=== PATIENT | male | born 1940 | race Caucasian/White ===

== ENCOUNTER 2016-09-17 22:00 | Inpatient (IN) | payer MEDICARE, MEDICAID ==
[2016-09-18 00:02] VITALS: BP 140/82
--- NOTE | 2016-09-18 02:47 | Progress Notes ---
Case was discussed with staff of the patient, reviewed records. Covering for Dr. Lanza who saw him yesterday. The patient has been psychotic and agitated. He has been confused, continues to be unable to participate and make safe plan for self-care. He is compliant with the medication with no side effects and the patient is recommended to transfer to [facility] when medically cleared. Thank you very much for allowing me to participate in the care of this most interesting gentleman. JOB# [id number]
[2016-09-18 10:36] LABS: % BASOPHILS 0.9 % (0.0-2.0); % LYMPHOCYTES 16.6 % (20.0-50.0); % MONOCYTES 4.4 % (2.0-10.0); % NEUTROPHILS 77.1 % (40.0-80.0); HEMATOCRIT 41.5 % (39.0-49.0); HEMOGLOBIN 13.9 gm/dL (12.6-17.4); MEAN CELL VOLUME 86.4 fl (80-99); MEAN CORPUSCULAR HGB CONC 33.6 pg (28.0-36.0); MEAN PLATELET VOLUME 8.3 fl; NEUTROPHILE ABSOLUTE 11.3 Th/cmm (1.8-8.0); PLATELET COUNT 172 Th/cmm (150-400); RED CELL DISTRIBUTION WIDTH 12.3 % (11.5-20.0)
[2016-09-18 10:40] LABS: WHITE BLOOD COUNT 14.5 Th/cmm (4.8-10.8)
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
[2016-09-18] MEDS: INSULIN ASPART SLIDING SCALE 100 UNITS/ML UNIT SUBQ SCH ×3 (13:40→22:59)
[2016-09-18] MEDS ORDERED: VTE Chemical Prophylaxis Screen/Admission MC PRN (15:35)
--- NOTE | 2016-09-19 01:19 | Psychosocial Evaluation ---
INITIAL EVALUATION AND MENTAL STATUS EXAMINATION CHIEF COMPLAINT: "Get out of here." HISTORY OF PRESENT ILLNESS: The patient is a 75-year-old male who was transferred from med-surg unit to the geropsychiatry unit because of aggressive behavior and irritability and agitation. The patient while in med-surg unit kept yelling and screaming and combative with staff and confused. The patient also was not able to follow any of the directions, also was restless and he was irritable and in angry mood and hitting the staff. Also kept trying to get out of the bed. The patient is still doing the same behavior and is still combative and tries to hit staff. Also is still trying to get out of the bed and he is high fall risk and the patient was placed on 1:1 observation because of high fall risk. The patient also is agitated and was not able to answer any of my questions because of his anger and irritability and agitation. He also has been combative and tries to hit staff and peers and he was threatening me when I was trying to talk to him. PAST PSYCHIATRIC HISTORY: The patient has history what seems to be schizoaffective disorder bipolar type. The patient is taking Depakote and Zoloft. PAST MEDICAL HISTORY: The patient has insulin-dependent diabetes mellitus. CHEMICAL-DEPENDENCY HISTORY: The patient denies any item. FAMILY PSYCHIATRIC HISTORY: Not known. SOCIAL HISTORY: The patient is having an address in [place] and it seemed that he is living with his family. No known alcohol or street drug use. No known legal issues or any history of abuse. ALLERGIES: No known allergies. MENTAL STATUS EXAMINATION: The patient appears his stated age, disheveled, irritable mood and angry. Thought processes are with poverty of speech and disorganized and with threatening tone of voice. The patient denies any auditory or visual hallucinations, but actively responding to stimuli. The patient did not answer questions regarding suicide or homicide. The patient is alert, but unable to assess his orientation or memory at this time because of his confusion and agitation. Poor insight and he is angry and does not answer any of the questions. Poor judgment and he is aggressive and combative with the staff when they are trying to help him with his ADLs. Unable to assess intelligence at this time because of his agitation. ASSESSMENT: PRIMARY DIAGNOSES: Schizoaffective disorder, bipolar type with psychotic features. SECONDARY DIAGNOSIS: Dementia, moderate with psychotic feature. TREATMENT PLAN: We will monitor the patient's behavior and condition closely. We will start individual as well milieu psychotherapy. We will start Seroquel in a dose of 25 mg twice a day and 50 mg at bedtime. Also we will start Depakote in a dose of 250 mg twice a day and we will continue to follow up. Also we will work on placement issue. ESTIMATED LENGTH OF STAY: A 5-7 days. THE PATIENT'S STRENGTHS AND WEAKNESSES: The patient seems to be in relatively fair health. Weaknesses is his poor impulse control and his agitation. AFTER DISCHARGE PLAN: The patient will discharge from the hospital and will need placement and outpatient treatment and followup will continue as an outpatient. CRITERIA FOR DISCHARGE: The patient will not be psychotic and will stabilize psychotropic medications and will establish outpatient treatment plans. JOB# [id number]
[2016-09-19] MEDS: INSULIN ASPART SLIDING SCALE 100 UNITS/ML UNIT SUBQ SCH ×4 (06:40→21:50)
[2016-09-19 07:37] LABS: ANION GAP 10.4 (7.0-16.0); BUN - UREA NITROGEN 16 mg/dL (7-25); BUN/CREATININE RATIO 17.8; CALCIUM SERUM 8.9 mg/dL (8.6-10.3); CARBON DIOXIDE 27.5 mEq/L (21.0-31.0); CHLORIDE 103 mEq/L (98-107); CREATININE - SERUM 0.9 mg/dL (0.7-1.3); GLUCOSE 121 mg/dL (70-105); SODIUM SERUM 138 mEq/L (136-145)
[2016-09-19 07:47] LABS: POTASSIUM SERUM 2.9 mEq/L (3.5-5.1)
[2016-09-19] MEDS ORDERED: Potassium Chloride 20 mEq ER Tab PO ONE (07:50)
[2016-09-19] MEDS ORDERED: Potassium Chloride Elixir 20 mEq /15 mL UDC PO ONE (08:45)
[2016-09-19] MEDS: Potassium Chloride Elixir 20 mEq /15 mL UDC PO SCH (08:55)
[2016-09-19] MEDS: Atorvastatin Calcium 10 MG TAB PO SCH (08:59)
[2016-09-19] MEDS ORDERED: Potassium Chloride 20 mEq ER Tab PO SCH (09:00)
--- NOTE | 2016-09-20 01:53 | Progress Notes ---
SUBJECTIVE: Chart was reviewed and the patient interviewed. Also, discussed the patient's condition with the staff and reviewed records and labs. The patient is still agitated and is still confused. The patient also is still trying to hit staff and he is still monitored closely, and he is still trying to get off bed and chair. Also, he is still severely combative with other patients and is still monitored on 1:1 observation. During interview, the patient has disorganized thoughts and he is unable to carry on coherent conversation. ASSESSMENT: The patient is still psychotic and can be dangerous to others. TREATMENT PLAN: We will continue monitoring his behavior and his condition closely. Also, the patient is started on Seroquel in a dose of 25 mg twice a day and 50 mg at bedtime with no side effects. We will continue same dose and continue to adjust the dose and monitoring behavior and work on behavioral modification. JOB# [id number]
[2016-09-20] MEDS: INSULIN ASPART SLIDING SCALE 100 UNITS/ML UNIT SUBQ SCH ×4 (07:07→22:13)
[2016-09-20 07:40] LABS: % BASOPHILS 0.6 % (0.0-2.0); % EOSINOPHILS 1.1 % (0.0-5.0); % LYMPHOCYTES 19.3 % (20.0-50.0); % MONOCYTES 4.7 % (2.0-10.0); % NEUTROPHILS 74.3 % (40.0-80.0); HEMOGLOBIN 13.5 gm/dL (12.6-17.4); MEAN CELL VOLUME 87.6 fl (80-99); MEAN CORPUSCULAR HEMOGLOBIN 29.6 pg (27.0-31.0); MEAN CORPUSCULAR HGB CONC 33.8 pg (28.0-36.0); MEAN PLATELET VOLUME 7.9 fl; NEUTROPHILE ABSOLUTE 7.3 Th/cmm (1.8-8.0); PLATELET COUNT 181 Th/cmm (150-400); RED BLOOD COUNT 4.57 Mil/cmm (3.80-5.80); RED CELL DISTRIBUTION WIDTH 12.1 % (11.5-20.0)
[2016-09-20 07:48] LABS: WHITE BLOOD COUNT 9.9 Th/cmm (4.8-10.8)
[2016-09-20 07:52] LABS: ANION GAP 10.7 (7.0-16.0); BUN - UREA NITROGEN 13 mg/dL (7-25); BUN/CREATININE RATIO 14.4; CARBON DIOXIDE 28.5 mEq/L (21.0-31.0); CHLORIDE 102 mEq/L (98-107); CREATININE - SERUM 0.9 mg/dL (0.7-1.3); GLUCOSE 111 mg/dL (70-105); POTASSIUM SERUM 3.2 mEq/L (3.5-5.1); SODIUM SERUM 138 mEq/L (136-145)
--- NOTE | 2016-09-20 09:39 | Diagnostic Imaging Report ---
CHEST X-RAY: AP view INDICATION: Leukocytosis COMPARISON: Chest x-ray 09/16/2016 FINDINGS: Chronic changes are seen with no focal consolidation or pleural effusions. There is evidence of prior median sternotomy. Mild cardiomegaly is noted. Degenerative changes of the spine are noted. IMPRESSION: Chronic lung changes with no focal consolidation identified. Evidence of prior median sternotomy. Mild cardiomegaly.
[2016-09-20] MEDS: Potassium Chloride Elixir 20 mEq /15 mL UDC PO SCH (09:40)
[2016-09-20] MEDS: Atorvastatin Calcium 10 MG TAB PO SCH (09:40)
--- NOTE | 2016-09-21 00:07 | Progress Notes ---
SUBJECTIVE: Chart was reviewed and the patient interviewed. Also, discussed the patient's condition with the staff and reviewed records and labs. The patient is still confused and he is still easily agitated and irritable. The patient also is still angry and is still aggressive and gets violent easily. The patient also is showing minimum interaction with others and he wants to be left alone. He also is still having severe mood swings and severe anxiety. Also, still yelling and screaming and unable to carry on coherent conversation. During interview, the patient is disheveled and he is in angry and in irritable mood and has disorganized thoughts. ASSESSMENT: The patient is still agitated and psychotic. TREATMENT PLAN: We will increase Seroquel to 37.5 mg twice a day and 50 mg at bedtime. Also, we will continue working on behavioral modifications and his irritability. Also, we will discuss with case work aide discharge plans and placement issue. Depakote blood level was ordered and results are pending. JOB# [id number]
[2016-09-21 07:00] LABS: % BASOPHILS 0.4 % (0.0-2.0); % EOSINOPHILS 1.8 % (0.0-5.0); % LYMPHOCYTES 20.9 % (20.0-50.0); % MONOCYTES 6.7 % (2.0-10.0); % NEUTROPHILS 70.2 % (40.0-80.0); HEMATOCRIT 35.9 % (39.0-49.0); HEMOGLOBIN 12.4 gm/dL (12.6-17.4); MEAN CELL VOLUME 87.2 fl (80-99); MEAN CORPUSCULAR HGB CONC 34.4 pg (28.0-36.0); MEAN PLATELET VOLUME 8.1 fl; NEUTROPHILE ABSOLUTE 7.2 Th/cmm (1.8-8.0); PLATELET COUNT 148 Th/cmm (150-400); RED BLOOD COUNT 4.12 Mil/cmm (3.80-5.80); WHITE BLOOD COUNT 10.2 Th/cmm (4.8-10.8)
[2016-09-21] MEDS: INSULIN ASPART SLIDING SCALE 100 UNITS/ML UNIT SUBQ SCH ×4 (07:19→20:36)
[2016-09-21 07:29] LABS: ANION GAP 8.3 (7.0-16.0); BUN - UREA NITROGEN 12 mg/dL (7-25); CALCIUM SERUM 8.4 mg/dL (8.6-10.3); CARBON DIOXIDE 27.9 mEq/L (21.0-31.0); CHLORIDE 105 mEq/L (98-107); CREATININE - SERUM 0.8 mg/dL (0.7-1.3); GLUCOSE 91 mg/dL (70-105); POTASSIUM SERUM 3.2 mEq/L (3.5-5.1); SODIUM SERUM 138 mEq/L (136-145)
[2016-09-21] MEDS: Atorvastatin Calcium 10 MG TAB PO SCH (10:07)
[2016-09-21] MEDS: Potassium Chloride Elixir 20 mEq /15 mL UDC PO SCH (10:20)
--- NOTE | 2016-09-22 02:55 | Progress Notes ---
Covering for Dr. Lanza. Case was discussed with staff of the patient. Reviewed records. This is a 75-year-old male who was admitted on 09/17/2016, transferred from the medical floor. He is well known to me as I have seen him covering for Dr. Lanza and now on the medical floor. The patient was aggressive, irritable, agitated and unable to follow directions. He was combative, trying to hit staff. ____ I tried to talk to him today, he kept calling me and he became very loud. He is unpredictable, impulsive, needing redirection and confused. He is on Depakote 250 mg twice a day and Seroquel 50 mg daily and 37 mg twice a day with no side effects, no sedation, no nausea and we will continue to work the patient in group therapy, milieu therapy, adjust the medication as needed. JOB# [id number]
[2016-09-22] MEDS: INSULIN ASPART SLIDING SCALE 100 UNITS/ML UNIT SUBQ SCH ×4 (06:37→21:00)
[2016-09-22 07:17] LABS: HEMOGLOBIN 13.3 gm/dL (12.6-17.4); MEAN PLATELET VOLUME 8.4 fl
[2016-09-22 07:19] LABS: ANION GAP 8.6 (7.0-16.0); BUN - UREA NITROGEN 12 mg/dL (7-25); BUN/CREATININE RATIO 13.3; CALCIUM SERUM 8.9 mg/dL (8.6-10.3); CARBON DIOXIDE 30.7 mEq/L (21.0-31.0); CHLORIDE 102 mEq/L (98-107); CREATININE - SERUM 0.9 mg/dL (0.7-1.3); GLUCOSE 177 mg/dL (70-105); POTASSIUM SERUM 3.3 mEq/L (3.5-5.1); SODIUM SERUM 138 mEq/L (136-145)
[2016-09-22 07:26] LABS: % BASOPHILS 0.5 % (0.0-2.0); % EOSINOPHILS 2.4 % (0.0-5.0); % LYMPHOCYTES 13.6 % (20.0-50.0); % MONOCYTES 6.6 % (2.0-10.0); % NEUTROPHILS 76.9 % (40.0-80.0); MEAN CELL VOLUME 86.5 fl (80-99); MEAN CORPUSCULAR HEMOGLOBIN 29.5 pg (27.0-31.0); MEAN CORPUSCULAR HGB CONC 34.1 pg (28.0-36.0); NEUTROPHILE ABSOLUTE 7.3 Th/cmm (1.8-8.0); PLATELET COUNT 174 Th/cmm (150-400); RED BLOOD COUNT 4.51 Mil/cmm (3.80-5.80); RED CELL DISTRIBUTION WIDTH 11.8 % (11.5-20.0); WHITE BLOOD COUNT 9.4 Th/cmm (4.8-10.8)
[2016-09-22] MEDS: Atorvastatin Calcium 10 MG TAB PO SCH (09:28)
[2016-09-22] MEDS: Potassium Chloride Elixir 20 mEq /15 mL UDC PO SCH ×2 (09:28→10:17)
--- NOTE | 2016-09-22 20:01 | Progress Notes ---
Case was discussed with staff of the patient, reviewed records. The patient continues to be easily irritable, agitated, yelling at staff, demanding, continues to be demented, confused, unable to make safe plan for self-care. He is compliant with the medication with no side effects, no sedation, no nausea, and he isolates himself, minimal interaction. Continues to have mood swings, tolerates increase in Seroquel with no side effects, no sedation, and no extrapyramidal symptoms. We will continue to work with the patient in group therapy, milieu therapy, and adjust the medication as needed. JOB# [id number]
[2016-09-23] MEDS: INSULIN ASPART SLIDING SCALE 100 UNITS/ML UNIT SUBQ SCH ×4 (06:30→20:43)
[2016-09-23 08:04] LABS: % BASOPHILS 0.1 % (0.0-2.0); % EOSINOPHILS 3.3 % (0.0-5.0); % LYMPHOCYTES 17.7 % (20.0-50.0); % MONOCYTES 8.1 % (2.0-10.0); % NEUTROPHILS 70.8 % (40.0-80.0); HEMATOCRIT 38.7 % (39.0-49.0); HEMOGLOBIN 13.2 gm/dL (12.6-17.4); MEAN CELL VOLUME 88.6 fl (80-99); MEAN CORPUSCULAR HEMOGLOBIN 30.3 pg (27.0-31.0); MEAN CORPUSCULAR HGB CONC 34.2 pg (28.0-36.0); MEAN PLATELET VOLUME 8.3 fl; NEUTROPHILE ABSOLUTE 6.6 Th/cmm (1.8-8.0); PLATELET COUNT 159 Th/cmm (150-400); RED BLOOD COUNT 4.37 Mil/cmm (3.80-5.80); RED CELL DISTRIBUTION WIDTH 12.2 % (11.5-20.0); WHITE BLOOD COUNT 9.4 Th/cmm (4.8-10.8)
[2016-09-23 08:19] LABS: ANION GAP 7.6 (7.0-16.0); BUN - UREA NITROGEN 9 mg/dL (7-25); CALCIUM SERUM 8.8 mg/dL (8.6-10.3); CARBON DIOXIDE 33.4 mEq/L (21.0-31.0); CHLORIDE 106 mEq/L (98-107); CREATININE - SERUM 0.9 mg/dL (0.7-1.3); GLUCOSE 127 mg/dL (70-105); SODIUM SERUM 143 mEq/L (136-145)
[2016-09-23] MEDS: Atorvastatin Calcium 10 MG TAB PO SCH (10:36)
[2016-09-23] MEDS: Potassium Chloride Elixir 20 mEq /15 mL UDC PO SCH (10:37)
--- NOTE | 2016-09-24 01:34 | Progress Notes ---
Case discussed with staff of the patient, reviewed records. The patient continues to be easily agitated, continues to be easily irritable, confused, continues to be unable to make safe plan for his self-care. He is sleeping well, eating well. He is compliant with the medication with no side effects, no sedation, no nausea, no extrapyramidal symptoms. He tolerated the increase in Zyprexa with no side effects, no sedation, no nausea, no extrapyramidal symptoms and we will continue to work with the patient in group therapy, milieu therapy, adjust the medication as needed. JOB# [id number]
[2016-09-24] MEDS: INSULIN ASPART SLIDING SCALE 100 UNITS/ML UNIT SUBQ SCH ×4 (06:29→20:51)
[2016-09-24 08:07] LABS: % BASOPHILS 0.6 % (0.0-2.0); % EOSINOPHILS 2.7 % (0.0-5.0); % LYMPHOCYTES 17.4 % (20.0-50.0); % MONOCYTES 8.2 % (2.0-10.0); % NEUTROPHILS 71.1 % (40.0-80.0); HEMATOCRIT 37.6 % (39.0-49.0); HEMOGLOBIN 12.8 gm/dL (12.6-17.4); MEAN CELL VOLUME 86.6 fl (80-99); MEAN CORPUSCULAR HEMOGLOBIN 29.5 pg (27.0-31.0); MEAN PLATELET VOLUME 8.4 fl; NEUTROPHILE ABSOLUTE 6.5 Th/cmm (1.8-8.0); PLATELET COUNT 182 Th/cmm (150-400); RED BLOOD COUNT 4.34 Mil/cmm (3.80-5.80); RED CELL DISTRIBUTION WIDTH 12.2 % (11.5-20.0); WHITE BLOOD COUNT 9.2 Th/cmm (4.8-10.8)
[2016-09-24] MEDS: Atorvastatin Calcium 10 MG TAB PO SCH (11:24)
[2016-09-24] MEDS: Potassium Chloride Elixir 20 mEq /15 mL UDC PO SCH (11:26)
[2016-09-25] MEDS: INSULIN ASPART SLIDING SCALE 100 UNITS/ML UNIT SUBQ SCH ×4 (07:25→20:53)
[2016-09-25] MEDS: Atorvastatin Calcium 10 MG TAB PO SCH (10:52)
[2016-09-25] MEDS: Potassium Chloride Elixir 20 mEq /15 mL UDC PO SCH (10:53)
--- NOTE | 2016-09-25 22:03 | Progress Notes ---
SUBJECTIVE: Chart was reviewed and the patient interviewed. Also discussed the patient's condition with the staff and reviewed records and labs. The patient is still angry and is still in irritable mood. The patient also is still having episodes of yelling and screaming, although it seems to be slightly less than before. He is still confused and still needs lots of redirections. Otherwise, the patient has been compliant with taking his medications with no side effects of medications. ASSESSMENT: The patient is still psychotic and aggressive. TREATMENT PLAN: We will continue monitoring his behavior and his condition closely. Also, we will increase Seroquel to 50 mg twice a day and 50 mg at bedtime and we will continue to follow up closely and working on discharge plans and placement issue. Discussed with child support case officer possible placement of the patient in [facility] and will follow up with that. JOB# [id number]
--- NOTE | 2016-09-26 02:29 | Progress Notes ---
SUBJECTIVE: Chart reviewed and the patient interviewed. Also discussed the patient's condition with the staff and reviewed records and labs. The patient continues to be paranoid and confused. The patient also still has episodes of yelling and screaming and he has been having difficulty following any of staff directions. He also is still restless and he gets agitated when staff tries to redirect him or when they start to help him with his ADLs. Otherwise, the patient is compliant with taking his medications with no side effects of medications. ASSESSMENT: The patient is still psychotic and agitated. TREATMENT PLAN: We will continue monitoring Seroquel dose and we will continue to monitor his behavior closely. Also, continue to work on behavioral modification and confusion. Also, transplant case manager will continue to work on adjusting of psychotropic medications. JOB# [id number]
[2016-09-26] MEDS: INSULIN ASPART SLIDING SCALE 100 UNITS/ML UNIT SUBQ SCH ×4 (06:45→21:19)
[2016-09-26] MEDS: Atorvastatin Calcium 10 MG TAB PO SCH (10:11)
[2016-09-26] MEDS: Potassium Chloride Elixir 20 mEq /15 mL UDC PO SCH (10:12)
--- NOTE | 2016-09-27 02:11 | Progress Notes ---
SUBJECTIVE: Chart reviewed and the patient interviewed. Also discussed the patient's condition with the staff and reviewed records and labs. The patient is still irritable and has still periods of agitation and anger. The patient also is still withdrawn and he still does not want to be bothered. Also, is still irritable and gets agitated easily. Otherwise, the patient continued to comply with taking his medications with no side effects of medications. ASSESSMENT: The patient is still psychotic and aggressive. TREATMENT PLAN: We will continue monitoring his behavior closely. Also, Seroquel was increased to 50 mg twice a day and 50 mg at bedtime. Also, cyanide case hardener is still working on placement issue and discharge plans. JOB# [id number]
[2016-09-27] MEDS: INSULIN ASPART SLIDING SCALE 100 UNITS/ML UNIT SUBQ SCH ×4 (06:54→21:48)
[2016-09-27] MEDS: Potassium Chloride Elixir 20 mEq /15 mL UDC PO SCH (09:03)
[2016-09-27] MEDS: Atorvastatin Calcium 10 MG TAB PO SCH (09:04)
--- NOTE | 2016-09-28 04:12 | Progress Notes ---
SUBJECTIVE: Chart reviewed and the patient interviewed. Also discussed the patient's condition with the staff and reviewed records and labs. The patient is still confused and is still in angry and in irritable mood. The patient also is still easily agitated. Also has periods of yelling and screaming. The patient also is showing lack of motivations and lack of interest. Otherwise, the patient is compliant with taking his medications with no side effects of medications. ASSESSMENT: The patient is still psychotic and can be dangerous to others and aggressive. TREATMENT PLAN: We will continue monitoring his behavior and his condition closely. Also, continue adjusting psychotropic medications and monitor Seroquel dose. Also discussed with pillowcase folder discharge plans and placement issue and still waiting and still working on his placement. JOB# [id number]
[2016-09-28] MEDS: INSULIN ASPART SLIDING SCALE 100 UNITS/ML UNIT SUBQ SCH ×4 (07:10→21:32)
[2016-09-28] MEDS: Atorvastatin Calcium 10 MG TAB PO SCH (09:19)
[2016-09-28] MEDS: Potassium Chloride Elixir 20 mEq /15 mL UDC PO SCH (09:20)
--- NOTE | 2016-09-29 06:23 | Progress Notes ---
The patient was seen and evaluated. The patient's chart was reviewed. Dr. Patiño covering for Dr. Lanza. SUBJECTIVE: Overnight staff members reported that the has been a little bit less irritable and less redirection, little bit more redirectable, less banging at his head. Today on [id number] evaluation, the patient easily awakened. He reports he has been feeling slightly better. Denies any banging his head at the wall. MENTAL STATUS EXAMINATION: Still is slightly irritable, agitated, denies any side effects to the medications. Current medications the patient is taking is atorvastatin, clopidogrel, Depakote 250 mg twice a day, Ativan as needed, Namenda 10 mg twice a day with Seroquel 150 mg a day. ASSESSMENT AND PLAN: The patient is a 75-year-old male with a history of aggressive behavior, banging himself at the head, stabilizing with the current medication regimen. We will continue monitoring as the patient still needs slightly some redirection and being very aggressive. Therefore, we will continue with the current medication to target the patient's aggressive behavior. JOB# [id number] MTDAndrew
[2016-09-29] MEDS: INSULIN ASPART SLIDING SCALE 100 UNITS/ML UNIT SUBQ SCH ×4 (07:02→21:00)
[2016-09-29] MEDS: Potassium Chloride Elixir 20 mEq /15 mL UDC PO SCH (10:37)
[2016-09-29] MEDS: Atorvastatin Calcium 10 MG TAB PO SCH (10:38)
--- NOTE | 2016-09-30 02:07 | Progress Notes ---
This is Dr. Patiño covering for Dr. Lanza. The patient was seen and evaluated. The patient's chart is reviewed. Overnight, staff member reported the patient has been slightly irritable, using his room, isolated. On [id number]-kk-[id number] evaluation, the patient is in room, isolated, withdrawn. When attempted to have a conversation, the patient misses the conversation, needed some redirection to have a conversation. Still endorsing suicidal ideation, helplessness. MENTAL STATUS EXAMINATION: He is still irritable, agitated, helplessness, endorsing hopelessness, poor insight, poor judgment and poor impulse control. ASSESSMENT AND PLAN: A 75-year-old male with a history of concussive behavior who had been banging himself on the head, stabilizing with the current medication regimen. We will continue the current medication regimen to continue targeting the patient's psychotic behavior. JOB# [id number] MTDD
[2016-09-30] MEDS: INSULIN ASPART SLIDING SCALE 100 UNITS/ML UNIT SUBQ SCH ×3 (06:44→20:44)
[2016-09-30] MEDS: Atorvastatin Calcium 10 MG TAB PO SCH (09:08)
[2016-09-30] MEDS: Potassium Chloride Elixir 20 mEq /15 mL UDC PO SCH (09:08)
--- NOTE | 2016-09-30 19:23 | Progress Notes ---
SUBJECTIVE: The patient was seen, chart reviewed, and discussed with staff. The patient is currently in the hospital under the care of Dr. Lanza, aggressive, irritable, agitated, not following direction, restless, and confused. The patient is in a Maryjane chair, combative, yelling at me. He has history of schizoaffective disorder, early dementia. The patient is isolative, confused, "I'm here because I'm here. AO to name only. He is medication compliant. He is eating with prompting and needing a lot of redirection. ASSESSMENT: The patient remains symptomatic, aggressive, irritable, confused, and disoriented, not safe for a lower level of care due to the persistence of his symptoms. PLAN: Continue to monitor and titrate medications as tolerated. Due to the persistence of the patient's symptoms, he is requiring continued inpatient hospitalization. [facility]# [id number]
[2016-10-01] MEDS: INSULIN ASPART SLIDING SCALE 100 UNITS/ML UNIT SUBQ SCH ×4 (06:39→21:00)
[2016-10-01] MEDS: Atorvastatin Calcium 10 MG TAB PO SCH (09:22)
[2016-10-01] MEDS: Potassium Chloride Elixir 20 mEq /15 mL UDC PO SCH (09:23)
[2016-10-01] MEDS: QUEtiapine Fumarate 50 MG, QUEtiapine Fumarate 12.5 MG PO SCH (21:30)
--- NOTE | 2016-10-01 21:36 | Progress Notes ---
Covering for Dr. Lanza. Case was discussed with staff of the patient, reviewed records. This is a well known case to me. I have seen him many times covering for Dr. Lanza. The patient continues to be agitated, irritable, aggressive, and hard to follow direction. He is on a Maryjane chair, tends to become , yelling, continues to be symptomatic, aggressive, irritable, not ready to be discharged, disoriented, and seemed not safe for lower level of care. I will be increasing his Seroquel dose to 62.5 mg at bedtime and so far no sedation, no nausea, and no extrapyramidal symptoms, and we will continue to work with the patient in group therapy, milieu therapy, and adjust medication as needed. JOB# [id number]
[2016-10-02] MEDS: INSULIN ASPART SLIDING SCALE 100 UNITS/ML UNIT SUBQ SCH ×4 (06:34→20:31)
[2016-10-02] MEDS: Potassium Chloride Elixir 20 mEq /15 mL UDC PO SCH (08:27)
[2016-10-02] MEDS: Atorvastatin Calcium 10 MG TAB PO SCH (08:28)
--- NOTE | 2016-10-02 19:38 | Progress Notes ---
Case discussed with staff of patient, reviewed records. The patient continues to be agitated, confused, continues to have poor insight. Continues to be unable to make safe plan for self-care and easily agitated, demanding, at times loud. He is compliant with the medication with no side effects, no sedation, no nausea, no extrapyramidal symptoms. I did increase his Seroquel yesterday to ____ mg. It is too early to make further adjustments. No side effects with the medication, no sedation, no nausea, no extrapyramidal symptoms. We will continue to work with the patient in group therapy, milieu therapy, adjust medication as needed. JOB# [id number]
[2016-10-02] MEDS: QUEtiapine Fumarate 50 MG, QUEtiapine Fumarate 12.5 MG PO SCH (20:33)
[2016-10-03] MEDS: INSULIN ASPART SLIDING SCALE 100 UNITS/ML UNIT SUBQ SCH ×4 (06:38→22:06)
[2016-10-03] MEDS: Potassium Chloride Elixir 20 mEq /15 mL UDC PO SCH (09:00)
[2016-10-03] MEDS: Atorvastatin Calcium 10 MG TAB PO SCH (09:01)
--- NOTE | 2016-10-03 19:44 | Discharge Summary ---
IDENTIFYING INFORMATION: The patient is a 75-year-old male. HISTORY OF PRESENT ILLNESS: The patient was transferred from the medical floor. He was admitted because of agitation, irritability. The patient himself was not a very good historian. COURSE IN THE HOSPITAL: The patient was continued with Depakote 250 mg twice a day. The patient also was given Ativan every 4 hours as needed and Namenda was continued 10 mg twice a day and Seroquel was initiated by Dr. Lanza, increased to 50 mg twice a day and later I increased the dose at bedtime to 62.5 mg at bedtime. He was continued with metformin, Glucophage. The patient also was on insulin, Plavix and atorvastatin. The patient progressively got better. He was no longer agitated or demanding or acting in any way aggressive. So as he improved, we felt he could be discharged to a lesser level of care. FINAL DIAGNOSIS: AXIS I: Dementia with behavioral disturbances. MEDICAL DIAGNOSES: Deferred to the medical doctor. DISPOSITION: [facility]. The patient will follow up with the psychiatrist, primary care physician and therapist there. EXPECTED OUTCOME: Stable if the patient complies with the above. JOB# [id number]
[2016-10-03] MEDS: QUEtiapine Fumarate 50 MG, QUEtiapine Fumarate 12.5 MG PO SCH (20:22)
[2016-10-04] MEDS: INSULIN ASPART SLIDING SCALE 100 UNITS/ML UNIT SUBQ SCH ×2 (06:43→13:30)
[2016-10-04] MEDS: Potassium Chloride Elixir 20 mEq /15 mL UDC PO SCH (09:17)
[2016-10-04] MEDS: Atorvastatin Calcium 10 MG TAB PO SCH (09:19)
--- NOTE | 2016-10-04 20:42 | Discharge Summary ---
DISCHARGE ADDENDUM Case was discussed with staff of the patient, reviewed records. The patient was supposed to have been discharged yesterday; however, he did not go because his pulse was high, so it has to be postponed. According to the charge nurse, Ms. , she said that the medical doctor has already given okay for the patient to go home that he is medically cleared and doing well and as per Dr. Gomes, he is sleeping well and eating well. No acting out behavior. So, the patient will be discharged back to the group home and will follow up with the psychiatrist, primary care physician, and therapist. Discharge summary has already been done. JOB# [id number]
== END 2016-10-04 14:00 | DRG 56 ==
LOC: GERO 22:00
PROVIDERS: ADMIT Psychiatry & Neurology Psychiatry; ATTEND Psychiatry & Neurology Psychiatry
DX: G30.9 Alzheimer's disease, unspecified (principal); G93.41 Metabolic encephalopathy; E44.0 Moderate protein-calorie malnutrition; E11.65 Type 2 diabetes mellitus with hyperglycemia; N39.0 Urinary tract infection, site not specified; F25.0 Schizoaffective disorder, bipolar type; F02.80 Dementia in other diseases classified elsewhere, unspecified severity, without behavioral disturbance, psychotic disturbance, mood disturbance, and anxiety; E87.6 Hypokalemia; F29 Unspecified psychosis not due to a substance or known physiological condition; R26.9 Unspecified abnormalities of gait and mobility; Z68.30 Body mass index [BMI] 30.0-30.9, adult
CPT/HCPCS: 36415-UA; 71010-TC; 80048-TC; 80164-TC; 82948-90; 83735-TC; 84550-TC; 85025-TC; 90899; G0410; J1815; Z7610

== ENCOUNTER 2016-10-23 21:28 | Inpatient (IN) | payer MEDICARE, MEDICAID ==
--- NOTE | 2016-10-23 21:36 | ED Physician Chart ---
Chief Complaint/HPI - Patient Information Date Seen:: 10/23/16 Time Seen:: 21:30 Chief Complaint:: weakness History of Present Illness:: 75-year-old male history of dementia, brought in by ambulance with apparent acute, worsening, moderate to severe, generalized weakness with associated decreased ability to ambulate and use the restroom on his own. This been happening for the past 2 days. He also has some associated intermittent hypoglycemic episodes. History limited as patient has underlying dementia History provided by EMS and EMS run sheet Allergies:: Allergies Allergy/AdvReac Type Severity Reaction Status Date / Time No Known Allergies Allergy Verified 09/15/16 13:37 Historian:: EMS Review:: Nurse's Note Reviewed, EMS run form Reviewed Review of Systems - Review of Systems Other: Complete system review otherwise unremarkable except as noted in HPI. Past Medical History - Past Medical History Past Medical History: DM, Dementia Family History: None Social History: Non Smoker, No Alcohol, No Drug Use, Care Facility Surgical History: None Psychiatricy History: Dementia Medication: Reviewed Family Medical History - Family Member Mother History Unknown: Yes Ethnicity: Unknown Living Status: Unknown Hx Family Cancer: (unknown) Hx Family Coronary Artery Disease: (unknown) Hx Family Congestive Heart Failure: (unknown) Hx Family Hypertension: (unknown) Hx Family Stroke: (unknown) Hx Family Diabetes: (unknown) Hx Family Seizures: (unknown) Hx Family Dementia: (unknown) Hx Family AIDS: (unknown) Hx Family COPD: (unknown) Hx Family Hepatitis: (unknown) Hx Family Psychiatric Problems: (unknown) Hx Family Tuberculosis: (unknown) Physical Exam - Physical Examination Other:: INITIAL VITAL SIGNS: Reviewed by me GENERAL: Alert and interactive but severely demented and uncooperative. No acute distress HEAD: Head is normocephalic and atraumatic EYES: EOMI. . No scleral icterus. No conjunctival injection ENT: Moist mucous membranes. NECK: Supple. No masses. Full range of motion RESPIRATORY: No tachypnea. Clear breath sounds bilaterally. No wheezing, rales, or rhonchi CV: Regular rate and rhythm. No murmurs, rubs, or gallops ABDOMEN: Soft, non-distended, non-tender. No guarding. No rebound. No masses. EXTREMITIES: No deformity. No cyanosis. No edema. SKIN: Warm and dry. No obvious rashes. NEUROLOGIC: Alert and oriented. Face is symmetric. Speech is normal. Moves all extremities equally. Motor and sensory distally intact. Labs/Radiology/EKG Results - Lab Results Results: Lab Results 10/23/16 10/23/16 10/23/16 Range/Units 21:51 21:51 21:51 WBC 9.7 (4.8-10.8) Th/cmm RBC 4.36 (3.80-5.80) Mil/cmm Hgb 12.8 (12.6-17.4) gm/dL Hct 38.4 L (39.0-49.0) % MCV 88.1 (80-99) fl MCH 29.4 (27.0-31.0) pg MCHC Differential 33.4 (28.0-36.0) pg RDW 13.5 (11.5-20.0) % Plt Count 198 (150-400) Th/cmm MPV 8.6 fl Neutrophils % 71.1 (40.0-80.0) % Lymphocytes % 21.0 (20.0-50.0) % Monocytes % 6.4 (2.0-10.0) % Eosinophils % 0.9 (0.0-5.0) % Basophils % 0.6 (0.0-2.0) % PT 10.4 (9.5-11.5) SECONDS INR 1.05 (0.5-1.4) PTT (Actin FS) 25.3 L (26.0-38.0) SECONDS Sodium 137 (136-145) mEq/L Potassium 3.7 (3.5-5.1) mEq/L Chloride 103 (98-107) mEq/L Carbon Dioxide 26.7 (21.0-31.0) mEq/L Anion Gap 11.0 (7.0-16.0) BUN 11 (7-25) mg/dL Creatinine 0.9 (0.7-1.3) mg/dL Est GFR ( Amer) TNP Est GFR (Non-Af Amer) TNP BUN/Creatinine Ratio 12.2 Glucose 150 H (70-105) mg/dL Whole Bld Lactic Acid (0.60-2.00) mmol/L Calcium 9.5 (8.6-10.3) mg/dL Total Bilirubin 0.5 (0.3-1.0) mg/dL AST 16 (13-39) U/L ALT 9 (7-52) U/L Alkaline Phosphatase 69 (34-104) U/L Total Protein 7.0 (6.0-8.3) gm/dL Albumin 3.7 L (4.2-5.5) gm/dL Globulin 3.3 gm/dL Albumin/Globulin Ratio 1.1 (1.0-1.8) 10/23/16 Range/Units 21:51 WBC (4.8-10.8) Th/cmm RBC (3.80-5.80) Mil/cmm Hgb (12.6-17.4) gm/dL Hct (39.0-49.0) % MCV (80-99) fl MCH (27.0-31.0) pg MCHC Differential (28.0-36.0) pg RDW (11.5-20.0) % Plt Count (150-400) Th/cmm MPV fl Neutrophils % (40.0-80.0) % Lymphocytes % (20.0-50.0) % Monocytes % (2.0-10.0) % Eosinophils % (0.0-5.0) % Basophils % (0.0-2.0) % PT (9.5-11.5) SECONDS INR (0.5-1.4) PTT (Actin FS) (26.0-38.0) SECONDS Sodium (136-145) mEq/L Potassium (3.5-5.1) mEq/L Chloride (98-107) mEq/L Carbon Dioxide (21.0-31.0) mEq/L Anion Gap (7.0-16.0) BUN (7-25) mg/dL Creatinine (0.7-1.3) mg/dL Est GFR ( Amer) Est GFR (Non-Af Amer) BUN/Creatinine Ratio Glucose (70-105) mg/dL Whole Bld Lactic Acid 1.65 (0.60-2.00) mmol/L Calcium (8.6-10.3) mg/dL Total Bilirubin (0.3-1.0) mg/dL AST (13-39) U/L ALT (7-52) U/L Alkaline Phosphatase (34-104) U/L Total Protein (6.0-8.3) gm/dL Albumin (4.2-5.5) gm/dL Globulin gm/dL Albumin/Globulin Ratio (1.0-1.8) ED Septic Shock - . Is Septic Shock (SBP<90, OR Lactate>4 mmol\L) present?: No Reassessment (Disposition) - Reassessment Reassessment:: This patient is severely demented. The history is very limited and difficult to obtain given his dementia. He has apparently a worsening weakness with decreasing activities daily living which include decreasing ability to ambulate and use the restroom on his own. This is apparently been happening for the past couple of days. Is also some possibly related to hypoglycemic episodes. Blood sugar here is 150. I discussed the case in detail with Dr. Chen who expressed good understanding of the case. He will admit the patient for further workup and treatment. Reassessment Condition:: Unchanged - Diagnosis Diagnosis:: Failure to thrive with decreasing activities of daily living Generalized weakness Diabetes mellitus type 2 Dementia History of intermittent hypoglycemia - Patient Disposition Discharge/Transfer:: Acute Care w/in this hosp Admitting Medical Physician:: Pj Chen Time:: 23:00 Condition at Disposition:: Stable ED Discharge Plan - Patient Disposition Admit/Discharge/Transfer: Acute Care w/in this hosp
[2016-10-23] MEDS ORDERED: Sodium Chloride 0.9% 1,000 ML IV ONE (21:37)
[2016-10-23 22:13] LABS: % BASOPHILS 0.6 % (0.0-2.0); % EOSINOPHILS 0.9 % (0.0-5.0); % MONOCYTES 6.4 % (2.0-10.0); % NEUTROPHILS 71.1 % (40.0-80.0); HEMATOCRIT 38.4 % (39.0-49.0); HEMOGLOBIN 12.8 gm/dL (12.6-17.4); MEAN CELL VOLUME 88.1 fl (80-99); MEAN CORPUSCULAR HEMOGLOBIN 29.4 pg (27.0-31.0); MEAN CORPUSCULAR HGB CONC 33.4 pg (28.0-36.0); MEAN PLATELET VOLUME 8.6 fl; NEUTROPHILE ABSOLUTE 6.9 Th/cmm (1.8-8.0); PLATELET COUNT 198 Th/cmm (150-400); RED BLOOD COUNT 4.36 Mil/cmm (3.80-5.80); RED CELL DISTRIBUTION WIDTH 13.5 % (11.5-20.0); WHITE BLOOD COUNT 9.7 Th/cmm (4.8-10.8)
[2016-10-23] MEDS ORDERED: Haloperidol Lactate 5 mg/mL 1mL Vial ONE (22:17)
[2016-10-23] MEDS ORDERED: Haloperidol Lactate 5 mg/mL 1mL Vial IM STA (22:17)
[2016-10-23 22:21] LABS: INR 1.05 (0.5-1.4); PROTHROMBIN TIME (TEST) 10.4 SECONDS (9.5-11.5)
[2016-10-23 22:22] LABS: ALB/GLOB RATIO 1.1 (1.0-1.8); ALKALINE PHOSPHATASE 69 U/L (34-104); BILIRUBIN,TOTAL 0.5 mg/dL (0.3-1.0); BUN - UREA NITROGEN 11 mg/dL (7-25); BUN/CREATININE RATIO 12.2; CALCIUM SERUM 9.5 mg/dL (8.6-10.3); CARBON DIOXIDE 26.7 mEq/L (21.0-31.0); CHLORIDE 103 mEq/L (98-107); CREATININE - SERUM 0.9 mg/dL (0.7-1.3); GLUCOSE 150 mg/dL (70-105); POTASSIUM SERUM 3.7 mEq/L (3.5-5.1); SGOT 16 U/L (13-39); SGPT/ALT 9 U/L (7-52); SODIUM SERUM 137 mEq/L (136-145)
[2016-10-24 01:42] LABS: URINE BILIRUBIN SMALL (NEGATIVE); URINE BLOOD NEGATIVE (NEGATIVE); URINE COLOR YELLOW; URINE GLUCOSE (UA) NEGATIVE (NEGATIVE); URINE KETONE 15 mg/dL (NEGATIVE); URINE PH 5.5; URINE PROTEIN TRACE mg/dL (NEGATIVE); URINE UROBILINOGEN 0.2 E.U./dL (0.2 - 1.0)
[2016-10-24 01:43] LABS: URINE BACTERIA FEW /hpf (NONE SEEN); URINE EPITHELIAL CELLS FEW /lpf (FEW); URINE RBC 0-2 /hpf (0-5); URINE WBC 0-2 /hpf (0-5)
[2016-10-24] MEDS: D5-0.45NS 1,000 ML IV SCH ×2 (02:00→21:51)
[2016-10-24] MEDS ORDERED: Pneumococcal Vaccine 0.5 mL Vial IM ONE (03:20)
[2016-10-24] MEDS: INSULIN ASPART SLIDING SCALE 100 UNITS/ML UNIT SUBQ SCH ×4 (06:39→20:41)
[2016-10-24] MEDS: Potassium Chloride Elixir 20 mEq /15 mL UDC PO SCH (09:26)
--- NOTE | 2016-10-24 10:28 | Consultation ---
HISTORY OF PRESENT ILLNESS: A 75-year-old male. The patient brought in as the patient responding less. They noticed that the patient has weakness though he is moving his arms and legs here. The patient has decreased ambulation. The patient ____ and somewhat weaker now. The patient had episodes of hypoglycemia also. PAST MEDICAL HISTORY: The patient has underlying history of dementia, diabetes. No definite seizures noted. REVIEW OF SYSTEMS: Twelve point negative except for above. MEDICATIONS: As per reconciliation. PHYSICAL EXAMINATION: VITAL SIGNS: Temperature 98.2, blood pressure 130/70, pulse is 74. NECK: Supple. No bruits. HEART: Sounds S1, S2. LUNGS: Clear. ABDOMEN: Soft. NEUROLOGIC: The patient's eyes closed. He will open them up. He will respond to his name, but just mumbles. Sometimes says his name and then does not interact much. The patient will withdraw upper and lower extremities to stimulus. Pupils react to light. Corneal reflex present. INVESTIGATIONS: I did not see any CAT scan at the moment. We will order that. LABORATORY DATA: WBC 9.7, hemoglobin 12.8, glucose 150. UA, wbc 0-2. IMPRESSION: 1. Encephalopathy. 2. Dementia. 3. Some parkinsonian features with rigidity, bradykinesia, slowness. 4. History of diabetes. 5. History of schizophrenia. Medications____ noted. I do not know whether he has been on any neuroleptics in the long term. He had been on Haldol, which could be ____ for some other parkinsonian features. High dose of Seroquel. 6. Muscles weakness. 7. Hyperlipidemia. MANAGEMENT: CT scan head and labs. Medication adjustment. Recommend Psychiatry input. JOB# [id number]
--- NOTE | 2016-10-24 13:48 | History & Physical ---
AGE: 75. SEX: Male. PHYSICIAN: Dr. Chen. FIRE APPARATUS ENGINEER: Dr. Lanza. REASON FOR THE CONSULT: Agitation. HISTORY OF PRESENT ILLNESS: The patient is a 75-year-old male who lives currently in [facility]. The patient has been agitated and has been aggressive. The patient also has been angry and in irritable mood and has been hitting and striking out staff and others in the skilled nursing. Also, has not been able to follow any of staff directions. The patient also is restless and in irritable mood. The patient has been taking Seroquel 75 mg twice a day and 100 mg at bedtime, but he is still aggressive and restless. PAST PSYCHIATRIC HISTORY: The patient has history of dementia. PAST MEDICAL HISTORY: As per Dr. Chen. SOCIAL HISTORY: The patient lives in [facility]. No known alcohol or street drug use. MENTAL STATUS EXAM: The patient appears his stated age. Anxious. Restless. Currently, seems to be sedated since he did take an injection. He was sedated while in the Emergency Room because of agitation and ____. The patient did not answer questions regarding hallucinations or delusions, but he seems to be actively responding. The patient is alert, but seems to be disoriented to time, place, person and situation. Impaired immediate, recent and remote memories and he was not able even to tell me his date. Poor insight. Poor judgment. ASSESSMENT: PRIMARY DIAGNOSIS: Unspecified psychosis. SECONDARY DIAGNOSIS: Dementia, moderate to severe, with psychotic features. TREATMENT PLAN: We will continue monitoring his behavior and his condition closely. Continue to work on his poor impulse control. Also, we will increase Seroquel to 75 mg twice a day and 125 mg at bedtime and we will continue to follow up. Thanks to Dr. Chen and will follow up with you. JOB# [id number]
--- NOTE | 2016-10-24 15:00 | Diagnostic Imaging Report ---
Head CT without intravenous contrast Indication: CVA Comparison: None Technique: Axial images were obtained from the vertex to the skull base without IV contrast. Coronal reconstructions were made. Total DLP: 655, CTDI34.4 FINDINGS: Exam is limited as patient was uncooperative including limited evaluation of the vertex. Otherwise no gross hemorrhage is identified. Atrophy is noted. The chau-white matter differentiation is preserved. The ventricles and basal cisterns are patent. Atherosclerotic vascular disease is noted. No mass effect or midline shift. Evaluation for skull fracture is limited on this exam. There is partial opacification of right sphenoid sinus. Additional mucosal thickening of the paranasal sinuses noted. Postsurgical changes of the right globe are noted. IMPRESSION: Limited exam as patient was uncooperative. There is suboptimal evaluation of the vertex. Otherwise no gross hemorrhage is identified. Repeat exam is recommended, when clinically feasible Atrophy. Atherosclerotic vascular disease. Right sphenoid sinus inflammatory disease with areas of bony remodeling likely suggestive of chronic sinusitis in this region.
[2016-10-24] MEDS ORDERED: Atorvastatin Calcium 10 MG TAB PO SCH (21:00)
[2016-10-25] MEDS: INSULIN ASPART SLIDING SCALE 100 UNITS/ML UNIT SUBQ SCH ×2 (06:33→12:14)
[2016-10-25] MEDS: Potassium Chloride Elixir 20 mEq /15 mL UDC PO SCH (08:33)
--- NOTE | 2016-10-25 08:34 | General Progress Note ---
Objective - Results Result Diagrams: 10/23/16 21:51 10/23/16 21:51 Recent Labs: Laboratory Last Values WBC 9.7 Th/cmm (4.8-10.8) 10/23/16 21:51 RBC 4.36 Mil/cmm (3.80-5.80) 10/23/16 21:51 Hgb 12.8 gm/dL (12.6-17.4) 10/23/16 21:51 Hct 38.4 % (39.0-49.0) L 10/23/16 21:51 MCV 88.1 fl (80-99) 10/23/16 21:51 MCH 29.4 pg (27.0-31.0) 10/23/16 21:51 MCHC Differential 33.4 pg (28.0-36.0) 10/23/16 21:51 RDW 13.5 % (11.5-20.0) 10/23/16 21:51 Plt Count 198 Th/cmm (150-400) 10/23/16 21:51 MPV 8.6 fl 10/23/16 21:51 Neutrophils % 71.1 % (40.0-80.0) 10/23/16 21:51 Lymphocytes % 21.0 % (20.0-50.0) 10/23/16 21:51 Monocytes % 6.4 % (2.0-10.0) 10/23/16 21:51 Eosinophils % 0.9 % (0.0-5.0) 10/23/16 21: Basophils % 0.6 % (0.0-2.0) 10/23/16 21:51 PT 10.4 SECONDS (9.5-11.5) 10/23/16 21:51 INR 1.05 (0.5-1.4) 10/23/16 21:51 PTT (Actin FS) 25.3 SECONDS (26.0-38.0) L 10/23/16 21:51 Sodium 137 mEq/L (136-145) 10/23/16 21:51 Potassium 3.7 mEq/L (3.5-5.1) 10/23/16 21:51 Chloride 103 mEq/L (98-107) 10/23/16 21:51 Carbon Dioxide 26.7 mEq/L (21.0-31.0) 10/23/16 21:51 Anion Gap 11.0 (7.0-16.0) 10/23/16 21:51 BUN 11 mg/dL (7-25) 10/23/16 21:51 Creatinine 0.9 mg/dL (0.7-1.3) 10/23/16 21:51 Est GFR ( Amer) TNP 10/23/16 21:51 Est GFR (Non-Af Amer) TNP 10/23/16 21:51 BUN/Creatinine Ratio 12.2 10/23/16 21:51 Glucose 150 mg/dL (70-105) H 10/23/16 21:51 POC Glucose 121 MG/DL (70 - 105) H 10/25/16 06:04 Whole Bld Lactic Acid 1.65 mmol/L (0.60-2.00) 10/23/16 21:51 Calcium 9.5 mg/dL (8.6-10.3) 10/23/16 21:51 Total Bilirubin 0.5 mg/dL (0.3-1.0) 10/23/16 21:51 AST 16 U/L (13-39) 10/23/16 21:51 ALT 9 U/L (7-52) 10/23/16 21:51 Alkaline Phosphatase 69 U/L (34-104) 10/23/16 21:51 Ammonia 29 umol/L (16-53) 10/24/16 09:34 Total Protein 7.0 gm/dL (6.0-8.3) 10/23/16 21:51 Albumin 3.7 gm/dL (4.2-5.5) L 10/23/16 21:51 Globulin 3.3 gm/dL 10/23/16 21:51 Albumin/Globulin Ratio 1.1 (1.0-1.8) 10/23/16 21:51 Urine Source CATH 10/24/16 01:00 Urine Color YELLOW 10/24/16 01:00 Urine Clarity HAZY (CLEAR) 10/24/16 01:00 Urine pH 5.5 10/24/16 01:00 Ur Specific Falcon 1.025 (1.005-1.030) 10/24/16 01:00 Urine Protein TRACE mg/dL (NEGATIVE) 10/24/16 01:00 Urine Glucose (UA) NEGATIVE mg/dL (NEGATIVE) 10/24/16 01:00 Urine Ketones 15 mg/dL (NEGATIVE) H 10/24/16 01:00 Urine Blood NEGATIVE (NEGATIVE) 10/24/16 01:00 Urine Nitrate NEGATIVE (NEGATIVE) 10/24/16 01:00 Urine Bilirubin SMALL (NEGATIVE) H 10/24/16 01:00 Urine Ictotest NEGATIVE (NEGATIVE) 10/24/16 01:00 Urine Urobilinogen 0.2 E.U./dL (0.2 - 1.0) 10/24/16 01:00 Ur Leukocyte Esterase NEGATIVE (NEGATIVE) 10/24/16 01:00 Urine RBC 0-2 /hpf (0-5) H 10/24/16 01:00 Urine WBC 0-2 /hpf (0-5) 10/24/16 01:00 Ur Epithelial Cells FEW /lpf (FEW) 10/24/16 01:00 Urine Bacteria FEW /hpf (NONE SEEN) 10/24/16 01:00 Urine Mucus FEW /lpf (FEW) 10/24/16 01:00 - Physical Exam Vitals and I&O: Vital Signs Temp 98.2 F 10/25/16 04:00 Pulse 72 10/25/16 04:00 Resp 17 10/25/16 04:00 BP 117/62 10/25/16 04:00 Pulse Ox 97 10/25/16 04:00 Intake & Output 10/24/16 10/25/16 10/25/16 18:59 06:59 18:59 Intake Total 200 1192.5 Balance 200 1192.5 Intake: Intake, IV Amount 992.5 D5-0.45NS 1,000 ml @ 50 992.5 mls/hr IV .Q20H [facility] Rx#: [id number] Oral 200 200 Other: # Voids 3 2 Active Medications: Current Medications Atorvastatin Calcium (Lipitor) 10 mg PO HS [facility] PRN Reason: Protocol Stop: 12/23/16 20:59 Last Admin: 10/24/16 20:42 Dose: 10 mg Clopidogrel Bisulfate (Plavix) 75 mg PO DAILY [facility] Stop: 12/23/16 08:59 Last Admin: 10/24/16 09:25 Dose: 75 mg Divalproex Sodium (Depakote Dr) 250 mg PO BID [facility] PRN Reason: Protocol Stop: 12/23/16 08:59 Last Admin: 10/24/16 16:23 Dose: 250 mg Docusate Sodium (Colace) 100 mg PO BID PRN PRN Reason: Constipation Stop: 12/22/16 23:33 Dextrose/Sodium Chloride (D5-0.45ns) 1,000 mls @ 50 mls/hr IV .Q20H [facility] Stop: 12/22/16 23:32 Last Admin: 10/24/16 21:51 Dose: 50 mls/hr Insulin Aspart (Novolog Insulin Sliding Scale) 0 units SUBQ ACHS [facility] PRN Reason: Protocol Stop: 12/23/16 07:29 Last Admin: 10/25/16 06:33 Dose: Not Given Lorazepam (Ativan) 1 mg IVP Q6HR PRN; Protocol PRN Reason: Agitation Stop: 12/22/16 23:31 Last Admin: 10/24/16 21:54 Dose: 1 mg Memantine (Namenda) 10 mg PO BID [facility] Stop: 12/23/16 08:59 Last Admin: 10/24/16 16:30 Dose: 10 mg Metoprolol Succinate (Toprol Xl) 25 mg PO BID [facility] Stop: 12/23/16 08:59 Last Admin: 10/24/16 16:23 Dose: Not Given Potassium Chloride (Potassium Chloride Elixir) 20 meq PO DAILY [facility] Stop: 12/23/16 08:59 Last Admin: 10/24/16 09:26 Dose: 20 meq Quetiapine Fumarate (Seroquel) 75 mg PO BID [facility] PRN Reason: Protocol Stop: 12/23/16 08:59 Last Admin: 10/24/16 16:23 Dose: 75 mg Quetiapine Fumarate (Seroquel) 125 mg PO HS [facility] PRN Reason: Protocol Stop: 12/23/16 20:59 Last Admin: 10/24/16 20:42 Dose: 125 mg Assessment/Plan - Problem List Patient Problems: All Active Problems POOR ORAL INTAKE WITH AGITATION (Acute)
--- NOTE | 2016-10-25 23:34 | History & Physical ---
HISTORY OF PRESENT ILLNESS: The patient was admitted on 10/23/2016. This 75-year-old male patient was brought to the hospital because he was very agitated, was very weak and also had a low blood sugar and had episodes of dizziness and syncope. The patient has underlying history of dementia, diabetes and patient's 12-point examination negative except as noted above. MEDICATIONS: See the reconciliation sheet. PHYSICAL EXAMINATION: VITAL SIGNS: Temperature 98.2, blood pressure 130/70, pulse 74. HEAD: Normal. ENT: Normal. NECK: Supple. LUNGS: Clear. CARDIOVASCULAR SYSTEM: S1, S2 heard. ABDOMEN: Soft. Bowel sounds are heard. CENTRAL NERVOUS SYSTEM: Grossly normal. LABORATORY DATA: The patient had a CAT scan was negative. Hemoglobin was 12.8. DIAGNOSES: Altered level of consciousness, encephalopathy, dementia, Parkinsons ____, history of diabetes, history of hyperglycemia and history of muscle weakness, history of hyperlipidemia and history of major depression disorder, history of Alzheimer disease and history of acute psychosis. PLAN: The patient is being admitted and I will go ahead and call neurologist and also I will call psychiatrist, Dr. Doty and then I will follow the patient. JOB# [id number]
--- NOTE | 2016-10-26 00:28 | History & Physical ---
HISTORY OF PRESENT ILLNESS: Essentially, this is a 75-year-old male patient. He was admitted through the Emergency Room for increasing confusion, episodes of with a diagnosis of encephalopathy, history of dementia, history of Parkinson disease, history of hypertension, history of schizophrenia, history of diabetes, osteoarthritis, and the patient was treated in the medical floor, and today, the patient was transferred to [facility] because of his aggressive behavior and Dr. Soren Lanza was called in and he is going to be following the patient. PHYSICAL EXAMINATION: GENERAL: The patient is alert, oriented, and confused. VITAL SIGNS: Noted in chart. HEAD: Normal. ENT: Normal. NECK: Supple, nontender. LUNGS: Clear. CARDIOVASCULAR SYSTEM: S1, S2 heard. ABDOMEN: Soft. Bowel sounds are heard. CENTRAL NERVOUS SYSTEM: Grossly normal. DIAGNOSES: Acute psychosis, history of some major depression, history of schizophrenia, history of diabetes, history of hyperlipidemia, history of hypertension, history of metabolic encephalopathy, history of dementia, and Alzheimer disease, and I will follow the medical portion and I will have Dr. Lanza see the patient. JOB# [id number]
[2016-10-26 13:13] LABS: FOLIC ACID 9.3 ng/mL (>3.0)
[2016-10-28 11:12] LABS: ALDOLASE 3.9 U/L (3.3-10.3); T4 FREE 1.14 ng/dL (0.82-1.77)
--- NOTE | 2016-10-29 10:57 | History & Physical ---
The patient admitted through the Emergency Room. CHIEF COMPLAINT: The patient brought in from a fpc with chief complaint of agitation, dementia, poor appetite and decreased ability to ambulate. The patient is a poor historian. REVIEW OF SYSTEMS: GENERAL: Not in distress. HEAD: Denies any headache. EYES: No blurring of vision. ENT: No nasal discharge. No facial tenderness. NECK: Denies any neck pain. CARDIOVASCULAR: No chest pain. PULMONARY: No shortness of breath. GASTROINTESTINAL: Denies any nausea, vomiting or abdominal pain. GENITOURINARY: No dysuria. MUSCULOSKELETAL: Denies any pain or weakness. ENDOCRINOLOGY: Denies any polydipsia or polyuria. PAST MEDICAL HISTORY: The patient has significant history for diabetes and dementia. FAMILY HISTORY: Unremarkable. SOCIAL HISTORY: Unremarkable. PAST SURGICAL HISTORY: Unremarkable. PSYCHIATRIC HISTORY: The patient has history of dementia. PHYSICAL EXAMINATION: GENERAL: The patient is awake and alert with episodes of confusion. HEAD: Atraumatic, normocephalic. EYES: Bilateral PERRLA. Normal conjunctivae. ENT: Bilateral mucous membranes are moist. NECK: Supple. No masses noted. Negative for JVD. LUNGS: Clear to auscultation. No wheezing or rhonchi. CARDIOVASCULAR: Regular rate and rhythm. No murmurs. CHEST: Positive S1 and S2. ABDOMEN: Soft, nontender, positive bowel sounds. EXTREMITIES: No deformity, no edema, no clubbing. NEUROLOGIC: Alert and oriented. Facial symmetry. Normal speech. Able to move all extremities. DIAGNOSIS: The patient is diagnosed with agitation, failure to thrive. The patient will be admitted to medical floor for continuity of care for IV fluids and observation for agitation. [facility]# [id number]
--- NOTE | 2016-11-12 09:36 | Discharge Summary ---
HOSPITAL COURSE: The patient was admitted from her care home to the Emergency Room with chief complaint of poor oral intake and agitation. The patient was admitted to Med/Surg floor. Psych consultation was done, was obtained for psychiatric behavior of the patient. CT scan of the head was done and it came out negative. The patient was discharged to Geriatric Psych Unit for management of psychiatric behavior. DISCHARGE DIAGNOSES: 1. Failure to thrive. 2. Psychotic behavior. [facility]# [id number]
== END 2016-10-25 16:21 | DRG 637 ==
LOC: ER 21:28 → MSI 23:00
PROVIDERS: ADMIT Internal Medicine; ATTEND Internal Medicine
DX: E11.649 Type 2 diabetes mellitus with hypoglycemia without coma (principal); G93.40 Encephalopathy, unspecified; G20 Parkinson's disease; F02.81 Dementia in other diseases classified elsewhere, unspecified severity, with behavioral disturbance; G30.9 Alzheimer's disease, unspecified; F32.9 Major depressive disorder, single episode, unspecified; R62.7 Adult failure to thrive; F20.9 Schizophrenia, unspecified; E78.5 Hyperlipidemia, unspecified; F29 Unspecified psychosis not due to a substance or known physiological condition; M62.81 Muscle weakness (generalized); M19.90 Unspecified osteoarthritis, unspecified site; I10 Essential (primary) hypertension
CPT/HCPCS: 36415-UA; 70450-TC; 80053-TC; 81001-TC; 82085-90; 82140-TC; 82607-90; 82746-90; 82948-90; 83605; 84439-90; 84443-TC; 85025-TC; 85610-TC; 85652-TC; 85730-TC; 86141-TC; 93005; J1200; J1630; J1815; J2060; J7030; Z7610

== ENCOUNTER 2016-10-25 16:22 | Inpatient (IN) | payer MEDICARE, MEDICAID ==
[2016-10-25] MEDS ORDERED: Haloperidol Lactate 5 mg/mL 1mL Vial IM STA (17:18)
[2016-10-25] MEDS ORDERED: Haloperidol Lactate 5 mg/mL 1mL Vial ONE (17:19)
[2016-10-25 17:36] VITALS: BP 160/86
[2016-10-25] MEDS ORDERED: Magnesium Hydroxide (MOM) 30 mL UDC PO PRN (17:36)
[2016-10-25] MEDS ORDERED: Maalox 30 mL Cup PO PRN (17:36)
[2016-10-25] MEDS: Atorvastatin Calcium 10 MG TAB PO SCH (21:51)
[2016-10-25] MEDS: INSULIN ASPART SLIDING SCALE 100 UNITS/ML UNIT SUBQ SCH (21:56)
[2016-10-26] MEDS: INSULIN ASPART SLIDING SCALE 100 UNITS/ML UNIT SUBQ SCH ×4 (06:30→21:02)
--- NOTE | 2016-10-26 07:02 | General Progress Note ---
Objective - Results Recent Labs: Laboratory Last Values POC Glucose 140 MG/DL (70 - 105) H 10/26/16 06:09 - Physical Exam Vitals and I&O: Vital Signs Temp 98 F 10/25/16 19:50 Pulse 98 10/25/16 19:50 Resp 20 10/25/16 23:00 BP 103/61 10/25/16 19:50 Pulse Ox 97 10/25/16 19:50 Intake & Output 10/25/16 10/26/16 10/26/16 18:59 06:59 18:59 Intake Total 740 Balance 740 Intake: Oral 740 Other: # Voids 1 # Bowel Movements 0 Active Medications: Current Medications Acetaminophen (Tylenol) 650 mg PO Q4HR PRN PRN Reason: Pain or Fever >101 Stop: 12/24/16 17:35 Al Hydrox/Mg Hydrox/Simethicone (Maalox) 30 ml PO Q4HR PRN PRN Reason: GI DISTRESS Stop: 12/24/16 17:35 Atorvastatin Calcium (Lipitor) 10 mg PO HS [facility] PRN Reason: Protocol Stop: 12/24/16 20:59 Last Admin: 10/25/16 21:51 Dose: 10 mg Clopidogrel Bisulfate (Plavix) 75 mg PO DAILY [facility] Stop: 12/25/16 08:59 Divalproex Sodium (Depakote Dr) 250 mg PO BID [facility] PRN Reason: Protocol Stop: 12/25/16 08:59 Docusate Sodium (Colace) 100 mg PO BID PRN PRN Reason: Constipation Stop: 12/24/16 20:39 Insulin Aspart (Novolog Insulin Sliding Scale) 0 units SUBQ ACHS [facility] PRN Reason: Protocol Stop: 12/24/16 20:59 Last Admin: 10/26/16 06:30 Dose: Not Given Lorazepam (Ativan) 0.5 mg PO Q4HR PRN; Protocol PRN Reason: Anxiety Stop: 11/24/16 17:35 Lorazepam (Ativan) 1 mg PO Q4HR PRN; Protocol PRN Reason: Anxiety Stop: 12/24/16 20:39 Memantine (Namenda) 10 mg PO BID [facility] Stop: 12/25/16 08:59 Metformin HCl (Glucophage) 500 mg PO BID [facility] Stop: 12/25/16 08:59 Metoprolol Succinate (Toprol Xl) 25 mg PO BID [facility] Stop: 12/25/16 08:59 Multivitamins/Vitamin C (Theragran) 1 tab PO DAILY [facility] Stop: 12/25/16 08:59 Potassium Chloride (Potassium Chloride Elixir) 20 meq PO DAILY [facility] Stop: 12/25/16 08:59 Quetiapine Fumarate (Seroquel) 75 mg PO BID [facility] PRN Reason: Protocol Stop: 12/25/16 08:59 Quetiapine Fumarate (Seroquel) 125 mg PO HS [facility] PRN Reason: Protocol Stop: 12/24/16 20:59 Zolpidem Tartrate (Ambien) 5 mg PO HS PRN PRN Reason: Insomnia Stop: 12/24/16 17:35 Assessment/Plan - Problem List Patient Problems: All Active Problems POOR ORAL INTAKE WITH AGITATION (Acute)
[2016-10-26] MEDS: Potassium Chloride Elixir 20 mEq /15 mL UDC PO SCH (08:35)
[2016-10-26] MEDS: Multivitamin Tab PO SCH (08:35)
[2016-10-26] MEDS: Atorvastatin Calcium 10 MG TAB PO SCH (20:20)
--- NOTE | 2016-10-26 23:24 | Psychosocial Evaluation ---
JUSTIFICATION FOR HOSPITALIZATION: The patient with advanced dementia, worsening ability to care for himself, highly confused, history of schizophrenia. CHIEF COMPLAINT: Worsening mental status, confusion. HISTORY OF PRESENT ILLNESS: A 75-year-old male with history of confusion and weakness. The patient with history aggressive behaviors, irritability and agitation, had been here just last month in August, documented history of schizoaffective disorder and dementia. The patient is not participating in the interview whatsoever. Staff noting he remains impulsive, unpredictable, in Maryjane chair, trying to get up, requiring a lot of redirection. PAST PSYCHIATRIC HISTORY: Psychosis and dementia. PAST MEDICAL HISTORY: Please see full H and P. SOCIAL HISTORY: The patient requiring higher level of care. Beyond this, I am not really quite sure. He is not able to participate in interview. MENTAL STATUS EXAMINATION: Appearance, stated age, little eye contact, psychomotorically accelerated. Mood, not answering. Affect flat. Thought processes were confused. Thought content, difficult to assess fully. No suicidal gestures. He does appear to be responding to internal stimuli. Insight poor. Judgment impaired. Concentration poor. PROVISIONAL DIAGNOSES: Schizoaffective disorder, bipolar type per history; advanced dementia. MEDICAL: Please see full History and Physical. ESTIMATED LENGTH OF STAY: 7-10 days. ASSESSMENT: Currently in the hospital, history of combative behaviors, worsening confusional status, unable to be cared for at a lower level of care, restless, staff cannot care for him without the Geropsych and structured setting. PLAN: We will continue to monitor. Treatment plan includes group as well as milieu therapy. We will adjust medications as tolerated. CONDITIONS FOR DISCHARGE: Improved mood, improved affect, cessation of any SI or HI, safe discharge planning, good psychiatric followup, better control of his mood symptoms and his restless symptoms and his anxiety symptoms. JOB# [id number]
[2016-10-27] MEDS: INSULIN ASPART SLIDING SCALE 100 UNITS/ML UNIT SUBQ SCH ×4 (06:34→20:56)
[2016-10-27] MEDS: Multivitamin Tab PO SCH (08:56)
[2016-10-27] MEDS: Potassium Chloride Elixir 20 mEq /15 mL UDC PO SCH (08:57)
--- NOTE | 2016-10-27 09:05 | General Progress Note ---
Subjective - Review of Systems Service Date: 10/27/16 Objective - Results Recent Labs: Laboratory Last Values POC Glucose 152 MG/DL (70 - 105) H 10/27/16 06:22 - Physical Exam Vitals and I&O: Vital Signs Temp 97.2 F 10/27/16 06:42 Pulse 84 10/27/16 06:42 Resp 20 10/27/16 06:42 BP 130/68 10/27/16 06:42 Pulse Ox 97 10/27/16 06:42 Intake & Output 10/26/16 10/27/16 10/27/16 18:59 06:59 18:59 Intake Total 1800 120 Balance 1800 120 Intake: Oral 1800 120 Other: # Voids 4 3 # Bowel Movements 0 Active Medications: Current Medications Acetaminophen (Tylenol) 650 mg PO Q4HR PRN PRN Reason: Pain or Fever >101 Stop: 12/24/16 17:35 Al Hydrox/Mg Hydrox/Simethicone (Maalox) 30 ml PO Q4HR PRN PRN Reason: GI DISTRESS Stop: 12/24/16 17:35 Atorvastatin Calcium (Lipitor) 10 mg PO HS [facility] PRN Reason: Protocol Stop: 12/24/16 20:59 Last Admin: 10/26/16 20:20 Dose: 10 mg Clopidogrel Bisulfate (Plavix) 75 mg PO DAILY [facility] Stop: 12/25/16 08:59 Last Admin: 10/26/16 08:36 Dose: 75 mg Divalproex Sodium (Depakote Dr) 250 mg PO BID [facility] PRN Reason: Protocol Stop: 12/25/16 08:59 Last Admin: 10/26/16 17:26 Dose: 250 mg Docusate Sodium (Colace) 100 mg PO BID PRN PRN Reason: Constipation Stop: 12/24/16 20:39 Insulin Aspart (Novolog Insulin Sliding Scale) 0 units SUBQ ACHS [facility] PRN Reason: Protocol Stop: 12/24/16 20:59 Last Admin: 10/27/16 06:34 Dose: 2 units Lorazepam (Ativan) 1 mg PO Q4H PRN; Protocol PRN Reason: Anxiety Stop: 12/24/16 20:39 Last Admin: 10/26/16 12:19 Dose: 1 mg Memantine (Namenda) 10 mg PO BID [facility] Stop: 12/25/16 08:59 Last Admin: 10/26/16 17:14 Dose: 10 mg Metformin HCl (Glucophage) 500 mg PO BID [facility] Stop: 12/25/16 08:59 Last Admin: 10/26/16 17:15 Dose: 500 mg Metoprolol Succinate (Toprol Xl) 25 mg PO BID [facility] Stop: 12/25/16 08:59 Last Admin: 10/26/16 17:27 Dose: 25 mg Multivitamins/Vitamin C (Theragran) 1 tab PO DAILY [facility] Stop: 12/25/16 08:59 Last Admin: 10/26/16 08:35 Dose: 1 tab Mupirocin (Bactroban Oint) 1 appl NS BID [facility] Stop: 10/31/16 09:01 Last Admin: 10/26/16 17:09 Dose: 1 appl Potassium Chloride (Potassium Chloride Elixir) 20 meq PO DAILY [facility] Stop: 12/25/16 08:59 Last Admin: 10/26/16 08:35 Dose: 20 meq Quetiapine Fumarate (Seroquel) 75 mg PO BID [facility] PRN Reason: Protocol Stop: 12/25/16 08:59 Last Admin: 10/26/16 17:14 Dose: 75 mg Quetiapine Fumarate 100 mg/ (Quetiapine Fumarate 25 mg) 125 mg PO HS [facility] Stop: 12/25/16 20:59 Last Admin: 10/26/16 20:20 Dose: 125 mg Zolpidem Tartrate (Ambien) 5 mg PO HS PRN PRN Reason: Insomnia Stop: 12/24/16 17:35 General: Alert, Other (confused) HEENT: Atraumatic Neck: Supple Cardiovascular: Regular rate, Normal S1, Normal S2 Lungs: Clear to auscultation, Normal air movement Abdomen: Bowel sounds Neurological: Normal gait Assessment/Plan - Problem List Patient Problems: All Active Problems encephalopathy (Acute) psychosis (Acute) POOR ORAL INTAKE WITH AGITATION (Acute)
[2016-10-27] MEDS: Atorvastatin Calcium 10 MG TAB PO SCH (21:32)
--- NOTE | 2016-10-28 03:53 | Progress Notes ---
SUBJECTIVE: The patient seen, chart reviewed and discussed with staff. The patient remains aggressive, still irritable, labile, highly confused, needing a lot of prompting, needing a lot of redirection, not safe for a lower level of care at this time. Still in Maryjane chair, trying to get up. The patient needs prompting for ADLs, prompting for eating and highly disoriented. ASSESSMENT: The patient remains confused, disoriented, very confused at this time, not able to participate in self-care planning discussions due to the need for high level supervision. He is not safe for a lower level of care at this time. We will continue to monitor. The patient to follow up with Dr. Lanza in the morning. JOB# [id number]
[2016-10-28] MEDS: INSULIN ASPART SLIDING SCALE 100 UNITS/ML UNIT SUBQ SCH ×4 (06:49→20:44)
--- NOTE | 2016-10-28 08:37 | General Progress Note ---
Objective - Results Recent Labs: Laboratory Last Values POC Glucose 72 MG/DL (70 - 105) 10/28/16 06:38 - Physical Exam Vitals and I&O: Vital Signs Temp 97.6 F 10/28/16 06:36 Pulse 68 10/28/16 06:36 Resp 19 10/28/16 06:36 BP 123/58 10/28/16 06:36 Pulse Ox 98 10/28/16 06:36 Intake & Output 10/27/16 10/28/16 10/28/16 18:59 06:59 18:59 Intake Total 1200 120 Balance 1200 120 Intake: Oral 1200 120 Other: # Voids 4 3 # Bowel Movements 1 Active Medications: Current Medications Acetaminophen (Tylenol) 650 mg PO Q4HR PRN PRN Reason: Pain or Fever >101 Stop: 12/24/16 17:35 Al Hydrox/Mg Hydrox/Simethicone (Maalox) 30 ml PO Q4HR PRN PRN Reason: GI DISTRESS Stop: 12/24/16 17:35 Atorvastatin Calcium (Lipitor) 10 mg PO HS [facility] PRN Reason: Protocol Stop: 12/24/16 20:59 Last Admin: 10/27/16 21:32 Dose: Not Given Clopidogrel Bisulfate (Plavix) 75 mg PO DAILY [facility] Stop: 12/25/16 08:59 Last Admin: 10/27/16 08:54 Dose: 75 mg Divalproex Sodium (Depakote Dr) 250 mg PO BID [facility] PRN Reason: Protocol Stop: 12/25/16 08:59 Last Admin: 10/27/16 17:21 Dose: 250 mg Docusate Sodium (Colace) 100 mg PO BID PRN PRN Reason: Constipation Stop: 12/24/16 20:39 Insulin Aspart (Novolog Insulin Sliding Scale) 0 units SUBQ ACHS [facility] PRN Reason: Protocol Stop: 12/24/16 20:59 Last Admin: 10/28/16 06:49 Dose: Not Given Lorazepam (Ativan) 1 mg PO Q4H PRN; Protocol PRN Reason: Anxiety Stop: 12/24/16 20:39 Last Admin: 10/26/16 12:19 Dose: 1 mg Memantine (Namenda) 10 mg PO BID [facility] Stop: 12/25/16 08:59 Last Admin: 10/27/16 17:21 Dose: 10 mg Metformin HCl (Glucophage) 500 mg PO BID [facility] Stop: 12/25/16 08:59 Last Admin: 10/27/16 17:18 Dose: 500 mg Metoprolol Succinate (Toprol Xl) 25 mg PO BID [facility] Stop: 12/25/16 08:59 Last Admin: 10/27/16 17:19 Dose: 25 mg Multivitamins/Vitamin C (Theragran) 1 tab PO DAILY [facility] Stop: 12/25/16 08:59 Last Admin: 10/27/16 08:56 Dose: 1 tab Mupirocin (Bactroban Oint) 1 appl NS BID [facility] Stop: 10/31/16 09:01 Last Admin: 10/27/16 17:18 Dose: 1 appl Potassium Chloride (Potassium Chloride Elixir) 20 meq PO DAILY [facility] Stop: 12/25/16 08:59 Last Admin: 10/27/16 08:57 Dose: 20 meq Quetiapine Fumarate (Seroquel) 75 mg PO BID [facility] PRN Reason: Protocol Stop: 12/25/16 08:59 Last Admin: 10/27/16 17:21 Dose: 75 mg Quetiapine Fumarate 100 mg/ (Quetiapine Fumarate 25 mg) 125 mg PO HS [facility] Stop: 12/25/16 20:59 Last Admin: 10/27/16 21:32 Dose: Not Given Zolpidem Tartrate (Ambien) 5 mg PO HS PRN PRN Reason: Insomnia Stop: 12/24/16 17:35 Assessment/Plan - Problem List Patient Problems: All Active Problems encephalopathy (Acute) psychosis (Acute) POOR ORAL INTAKE WITH AGITATION (Acute)
[2016-10-28] MEDS: Multivitamin Tab PO SCH (09:41)
[2016-10-28] MEDS: Potassium Chloride Elixir 20 mEq /15 mL UDC PO SCH (09:41)
[2016-10-28] MEDS: Atorvastatin Calcium 10 MG TAB PO SCH (20:45)
--- NOTE | 2016-10-29 00:11 | Progress Notes ---
Covering for Dr. Lanza and case was discussed with staff of the patient, reviewed records. This is a well known case to me, I have seen him before covering for Dr. Lanza. He was transferred from the medical floor on the October 25. He has been confused, unable to care for himself, has been aggressive, irritable, agitated. He was admitted here last month with a history of schizoaffective disorder, unable to participate in meaningful conversation or make safe plan for his self-care. He is on Depakote 250 mg twice a day, Namenda 10 mg twice a day and Seroquel 75 mg twice a day and 25 mg at bedtime. No sedation, no nausea, no extrapyramidal symptoms, unable to formulate a safe plan for self-care and we will continue to work with the patient in group therapy, milieu therapy, adjust the medication as needed. JOB# [id number]
[2016-10-29] MEDS: INSULIN ASPART SLIDING SCALE 100 UNITS/ML UNIT SUBQ SCH ×4 (07:03→20:45)
--- NOTE | 2016-10-29 09:51 | General Progress Note ---
Objective - Results Recent Labs: Laboratory Last Values POC Glucose 120 MG/DL (70 - 105) H 10/29/16 06:43 - Physical Exam Vitals and I&O: Vital Signs Temp 98.1 F 10/29/16 06:16 Pulse 76 10/29/16 06:16 Resp 18 10/29/16 06:16 BP 97/63 10/29/16 06:16 Pulse Ox 97 10/29/16 06:16 Intake & Output 10/28/16 10/29/16 10/29/16 18:59 06:59 18:59 Intake Total 600 120 Output Total 1 Balance 599 120 Intake: Oral 600 120 Output: Stool 1 Other: # Voids 2 2 # Bowel Movements 0 Active Medications: Current Medications Acetaminophen (Tylenol) 650 mg PO Q4HR PRN PRN Reason: Pain or Fever >101 Stop: 12/24/16 17:35 Al Hydrox/Mg Hydrox/Simethicone (Maalox) 30 ml PO Q4HR PRN PRN Reason: GI DISTRESS Stop: 12/24/16 17:35 Atorvastatin Calcium (Lipitor) 10 mg PO HS [facility] PRN Reason: Protocol Stop: 12/24/16 20:59 Last Admin: 10/28/16 20:45 Dose: 10 mg Clopidogrel Bisulfate (Plavix) 75 mg PO DAILY [facility] Stop: 12/25/16 08:59 Last Admin: 10/28/16 09:41 Dose: 75 mg Divalproex Sodium (Depakote Dr) 250 mg PO BID [facility] PRN Reason: Protocol Stop: 12/25/16 08:59 Last Admin: 10/28/16 17:45 Dose: 250 mg Docusate Sodium (Colace) 100 mg PO BID PRN PRN Reason: Constipation Stop: 12/24/16 20:39 Insulin Aspart (Novolog Insulin Sliding Scale) 0 units SUBQ ACHS [facility] PRN Reason: Protocol Stop: 12/24/16 20:59 Last Admin: 10/29/16 07:03 Dose: Not Given Lorazepam (Ativan) 1 mg PO Q4H PRN; Protocol PRN Reason: Anxiety Stop: 12/24/16 20:39 Last Admin: 10/28/16 14:48 Dose: 1 mg Memantine (Namenda) 10 mg PO BID [facility] Stop: 12/25/16 08:59 Last Admin: 10/28/16 17:45 Dose: 10 mg Metformin HCl (Glucophage) 500 mg PO BID [facility] Stop: 12/25/16 08:59 Last Admin: 10/28/16 17:45 Dose: 500 mg Metoprolol Succinate (Toprol Xl) 25 mg PO BID [facility] Stop: 12/25/16 08:59 Last Admin: 10/28/16 17:45 Dose: 25 mg Multivitamins/Vitamin C (Theragran) 1 tab PO DAILY [facility] Stop: 12/25/16 08:59 Last Admin: 10/28/16 09:41 Dose: 1 tab Mupirocin (Bactroban Oint) 1 appl NS BID [facility] Stop: 10/31/16 09:01 Last Admin: 10/28/16 17:45 Dose: 1 appl Potassium Chloride (Potassium Chloride Elixir) 20 meq PO DAILY [facility] Stop: 12/25/16 08:59 Last Admin: 10/28/16 09:41 Dose: 20 meq Quetiapine Fumarate (Seroquel) 75 mg PO BID [facility] PRN Reason: Protocol Stop: 12/25/16 08:59 Last Admin: 10/28/16 17:45 Dose: 75 mg Quetiapine Fumarate 100 mg/ (Quetiapine Fumarate 25 mg) 125 mg PO HS [facility] Stop: 12/25/16 20:59 Last Admin: 10/28/16 20:45 Dose: 125 mg Zolpidem Tartrate (Ambien) 5 mg PO HS PRN PRN Reason: Insomnia Stop: 12/24/16 17:35 Assessment/Plan - Problem List Patient Problems: All Active Problems encephalopathy (Acute) psychosis (Acute) POOR ORAL INTAKE WITH AGITATION (Acute)
[2016-10-29] MEDS: Multivitamin Tab PO SCH (10:14)
[2016-10-29] MEDS: Potassium Chloride Elixir 20 mEq /15 mL UDC PO SCH (10:15)
[2016-10-29] MEDS: Atorvastatin Calcium 10 MG TAB PO SCH (20:32)
--- NOTE | 2016-10-30 01:35 | Progress Notes ---
Case was discussed with staff of the patient, reviewed records. Covering for Dr. Lanza. The patient continues to be confused, continues to need redirection, continues to be irritable and aggressive, continues to have poor insight, continues to need help with the staff with his ADLs. He has been compliant with the medication with no side effects, no sedation, no nausea, no extrapyramidal symptoms and we will continue to work with the patient in group therapy, milieu therapy, adjust the medication as needed. JOB# [id number]
[2016-10-30] MEDS: INSULIN ASPART SLIDING SCALE 100 UNITS/ML UNIT SUBQ SCH ×2 (06:51→12:00)
[2016-10-30] MEDS: Potassium Chloride Elixir 20 mEq /15 mL UDC PO SCH (09:17)
[2016-10-30] MEDS: Multivitamin Tab PO SCH (09:19)
--- NOTE | 2016-10-30 18:33 | Discharge Summary ---
FINAL DIAGNOSIS: Unspecified psychosis. PRIMARY DIAGNOSIS: Unspecified psychosis. REASON FOR HOSPITALIZATION: The patient was admitted to the hospital because of increased agitation and irritability and aggressive behavior. HOSPITAL COURSE: The patient was extremely irritable and agitated. The patient also was in angry and in irritable mood. The patient also was suspicious and paranoid. Gradually, the patient's affect was brighter. The patient was compliant with taking his medications and the patient was placed on Depakote as well as Namenda. 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 LABORATORY DATA: Blood sugar on 10/29/2016 was 120. AFTER DISCHARGE PLANS: The patient will be discharged from the hospital with plans to continue his treatment as an outpatient in the senior care. EXPECTED OUTCOME AFTER DISCHARGE: Fair, if the patient continues to take his psychotropic medications and follow up with discharge plans. [facility]# [id number]
== END 2016-10-30 12:30 | DRG 885 ==
LOC: GERO 16:22
PROVIDERS: ADMIT Psychiatry & Neurology Psychiatry; ATTEND Psychiatry & Neurology Psychiatry
DX: F29 Unspecified psychosis not due to a substance or known physiological condition (principal); G93.40 Encephalopathy, unspecified; F03.90 Unspecified dementia, unspecified severity, without behavioral disturbance, psychotic disturbance, mood disturbance, and anxiety; F25.0 Schizoaffective disorder, bipolar type
CPT/HCPCS: 82948-90; J1200; J1630; J1815; J2060; Z7610

== ENCOUNTER 2016-11-13 12:52 | Inpatient (IN) | payer MEDICARE, MEDICAID ==
--- NOTE | 2016-11-13 13:06 | ED Physician Chart ---
Chief Complaint/HPI - Patient Information Date Seen:: 11/13/16 Time Seen:: 13:02 Chief Complaint:: failure to thrive History of Present Illness:: pt sent from [place] for recent worsening of agitation. Pt also not eating well x 4 days....unclear why. pt denies abd pain. no n/v/d. no constipation. pt has some aldz dementia...not great historian. Allergies:: Allergies Allergy/AdvReac Type Severity Reaction Status Date / Time No Known Allergies Allergy Verified 10/23/16 21:44 Historian:: Patient, Medical Records Review:: EMS run form Reviewed, Transfer documents Reviewed Review of Systems - Review of Systems General/Constitutional: No fever, No chills, No weight loss, No weakness, No diaphoresis, No edema, No loss of appetite, Other (pt has some aldz dementia...not great historian.) Skin: No skin lesions, No rash, No bruising Head: No headache, No light-headedness Eyes: No loss of vision, No pain, No diplopia, Other (pt has trouble completing simmple commands...due to dementia..makes detailed neuro exam very hard.) ENT: No earache, No nasal drainage, No sore throat, No tinnitus Neck: No neck pain, No swelling, No thyromegaly, No stiffness, No mass noted Cardio Vascular: No chest pain, No palpitations, No PND, No orthopnea, No edema Pulmonary: No SOB, No cough, No sputum, No wheezing GI: No nausea, No vomiting, No diarrhea, No pain, No melena, No hematochezia, No constipation, No hematemesis G/U: No dysuria, No frequency, No hematuria Musculoskeletal: No bone or joint pain, No back pain, No muscle pain Endocrine: No polyuria, No polydipsia Psychiatric: No prior psych history, No depression, No anxiety, No suicidal ideation Hematopoietic: No bruising, No lymphadenopathy Allergic/Immuno: No urticaria, No angioedema Neurological: No syncope, No focal symptoms, No weakness, No paresthesia, No headache, No seizure, No dizziness, No confusion, No vertigo Past Medical History - Past Medical History Past Medical History: DM, CVA/TIA, Dyslipidemia, Dementia (aldzheimerhallie dz) Social History: Lives Alone Psychiatricy History: Schizophrenia Medication: Reviewed Family Medical History - Family Member Mother History Unknown: Yes Ethnicity: Unknown Living Status: Unknown Hx Family Cancer: (unknown) Hx Family Coronary Artery Disease: (unknown) Hx Family Congestive Heart Failure: (unknown) Hx Family Hypertension: (unknown) Hx Family Stroke: (unknown) Hx Family Diabetes: (unknown) Hx Family Seizures: (unknown) Hx Family Dementia: (unknown) Hx Family AIDS: (unknown) Hx Family COPD: (unknown) Hx Family Hepatitis: (unknown) Hx Family Psychiatric Problems: (unknown) Hx Family Tuberculosis: (unknown) Physical Exam - Physical Examination General/Constitutional: Awake, Well-developed, well-nourished, Alert, No distress, Non-toxic appearing, Ambulatory Other Gen/Cons comments:: dementia...poor historian and cant complete a detailed neuro exam due to confusion. abd is nontndr, wn/wh. not very talkative. seems in nad at rest. calm at present.. Head: Atraumatic Eyes: Lids, conjuctiva normal, PERRL, EOMI Skin: Nl inspection, No rash, No skin lesions, No ecchymosis, Well hydrated, No lymphadenopathy ENMT: External ears, nose nl, Nasal exam nl, Lips, teeth, gums nl Neck: Nontender, Full ROM w/o pain, No JVD, No nuchal rigidity, No bruit, No mass, No stridor Respiratory: Nl effort/Exclusion, Clear to Auscultation, No Wheeze/Rhonchi/Rales Cardio Vascular: RRR, No murmur, gallop, rubs, NL S1 S2 GI: No tenderness/rebounding/guarding, No organomegaly, No hernia, Normal BS's, Nondistended, No mass/bruits, No McBurney tenderness : No CVA tenderness Extremities: No tenderness or effusion, Full ROM, normal strength in all extremities, No edema, Normal digits & nails Neuro/Psych: Alert/oriented, DTR's symmetric, Normal sensory exam, Normal motor strength, Mood normal, Normal gait, No focal deficits Other Neuro/Psych comments:: currently calm Misc: normal gait, Normal back, No paraspinal tenderness Labs/Radiology/EKG Results - Lab Results Results: Laboratory Tests 11/13/16 11/13/16 13:16 13:16 WBC 7.6 D RBC 4.14 Hgb 12.3 L Hct 36.4 L MCV 88.1 MCH 29.7 MCHC Differential 33.7 RDW 14.5 Plt Count 207 MPV 8.0 Neutrophils % 60.3 Lymphocytes % 28.4 Monocytes % 9.4 Eosinophils % 0.9 Basophils % 1.0 Sodium 136 Potassium 3.6 Chloride 103 Carbon Dioxide 29.4 Anion Gap 7.2 BUN 14 Creatinine 0.9 Est GFR ( Amer) TNP Est GFR (Non-Af Amer) TNP BUN/Creatinine Ratio 15.6 Glucose 103 Calcium 9.2 Total Bilirubin 0.6 AST 13 ALT 11 Alkaline Phosphatase 66 Total Protein 6.6 Albumin 3.5 L Globulin 3.1 Albumin/Globulin Ratio 1.1 Triglycerides 146 Cholesterol 125 LDL Cholesterol Direct 68 L HDL Cholesterol 36 - EKG Interpretations EKG Time:: 13:10 Rhythm: nsr [place]: -41 Rate: 62 Comments:: wnl ED Septic Shock - . Is Septic Shock (SBP<90, OR Lactate>4 mmol\L) present?: No Reassessment (Disposition) - Reassessment Reassessment Condition:: Unchanged - Diagnosis Diagnosis:: 1 hx of agitation and difficult behavior 2 failure to thrive 3 ok/clear for admission to geripsych unit 4 incidental uti - Patient Disposition Admitted to:: [facility] Condition at Disposition:: Improved
[2016-11-13 13:27] LABS: % EOSINOPHILS 0.9 % (0.0-5.0); % LYMPHOCYTES 28.4 % (20.0-50.0); % MONOCYTES 9.4 % (2.0-10.0); % NEUTROPHILS 60.3 % (40.0-80.0); HEMATOCRIT 36.4 % (39.0-49.0); HEMOGLOBIN 12.3 gm/dL (12.6-17.4); MEAN CELL VOLUME 88.1 fl (80-99); MEAN CORPUSCULAR HEMOGLOBIN 29.7 pg (27.0-31.0); MEAN CORPUSCULAR HGB CONC 33.7 pg (28.0-36.0); NEUTROPHILE ABSOLUTE 4.5 Th/cmm (1.8-8.0); PLATELET COUNT 207 Th/cmm (150-400); RED BLOOD COUNT 4.14 Mil/cmm (3.80-5.80); RED CELL DISTRIBUTION WIDTH 14.5 % (11.5-20.0)
[2016-11-13 13:29] LABS: WHITE BLOOD COUNT 7.6 Th/cmm (4.8-10.8)
[2016-11-13 13:41] LABS: ALB/GLOB RATIO 1.1 (1.0-1.8); ALKALINE PHOSPHATASE 66 U/L (34-104); ANION GAP 7.2 (7.0-16.0); BILIRUBIN,TOTAL 0.6 mg/dL (0.3-1.0); BUN - UREA NITROGEN 14 mg/dL (7-25); BUN/CREATININE RATIO 15.6; CALCIUM SERUM 9.2 mg/dL (8.6-10.3); CARBON DIOXIDE 29.4 mEq/L (21.0-31.0); CHLORIDE 103 mEq/L (98-107); CHOLESTEROL 125 mg/dL (<200); CREATININE - SERUM 0.9 mg/dL (0.7-1.3); GLUCOSE 103 mg/dL (70-105); POTASSIUM SERUM 3.6 mEq/L (3.5-5.1); SGOT 13 U/L (13-39); SGPT/ALT 11 U/L (7-52); SODIUM SERUM 136 mEq/L (136-145); TRIGLYCERIDES 146 mg/dL (<150)
[2016-11-13 14:09] LABS: URINE BILIRUBIN NEGATIVE (NEGATIVE); URINE BLOOD SMALL (NEGATIVE); URINE COLOR YELLOW; URINE GLUCOSE (UA) NEGATIVE (NEGATIVE); URINE KETONE NEGATIVE (NEGATIVE); URINE PROTEIN 30 mg/dL (NEGATIVE); URINE UROBILINOGEN 0.2 E.U./dL (0.2 - 1.0)
[2016-11-13 14:13] LABS: URINE BACTERIA MANY /hpf (NONE SEEN); URINE EPITHELIAL CELLS OCCASIONAL /lpf (FEW); URINE WBC 50-100 /hpf (0-5)
--- NOTE | 2016-11-13 14:45 | Admit Criteria Form ---
Admit Criteria Forms - Admit Criteria Diagnosis: MENTAL STATUS CHANGE Clinical Indications for Inpatient Care (Place 'X' for any and all applicable criteria): Ongoing inpatient care may be needed for ANY ONE of the following(1)(2)(3)(5)(6) : [ ]I. Suspected serious etiology (eg, medical disorder, AEROSPACE PHYSIOLOGICAL TECHNICIAN event) of mental status change [ ]II. Danger to self or others not manageable at lower level of care [ ]III. Grave disability (eg, inability to perform self care necessary at lower level of care) [X ]IV. Agitation or inappropriate behavior interfering with care for primary condition (eg, attempting to discontinue lines or drains prematurely, unable to cooperate with respiratory care) [ ]V. Delirium [A] [D][E] as described by ANY ONE of the following(26): [ ]a) Delirium due to alcohol or sedative [F] withdrawal [ ]b) Delirium of uncertain etiology that has not responded to appropriate empiric treatment [ ]c) Delirium that prevents performance of a life-sustaining function (eg, feeding or hydrating oneself) [ ]. General contraindications and/or Inappropriate clinical situations for Observational Care in patients with Mental Status Change, when ANY ONE of the following is required: [ ]a) Prediction of prolongation of LOS based on ANY ONE of the following may be considered as a contraindication for observational care 2, 3, 4, 5, 6, 7, 8, 9, 10, 11 [ ]i) Age > 65 yrs. [ ]ii) Patient arriving by ambulance [ ]iii) Patient with high acuity [ ]iv) Patient requiring vital sign monitoring [ ]v) Patient on IV medication [ ]b) Systolic blood pressures 180mmHg 3,12 [ ]c) Patient with altered mental status including delirium and other alteration of consciousness, (3) [ ]d) Patient whose discharge disposition will be to a [facility] home or rehabilitation home should not be managed in Emergency Department Observation Unit. CMS rule requires 3 days hospital stay before such placement.3,13 [ ]e) Patient with failure to thrive due to broad array of etiologies 3,16,17 [ ]f) Inability to ambulate 3,14 Extended stay beyond goal length of stay for the primary condition may be needed until ALL of the following are present(3)(5): [ ]a) Underlying medical etiology of mental status change is absent, or has been established and adequately treated [ ]b) Danger to self or others is absent or manageable at lower level of care. [ ]c) Behavior crisis management, including physical or chemical restraints, is not required or available at lower level of car [ ]d) Substance or alcohol withdrawal is absent or manageable at lower level of care. [ ]e) Behavioral symptoms (eg, agitation, somnolence, inappropriate behavior) are absent, or are manageable at lower level of care. The original [facility] content created by [facility] has been revised. The portions of the content which have been revised are identified through the use of italic text or in bold, and [facility] has neither reviewed nor approved the modified material. All other unmodified content is copyright [facility]. Please see references footnoted in the original [facility] edition 2016 Admit Criteria Met?: Yes
[2016-11-13 15:54] VITALS: BP 112/57
[2016-11-13] MEDS ORDERED: Magnesium Hydroxide (MOM) 30 mL UDC PO PRN (15:56)
[2016-11-13] MEDS ORDERED: Maalox 30 mL Cup PO PRN ×2 (15:56→20:07)
[2016-11-13] MEDS: INSULIN ASPART SLIDING SCALE 100 UNITS/ML UNIT SUBQ SCH (21:44)
[2016-11-13] MEDS: Atorvastatin Calcium 10 MG TAB PO SCH (21:44)
[2016-11-14] MEDS: INSULIN ASPART SLIDING SCALE 100 UNITS/ML UNIT SUBQ SCH ×4 (06:48→21:16)
[2016-11-14] MEDS: Multivitamin Tab PO SCH (10:06)
[2016-11-14 10:18] LABS: HEP B CORE IGM Negative (Negative); HEP C ANTIBODY <0.1 s/co ratio (0.0-0.9)
--- NOTE | 2016-11-14 19:57 | History & Physical ---
HISTORY OF PRESENT ILLNESS: The patient was admitted from a half-way through the Emergency Room. He was sent in from the half-way due to increase in agitation and not eating and poor oral intake.pt is at [facility] .has underlying dementia h/o dm,h/o tia REVIEW OF SYSTEMS: unable to obtain because of pts condition PAST MEDICAL HISTORY: The patient is a poor historian. The patient has a significant history for dementia, Alzheimer disease, hyperlipidemia, diabetes, TIA. SOCIAL HISTORY: The patient lives in a half-way. PSYCHIATRIC HISTORY: The patient has schizophrenia. FAMILY HISTORY: Unremarkable. PAST SURGICAL HISTORY: Unremarkable. PHYSICAL EXAMINATION: GENERAL: The patient is awake , agitated , but currently confused. HEAD: Atraumatic, normocephalic. EYES: Pupils equally round and reactive. SKIN: Fragile. No skin breakdown. EARS: External ears are normal. NECK: Supple. No JVD. RESPIRATORY: Clear to auscultation. No wheezing. No rhonchi. CARDIOVASCULAR: S1 and S2 heard. No murmur. Regular rate and rhythm. GASTROINTESTINAL: Soft, nontender. Positive bowel sounds. GENITOURINARY: No CVA tendernerness nuero difficult to assess ASSESSMENT: AGITATION 1. Dementia. 2. Alzheimer's disease. 3. Agitation. 4. Failure to thrive. 5. Diabetes. 6. Anxiety. 7. Coronary artery disease. 8. Diabetes. 9. Insomnia. PLAN: patient to Psych Unit for TRAT of his behavior BY PSYCH MD TREAT MEDICAL PROBLEMS DM,HLD,DEMENTIA and we will closely monitor the patient's oral intake AND RECCOMENT SUPPLIMENTS JOB# [id number] [facility]
[2016-11-14] MEDS: Atorvastatin Calcium 10 MG TAB PO SCH (21:19)
[2016-11-14] MEDS ORDERED: Magnesium Hydroxide (MOM) 30 mL UDC PO PRN (22:50)
--- NOTE | 2016-11-15 03:29 | Psychosocial Evaluation ---
PSYCHIATRIC INITIAL EVALUATION AND MENTAL STATUS EXAMINATION CHIEF COMPLAINT: Agitation and irritability. HISTORY OF PRESENT ILLNESS: The patient is a 76-year-old male who is well known to me from previous treatment and from treatment in [facility]. The patient has been extremely agitated and irritable and restless. Patient also has not been able to follow staff directions in the halfway and has been trying to get up and stand up and exposes himself to a dangerous situation. He also has been in angry and in irritable mood. The patient has also been easily agitated and is in angry and in irritable mood. PAST PSYCHIATRIC HISTORY: Multiple psychiatric hospitalizations for treatment of psychosis and agitation. PAST MEDICAL HISTORY: The patient has a rash in his buttock area. The patient also has diabetes mellitus. SOCIAL HISTORY: The patient lives in [facility]. No known alcohol or drug use. MENTAL STATUS EXAMINATION: The patient appears his stated age. Anxious. Irritable mood. Thought processes are circumstantial with occasional flight of ideas. The patient denies auditory ____. The patient is rambling and he did not answer questions regarding hallucinations or delusions, but he is actively responding to stimuli. The patient denies suicidal or homicidal ideations. The patient is alert, but seems to be disoriented to time, place, person and situation. Impaired immediate and recent memory and intact remote memory. He remembered his date. Poor insight. Poor judgment. ASSESSMENT: PRIMARY DIAGNOSIS: Unspecified psychosis. SECONDARY DIAGNOSIS: Dementia, [id number] with psychotic features. MEDICAL DIAGNOSES: Diabetes mellitus. TREATMENT PLAN: We will continue monitoring his behavior and his condition closely. We will restart psychotropic medications and will adjust the dose. ESTIMATED LENGTH OF STAY: 7-10 days. THE PATIENT'S STRENGTHS AND WEAKNESSES: The patient's strength is that he has support of certain people in [facility]. Weakness is ineffective coping. AFTER DISCHARGE PLAN: Outpatient treatment and followup. CRITERIA FOR DISCHARGE: The patient will not be psychotic and will stabilize psychotropic medications and better impulse control and will establish outpatient treatment plans. JOB# [id number]
[2016-11-15] MEDS: INSULIN ASPART SLIDING SCALE 100 UNITS/ML UNIT SUBQ SCH ×4 (06:48→21:07)
--- NOTE | 2016-11-15 08:11 | General Progress Note ---
Objective - Results Result Diagrams: 11/13/16 13:16 11/13/16 13:16 Recent Labs: Laboratory Last Values WBC 7.6 Th/cmm (4.8-10.8) D 11/13/16 13:16 RBC 4.14 Mil/cmm (3.80-5.80) 11/13/16 13:16 Hgb 12.3 gm/dL (12.6-17.4) L 11/13/16 13:16 Hct 36.4 % (39.0-49.0) L 11/13/16 13:16 MCV 88.1 fl (80-99) 11/13/16 13:16 MCH 29.7 pg (27.0-31.0) 11/13/16 13:16 MCHC Differential 33.7 pg (28.0-36.0) 11/13/16 13:16 RDW 14.5 % (11.5-20.0) 11/13/16 13:16 Plt Count 207 Th/cmm (150-400) 11/13/16 13:16 MPV 8.0 fl 11/13/16 13:16 Neutrophils % 60.3 % (40.0-80.0) 11/13/16 13:16 Lymphocytes % 28.4 % (20.0-50.0) 11/13/16 13:16 Monocytes % 9.4 % (2.0-10.0) 11/13/16 13:16 Eosinophils % 0.9 % (0.0-5.0) 11/13/16 13:16 Basophils % 1.0 % (0.0-2.0) 11/13/16 13:16 Sodium 136 mEq/L (136-145) 11/13/16 13:16 Potassium 3.6 mEq/L (3.5-5.1) 11/13/16 13:16 Chloride 103 mEq/L (98-107) 11/13/16 13:16 Carbon Dioxide 29.4 mEq/L (21.0-31.0) 11/13/16 13:16 Anion Gap 7.2 (7.0-16.0) 11/13/16 13:16 BUN 14 mg/dL (7-25) 11/13/16 13:16 Creatinine 0.9 mg/dL (0.7-1.3) 11/13/16 13:16 Est GFR ( Amer) TNP 11/13/16 13:16 Est GFR (Non-Af Amer) TNP 11/13/16 13:16 BUN/Creatinine Ratio 15.6 11/13/16 13:16 Glucose 103 mg/dL (70-105) 11/13/16 13:16 POC Glucose 97 MG/DL (70 - 105) 11/15/16 06:37 Calcium 9.2 mg/dL (8.6-10.3) 11/13/16 13:16 Total Bilirubin 0.6 mg/dL (0.3-1.0) 11/13/16 13:16 AST 13 U/L (13-39) 11/13/16 13:16 ALT 11 U/L (7-52) 11/13/16 13:16 Alkaline Phosphatase 66 U/L (34-104) 11/13/16 13:16 Total Protein 6.6 gm/dL (6.0-8.3) 11/13/16 13:16 Albumin 3.5 gm/dL (4.2-5.5) L 11/13/16 13:16 Globulin 3.1 gm/dL 11/13/16 13:16 Albumin/Globulin Ratio 1.1 (1.0-1.8) 11/13/16 13:16 Triglycerides 146 mg/dL (<150) 11/13/16 13:16 Cholesterol 125 mg/dL (<200) 11/13/16 13:16 LDL Cholesterol Direct 68 mg/dL (75-193) L 11/13/16 13:16 HDL Cholesterol 36 mg/dL (23-92) 11/13/16 13:16 TSH 2.60 uIU/ml (0.34-5.60) 11/13/16 13:16 Urine Source CLEAN C 11/13/16 13:55 Urine Color YELLOW 11/13/16 13:55 Urine Clarity SL. CLOUDY (CLEAR) 11/13/16 13:55 Urine pH 6.0 11/13/16 13:[address] 1.020 (1.005-1.030) 11/13/16 13:55 Urine Protein 30 mg/dL (NEGATIVE) H 11/13/16 13:55 Urine Glucose (UA) NEGATIVE mg/dL (NEGATIVE) 11/13/16 13:55 Urine Ketones NEGATIVE mg/dL (NEGATIVE) 11/13/16 13:55 Urine Blood SMALL (NEGATIVE) H 11/13/16 13:55 Urine Nitrate NEGATIVE (NEGATIVE) 11/13/16 13:55 Urine Bilirubin NEGATIVE (NEGATIVE) 11/13/16 13:55 Urine Urobilinogen 0.2 E.U./dL (0.2 - 1.0) 11/13/16 13:55 Ur Leukocyte Esterase TRACE (NEGATIVE) H 11/13/16 13:55 Urine RBC 2-5 /hpf (0-5) H 11/13/16 13:55 Urine WBC 50-100 /hpf (0-5) H 11/13/16 13:55 Ur Epithelial Cells OCCASIONAL /lpf (FEW) 11/13/16 13:55 Urine Bacteria MANY /hpf (NONE SEEN) 11/13/16 13:55 Valproic Acid 24.7 ug/mL (50.0-100.0) L 11/13/16 13:16 Hepatitis A IgM Ab Negative (Negative) 11/13/16 13:16 Hep Bs Antigen Negative (Negative) 11/13/16 13:16 Hep B Core IgM Ab Negative (Negative) 11/13/16 13:16 Hepatitis C Antibody <0.1 s/co ratio (0.0-0.9) 11/13/16 13:16 - Physical Exam Vitals and I&O: Vital Signs Temp 97.6 F 11/15/16 06:34 Pulse 78 11/15/16 06:34 Resp 19 11/15/16 06:34 BP 108/69 11/15/16 06:34 Pulse Ox 99 11/15/16 06:34 Intake & Output 11/14/16 11/15/16 11/15/16 18:59 06:59 18:59 Intake Total 120 Balance 120 Intake: Oral 120 Other: # Voids 3 Active Medications: Current Medications Acetaminophen (Tylenol) 650 mg PO Q4HR PRN PRN Reason: Pain or Fever >101 Stop: 01/12/17 20:06 Al Hydrox/Mg Hydrox/Simethicone (Maalox) 30 ml PO Q4HR PRN PRN Reason: GI DISTRESS Stop: 01/12/17 20:06 Ascorbic Acid (Vitamin C) 500 mg PO BID IRMA Stop: 01/14/17 08:59 Atorvastatin Calcium (Lipitor) 10 mg PO HS IRMA PRN Reason: Protocol Stop: 01/12/17 20:59 Last Admin: 11/14/16 21:19 Dose: Not Given Clopidogrel Bisulfate (Plavix) 75 mg PO DAILY [facility] Stop: 01/13/17 08:59 Last Admin: 11/14/16 10:06 Dose: 75 mg Divalproex Sodium (Depakote Dr) 250 mg PO BID IRMA PRN Reason: Protocol Stop: 01/14/17 08:59 Docusate Sodium (Colace) 100 mg PO DAILY PRN PRN Reason: Constipation Stop: 01/12/17 20:06 Ferrous Sulfate (Iron) 325 mg PO DAILY [facility] Stop: 01/14/17 08:59 Insulin Aspart (Novolog Insulin Sliding Scale) 0 units SUBQ ACHS IRMA PRN Reason: Protocol Stop: 01/12/17 20:59 Last Admin: 11/15/16 06:48 Dose: Not Given Levofloxacin (Levaquin) 500 mg PO DAILY [facility] Stop: 11/22/16 08:59 Lorazepam (Ativan) 0.5 mg PO Q4HR PRN; Protocol PRN Reason: Anxiety Stop: 12/13/16 15:55 Last Admin: 11/14/16 10:06 Dose: 0.5 mg Magnesium Hydroxide (Milk Of Magnesia) 30 ml PO HS PRN PRN Reason: Constipation Stop: 01/13/17 22:49 Memantine (Namenda) 10 mg PO DAILY [facility] Stop: 01/13/17 08:59 Last Admin: 11/14/16 10:06 Dose: 10 mg Metformin HCl (Glucophage) 500 mg PO BID [facility] Stop: 01/13/17 08:59 Last Admin: 11/14/16 17:57 Dose: Not Given Metoprolol Succinate (Toprol Xl) 25 mg PO BID [facility] Stop: 01/13/17 08:59 Last Admin: 11/14/16 17:58 Dose: Not Given Multivitamins/Vitamin C (Theragran) 1 tab PO DAILY [facility] Stop: 01/13/17 08:59 Last Admin: 11/14/16 10:06 Dose: 1 tab Multivitamins/Vitamin C (Theragran) 1 tab PO DAILY [facility] Stop: 01/14/17 08:59 Quetiapine Fumarate (Seroquel) 75 mg PO BID IRMA PRN Reason: Protocol Stop: 01/14/17 08:59 Quetiapine Fumarate (Seroquel) 125 mg PO HS IRMA PRN Reason: Protocol Stop: 01/14/17 20:59 Senna (Senna) 8.6 mg PO HS IRMA Stop: 01/14/17 20:59 Zinc Sulfate (Zinc Sulfate) 220 mg PO DAILY [facility] Stop: 01/13/17 08:59 Last Admin: 11/14/16 10:06 Dose: 220 mg Zolpidem Tartrate (Ambien) 5 mg PO HS PRN PRN Reason: Insomnia Stop: 01/12/17 15:55 Assessment/Plan - Problem List Patient Problems: All Active Problems POOR ORAL INTAKE WITH AGITATION (Acute) encephalopathy (Acute) psychosis (Acute)
[2016-11-15] MEDS ORDERED: Non-Formulary Item 1 EA (Cranberry [Cranberry] 425 MG) PO SCH (09:00)
[2016-11-15] MEDS: Ferrous Sulfate 325 MG TAB PO SCH (09:11)
[2016-11-15] MEDS: Multivitamin Tab PO SCH ×2 (09:26)
[2016-11-15] MEDS: Atorvastatin Calcium 10 MG TAB PO SCH (21:06)
--- NOTE | 2016-11-15 23:25 | Progress Notes ---
PSYCHIATRIC PROGRESS NOTE: SUBJECTIVE: Chart reviewed and the patient interviewed. Also discussed the patient's condition with the staff and reviewed records and labs. The patient is still extremely irritable and the patient is still extremely agitated. The patient also is restless and he still needs lots of redirections. The patient also gets aggressive and agitated with the staff, especially when they try to help him with his ADLs. He also is still in angry and in irritable mood. Otherwise, the patient has been compliant with taking his medications with no side effects of medications. ASSESSMENT: The patient is still psychotic and can be dangerous to others, gravely disabled. TREATMENT PLAN: We will continue monitoring his behavior and his condition closely. Seroquel was increased yesterday and we will continue same dose and we will continue to follow up closely. JOB# [id number]
[2016-11-16] MEDS: INSULIN ASPART SLIDING SCALE 100 UNITS/ML UNIT SUBQ SCH ×4 (06:50→21:46)
[2016-11-16] MEDS: Multivitamin Tab PO SCH (09:25)
[2016-11-16] MEDS: Ferrous Sulfate 325 MG TAB PO SCH (09:25)
[2016-11-16] MEDS: Sulfamethoxazole/TMP 800/160mg Tab PO SCH ×2 (09:28→16:56)
--- NOTE | 2016-11-16 14:05 | General Progress Note ---
Subjective - Review of Systems Service Date: 11/16/16 Subjective: No new event. Objective - Results Result Diagrams: 11/13/16 13:16 11/13/16 13:16 Recent Labs: Laboratory Last Values WBC 7.6 Th/cmm (4.8-10.8) D 11/13/16 13:16 RBC 4.14 Mil/cmm (3.80-5.80) 11/13/16 13:16 Hgb 12.3 gm/dL (12.6-17.4) L 11/13/16 13:16 Hct 36.4 % (39.0-49.0) L 11/13/16 13:16 MCV 88.1 fl (80-99) 11/13/16 13:16 MCH 29.7 pg (27.0-31.0) 11/13/16 13:16 MCHC Differential 33.7 pg (28.0-36.0) 11/13/16 13:16 RDW 14.5 % (11.5-20.0) 11/13/16 13:16 Plt Count 207 Th/cmm (150-400) 11/13/16 13:16 MPV 8.0 fl 11/13/16 13:16 Neutrophils % 60.3 % (40.0-80.0) 11/13/16 13:16 Lymphocytes % 28.4 % (20.0-50.0) 11/13/16 13:16 Monocytes % 9.4 % (2.0-10.0) 11/13/16 13:16 Eosinophils % 0.9 % (0.0-5.0) 11/13/16 13:16 Basophils % 1.0 % (0.0-2.0) 11/13/16 13:16 Sodium 136 mEq/L (136-145) 11/13/16 13:16 Potassium 3.6 mEq/L (3.5-5.1) 11/13/16 13:16 Chloride 103 mEq/L (98-107) 11/13/16 13:16 Carbon Dioxide 29.4 mEq/L (21.0-31.0) 11/13/16 13:16 Anion Gap 7.2 (7.0-16.0) 11/13/16 13:16 BUN 14 mg/dL (7-25) 11/13/16 13:16 Creatinine 0.9 mg/dL (0.7-1.3) 11/13/16 13:16 Est GFR ( Amer) TNP 11/13/16 13:16 Est GFR (Non-Af Amer) TNP 11/13/16 13:16 BUN/Creatinine Ratio 15.6 11/13/16 13:16 Glucose 103 mg/dL (70-105) 11/13/16 13:16 POC Glucose 91 MG/DL (70 - 105) 11/16/16 11:29 Calcium 9.2 mg/dL (8.6-10.3) 11/13/16 13:16 Total Bilirubin 0.6 mg/dL (0.3-1.0) 11/13/16 13:16 AST 13 U/L (13-39) 11/13/16 13:16 ALT 11 U/L (7-52) 11/13/16 13:16 Alkaline Phosphatase 66 U/L (34-104) 11/13/16 13:16 Total Protein 6.6 gm/dL (6.0-8.3) 11/13/16 13:16 Albumin 3.5 gm/dL (4.2-5.5) L 11/13/16 13:16 Globulin 3.1 gm/dL 11/13/16 13:16 Albumin/Globulin Ratio 1.1 (1.0-1.8) 11/13/16 13:16 Triglycerides 146 mg/dL (<150) 11/13/16 13:16 Cholesterol 125 mg/dL (<200) 11/13/16 13:16 LDL Cholesterol Direct 68 mg/dL (75-193) L 11/13/16 13:16 HDL Cholesterol 36 mg/dL (23-92) 11/13/16 13:16 TSH 2.60 uIU/ml (0.34-5.60) 11/13/16 13:16 Urine Source CLEAN C 11/13/16 13:55 Urine Color YELLOW 11/13/16 13:55 Urine Clarity SL. CLOUDY (CLEAR) 11/13/16 13:55 Urine pH 6.0 11/13/16 13:55 Ur Specific [place] 1.020 (1.005-1.030) 11/13/16 13:55 Urine Protein 30 mg/dL (NEGATIVE) H 11/13/16 13:55 Urine Glucose (UA) NEGATIVE mg/dL (NEGATIVE) 11/13/16 13:55 Urine Ketones NEGATIVE mg/dL (NEGATIVE) 11/13/16 13:55 Urine Blood SMALL (NEGATIVE) H 11/13/16 13:55 Urine Nitrate NEGATIVE (NEGATIVE) 11/13/16 13:55 Urine Bilirubin NEGATIVE (NEGATIVE) 11/13/16 13:55 Urine Urobilinogen 0.2 E.U./dL (0.2 - 1.0) 11/13/16 13:55 Ur Leukocyte Esterase TRACE (NEGATIVE) H 11/13/16 13:55 Urine RBC 2-5 /hpf (0-5) H 11/13/16 13:55 Urine WBC 50-100 /hpf (0-5) H 11/13/16 13:55 Ur Epithelial Cells OCCASIONAL /lpf (FEW) 11/13/16 13:55 Urine Bacteria MANY /hpf (NONE SEEN) 11/13/16 13:55 Valproic Acid 24.7 ug/mL (50.0-100.0) L 11/13/16 13:16 RPR NONREACTIVE (NONREACTIVE) 11/13/16 13:16 Hepatitis A IgM Ab Negative (Negative) 11/13/16 13:16 Hep Bs Antigen Negative (Negative) 11/13/16 13:16 Hep B Core IgM Ab Negative (Negative) 11/13/16 13:16 Hepatitis C Antibody <0.1 s/co ratio (0.0-0.9) 11/13/16 13:16 - Physical Exam Vitals and I&O: Vital Signs Temp 96.7 F 11/15/16 23:01 Pulse 76 11/16/16 09:27 Resp 18 11/15/16 23:01 BP 115/69 11/16/16 09:27 Pulse Ox 97 11/15/16 23:01 Intake & Output 11/15/16 11/16/16 11/16/16 18:59 06:59 18:59 Intake Total 700 Balance 700 Intake: Oral 700 Other: # Voids 3 2 # Bowel Movements 1 Active Medications: Current Medications Acetaminophen (Tylenol) 650 mg PO Q4HR PRN PRN Reason: Pain or Fever >101 Stop: 01/12/17 20:06 Al Hydrox/Mg Hydrox/Simethicone (Maalox) 30 ml PO Q4HR PRN PRN Reason: GI DISTRESS Stop: 01/12/17 20:06 Ascorbic Acid (Vitamin C) 500 mg PO BID [facility] Stop: 01/14/17 08:59 Last Admin: 11/16/16 09:27 Dose: 500 mg Atorvastatin Calcium (Lipitor) 10 mg PO HS IRMA PRN Reason: Protocol Stop: 01/12/17 20:59 Last Admin: 11/15/16 21:06 Dose: 10 mg Clopidogrel Bisulfate (Plavix) 75 mg PO DAILY [facility] Stop: 01/13/17 08:59 Last Admin: 11/16/16 09:25 Dose: 75 mg Divalproex Sodium (Depakote Dr) 250 mg PO BID [facility] PRN Reason: Protocol Stop: 01/14/17 08:59 Last Admin: 11/16/16 09:25 Dose: 250 mg Docusate Sodium (Colace) 100 mg PO DAILY PRN PRN Reason: Constipation Stop: 01/12/17 20:06 Ferrous Sulfate (Iron) 325 mg PO DAILY [facility] Stop: 01/14/17 08:59 Last Admin: 11/16/16 09:25 Dose: 325 mg Insulin Aspart (Novolog Insulin Sliding Scale) 0 units SUBQ ACHS IRMA PRN Reason: Protocol Stop: 01/12/17 20:59 Last Admin: 11/16/16 11:44 Dose: Not Given Levofloxacin (Levaquin) 500 mg PO DAILY [facility] Stop: 11/22/16 08:59 Last Admin: 11/16/16 09:27 Dose: 500 mg Lorazepam (Ativan) 0.5 mg PO Q4HR PRN; Protocol PRN Reason: Anxiety Stop: 12/13/16 15:55 Last Admin: 11/14/16 10:06 Dose: 0.5 mg Magnesium Hydroxide (Milk Of Magnesia) 30 ml PO HS PRN PRN Reason: Constipation Stop: 01/13/17 22:49 Memantine (Namenda) 10 mg PO DAILY [facility] Stop: 01/13/17 08:59 Last Admin: 11/16/16 09:28 Dose: 10 mg Metformin HCl (Glucophage) 500 mg PO BID [facility] Stop: 01/13/17 08:59 Last Admin: 11/16/16 09:24 Dose: 500 mg Metoprolol Succinate (Toprol Xl) 25 mg PO BID [facility] Stop: 01/13/17 08:59 Last Admin: 11/16/16 09:27 Dose: Not Given Multivitamins/Vitamin C (Theragran) 1 tab PO DAILY [facility] Stop: 01/14/17 08:59 Last Admin: 11/16/16 09:25 Dose: 1 tab Quetiapine Fumarate (Seroquel) 75 mg PO BID [facility] PRN Reason: Protocol Stop: 01/14/17 08:59 Last Admin: 11/16/16 09:27 Dose: 75 mg Quetiapine Fumarate (Seroquel) 125 mg PO HS [facility]MA PRN Reason: Protocol Stop: 01/14/17 20:59 Last Admin: 11/15/16 21:05 Dose: 125 mg Senna (Senna) 8.6 mg PO HS [facility] Stop: 01/14/17 20:59 Last Admin: 11/15/16 21:06 Dose: 8.6 mg Trimethoprim/Sulfamethoxazole (Bactrim Ds) 1 tab PO BID [facility] Stop: 01/15/17 08:59 Last Admin: 11/16/16 09:28 Dose: 1 tab Zinc Sulfate (Zinc Sulfate) 220 mg PO DAILY [facility] Stop: 01/13/17 08:59 Last Admin: 11/16/16 09:25 Dose: 220 mg Zolpidem Tartrate (Ambien) 5 mg PO HS PRN PRN Reason: Insomnia Stop: 01/12/17 15:55 General: Alert, Oriented x3 HEENT: Atraumatic, PERRLA Neck: Supple Cardiovascular: Regular rate, Normal S1, Normal S2 Lungs: Clear to auscultation, Normal air movement Abdomen: Bowel sounds, Soft, no Tender Extremities: no Clubbing, no Cyanosis, no Edema Assessment/Plan - Problem List Patient Problems: All Active Problems POOR ORAL INTAKE WITH AGITATION (Acute) encephalopathy (Acute) psychosis (Acute) - Assessment Assessment: Impression: 1. UTI : MRSa. 2. Dementia. 3. Aggressive behaviour. 4. DM2 5. CAD. - Plan Plan: Continue same treatment.
[2016-11-16] MEDS: Atorvastatin Calcium 10 MG TAB PO SCH (21:19)
--- NOTE | 2016-11-17 01:39 | Progress Notes ---
SUBJECTIVE: The patient is seen, chart reviewed, discussed with staff. The patient was seen today, 11/16/2016. He remains irritable, sleeping, arousable, but not talking to me, noted by staff to be agitated, aggressive. Dr. Lanza has been seeing the patient over the past few days, noting he remains angry, irritable, needing help with ADLs, prompting for ADLs and continued psychotic symptoms. ASSESSMENT: The patient is still psychotic, still concerns for safety, concerns for his ability to utilize basic food, clothing and detention due to the severity of his behaviors. PLAN: Continue to monitor. Continue to titrate medications. The patient is not safe for a lower level of care. [facility]# [id number]
[2016-11-17] MEDS: INSULIN ASPART SLIDING SCALE 100 UNITS/ML UNIT SUBQ SCH ×4 (06:33→20:53)
[2016-11-17] MEDS: Multivitamin Tab PO SCH (10:02)
[2016-11-17] MEDS: Ferrous Sulfate 325 MG TAB PO SCH (10:03)
[2016-11-17] MEDS: Sulfamethoxazole/TMP 800/160mg Tab PO SCH ×2 (10:03→17:09)
--- NOTE | 2016-11-17 17:58 | Infectious Disease Prog Note ---
Infectious Disease Subjective - Review of Systems Service Date: 11/17/16 Subjective: No new event. Infectious Disease Objective - Results Result Diagrams: 11/13/16 13:16 11/13/16 13:16 Recent Labs: Laboratory Last Values WBC 7.6 Th/cmm (4.8-10.8) D 11/13/16 13:16 RBC 4.14 Mil/cmm (3.80-5.80) 11/13/16 13:16 Hgb 12.3 gm/dL (12.6-17.4) L 11/13/16 13:16 Hct 36.4 % (39.0-49.0) L 11/13/16 13:16 MCV 88.1 fl (80-99) 11/13/16 13:16 MCH 29.7 pg (27.0-31.0) 11/13/16 13:16 MCHC Differential 33.7 pg (28.0-36.0) 11/13/16 13:16 RDW 14.5 % (11.5-20.0) 11/13/16 13:16 Plt Count 207 Th/cmm (150-400) 11/13/16 13:16 MPV 8.0 fl 11/13/16 13:16 Neutrophils % 60.3 % (40.0-80.0) 11/13/16 13:16 Lymphocytes % 28.4 % (20.0-50.0) 11/13/16 13:16 Monocytes % 9.4 % (2.0-10.0) 11/13/16 13:16 Eosinophils % 0.9 % (0.0-5.0) 11/13/16 13:16 Basophils % 1.0 % (0.0-2.0) 11/13/16 13:16 Sodium 136 mEq/L (136-145) 11/13/16 13:16 Potassium 3.6 mEq/L (3.5-5.1) 11/13/16 13:16 Chloride 103 mEq/L (98-107) 11/13/16 13:16 Carbon Dioxide 29.4 mEq/L (21.0-31.0) 11/13/16 13:16 Anion Gap 7.2 (7.0-16.0) 11/13/16 13:16 BUN 14 mg/dL (7-25) 11/13/16 13:16 Creatinine 0.9 mg/dL (0.7-1.3) 11/13/16 13:16 Est GFR ( Amer) TNP 11/13/16 13:16 Est GFR (Non-Af Amer) TNP 11/13/16 13:16 BUN/Creatinine Ratio 15.6 11/13/16 13:16 Glucose 103 mg/dL (70-105) 11/13/16 13:16 POC Glucose 87 MG/DL (70 - 105) 11/17/16 17:01 Calcium 9.2 mg/dL (8.6-10.3) 11/13/16 13:16 Total Bilirubin 0.6 mg/dL (0.3-1.0) 11/13/16 13:16 AST 13 U/L (13-39) 11/13/16 13:16 ALT 11 U/L (7-52) 11/13/16 13:16 Alkaline Phosphatase 66 U/L (34-104) 11/13/16 13:16 Total Protein 6.6 gm/dL (6.0-8.3) 11/13/16 13:16 Albumin 3.5 gm/dL (4.2-5.5) L 11/13/16 13:16 Globulin 3.1 gm/dL 11/13/16 13:16 Albumin/Globulin Ratio 1.1 (1.0-1.8) 11/13/16 13:16 Triglycerides 146 mg/dL (<150) 11/13/16 13:16 Cholesterol 125 mg/dL (<200) 11/13/16 13:16 LDL Cholesterol Direct 68 mg/dL (75-193) L 11/13/16 13:16 HDL Cholesterol 36 mg/dL (23-92) 11/13/16 13:16 TSH 2.60 uIU/ml (0.34-5.60) 11/13/16 13:16 Urine Source CLEAN C 11/13/16 13:55 Urine Color YELLOW 11/13/16 13:55 Urine Clarity SL. CLOUDY (CLEAR) 11/13/16 13:55 Urine pH 6.0 11/13/16 13:55 Ur Specific [place] 1.020 (1.005-1.030) 11/13/16 13:55 Urine Protein 30 mg/dL (NEGATIVE) H 11/13/16 13:55 Urine Glucose (UA) NEGATIVE mg/dL (NEGATIVE) 11/13/16 13:55 Urine Ketones NEGATIVE mg/dL (NEGATIVE) 11/13/16 13:55 Urine Blood SMALL (NEGATIVE) H 11/13/16 13:55 Urine Nitrate NEGATIVE (NEGATIVE) 11/13/16 13:55 Urine Bilirubin NEGATIVE (NEGATIVE) 11/13/16 13:55 Urine Urobilinogen 0.2 E.U./dL (0.2 - 1.0) 11/13/16 13:55 Ur Leukocyte Esterase TRACE (NEGATIVE) H 11/13/16 13:55 Urine RBC 2-5 /hpf (0-5) H 11/13/16 13:55 Urine WBC 50-100 /hpf (0-5) H 11/13/16 13:55 Ur Epithelial Cells OCCASIONAL /lpf (FEW) 11/13/16 13:55 Urine Bacteria MANY /hpf (NONE SEEN) 11/13/16 13:55 Valproic Acid 24.7 ug/mL (50.0-100.0) L 11/13/16 13:16 RPR NONREACTIVE (NONREACTIVE) 11/13/16 13:16 Hepatitis A IgM Ab Negative (Negative) 11/13/16 13:16 Hep Bs Antigen Negative (Negative) 11/13/16 13:16 Hep B Core IgM Ab Negative (Negative) 11/13/16 13:16 Hepatitis C Antibody <0.1 s/co ratio (0.0-0.9) 11/13/16 13:16 - Physical Exam Vitals and I&O: Vital Signs Temp 98.1 F 11/17/16 15:34 Pulse 68 11/17/16 17:09 Resp 20 11/17/16 15:34 BP 120/78 11/17/16 17:09 Pulse Ox 96 11/17/16 15:34 Intake & Output 11/16/16 11/17/16 11/17/16 18:59 06:59 18:59 Intake Total 1200 240 Balance 1200 240 Intake: Oral 1200 240 Other: # Voids 1 # Bowel Movements 1 Active Medications: Current Medications Acetaminophen (Tylenol) 650 mg PO Q4HR PRN PRN Reason: Pain or Fever >101 Stop: 01/12/17 20:06 Al Hydrox/Mg Hydrox/Simethicone (Maalox) 30 ml PO Q4HR PRN PRN Reason: GI DISTRESS Stop: 01/12/17 20:06 Ascorbic Acid (Vitamin C) 500 mg PO BID [facility] Stop: 01/14/17 08:59 Last Admin: 11/17/16 17:09 Dose: 500 mg Atorvastatin Calcium (Lipitor) 10 mg PO HS [facility] PRN Reason: Protocol Stop: 01/12/17 20:59 Last Admin: 11/16/16 21:19 Dose: 10 mg Clopidogrel Bisulfate (Plavix) 75 mg PO DAILY [facility] Stop: 01/13/17 08:59 Last Admin: 11/17/16 10:03 Dose: 75 mg Divalproex Sodium (Depakote Dr) 250 mg PO BID [facility] PRN Reason: Protocol Stop: 01/14/17 08:59 Last Admin: 11/17/16 17:09 Dose: 250 mg Docusate Sodium (Colace) 100 mg PO DAILY PRN PRN Reason: Constipation Stop: 01/12/17 20:06 Ferrous Sulfate (Iron) 325 mg PO DAILY [facility] Stop: 01/14/17 08:59 Last Admin: 11/17/16 10:03 Dose: 325 mg Insulin Aspart (Novolog Insulin Sliding Scale) 0 units SUBQ ACHS [facility] PRN Reason: Protocol Stop: 01/12/17 20:59 Last Admin: 11/17/16 17:09 Dose: Not Given Levofloxacin (Levaquin) 500 mg PO DAILY [facility] Stop: 11/22/16 08:59 Last Admin: 11/17/16 10:02 Dose: 500 mg Lorazepam (Ativan) 0.5 mg PO Q4HR PRN; Protocol PRN Reason: Anxiety Stop: 12/13/16 15:55 Last Admin: 11/14/16 10:06 Dose: 0.5 mg Magnesium Hydroxide (Milk Of Magnesia) 30 ml PO HS PRN PRN Reason: Constipation Stop: 01/13/17 22:49 Memantine (Namenda) 10 mg PO DAILY [facility] Stop: 01/13/17 08:59 Last Admin: 11/17/16 10:02 Dose: 10 mg Metformin HCl (Glucophage) 500 mg PO BID [facility] Stop: 01/13/17 08:59 Last Admin: 11/17/16 17:09 Dose: 500 mg Metoprolol Succinate (Toprol Xl) 25 mg PO BID [facility] Stop: 01/13/17 08:59 Last Admin: 11/17/16 17:09 Dose: Not Given Multivitamins/Vitamin C (Theragran) 1 tab PO DAILY [facility] Stop: 01/14/17 08:59 Last Admin: 11/17/16 10:02 Dose: 1 tab Quetiapine Fumarate (Seroquel) 75 mg PO BID [facility] PRN Reason: Protocol Stop: 01/14/17 08:59 Last Admin: 11/17/16 17:08 Dose: 75 mg Quetiapine Fumarate (Seroquel) 125 mg PO HS [facility] PRN Reason: Protocol Stop: 01/14/17 20:59 Last Admin: 11/16/16 21:18 Dose: 125 mg Senna (Senna) 8.6 mg PO HS [facility] Stop: 01/14/17 20:59 Last Admin: 11/16/16 21:19 Dose: 8.6 mg Trimethoprim/Sulfamethoxazole (Bactrim Ds) 1 tab PO BID [facility] Stop: 01/15/17 08:59 Last Admin: 11/17/16 17:09 Dose: 1 tab Zinc Sulfate (Zinc Sulfate) 220 mg PO DAILY [facility] Stop: 01/13/17 08:59 Last Admin: 11/17/16 10:02 Dose: 220 mg Zolpidem Tartrate (Ambien) 5 mg PO HS PRN PRN Reason: Insomnia Stop: 01/12/17 15:55 General: no acute distress, well developed, well nourished HEENT: atraumatic, normocephalic, PERRLA, EOMI, moist mucous membrane Neck: supple Cardiovascular: S1S2, regular Lungs: clear to auscultation bilaterally, clear to percussion Abdomen: soft, no tender, no distended Extremities: no cyanosis, no clubbing, no edema Neurological: awake, alert Skin: intact Infectious Disease Assmt/Plan - Problem List Patient Problems: All Active Problems POOR ORAL INTAKE WITH AGITATION (Acute) encephalopathy (Acute) psychosis (Acute) - Assessment Assessment: Impression: 1. UTI : MRSa. 2. Dementia. 3. Aggressive behaviour. 4. DM2 5. CAD. - Plan Plan: Continue same treatment.
[2016-11-17] MEDS: Atorvastatin Calcium 10 MG TAB PO SCH (20:52)
--- NOTE | 2016-11-18 02:11 | Progress Notes ---
SUBJECTIVE: The patient was seen, chart reviewed, and discussed with staff. The patient is refusing to speak with me today, remains irritable, sleeping, but arousable, but not talking to me, noted by staff to remain agitated, aggressive at times, angry, needing prompting for ADLs, prompting for eating and still labile, not safe for a lower level of care. Continue concerns about his ability to allow his basic food, clothing, and fdc. Concerns for his ability to be cared for at a lower level of care. Medications were reviewed. No overt side effects noted. ASSESSMENT: The patient remains symptomatic, not safe for a lower level of care. Recent dose increased of Seroquel. The patient is still irritable and labile. [facility]# [id number]
[2016-11-18] MEDS: INSULIN ASPART SLIDING SCALE 100 UNITS/ML UNIT SUBQ SCH ×4 (06:34→20:59)
[2016-11-18] MEDS: Ferrous Sulfate 325 MG TAB PO SCH (15:29)
[2016-11-18] MEDS: Sulfamethoxazole/TMP 800/160mg Tab PO SCH ×2 (15:30→16:34)
[2016-11-18] MEDS: Multivitamin Tab PO SCH (15:30)
[2016-11-18] MEDS: Atorvastatin Calcium 10 MG TAB PO SCH (20:48)
[2016-11-19] MEDS: INSULIN ASPART SLIDING SCALE 100 UNITS/ML UNIT SUBQ SCH ×3 (06:42→21:17)
--- NOTE | 2016-11-19 09:43 | Progress Notes ---
SUBJECTIVE: The patient was seen in his room lying in his bed. The patient is a poor historian and does ____ noncommunicative. Per nurses, the patient is still having issues with the outbursts of behavior, episodes of agitation and the patient still remains irritable at times. OBJECTIVE: HEENT: Head is atraumatic, normocephalic. NECK: Supple. No JVD. CARDIOVASCULAR: No murmurs, S1 and S2 heard. PULMONARY: Clear to auscultation. No wheezing. GASTROINTESTINAL: Soft, nontender, negative for guarding. MUSCULOSKELETAL: The patient is currently bedbound. ASSESSMENT: 1. Dementia. 2. Agitation. 3. Alzheimer disease. 4. Diabetes. 5. Failure to thrive. 6. Anxiety. 7. Diabetes. 8. Insomnia. PLAN: We will keep the patient in the Geropsych unit and we will follow up with the psych doctor for behavioral management. JOB# [id number]
[2016-11-19] MEDS: Ferrous Sulfate 325 MG TAB PO SCH (11:48)
[2016-11-19] MEDS: Multivitamin Tab PO SCH (11:49)
[2016-11-19] MEDS: Sulfamethoxazole/TMP 800/160mg Tab PO SCH (11:49)
--- NOTE | 2016-11-19 13:23 | Infectious Disease Prog Note ---
Infectious Disease Subjective - Review of Systems Service Date: 11/19/16 Subjective: No new event. Infectious Disease Objective - Results Result Diagrams: 11/13/16 13:16 11/13/16 13:16 Recent Labs: Laboratory Last Values WBC 7.6 Th/cmm (4.8-10.8) D 11/13/16 13:16 RBC 4.14 Mil/cmm (3.80-5.80) 11/13/16 13:16 Hgb 12.3 gm/dL (12.6-17.4) L 11/13/16 13:16 Hct 36.4 % (39.0-49.0) L 11/13/16 13:16 MCV 88.1 fl (80-99) 11/13/16 13:16 MCH 29.7 pg (27.0-31.0) 11/13/16 13:16 MCHC Differential 33.7 pg (28.0-36.0) 11/13/16 13:16 RDW 14.5 % (11.5-20.0) 11/13/16 13:16 Plt Count 207 Th/cmm (150-400) 11/13/16 13:16 MPV 8.0 fl 11/13/16 13:16 Neutrophils % 60.3 % (40.0-80.0) 11/13/16 13:16 Lymphocytes % 28.4 % (20.0-50.0) 11/13/16 13:16 Monocytes % 9.4 % (2.0-10.0) 11/13/16 13:16 Eosinophils % 0.9 % (0.0-5.0) 11/13/16 13:16 Basophils % 1.0 % (0.0-2.0) 11/13/16 13:16 Sodium 136 mEq/L (136-145) 11/13/16 13:16 Potassium 3.6 mEq/L (3.5-5.1) 11/13/16 13:16 Chloride 103 mEq/L (98-107) 11/13/16 13:16 Carbon Dioxide 29.4 mEq/L (21.0-31.0) 11/13/16 13:16 Anion Gap 7.2 (7.0-16.0) 11/13/16 13:16 BUN 14 mg/dL (7-25) 11/13/16 13:16 Creatinine 0.9 mg/dL (0.7-1.3) 11/13/16 13:16 Est GFR ( Amer) TNP 11/13/16 13:16 Est GFR (Non-Af Amer) TNP 11/13/16 13:16 BUN/Creatinine Ratio 15.6 11/13/16 13:16 Glucose 103 mg/dL (70-105) 11/13/16 13:16 POC Glucose 105 MG/DL (70 - 105) 11/19/16 06:13 Calcium 9.2 mg/dL (8.6-10.3) 11/13/16 13:16 Total Bilirubin 0.6 mg/dL (0.3-1.0) 11/13/16 13:16 AST 13 U/L (13-39) 11/13/16 13:16 ALT 11 U/L (7-52) 11/13/16 13:16 Alkaline Phosphatase 66 U/L (34-104) 11/13/16 13:16 Total Protein 6.6 gm/dL (6.0-8.3) 11/13/16 13:16 Albumin 3.5 gm/dL (4.2-5.5) L 11/13/16 13:16 Globulin 3.1 gm/dL 11/13/16 13:16 Albumin/Globulin Ratio 1.1 (1.0-1.8) 11/13/16 13:16 Triglycerides 146 mg/dL (<150) 11/13/16 13:16 Cholesterol 125 mg/dL (<200) 11/13/16 13:16 LDL Cholesterol Direct 68 mg/dL (75-193) L 11/13/16 13:16 HDL Cholesterol 36 mg/dL (23-92) 11/13/16 13:16 TSH 2.60 uIU/ml (0.34-5.60) 11/13/16 13:16 Urine Source CLEAN C 11/13/16 13:55 Urine Color YELLOW 11/13/16 13:55 Urine Clarity SL. CLOUDY (CLEAR) 11/13/16 13:55 Urine pH 6.0 11/13/16 13:55 Ur Specific [place] 1.020 (1.005-1.030) 11/13/16 13:55 Urine Protein 30 mg/dL (NEGATIVE) H 11/13/16 13:55 Urine Glucose (UA) NEGATIVE mg/dL (NEGATIVE) 11/13/16 13:55 Urine Ketones NEGATIVE mg/dL (NEGATIVE) 11/13/16 13:55 Urine Blood SMALL (NEGATIVE) H 11/13/16 13:55 Urine Nitrate NEGATIVE (NEGATIVE) 11/13/16 13:55 Urine Bilirubin NEGATIVE (NEGATIVE) 11/13/16 13:55 Urine Urobilinogen 0.2 E.U./dL (0.2 - 1.0) 11/13/16 13:55 Ur Leukocyte Esterase TRACE (NEGATIVE) H 11/13/16 13:55 Urine RBC 2-5 /hpf (0-5) H 11/13/16 13:55 Urine WBC 50-100 /hpf (0-5) H 11/13/16 13:55 Ur Epithelial Cells OCCASIONAL /lpf (FEW) 11/13/16 13:55 Urine Bacteria MANY /hpf (NONE SEEN) 11/13/16 13:55 Valproic Acid 24.7 ug/mL (50.0-100.0) L 11/13/16 13:16 RPR NONREACTIVE (NONREACTIVE) 11/13/16 13:16 Hepatitis A IgM Ab Negative (Negative) 11/13/16 13:16 Hep Bs Antigen Negative (Negative) 11/13/16 13:16 Hep B Core IgM Ab Negative (Negative) 11/13/16 13:16 Hepatitis C Antibody <0.1 s/co ratio (0.0-0.9) 11/13/16 13:16 - Physical Exam Vitals and I&O: Vital Signs Temp 98 F 11/19/16 06:40 Pulse 66 11/19/16 06:40 Resp 18 11/19/16 06:40 BP 107/64 11/19/16 06:40 Pulse Ox 100 11/19/16 06:40 Intake & Output 11/18/16 11/19/16 11/19/16 18:59 06:59 18:59 Intake Total 800 240 Output Total 200 Balance 600 240 Weight (lbs) 75.75 kg Intake: Oral 800 240 Output: Urine 200 Other: # Voids 2 2 # Bowel Movements 0 0 Active Medications: Current Medications Acetaminophen (Tylenol) 650 mg PO Q4HR PRN PRN Reason: Pain or Fever >101 Stop: 01/12/17 20:06 Al Hydrox/Mg Hydrox/Simethicone (Maalox) 30 ml PO Q4HR PRN PRN Reason: GI DISTRESS Stop: 01/12/17 20:06 Ascorbic Acid (Vitamin C) 500 mg PO BID [facility] Stop: 01/14/17 08:59 Last Admin: 11/19/16 11:48 Dose: Not Given Atorvastatin Calcium (Lipitor) 10 mg PO HS [facility] PRN Reason: Protocol Stop: 01/12/17 20:59 Last Admin: 11/18/16 20:48 Dose: 10 mg Clopidogrel Bisulfate (Plavix) 75 mg PO DAILY [facility] Stop: 01/13/17 08:59 Last Admin: 11/19/16 11:48 Dose: Not Given Divalproex Sodium (Depakote Dr) 500 mg PO BID [facility] PRN Reason: Protocol Stop: 01/14/17 08:59 Docusate Sodium (Colace) 100 mg PO DAILY PRN PRN Reason: Constipation Stop: 01/12/17 20:06 Ferrous Sulfate (Iron) 325 mg PO DAILY [facility] Stop: 01/14/17 08:59 Last Admin: 11/19/16 11:48 Dose: Not Given Insulin Aspart (Novolog Insulin Sliding Scale) 0 units SUBQ ACHS [facility] PRN Reason: Protocol Stop: 01/12/17 20:59 Last Admin: 11/19/16 11:49 Dose: Not Given Levofloxacin (Levaquin) 500 mg PO DAILY [facility] Stop: 11/22/16 08:59 Last Admin: 11/19/16 11:48 Dose: Not Given Lorazepam (Ativan) 0.5 mg PO Q4HR PRN; Protocol PRN Reason: Anxiety Stop: 12/13/16 15:55 Last Admin: 11/18/16 19:59 Dose: 0.5 mg Magnesium Hydroxide (Milk Of Magnesia) 30 ml PO HS PRN PRN Reason: Constipation Stop: 01/13/17 22:49 Memantine (Namenda) 10 mg PO DAILY [facility] Stop: 01/13/17 08:59 Last Admin: 11/19/16 11:49 Dose: Not Given Metformin HCl (Glucophage) 500 mg PO BID [facility] Stop: 01/13/17 08:59 Last Admin: 11/19/16 11:49 Dose: Not Given Metoprolol Succinate (Toprol Xl) 25 mg PO BID [facility] Stop: 01/13/17 08:59 Last Admin: 11/19/16 11:49 Dose: Not Given Multivitamins/Vitamin C (Theragran) 1 tab PO DAILY [facility] Stop: 01/14/17 08:59 Last Admin: 11/19/16 11:49 Dose: Not Given Quetiapine Fumarate (Seroquel) 75 mg PO BID [facility] PRN Reason: Protocol Stop: 01/14/17 08:59 Last Admin: 11/19/16 11:49 Dose: Not Given Quetiapine Fumarate 100 mg/ (Quetiapine Fumarate 25 mg) 125 mg PO HS [facility] Stop: 01/18/17 20:59 Senna (Senna) 8.6 mg PO HS [facility] Stop: 01/14/17 20:59 Last Admin: 11/18/16 20:48 Dose: 8.6 mg Trimethoprim/Sulfamethoxazole (Bactrim Ds) 1 tab PO BID [facility] Stop: 01/15/17 08:59 Last Admin: 11/19/16 11:49 Dose: Not Given Zinc Sulfate (Zinc Sulfate) 220 mg PO DAILY [facility] Stop: 01/13/17 08:59 Last Admin: 11/19/16 11:49 Dose: Not Given Zolpidem Tartrate (Ambien) 5 mg PO HS PRN PRN Reason: Insomnia Stop: 01/12/17 15:55 General: no acute distress, well developed, well nourished HEENT: atraumatic, normocephalic, PERRLA, EOMI Neck: supple, no thyromegaly, no lymphadenopathy Cardiovascular: S1S2, regular Lungs: clear to auscultation bilaterally, clear to percussion Abdomen: soft, no tender, no distended Extremities: no cyanosis, no clubbing, no edema Neurological: awake, alert Infectious Disease Assmt/Plan - Problem List Patient Problems: All Active Problems POOR ORAL INTAKE WITH AGITATION (Acute) encephalopathy (Acute) psychosis (Acute) - Assessment Assessment: Impression: 1. UTI : MRSa. 2. Dementia. 3. Aggressive behaviour. 4. DM2 5. CAD. - Plan Plan: Continue same treatment. Nutritional Asmnt/Malnutr-PDOC - Dietary Evaluation Malnutrition Findings (Please click <Entered> for more info): Nutritional Asmnt/Malnutrition Start: 11/18/16 17: 43 Text: Status: Complete Freq: Document 11/18/16 17:43 GSUN (Rec: 11/18/16 17:44 [id number]) Nutritional Asmnt/Malnutrition Patient General Information Nutritional Screening Moderate Risk Screening Diagnosis Increased agitation, poor PO Pertinent Medical Hx/Surgical Hx dementia, Alzheimer's hyperlipidemia, DM, TIA Subjective Information 76yo M. Pt was asleep during visit, obtained new weight, poor historian per nursing staff and H&P. Avg PO intake meeting approx 50% of estimated nutritional needs in past 3 days. Current Diet Order/ Nutrition Support Mech soft chopped, ANTONIO Pertinent Medications maalox, vitamin c, lipitor, colace, iron, novolog sliding scale, MOM, glucophage, theragran, seroquel, senna, zinc sulfate Pertinent Labs Reviewed. POC glucose most of the time < 125 range for past 3 days, expcet 152H and 198H Nutritional Hx/Data Height 1.75 m Height (Calculated Centimeters) 175.3 Current Weight (lbs) 75.75 kg Weight (Calculated Kilograms) 75.7 Weight (Calculated Grams) 81013.9 [place] Body Weight 160lb Weight Status Approriate GI Symptoms Food Allergies No Cultural/Ethnic/Yazidi Belief [place]. Usual diet at home Unknown. Skin Integrity/Comment: Tito 17. Bruises, otherwise intact. Current %PO Poor (25-49%) Estimated Nutritional Goals BEE in Kcals: Using Current wt Calories/Kcals/Kg 25-30kcal/kg Kcals Calculated 1898-2277kcal Protein: Using Current wt Protein g/kg/kg Protein Calculated 76g Fluid: ml 1898-2277ml (1ml/kcal) Nutritional Problem 1. Problem Problem Poor oral food/beverage intake related to Etiology cognition aeb Signs/Symptoms: PO intake meeting approx 50% of estimated nutritional needs in the past 3 days Intervention/Recommendation Comments 1. Continue with [facility] soft chopped + ANTONIO diet. 2. Provide diet health shake TID, FNS notified. 3. Weekly weight to monitor weight trend. Expected Outcomes/Goals Expected Outcomes/Goals 1. PO intake to meet at least 75% of estimated nutritional needs. Physician Parameters for PEM Serum Albumin (g/dl) 3.5 - 5.0 (Normal)
--- NOTE | 2016-11-19 18:23 | Progress Notes ---
SUBJECTIVE: Chart reviewed and the patient interviewed. Also discussed the patient's condition with the staff and reviewed records and labs. The patient has been depressed and he is sleeping most of the day and awake most of the night. Also, he is restless and he has poor appetite. The patient also is still aggressive and yelling and screaming and when awake, he has difficulty following any of staff directions. The patient also is still angry. The patient also continue to be in angry and in irritable mood and unable to follow any of the directions. During interview, patient is rambling and is actively hallucinating and actively talking to himself. ASSESSMENT: The patient is still psychotic. TREATMENT PLAN: We will continue monitoring his behavior and his condition closely. Also, continue adjusting psychotropic medications and work on behavioral modification. JOB# [id number]
[2016-11-19] MEDS: Atorvastatin Calcium 10 MG TAB PO SCH (20:28)
--- NOTE | 2016-11-20 01:45 | Progress Notes ---
SUBJECTIVE: Chart was reviewed and the patient interviewed. Also discussed the patient's condition with the staff and reviewed records and labs. The patient is still in angry and in irritable mood. The patient also is still easily agitated. He also is still suspicious and is still paranoid. The patient also is having difficulty with his mood. Otherwise, the patient is cooperative with treatment. Also, he still needs lots of redirections. ASSESSMENT: The patient is still psychotic. TREATMENT PLAN: Depakote blood level that was done on 11/13/2016 was 24.7. Because of his behavior, we will increase Depakote to 500 mg twice a day and we will monitor blood level. Also, continue working on his irritability and anger and we will continue to follow up. JOB# [id number]
[2016-11-20] MEDS: INSULIN ASPART SLIDING SCALE 100 UNITS/ML UNIT SUBQ SCH ×4 (06:47→20:55)
[2016-11-20] MEDS: Ferrous Sulfate 325 MG TAB PO SCH (09:39)
[2016-11-20] MEDS: Sulfamethoxazole/TMP 800/160mg Tab PO SCH ×2 (09:42→17:01)
[2016-11-20] MEDS: Multivitamin Tab PO SCH (09:42)
--- NOTE | 2016-11-20 11:41 | Infectious Disease Prog Note ---
Infectious Disease Subjective - Review of Systems Service Date: 11/20/16 Subjective: No new event. Infectious Disease Objective - Results Result Diagrams: 11/13/16 13:16 11/13/16 13:16 Recent Labs: Laboratory Last Values WBC 7.6 Th/cmm (4.8-10.8) D 11/13/16 13:16 RBC 4.14 Mil/cmm (3.80-5.80) 11/13/16 13:16 Hgb 12.3 gm/dL (12.6-17.4) L 11/13/16 13:16 Hct 36.4 % (39.0-49.0) L 11/13/16 13:16 MCV 88.1 fl (80-99) 11/13/16 13:16 MCH 29.7 pg (27.0-31.0) 11/13/16 13:16 MCHC Differential 33.7 pg (28.0-36.0) 11/13/16 13:16 RDW 14.5 % (11.5-20.0) 11/13/16 13:16 Plt Count 207 Th/cmm (150-400) 11/13/16 13:16 MPV 8.0 fl 11/13/16 13:16 Neutrophils % 60.3 % (40.0-80.0) 11/13/16 13:16 Lymphocytes % 28.4 % (20.0-50.0) 11/13/16 13:16 Monocytes % 9.4 % (2.0-10.0) 11/13/16 13:16 Eosinophils % 0.9 % (0.0-5.0) 11/13/16 13:16 Basophils % 1.0 % (0.0-2.0) 11/13/16 13:16 Sodium 136 mEq/L (136-145) 11/13/16 13:16 Potassium 3.6 mEq/L (3.5-5.1) 11/13/16 13:16 Chloride 103 mEq/L (98-107) 11/13/16 13:16 Carbon Dioxide 29.4 mEq/L (21.0-31.0) 11/13/16 13:16 Anion Gap 7.2 (7.0-16.0) 11/13/16 13:16 BUN 14 mg/dL (7-25) 11/13/16 13:16 Creatinine 0.9 mg/dL (0.7-1.3) 11/13/16 13:16 Est GFR ( Amer) TNP 11/13/16 13:16 Est GFR (Non-Af Amer) TNP 11/13/16 13:16 BUN/Creatinine Ratio 15.6 11/13/16 13:16 Glucose 103 mg/dL (70-105) 11/13/16 13:16 POC Glucose 126 MG/DL (70 - 105) H 11/20/16 06:04 Calcium 9.2 mg/dL (8.6-10.3) 11/13/16 13:16 Total Bilirubin 0.6 mg/dL (0.3-1.0) 11/13/16 13:16 AST 13 U/L (13-39) 11/13/16 13:16 ALT 11 U/L (7-52) 11/13/16 13:16 Alkaline Phosphatase 66 U/L (34-104) 11/13/16 13:16 Total Protein 6.6 gm/dL (6.0-8.3) 11/13/16 13:16 Albumin 3.5 gm/dL (4.2-5.5) L 11/13/16 13:16 Globulin 3.1 gm/dL 11/13/16 13:16 Albumin/Globulin Ratio 1.1 (1.0-1.8) 11/13/16 13:16 Triglycerides 146 mg/dL (<150) 11/13/16 13:16 Cholesterol 125 mg/dL (<200) 11/13/16 13:16 LDL Cholesterol Direct 68 mg/dL (75-193) L 11/13/16 13:16 HDL Cholesterol 36 mg/dL (23-92) 11/13/16 13:16 TSH 2.60 uIU/ml (0.34-5.60) 11/13/16 13:16 Urine Source CLEAN C 11/13/16 13:55 Urine Color YELLOW 11/13/16 13:55 Urine Clarity SL. CLOUDY (CLEAR) 11/13/16 13:55 Urine pH 6.0 11/13/16 13:55 Ur Specific [place] 1.020 (1.005-1.030) 11/13/16 13:55 Urine Protein 30 mg/dL (NEGATIVE) H 11/13/16 13:55 Urine Glucose (UA) NEGATIVE mg/dL (NEGATIVE) 11/13/16 13:55 Urine Ketones NEGATIVE mg/dL (NEGATIVE) 11/13/16 13:55 Urine Blood SMALL (NEGATIVE) H 11/13/16 13:55 Urine Nitrate NEGATIVE (NEGATIVE) 11/13/16 13:55 Urine Bilirubin NEGATIVE (NEGATIVE) 11/13/16 13:55 Urine Urobilinogen 0.2 E.U./dL (0.2 - 1.0) 11/13/16 13:55 Ur Leukocyte Esterase TRACE (NEGATIVE) H 11/13/16 13:55 Urine RBC 2-5 /hpf (0-5) H 11/13/16 13:55 Urine WBC 50-100 /hpf (0-5) H 11/13/16 13:55 Ur Epithelial Cells OCCASIONAL /lpf (FEW) 11/13/16 13:55 Urine Bacteria MANY /hpf (NONE SEEN) 11/13/16 13:55 Valproic Acid 24.7 ug/mL (50.0-100.0) L 11/13/16 13:16 RPR NONREACTIVE (NONREACTIVE) 11/13/16 13:16 Hepatitis A IgM Ab Negative (Negative) 11/13/16 13:16 Hep Bs Antigen Negative (Negative) 11/13/16 13:16 Hep B Core IgM Ab Negative (Negative) 11/13/16 13:16 Hepatitis C Antibody <0.1 s/co ratio (0.0-0.9) 11/13/16 13:16 - Physical Exam Vitals and I&O: Vital Signs Temp 97.9 F 11/20/16 05:58 Pulse 65 11/20/16 10:29 Resp 20 11/20/16 10:29 BP 111/62 11/20/16 09:40 Pulse Ox 98 11/20/16 05:58 Intake & Output 11/19/16 11/20/16 11/20/16 18:59 06:59 18:59 Intake Total 800 120 Output Total 300 Balance 500 120 Intake: Oral 800 120 Output: Urine 300 Other: # Voids 3 # Bowel Movements 0 Active Medications: Current Medications Acetaminophen (Tylenol) 650 mg PO Q4HR PRN PRN Reason: Pain or Fever >101 Stop: 01/12/17 20:06 Al Hydrox/Mg Hydrox/Simethicone (Maalox) 30 ml PO Q4HR PRN PRN Reason: GI DISTRESS Stop: 01/12/17 20:06 Ascorbic Acid (Vitamin C) 500 mg PO BID [facility] Stop: 01/14/17 08:59 Last Admin: 11/20/16 09:42 Dose: 500 mg Atorvastatin Calcium (Lipitor) 10 mg PO HS [facility] PRN Reason: Protocol Stop: 01/12/17 20:59 Last Admin: 11/19/16 20:28 Dose: 10 mg Clopidogrel Bisulfate (Plavix) 75 mg PO DAILY [facility] Stop: 01/13/17 08:59 Last Admin: 11/20/16 09:39 Dose: 75 mg Divalproex Sodium (Depakote Dr) 500 mg PO BID [facility] PRN Reason: Protocol Stop: 01/14/17 08:59 Last Admin: 11/20/16 09:39 Dose: 500 mg Docusate Sodium (Colace) 100 mg PO DAILY PRN PRN Reason: Constipation Stop: 01/12/17 20:06 Ferrous Sulfate (Iron) 325 mg PO DAILY [facility] Stop: 01/14/17 08:59 Last Admin: 11/20/16 09:39 Dose: 325 mg Insulin Aspart (Novolog Insulin Sliding Scale) 0 units SUBQ ACHS [facility] PRN Reason: Protocol Stop: 01/12/17 20:59 Last Admin: 11/20/16 06:47 Dose: Not Given Levofloxacin (Levaquin) 500 mg PO DAILY [facility] Stop: 11/22/16 08:59 Last Admin: 11/20/16 09:42 Dose: 500 mg Lorazepam (Ativan) 0.5 mg PO Q4HR PRN; Protocol PRN Reason: Anxiety Stop: 12/13/16 15:55 Last Admin: 11/19/16 21:02 Dose: 0.5 mg Magnesium Hydroxide (Milk Of Magnesia) 30 ml PO HS PRN PRN Reason: Constipation Stop: 01/13/17 22:49 Memantine (Namenda) 10 mg PO DAILY [facility] Stop: 01/13/17 08:59 Last Admin: 11/20/16 09:40 Dose: 10 mg Metformin HCl (Glucophage) 500 mg PO BID [facility] Stop: 01/13/17 08:59 Last Admin: 11/20/16 09:41 Dose: 500 mg Metoprolol Succinate (Toprol Xl) 25 mg PO BID [facility] Stop: 01/13/17 08:59 Last Admin: 11/20/16 09:40 Dose: 25 mg Multivitamins/Vitamin C (Theragran) 1 tab PO DAILY [facility] Stop: 01/14/17 08:59 Last Admin: 11/20/16 09:42 Dose: 1 tab Quetiapine Fumarate (Seroquel) 75 mg PO BID [facility] PRN Reason: Protocol Stop: 01/14/17 08:59 Last Admin: 11/20/16 09:41 Dose: 75 mg Quetiapine Fumarate 100 mg/ (Quetiapine Fumarate 25 mg) 125 mg PO HS [facility] Stop: 01/18/17 20:59 Last Admin: 11/19/16 20:27 Dose: 125 mg Senna (Senna) 8.6 mg PO HS [facility] Stop: 01/14/17 20:59 Last Admin: 11/19/16 20:28 Dose: 8.6 mg Trimethoprim/Sulfamethoxazole (Bactrim Ds) 1 tab PO BID [facility] Stop: 01/15/17 08:59 Last Admin: 11/20/16 09:42 Dose: 1 tab Zinc Sulfate (Zinc Sulfate) 220 mg PO DAILY [facility] Stop: 01/13/17 08:59 Last Admin: 11/20/16 09:42 Dose: 220 mg Zolpidem Tartrate (Ambien) 5 mg PO HS PRN PRN Reason: Insomnia Stop: 01/12/17 15:55 General: no acute distress, well developed, well nourished HEENT: atraumatic, normocephalic, PERRLA, EOMI Neck: supple, thyromegaly Cardiovascular: S1S2, regular Lungs: clear to auscultation bilaterally, clear to percussion Abdomen: soft, no tender, no distended Extremities: no cyanosis, no clubbing, no edema Neurological: awake, alert, oriented Skin: intact Infectious Disease Assmt/Plan - Problem List Patient Problems: All Active Problems POOR ORAL INTAKE WITH AGITATION (Acute) encephalopathy (Acute) psychosis (Acute) - Assessment Assessment: Impression: 1. UTI : MRSa. 2. Dementia. 3. Aggressive behaviour. 4. DM2 5. CAD. - Plan Plan: Continue same treatment. Nutritional Asmnt/Malnutr-PDOC - Dietary Evaluation Malnutrition Findings (Please click <Entered> for more info): Nutritional Asmnt/Malnutrition Start: 11/18/16 17: 43 Text: Status: Complete Freq: Document 11/18/16 17:43 ANAHI (Rec: 11/18/16 17:44 [id number]) Nutritional Asmnt/Malnutrition Patient General Information Nutritional Screening Moderate Risk Screening Diagnosis Increased agitation, poor PO Pertinent Medical Hx/Surgical Hx dementia, Alzheimer's hyperlipidemia, DM, TIA Subjective Information 76yo M. Pt was asleep during visit, obtained new weight, poor historian per nursing staff and H&P. Avg PO intake meeting approx 50% of estimated nutritional needs in past 3 days. Current Diet Order/ Nutrition Support [facility] soft chopped, ANTONIO Pertinent Medications maalox, vitamin c, lipitor, colace, iron, novolog sliding scale, MOM, glucophage, theragran, seroquel, senna, zinc sulfate Pertinent Labs Reviewed. POC glucose most of the time < 125 range for past 3 days, expcet 152H and 198H Nutritional Hx/Data Height 1.75 m Height (Calculated Centimeters) 175.3 Current Weight (lbs) 75.75 kg Weight (Calculated Kilograms) 75.7 Weight (Calculated Grams) 24395.9 [place] Body Weight 160lb Weight Status Approriate GI Symptoms Food Allergies No Cultural/Ethnic/[employer] Belief Unknwon. Usual diet at home Unknown. Skin Integrity/Comment: Tito 17. Bruises, otherwise intact. Current %PO Poor (25-49%) Estimated Nutritional Goals BEE in Kcals: Using Current wt Calories/Kcals/Kg 25-30kcal/kg Kcals Calculated 1898-2277kcal Protein: Using Current wt Protein g/kg/kg Protein Calculated 76g Fluid: ml 1898-2277ml (1ml/kcal) Nutritional Problem 1. Problem Problem Poor oral food/beverage intake related to Etiology cognition aeb Signs/Symptoms: PO intake meeting approx 50% of estimated nutritional needs in the past 3 days Intervention/Recommendation Comments 1. [facility] + ANTONIO diet. 2. Provide diet health shake TID, FNS notified. 3. Weekly weight to monitor weight trend. Expected Outcomes/Goals Expected Outcomes/Goals 1. PO intake to meet at least 75% of estimated nutritional needs. Physician Parameters for PEM Serum Albumin (g/dl) 3.5 - 5.0 (Normal)
[2016-11-20] MEDS: Atorvastatin Calcium 10 MG TAB PO SCH (20:46)
--- NOTE | 2016-11-20 22:36 | Progress Notes ---
SUBJECTIVE: Chart reviewed and the patient interviewed. Also, discussed the patient's condition with the staff and reviewed records and labs. The patient continued to be extremely irritable and extremely agitated and confused when he is awake. He is still yelling and screaming nonsense and he is demanding the things that are not present or existing. He is also unable to carry on any coherent conversation. He also still gets agitated when staff tries to help him with his ADLs or to redirect him. He also is still in angry and in irritable mood most of the time. Also, the patient is disheveled. ASSESSMENT: The patient is still psychotic and is still considered to be gravely disabled. TREATMENT PLAN: We will continue monitoring his behavior and his condition closely. Also, continue adjusting psychotropic medications and we will continue to follow up. JOB# [id number]
[2016-11-21] MEDS: INSULIN ASPART SLIDING SCALE 100 UNITS/ML UNIT SUBQ SCH ×4 (06:36→21:16)
[2016-11-21] MEDS: Ferrous Sulfate 325 MG TAB PO SCH (09:32)
[2016-11-21] MEDS: Multivitamin Tab PO SCH (09:34)
[2016-11-21] MEDS: Sulfamethoxazole/TMP 800/160mg Tab PO SCH ×2 (09:35→17:07)
[2016-11-21] MEDS: Atorvastatin Calcium 10 MG TAB PO SCH (20:53)
--- NOTE | 2016-11-22 01:55 | Progress Notes ---
SUBJECTIVE: Chart reviewed and the patient interviewed. Also discussed the patient's condition with the staff and reviewed records and labs. The patient still has episodes of yelling and screaming and he is still in angry and in irritable mood. The patient also is still suspicious and paranoid. The patient also is still confused and has disorganized thoughts. Also, still unable to come up with any safe plan for self-care. ASSESSMENT: The patient is still psychotic. TREATMENT PLAN: Continue monitoring his behavior and his condition closely. Also, continue adjusting psychotropic medications and continue to follow up. JOB# [id number]
--- NOTE | 2016-11-22 02:49 | Progress Notes ---
SUBJECTIVE: The patient was seen in his room lying in his bed. The patient is still having episodes of outburst behavior and confusion per nurses. The patient is unable to start any coherent conversation and the patient is continually demanding for things with non-existence. OBJECTIVE: HEAD: Normocephalic and atraumatic. NECK: Supple. No JVD. CARDIOVASCULAR: S1 and S2 heard without murmurs. PULMONARY: Clear to auscultation. GASTROINTESTINAL: Soft and nontender. Positive bowel sounds. MUSCULOSKELETAL: The patient is currently bedbound. ASSESSMENT: 1. Dementia. 2. Alzheimer's disease. 3. Anxiety. 4. Diabetes. 5. Failure to thrive. 6. Insomnia. PLAN: We will keep the patient in the Geropsych Unit and we will follow up with the psych doctor and per psych doctor, the patient still is gravely disabled. JOB# [id number]
[2016-11-22] MEDS: INSULIN ASPART SLIDING SCALE 100 UNITS/ML UNIT SUBQ SCH ×4 (06:33→21:21)
[2016-11-22] MEDS: Multivitamin Tab PO SCH (08:24)
[2016-11-22] MEDS: Sulfamethoxazole/TMP 800/160mg Tab PO SCH ×2 (08:25→16:47)
[2016-11-22] MEDS: Ferrous Sulfate 325 MG TAB PO SCH (08:25)
--- NOTE | 2016-11-22 11:07 | Infectious Disease Prog Note ---
Infectious Disease Subjective - Review of Systems Service Date: 11/22/16 Subjective: No new event. Infectious Disease Objective - Results Result Diagrams: 11/13/16 13:16 11/13/16 13:16 Recent Labs: Laboratory Last Values WBC 7.6 Th/cmm (4.8-10.8) D 11/13/16 13:16 RBC 4.14 Mil/cmm (3.80-5.80) 11/13/16 13:16 Hgb 12.3 gm/dL (12.6-17.4) L 11/13/16 13:16 Hct 36.4 % (39.0-49.0) L 11/13/16 13:16 MCV 88.1 fl (80-99) 11/13/16 13:16 MCH 29.7 pg (27.0-31.0) 11/13/16 13:16 MCHC Differential 33.7 pg (28.0-36.0) 11/13/16 13:16 RDW 14.5 % (11.5-20.0) 11/13/16 13:16 Plt Count 207 Th/cmm (150-400) 11/13/16 13:16 MPV 8.0 fl 11/13/16 13:16 Neutrophils % 60.3 % (40.0-80.0) 11/13/16 13:16 Lymphocytes % 28.4 % (20.0-50.0) 11/13/16 13:16 Monocytes % 9.4 % (2.0-10.0) 11/13/16 13:16 Eosinophils % 0.9 % (0.0-5.0) 11/13/16 13:16 Basophils % 1.0 % (0.0-2.0) 11/13/16 13:16 Sodium 136 mEq/L (136-145) 11/13/16 13:16 Potassium 3.6 mEq/L (3.5-5.1) 11/13/16 13:16 Chloride 103 mEq/L (98-107) 11/13/16 13:16 Carbon Dioxide 29.4 mEq/L (21.0-31.0) 11/13/16 13:16 Anion Gap 7.2 (7.0-16.0) 11/13/16 13:16 BUN 14 mg/dL (7-25) 11/13/16 13:16 Creatinine 0.9 mg/dL (0.7-1.3) 11/13/16 13:16 Est GFR ( Amer) TNP 11/13/16 13:16 Est GFR (Non-Af Amer) TNP 11/13/16 13:16 BUN/Creatinine Ratio 15.6 11/13/16 13:16 Glucose 103 mg/dL (70-105) 11/13/16 13:16 POC Glucose 106 MG/DL (70 - 105) H 11/22/16 06:21 Calcium 9.2 mg/dL (8.6-10.3) 11/13/16 13:16 Total Bilirubin 0.6 mg/dL (0.3-1.0) 11/13/16 13:16 AST 13 U/L (13-39) 11/13/16 13:16 ALT 11 U/L (7-52) 11/13/16 13:16 Alkaline Phosphatase 66 U/L (34-104) 11/13/16 13:16 Total Protein 6.6 gm/dL (6.0-8.3) 11/13/16 13:16 Albumin 3.5 gm/dL (4.2-5.5) L 11/13/16 13:16 Globulin 3.1 gm/dL 11/13/16 13:16 Albumin/Globulin Ratio 1.1 (1.0-1.8) 11/13/16 13:16 Triglycerides 146 mg/dL (<150) 11/13/16 13:16 Cholesterol 125 mg/dL (<200) 11/13/16 13:16 LDL Cholesterol Direct 68 mg/dL (75-193) L 11/13/16 13:16 HDL Cholesterol 36 mg/dL (23-92) 11/13/16 13:16 TSH 2.60 uIU/ml (0.34-5.60) 11/13/16 13:16 Urine Source CLEAN C 11/13/16 13:55 Urine Color YELLOW 11/13/16 13:55 Urine Clarity SL. CLOUDY (CLEAR) 11/13/16 13:55 Urine pH 6.0 11/13/16 13:55 Ur Specific [place] 1.020 (1.005-1.030) 11/13/16 13:55 Urine Protein 30 mg/dL (NEGATIVE) H 11/13/16 13:55 Urine Glucose (UA) NEGATIVE mg/dL (NEGATIVE) 11/13/16 13:55 Urine Ketones NEGATIVE mg/dL (NEGATIVE) 11/13/16 13:55 Urine Blood SMALL (NEGATIVE) H 11/13/16 13:55 Urine Nitrate NEGATIVE (NEGATIVE) 11/13/16 13:55 Urine Bilirubin NEGATIVE (NEGATIVE) 11/13/16 13:55 Urine Urobilinogen 0.2 E.U./dL (0.2 - 1.0) 11/13/16 13:55 Ur Leukocyte Esterase TRACE (NEGATIVE) H 11/13/16 13:55 Urine RBC 2-5 /hpf (0-5) H 11/13/16 13:55 Urine WBC 50-100 /hpf (0-5) H 11/13/16 13:55 Ur Epithelial Cells OCCASIONAL /lpf (FEW) 11/13/16 13:55 Urine Bacteria MANY /hpf (NONE SEEN) 11/13/16 13:55 Valproic Acid 24.7 ug/mL (50.0-100.0) L 11/13/16 13:16 RPR NONREACTIVE (NONREACTIVE) 11/13/16 13:16 Hepatitis A IgM Ab Negative (Negative) 11/13/16 13:16 Hep Bs Antigen Negative (Negative) 11/13/16 13:16 Hep B Core IgM Ab Negative (Negative) 11/13/16 13:16 Hepatitis C Antibody <0.1 s/co ratio (0.0-0.9) 11/13/16 13:16 - Physical Exam Vitals and I&O: Vital Signs Temp 97.1 F 11/22/16 08:00 Pulse 71 11/22/16 08:24 Resp 20 11/22/16 08:00 BP 108/61 11/22/16 08:24 Pulse Ox 97 11/21/16 14:00 Intake & Output 11/21/16 11/22/16 11/22/16 18:59 06:59 18:59 Intake Total 960 Balance 960 Weight (lbs) 75.795 kg Intake: Oral 960 Other: # Voids 2 Active Medications: Current Medications Acetaminophen (Tylenol) 650 mg PO Q4HR PRN PRN Reason: Pain or Fever >101 Stop: 01/12/17 20:06 Last Admin: 11/20/16 13:40 Dose: 650 mg Al Hydrox/Mg Hydrox/Simethicone (Maalox) 30 ml PO Q4HR PRN PRN Reason: GI DISTRESS Stop: 01/12/17 20:06 Last Admin: 11/20/16 13:41 Dose: 30 ml Ascorbic Acid (Vitamin C) 500 mg PO BID [facility] Stop: 01/14/17 08:59 Last Admin: 11/22/16 08:26 Dose: 500 mg Atorvastatin Calcium (Lipitor) 10 mg PO HS [facility] PRN Reason: Protocol Stop: 01/12/17 20:59 Last Admin: 11/21/16 20:53 Dose: 10 mg Clopidogrel Bisulfate (Plavix) 75 mg PO DAILY [facility] Stop: 01/13/17 08:59 Last Admin: 11/22/16 08:26 Dose: 75 mg Divalproex Sodium (Depakote Dr) 500 mg PO BID [facility] PRN Reason: Protocol Stop: 01/14/17 08:59 Last Admin: 11/22/16 08:26 Dose: 500 mg Docusate Sodium (Colace) 100 mg PO DAILY PRN PRN Reason: Constipation Stop: 01/12/17 20:06 Docusate Sodium (Colace) 200 mg PO DAILY [facility] Stop: 01/21/17 08:59 Last Admin: 11/22/16 08:26 Dose: 200 mg Ferrous Sulfate (Iron) 325 mg PO DAILY [facility] Stop: 01/14/17 08:59 Last Admin: 11/22/16 08:25 Dose: 325 mg Insulin Aspart (Novolog Insulin Sliding Scale) 0 units SUBQ ACHS [facility] PRN Reason: Protocol Stop: 01/12/17 20:59 Last Admin: 11/22/16 06:33 Dose: Not Given Lorazepam (Ativan) 0.5 mg PO Q4HR PRN; Protocol PRN Reason: Anxiety Stop: 12/13/16 15:55 Last Admin: 11/21/16 03:02 Dose: 0.5 mg Magnesium Hydroxide (Milk Of Magnesia) 30 ml PO HS PRN PRN Reason: Constipation Stop: 01/13/17 22:49 Last Admin: 11/21/16 18:43 Dose: 30 ml Memantine (Namenda) 10 mg PO DAILY [facility] Stop: 01/13/17 08:59 Last Admin: 11/22/16 08:26 Dose: 10 mg Metformin HCl (Glucophage) 500 mg PO BID [facility] Stop: 01/13/17 08:59 Last Admin: 11/22/16 08:24 Dose: 500 mg Metoprolol Succinate (Toprol Xl) 25 mg PO BID [facility] Stop: 01/13/17 08:59 Last Admin: 11/22/16 08:24 Dose: 25 mg Multivitamins/Vitamin C (Theragran) 1 tab PO DAILY [facility] Stop: 01/14/17 08:59 Last Admin: 11/22/16 08:24 Dose: 1 tab Quetiapine Fumarate 100 mg/ (Quetiapine Fumarate 25 mg) 125 mg PO HS [facility] Stop: 01/18/17 20:59 Last Admin: 11/21/16 20:53 Dose: 125 mg Quetiapine Fumarate (Seroquel) 100 mg PO BID [facility] PRN Reason: Protocol Stop: 01/21/17 06:55 Senna (Senna) 8.6 mg PO HS [facility] Stop: 01/14/17 20:59 Last Admin: 11/21/16 20:53 Dose: 8.6 mg Trimethoprim/Sulfamethoxazole (Bactrim Ds) 1 tab PO BID [facility] Stop: 01/15/17 08:59 Last Admin: 11/22/16 08:25 Dose: 1 tab Zinc Sulfate (Zinc Sulfate) 220 mg PO DAILY [facility] Stop: 01/13/17 08:59 Last Admin: 11/22/16 08:25 Dose: 220 mg Zolpidem Tartrate (Ambien) 5 mg PO HS PRN PRN Reason: Insomnia Stop: 01/12/17 15:55 Last Admin: 11/21/16 20:53 Dose: 5 mg General: no acute distress, well developed, well nourished HEENT: atraumatic, normocephalic, PERRLA, EOMI Neck: supple, no thyromegaly, no lymphadenopathy Cardiovascular: S1S2, regular Lungs: clear to auscultation bilaterally, clear to percussion Abdomen: soft, no tender, no distended Extremities: no cyanosis, no clubbing, no edema ( ) Neurological: awake, alert, oriented Infectious Disease Assmt/Plan - Problem List Patient Problems: All Active Problems POOR ORAL INTAKE WITH AGITATION (Acute) encephalopathy (Acute) psychosis (Acute) - Assessment Assessment: Impression: 1. UTI : MRSa. 2. Dementia. 3. Aggressive behaviour. 4. DM2 5. CAD. - Plan Plan: Continue same treatment. Nutritional Asmnt/Malnutr-PDOC - Dietary Evaluation Malnutrition Findings (Please click <Entered> for more info): Nutritional Asmnt/Malnutrition Start: 11/18/16 17: 43 Text: Status: Complete Freq: Document 11/18/16 17:43 GSDAYTON (Rec: 11/18/16 17:44 GSDAYTON [email or web address]) Nutritional Asmnt/Malnutrition Patient General Information Nutritional Screening Moderate Risk Screening Diagnosis Increased agitation, poor PO Pertinent Medical Hx/Surgical Hx dementia, Alzheimer's hyperlipidemia, DM, TIA Subjective Information 76yo M. Pt was asleep during visit, obtained new weight, poor historian per nursing staff and H&P. Avg PO intake meeting approx 50% of estimated nutritional needs in past 3 days. Current Diet Order/ Nutrition Support [facility] soft chopped, ANTONIO Pertinent Medications maalox, vitamin c, lipitor, colace, iron, novolog sliding scale, MOM, glucophage, theragran, seroquel, senna, zinc sulfate Pertinent Labs Reviewed. POC glucose most of the time < 125 range for past 3 days, expcet 152H and 198H Nutritional Hx/Data Height 1.75 m Height (Calculated Centimeters) 175.3 Current Weight (lbs) 75.75 kg Weight (Calculated Kilograms) 75.7 Weight (Calculated Grams) 50022.9 [place] Body Weight 160lb Weight Status Approriate GI Symptoms Food Allergies No Cultural/Ethnic/Worship Belief Unknwon. Usual diet at home Unknown. Skin Integrity/Comment: Tito 17. Bruises, otherwise intact. Current %PO Poor (25-49%) Estimated Nutritional Goals BEE in Kcals: Using Current wt Calories/Kcals/Kg 25-30kcal/kg Kcals Calculated 1898-2277kcal Protein: Using Current wt Protein g/kg/kg Protein Calculated 76g Fluid: ml 1898-2277ml (1ml/kcal) Nutritional Problem 1. Problem Problem Poor oral food/beverage intake related to Etiology cognition aeb Signs/Symptoms: PO intake meeting approx 50% of estimated nutritional needs in the past 3 days Intervention/Recommendation Comments 1. Continue with [facility] soft chopped + ANTONIO diet. 2. Provide diet health shake TID, FNS notified. 3. Weekly weight to monitor weight trend. Expected Outcomes/Goals Expected Outcomes/Goals 1. PO intake to meet at least 75% of estimated nutritional needs. Physician Parameters for PEM Serum Albumin (g/dl) 3.5 - 5.0 (Normal)
--- NOTE | 2016-11-22 19:54 | Progress Notes ---
SUBJECTIVE: Chart reviewed and the patient interviewed. Also discussed the patient's condition with the staff and reviewed records and labs. The patient is still yelling and screaming and confused and unable to follow directions during the day. He also is still restless and he still gets agitated easily when staff tries to help him with his ADLs. He also is still in angry and in irritable mood and unable to carry on coherent conversation. On the other hand, the patient has been sleeping better at night and he is compliant with taking his medications. During the interview, the patient is restless and anxious and thought processes are disorganized. ASSESSMENT: The patient is still psychotic and paranoid. TREATMENT PLAN: We will continue monitoring his behavior and his condition closely. Also, we will increase Seroquel to 100 mg twice a day and 125 mg at bedtime and we will continue to follow up. JOB# [id number]
[2016-11-22] MEDS: Atorvastatin Calcium 10 MG TAB PO SCH (20:42)
[2016-11-23] MEDS: Ferrous Sulfate 325 MG TAB PO SCH (10:06)
[2016-11-23] MEDS: Sulfamethoxazole/TMP 800/160mg Tab PO SCH ×2 (10:06→17:03)
[2016-11-23] MEDS: Multivitamin Tab PO SCH (10:10)
[2016-11-23] MEDS: INSULIN ASPART SLIDING SCALE 100 UNITS/ML UNIT SUBQ SCH ×3 (11:56→21:03)
[2016-11-23] MEDS: Atorvastatin Calcium 10 MG TAB PO SCH (20:42)
--- NOTE | 2016-11-23 23:16 | Infectious Disease Prog Note ---
Infectious Disease Subjective - Review of Systems Service Date: 11/23/16 Subjective: No new event. Infectious Disease Objective - Results Result Diagrams: 11/13/16 13:16 11/13/16 13:16 Recent Labs: Laboratory Last Values WBC 7.6 Th/cmm (4.8-10.8) D 11/13/16 13:16 RBC 4.14 Mil/cmm (3.80-5.80) 11/13/16 13:16 Hgb 12.3 gm/dL (12.6-17.4) L 11/13/16 13:16 Hct 36.4 % (39.0-49.0) L 11/13/16 13:16 MCV 88.1 fl (80-99) 11/13/16 13:16 MCH 29.7 pg (27.0-31.0) 11/13/16 13:16 MCHC Differential 33.7 pg (28.0-36.0) 11/13/16 13:16 RDW 14.5 % (11.5-20.0) 11/13/16 13:16 Plt Count 207 Th/cmm (150-400) 11/13/16 13:16 MPV 8.0 fl 11/13/16 13:16 Neutrophils % 60.3 % (40.0-80.0) 11/13/16 13:16 Lymphocytes % 28.4 % (20.0-50.0) 11/13/16 13:16 Monocytes % 9.4 % (2.0-10.0) 11/13/16 13:16 Eosinophils % 0.9 % (0.0-5.0) 11/13/16 13:16 Basophils % 1.0 % (0.0-2.0) 11/13/16 13:16 Sodium 136 mEq/L (136-145) 11/13/16 13:16 Potassium 3.6 mEq/L (3.5-5.1) 11/13/16 13:16 Chloride 103 mEq/L (98-107) 11/13/16 13:16 Carbon Dioxide 29.4 mEq/L (21.0-31.0) 11/13/16 13:16 Anion Gap 7.2 (7.0-16.0) 11/13/16 13:16 BUN 14 mg/dL (7-25) 11/13/16 13:16 Creatinine 0.9 mg/dL (0.7-1.3) 11/13/16 13:16 Est GFR ( Amer) TNP 11/13/16 13:16 Est GFR (Non-Af Amer) TNP 11/13/16 13:16 BUN/Creatinine Ratio 15.6 11/13/16 13:16 Glucose 103 mg/dL (70-105) 11/13/16 13:16 POC Glucose 119 MG/DL (70 - 105) H 11/23/16 20:52 Calcium 9.2 mg/dL (8.6-10.3) 11/13/16 13:16 Total Bilirubin 0.6 mg/dL (0.3-1.0) 11/13/16 13:16 AST 13 U/L (13-39) 11/13/16 13:16 ALT 11 U/L (7-52) 11/13/16 13:16 Alkaline Phosphatase 66 U/L (34-104) 11/13/16 13:16 Total Protein 6.6 gm/dL (6.0-8.3) 11/13/16 13:16 Albumin 3.5 gm/dL (4.2-5.5) L 11/13/16 13:16 Globulin 3.1 gm/dL 11/13/16 13:16 Albumin/Globulin Ratio 1.1 (1.0-1.8) 11/13/16 13:16 Triglycerides 146 mg/dL (<150) 11/13/16 13:16 Cholesterol 125 mg/dL (<200) 11/13/16 13:16 LDL Cholesterol Direct 68 mg/dL (75-193) L 11/13/16 13:16 HDL Cholesterol 36 mg/dL (23-92) 11/13/16 13:16 TSH 2.60 uIU/ml (0.34-5.60) 11/13/16 13:16 Urine Source CLEAN C 11/13/16 13:55 Urine Color YELLOW 11/13/16 13:55 Urine Clarity SL. CLOUDY (CLEAR) 11/13/16 13:55 Urine pH 6.0 11/13/16 13:55 Ur Specific [place] 1.020 (1.005-1.030) 11/13/16 13:55 Urine Protein 30 mg/dL (NEGATIVE) H 11/13/16 13:55 Urine Glucose (UA) NEGATIVE mg/dL (NEGATIVE) 11/13/16 13:55 Urine Ketones NEGATIVE mg/dL (NEGATIVE) 11/13/16 13:55 Urine Blood SMALL (NEGATIVE) H 11/13/16 13:55 Urine Nitrate NEGATIVE (NEGATIVE) 11/13/16 13:55 Urine Bilirubin NEGATIVE (NEGATIVE) 11/13/16 13:55 Urine Urobilinogen 0.2 E.U./dL (0.2 - 1.0) 11/13/16 13:55 Ur Leukocyte Esterase TRACE (NEGATIVE) H 11/13/16 13:55 Urine RBC 2-5 /hpf (0-5) H 11/13/16 13:55 Urine WBC 50-100 /hpf (0-5) H 11/13/16 13:55 Ur Epithelial Cells OCCASIONAL /lpf (FEW) 11/13/16 13:55 Urine Bacteria MANY /hpf (NONE SEEN) 11/13/16 13:55 Valproic Acid 24.7 ug/mL (50.0-100.0) L 11/13/16 13:16 RPR NONREACTIVE (NONREACTIVE) 11/13/16 13:16 Hepatitis A IgM Ab Negative (Negative) 11/13/16 13:16 Hep Bs Antigen Negative (Negative) 11/13/16 13:16 Hep B Core IgM Ab Negative (Negative) 11/13/16 13:16 Hepatitis C Antibody <0.1 s/co ratio (0.0-0.9) 11/13/16 13:16 - Physical Exam Vitals and I&O: Vital Signs Temp 97.1 F 11/23/16 22:03 Pulse 82 11/23/16 22:03 Resp 19 11/23/16 22:03 BP 109/68 11/23/16 22:03 Pulse Ox 97 11/23/16 22:03 Intake & Output 11/23/16 11/23/16 11/24/16 06:59 18:59 06:59 Intake Total 240 960 Balance 240 960 Intake: Oral 240 960 Other: # Voids 1 3 2 # Bowel Movements 0 Active Medications: Current Medications Acetaminophen (Tylenol) 650 mg PO Q4HR PRN PRN Reason: Pain or Fever >101 Stop: 01/12/17 20:06 Last Admin: 11/20/16 13:40 Dose: 650 mg Al Hydrox/Mg Hydrox/Simethicone (Maalox) 30 ml PO Q4HR PRN PRN Reason: GI DISTRESS Stop: 01/12/17 20:06 Last Admin: 11/20/16 13:41 Dose: 30 ml Ascorbic Acid (Vitamin C) 500 mg PO BID IRMA Stop: 01/14/17 08:59 Last Admin: 11/23/16 17:04 Dose: Not Given Atorvastatin Calcium (Lipitor) 10 mg PO HS IRMA PRN Reason: Protocol Stop: 01/12/17 20:59 Last Admin: 11/23/16 20:42 Dose: 10 mg Clopidogrel Bisulfate (Plavix) 75 mg PO DAILY [facility] Stop: 01/13/17 08:59 Last Admin: 11/23/16 10:08 Dose: 75 mg Divalproex Sodium (Depakote Dr) 500 mg PO BID IRMA PRN Reason: Protocol Stop: 01/14/17 08:59 Last Admin: 11/23/16 17:03 Dose: 500 mg Docusate Sodium (Colace) 100 mg PO DAILY PRN PRN Reason: Constipation Stop: 01/12/17 20:06 Docusate Sodium (Colace) 200 mg PO DAILY [facility]MA Stop: 01/21/17 08:59 Last Admin: 11/23/16 10:06 Dose: 200 mg Ferrous Sulfate (Iron) 325 mg PO DAILY [facility]MA Stop: 01/14/17 08:59 Last Admin: 11/23/16 10:06 Dose: 325 mg Insulin Aspart (Novolog Insulin Sliding Scale) 0 units SUBQ ACHS IRMA PRN Reason: Protocol Stop: 01/12/17 20:59 Last Admin: 11/23/16 21:03 Dose: Not Given Lorazepam (Ativan) 0.5 mg PO Q4HR PRN; Protocol PRN Reason: Anxiety Stop: 12/13/16 15:55 Last Admin: 11/23/16 20:42 Dose: 0.5 mg Magnesium Hydroxide (Milk Of Magnesia) 30 ml PO HS PRN PRN Reason: Constipation Stop: 01/13/17 22:49 Last Admin: 11/21/16 18:43 Dose: 30 ml Memantine (Namenda) 10 mg PO DAILY [facility]MA Stop: 01/13/17 08:59 Last Admin: 11/23/16 10:07 Dose: 10 mg Metformin HCl (Glucophage) 500 mg PO BID [facility] Stop: 01/13/17 08:59 Last Admin: 11/23/16 17:04 Dose: 500 mg Metoprolol Succinate (Toprol Xl) 25 mg PO BID [facility] Stop: 01/13/17 08:59 Last Admin: 11/23/16 17:04 Dose: Not Given Multivitamins/Vitamin C (Theragran) 1 tab PO DAILY [facility] Stop: 01/14/17 08:59 Last Admin: 11/23/16 10:10 Dose: 1 tab Quetiapine Fumarate 100 mg/ (Quetiapine Fumarate 25 mg) 125 mg PO HS [facility] Stop: 01/18/17 20:59 Last Admin: 11/23/16 20:42 Dose: 125 mg Quetiapine Fumarate (Seroquel) 100 mg PO BID [facility] PRN Reason: Protocol Stop: 01/21/17 06:55 Last Admin: 11/23/16 17:04 Dose: 100 mg Senna (Senna) 8.6 mg PO HS [facility] Stop: 01/14/17 20:59 Last Admin: 11/23/16 20:42 Dose: 8.6 mg Zinc Sulfate (Zinc Sulfate) 220 mg PO DAILY [facility] Stop: 01/13/17 08:59 Last Admin: 11/23/16 10:06 Dose: 220 mg Zolpidem Tartrate (Ambien) 5 mg PO HS PRN PRN Reason: Insomnia Stop: 01/12/17 15:55 Last Admin: 11/21/16 20:53 Dose: 5 mg General: no acute distress, well developed, well nourished HEENT: atraumatic, normocephalic, PERRLA, EOMI Neck: supple, no thyromegaly Cardiovascular: S1S2, regular Lungs: clear to auscultation bilaterally, clear to percussion Abdomen: soft, no tender, no distended Extremities: no cyanosis, no clubbing, no edema Neurological: awake, alert, oriented Skin: intact Infectious Disease Assmt/Plan - Problem List Patient Problems: All Active Problems POOR ORAL INTAKE WITH AGITATION (Acute) encephalopathy (Acute) psychosis (Acute) - Assessment Assessment: Impression: 1. UTI : MRSa. 2. Dementia. 3. Aggressive behaviour. 4. DM2 5. CAD. - Plan Plan: Continue same treatment. dc bactrim. Nutritional Asmnt/Malnutr-PDOC - Dietary Evaluation Malnutrition Findings (Please click <Entered> for more info): Nutritional Asmnt/Malnutrition Start: 11/18/16 17: 43 Text: Status: Complete Freq: Document 11/18/16 17:43 GSDAYTON (Rec: 11/18/16 17:44 [email or web address] [id number]) Nutritional Asmnt/Malnutrition Patient General Information Nutritional Screening Moderate Risk Screening Diagnosis Increased agitation, poor PO Pertinent Medical Hx/Surgical Hx dementia, Alzheimer's hyperlipidemia, DM, TIA Subjective Information 76yo M. Pt was asleep during visit, obtained new weight, poor historian per nursing staff and H&P. Avg PO intake meeting approx 50% of estimated nutritional needs in past 3 days. Current Diet Order/ Nutrition Support [facility] soft chopped, ANTONIO Pertinent Medications maalox, vitamin c, lipitor, colace, iron, novolog sliding scale, MOM, glucophage, theragran, seroquel, senna, zinc sulfate Pertinent Labs Reviewed. POC glucose most of the time < 125 range for past 3 days, expcet 152H and 198H Nutritional Hx/Data Height 1.75 m Height (Calculated Centimeters) 175.3 Current Weight (lbs) 75.75 kg Weight (Calculated Kilograms) 75.7 Weight (Calculated Grams) 25044.9 [place] Body Weight 160lb Weight Status Approriate GI Symptoms Food Allergies No Cultural/Ethnic/Caodaism Belief Unknwon. Usual diet at home Unknown. Skin Integrity/Comment: Tito 17. Bruises, otherwise intact. Current %PO Poor (25-49%) Estimated Nutritional Goals BEE in Kcals: Using Current wt Calories/Kcals/Kg 25-30kcal/kg Kcals Calculated 1898-2277kcal Protein: Using Current wt Protein g/kg/kg Protein Calculated 76g Fluid: ml 1898-2277ml (1ml/kcal) Nutritional Problem 1. Problem Problem Poor oral food/beverage intake related to Etiology cognition aeb Signs/Symptoms: PO intake meeting approx 50% of estimated nutritional needs in the past 3 days Intervention/Recommendation Comments [facility]. [facility] + ANTONIO diet. 2. Provide diet health shake TID, FNS notified. 3. Weekly weight to monitor weight trend. Expected Outcomes/Goals Expected Outcomes/Goals 1. PO intake to meet at least 75% of estimated nutritional needs. Physician Parameters for PEM Serum Albumin (g/dl) 3.5 - 5.0 (Normal)
--- NOTE | 2016-11-23 23:52 | Progress Notes ---
SUBJECTIVE: The patient seen, chart reviewed, discussed with staff. I am familiar with this patient and his justification for hospitalization due to coverage in the past. The patient remains confused, still rambling, still yelling and screaming at times, restless, agitated, still getting up. The patient still needs prompting for ADLs, resistant to ADLs, needs prompting to eat for example as well. The patient remains gravely disabled, cannot take care of himself, unable to utilize basic food, clothing and assisted. Sleeping fairly well at night. Taking his medications. Remains confused. ASSESSMENT: The patient is still with evidence of psychosis, confusion, still with behavioral disturbances. PLAN: Continue to titrate medications, monitor for side effects. No EPS noted on exam. No overt sedation. JOB# [id number]
[2016-11-24] MEDS: INSULIN ASPART SLIDING SCALE 100 UNITS/ML UNIT SUBQ SCH ×4 (06:44→20:24)
[2016-11-24] MEDS: Multivitamin Tab PO SCH (09:45)
[2016-11-24] MEDS: Ferrous Sulfate 325 MG TAB PO SCH (09:45)
--- NOTE | 2016-11-24 18:03 | Infectious Disease Prog Note ---
Infectious Disease Subjective - Review of Systems Service Date: 11/24/16 Subjective: No new event. Infectious Disease Objective - Results Result Diagrams: 11/13/16 13:16 11/13/16 13:16 Recent Labs: Laboratory Last Values WBC 7.6 Th/cmm (4.8-10.8) D 11/13/16 13:16 RBC 4.14 Mil/cmm (3.80-5.80) 11/13/16 13:16 Hgb 12.3 gm/dL (12.6-17.4) L 11/13/16 13:16 Hct 36.4 % (39.0-49.0) L 11/13/16 13:16 MCV 88.1 fl (80-99) 11/13/16 13:16 MCH 29.7 pg (27.0-31.0) 11/13/16 13:16 MCHC Differential 33.7 pg (28.0-36.0) 11/13/16 13:16 RDW 14.5 % (11.5-20.0) 11/13/16 13:16 Plt Count 207 Th/cmm (150-400) 11/13/16 13:16 MPV 8.0 fl 11/13/16 13:16 Neutrophils % 60.3 % (40.0-80.0) 11/13/16 13:16 Lymphocytes % 28.4 % (20.0-50.0) 11/13/16 13:16 Monocytes % 9.4 % (2.0-10.0) 11/13/16 13:16 Eosinophils % 0.9 % (0.0-5.0) 11/13/16 13:16 Basophils % 1.0 % (0.0-2.0) 11/13/16 13:16 Sodium 136 mEq/L (136-145) 11/13/16 13:16 Potassium 3.6 mEq/L (3.5-5.1) 11/13/16 13:16 Chloride 103 mEq/L (98-107) 11/13/16 13:16 Carbon Dioxide 29.4 mEq/L (21.0-31.0) 11/13/16 13:16 Anion Gap 7.2 (7.0-16.0) 11/13/16 13:16 BUN 14 mg/dL (7-25) 11/13/16 13:16 Creatinine 0.9 mg/dL (0.7-1.3) 11/13/16 13:16 Est GFR ( Amer) TNP 11/13/16 13:16 Est GFR (Non-Af Amer) TNP 11/13/16 13:16 BUN/Creatinine Ratio 15.6 11/13/16 13:16 Glucose 103 mg/dL (70-105) 11/13/16 13:16 POC Glucose 82 MG/DL (70 - 105) 11/24/16 17:29 Calcium 9.2 mg/dL (8.6-10.3) 11/13/16 13:16 Total Bilirubin 0.6 mg/dL (0.3-1.0) 11/13/16 13:16 AST 13 U/L (13-39) 11/13/16 13:16 ALT 11 U/L (7-52) 11/13/16 13:16 Alkaline Phosphatase 66 U/L (34-104) 11/13/16 13:16 Total Protein 6.6 gm/dL (6.0-8.3) 11/13/16 13:16 Albumin 3.5 gm/dL (4.2-5.5) L 11/13/16 13:16 Globulin 3.1 gm/dL 11/13/16 13:16 Albumin/Globulin Ratio 1.1 (1.0-1.8) 11/13/16 13:16 Triglycerides 146 mg/dL (<150) 11/13/16 13:16 Cholesterol 125 mg/dL (<200) 11/13/16 13:16 LDL Cholesterol Direct 68 mg/dL (75-193) L 11/13/16 13:16 HDL Cholesterol 36 mg/dL (23-92) 11/13/16 13:16 TSH 2.60 uIU/ml (0.34-5.60) 11/13/16 13:16 Urine Source CLEAN C 11/13/16 13:55 Urine Color YELLOW 11/13/16 13:55 Urine Clarity SL. CLOUDY (CLEAR) 11/13/16 13:55 Urine pH 6.0 11/13/16 13:55 Ur Specific [place] 1.020 (1.005-1.030) 11/13/16 13:55 Urine Protein 30 mg/dL (NEGATIVE) H 11/13/16 13:55 Urine Glucose (UA) NEGATIVE mg/dL (NEGATIVE) 11/13/16 13:55 Urine Ketones NEGATIVE mg/dL (NEGATIVE) 11/13/16 13:55 Urine Blood SMALL (NEGATIVE) H 11/13/16 13:55 Urine Nitrate NEGATIVE (NEGATIVE) 11/13/16 13:55 Urine Bilirubin NEGATIVE (NEGATIVE) 11/13/16 13:55 Urine Urobilinogen 0.2 E.U./dL (0.2 - 1.0) 11/13/16 13:55 Ur Leukocyte Esterase TRACE (NEGATIVE) H 11/13/16 13:55 Urine RBC 2-5 /hpf (0-5) H 11/13/16 13:55 Urine WBC 50-100 /hpf (0-5) H 11/13/16 13:55 Ur Epithelial Cells OCCASIONAL /lpf (FEW) 11/13/16 13:55 Urine Bacteria MANY /hpf (NONE SEEN) 11/13/16 13:55 Valproic Acid 24.7 ug/mL (50.0-100.0) L 11/13/16 13:16 RPR NONREACTIVE (NONREACTIVE) 11/13/16 13:16 Hepatitis A IgM Ab Negative (Negative) 11/13/16 13:16 Hep Bs Antigen Negative (Negative) 11/13/16 13:16 Hep B Core IgM Ab Negative (Negative) 11/13/16 13:16 Hepatitis C Antibody <0.1 s/co ratio (0.0-0.9) 11/13/16 13:16 - Physical Exam Vitals and I&O: Vital Signs Temp 97.1 F 11/24/16 06:42 Pulse 89 11/24/16 16:40 Resp 18 11/24/16 12:55 BP 124/67 11/24/16 16:40 Pulse Ox 97 11/24/16 06:42 Intake & Output 11/23/16 11/24/16 11/24/16 18:59 06:59 18:59 Intake Total 960 Balance 960 Intake: Oral 960 Other: # Voids 3 2 # Bowel Movements 0 Active Medications: Current Medications Acetaminophen (Tylenol) 650 mg PO Q4HR PRN PRN Reason: Pain or Fever >101 Stop: 01/12/17 20:06 Last Admin: 11/20/16 13:40 Dose: 650 mg Al Hydrox/Mg Hydrox/Simethicone (Maalox) 30 ml PO Q4HR PRN PRN Reason: GI DISTRESS Stop: 01/12/17 20:06 Last Admin: 11/20/16 13:41 Dose: 30 ml Ascorbic Acid (Vitamin C) 500 mg PO BID [facility] Stop: 01/14/17 08:59 Last Admin: 11/24/16 16:40 Dose: Not Given Atorvastatin Calcium (Lipitor) 10 mg PO HS IRMA PRN Reason: Protocol Stop: 01/12/17 20:59 Last Admin: 11/23/16 20:42 Dose: 10 mg Clopidogrel Bisulfate (Plavix) 75 mg PO DAILY [facility] Stop: 01/13/17 08:59 Last Admin: 11/24/16 09:40 Dose: 75 mg Divalproex Sodium (Depakote Dr) 500 mg PO BID IRMA PRN Reason: Protocol Stop: 01/14/17 08:59 Last Admin: 11/24/16 16:58 Dose: 500 mg Docusate Sodium (Colace) 100 mg PO DAILY PRN PRN Reason: Constipation Stop: 01/12/17 20:06 Docusate Sodium (Colace) 200 mg PO DAILY [facility] Stop: 01/21/17 08:59 Last Admin: 11/24/16 09:40 Dose: 200 mg Ferrous Sulfate (Iron) 325 mg PO DAILY [facility] Stop: 01/14/17 08:59 Last Admin: 11/24/16 09:45 Dose: Not Given Insulin Aspart (Novolog Insulin Sliding Scale) 0 units SUBQ ACHS IRMA PRN Reason: Protocol Stop: 01/12/17 20:59 Last Admin: 11/24/16 12:38 Dose: Not Given Lorazepam (Ativan) 0.5 mg PO Q4HR PRN; Protocol PRN Reason: Anxiety Stop: 12/13/16 15:55 Last Admin: 11/23/16 20:42 Dose: 0.5 mg Magnesium Hydroxide (Milk Of Magnesia) 30 ml PO HS PRN PRN Reason: Constipation Stop: 01/13/17 22:49 Last Admin: 11/21/16 18:43 Dose: 30 ml Memantine (Namenda) 10 mg PO DAILY [facility] Stop: 01/13/17 08:59 Last Admin: 11/24/16 09:41 Dose: 10 mg Metformin HCl (Glucophage) 500 mg PO BID [facility] Stop: 01/13/17 08:59 Last Admin: 11/24/16 17:31 Dose: Not Given Metoprolol Succinate (Toprol Xl) 25 mg PO BID [facility] Stop: 01/13/17 08:59 Last Admin: 11/24/16 16:40 Dose: Not Given Multivitamins/Vitamin C (Theragran) 1 tab PO DAILY [facility] Stop: 01/14/17 08:59 Last Admin: 11/24/16 09:45 Dose: Not Given Quetiapine Fumarate 100 mg/ (Quetiapine Fumarate 25 mg) 125 mg PO HS [facility] Stop: 01/18/17 20:59 Last Admin: 11/23/16 20:42 Dose: 125 mg Quetiapine Fumarate (Seroquel) 100 mg PO BID [facility] PRN Reason: Protocol Stop: 01/21/17 06:55 Last Admin: 11/24/16 16:59 Dose: 100 mg Senna (Senna) 8.6 mg PO HS [facility] Stop: 01/14/17 20:59 Last Admin: 11/23/16 20:42 Dose: 8.6 mg Zinc Sulfate (Zinc Sulfate) 220 mg PO DAILY [facility] Stop: 01/13/17 08:59 Last Admin: 11/24/16 09:45 Dose: Not Given Zolpidem Tartrate (Ambien) 5 mg PO HS PRN PRN Reason: Insomnia Stop: 01/12/17 15:55 Last Admin: 11/21/16 20:53 Dose: 5 mg General: no acute distress, well developed, well nourished HEENT: atraumatic, normocephalic, PERRLA, EOMI, moist mucous membrane Neck: supple, no thyromegaly Cardiovascular: S1S2, regular Lungs: clear to auscultation bilaterally, clear to percussion Abdomen: soft, no tender, no distended, no mass Extremities: no cyanosis, no clubbing, no edema Neurological: awake, alert, oriented Skin: intact Infectious Disease Assmt/Plan - Problem List Patient Problems: All Active Problems POOR ORAL INTAKE WITH AGITATION (Acute) encephalopathy (Acute) psychosis (Acute) - Assessment Assessment: Impression: 1. UTI : MRSa. 2. Dementia. 3. Aggressive behaviour. 4. DM2 5. CAD. - Plan Plan: Continue same treatment. Nutritional Asmnt/Malnutr-PDOC - Dietary Evaluation Malnutrition Findings (Please click <Entered> for more info): Nutritional Asmnt/Malnutrition Start: 11/18/16 17: 43 Text: Status: Complete Freq: Document 11/18/16 17:43 GSDAYTON (Rec: 11/18/16 17:44 GSDAYTON [id number]) Nutritional Asmnt/Malnutrition Patient General Information Nutritional Screening Moderate Risk Screening Diagnosis Increased agitation, poor PO Pertinent Medical Hx/Surgical Hx dementia, Alzheimer's hyperlipidemia, DM, TIA Subjective Information 76yo M. Pt was asleep during visit, obtained new weight, poor historian per nursing staff and H&P. Avg PO intake meeting approx 50% of estimated nutritional needs in past 3 days. Current Diet Order/ Nutrition Support [facility] soft chopped, ANTONIO Pertinent Medications maalox, vitamin c, lipitor, colace, iron, novolog sliding scale, MOM, glucophage, theragran, seroquel, senna, zinc sulfate Pertinent Labs Reviewed. POC glucose most of the time < 125 range for past 3 days, expcet 152H and 198H Nutritional Hx/Data Height 1.75 m Height (Calculated Centimeters) 175.3 Current Weight (lbs) 75.75 kg Weight (Calculated Kilograms) 75.7 Weight (Calculated Grams) 83237.9 [place] Body Weight 160lb Weight Status Approriate GI Symptoms Food Allergies No Cultural/Ethnic/Evangelical Belief Unknwon. Usual diet at home Unknown. Skin Integrity/Comment: Tito 17. Bruises, otherwise intact. Current %PO Poor (25-49%) Estimated Nutritional Goals BEE in Kcals: Using Current wt Calories/Kcals/Kg 25-30kcal/kg Kcals Calculated 1898-2277kcal Protein: Using Current wt Protein g/kg/kg Protein Calculated 76g Fluid: ml 1898-2277ml (1ml/kcal) Nutritional Problem 1. Problem Problem Poor oral food/beverage intake related to Etiology cognition aeb Signs/Symptoms: PO intake meeting approx 50% of estimated nutritional needs in the past 3 days Intervention/Recommendation Comments 1. Continue with [facility] soft chopped + ANTONIO diet. 2. Provide diet health shake TID, FNS notified. 3. Weekly weight to monitor weight trend. Expected Outcomes/Goals Expected Outcomes/Goals 1. PO intake to meet at least 75% of estimated nutritional needs. Physician Parameters for PEM Serum Albumin (g/dl) 3.5 - 5.0 (Normal)
--- NOTE | 2016-11-24 20:14 | Progress Notes ---
SUBJECTIVE: The patient remains confused and forgetful. The patient also stays by himself in his room most of the time. He still has episodes of yelling and screaming, but it seems to be slightly less than before. The patient also is still angry and still needs lots of redirections. It seems that it is easier to redirect him. The patient also is compliant with taking his medications with no side effects of medications. ASSESSMENT: The patient is still psychotic and needs placement. TREATMENT PLAN: We will continue monitoring his behavior and his condition closely. Also, continue to work on placement issue and discharge plans and adjusting psychotropic medications. JOB# [id number]
[2016-11-24] MEDS: Atorvastatin Calcium 10 MG TAB PO SCH (20:16)
[2016-11-25] MEDS: INSULIN ASPART SLIDING SCALE 100 UNITS/ML UNIT SUBQ SCH ×3 (06:46→16:39)
[2016-11-25] MEDS: Ferrous Sulfate 325 MG TAB PO SCH (09:59)
[2016-11-25] MEDS: Multivitamin Tab PO SCH (09:59)
[2016-11-25] MEDS: Atorvastatin Calcium 10 MG TAB PO SCH (20:39)
--- NOTE | 2016-11-25 21:24 | Progress Notes ---
SUBJECTIVE: The patient seen in his room. The patient is still confused and forgetful. The patient remains to be withdrawn and depressed. The patient has still episodes of outburst behavior, but according to the nurses, the patient is doing better compared to previous days. OBJECTIVE: HEENT: Head is atraumatic, normocephalic. Eyes: Bilateral pupils are equally round and reactive. NECK: Supple. No JVD. CARDIOVASCULAR: S1 and S2 heard without murmur. PULMONARY: Clear to auscultation. GASTROINTESTINAL: Soft and nontender. Positive bowel sounds without guarding. MUSCULOSKELETAL: The patient is currently bedbound with some weakness in the lower extremities. ASSESSMENT: 1. Dementia. 2. Alzheimer's disease. 3. Anxiety. 4. Insomnia. 5. Diabetes. 6. Failure to thrive. PLAN: We will keep the patient inpatient in Geropsych Unit. We will follow up with the psychiatric doctor to monitor the patient's .behavior. JOB# [id number]
--- NOTE | 2016-11-25 22:36 | Progress Notes ---
Covering for Dr. Lanza. Case was discussed with staff of the patient, reviewed records. The patient is a well known case to me as I have seen him many times covering for Dr. Lanza. The patient has not been eating well. Continues to be unpredictable, impulsive, irritable and continues to have episodes of yelling and screaming, but it is reported to be less than before, still angry needs a lot of redirection. The staff is trying to persuade him to eat. They are also working on placement for this patient. He has been compliant with the medication with no side effects, no sedation and no nausea. His Seroquel dose was increased on the ____ Dr. Lanza ____ mg twice a day and he is on 125 mg at bedtime with no side effects, no sedation, no nausea, no extrapyramidal symptoms and we will continue to work the patient in group therapy, milieu therapy. Adjust the medications as needed. JOB# [id number]
[2016-11-26] MEDS: INSULIN ASPART SLIDING SCALE 100 UNITS/ML UNIT SUBQ SCH ×4 (08:18→20:24)
[2016-11-26] MEDS: Multivitamin Tab PO SCH (09:51)
[2016-11-26] MEDS: Ferrous Sulfate 325 MG TAB PO SCH (09:51)
--- NOTE | 2016-11-26 11:56 | Infectious Disease Prog Note ---
Infectious Disease Subjective - Review of Systems Service Date: 11/26/16 Subjective: No new event. Infectious Disease Objective - Results Result Diagrams: 11/13/16 13:16 11/13/16 13:16 Recent Labs: Laboratory Last Values WBC 7.6 Th/cmm (4.8-10.8) D 11/13/16 13:16 RBC 4.14 Mil/cmm (3.80-5.80) 11/13/16 13:16 Hgb 12.3 gm/dL (12.6-17.4) L 11/13/16 13:16 Hct 36.4 % (39.0-49.0) L 11/13/16 13:16 MCV 88.1 fl (80-99) 11/13/16 13:16 MCH 29.7 pg (27.0-31.0) 11/13/16 13:16 MCHC Differential 33.7 pg (28.0-36.0) 11/13/16 13:16 RDW 14.5 % (11.5-20.0) 11/13/16 13:16 Plt Count 207 Th/cmm (150-400) 11/13/16 13:16 MPV 8.0 fl 11/13/16 13:16 Neutrophils % 60.3 % (40.0-80.0) 11/13/16 13:16 Lymphocytes % 28.4 % (20.0-50.0) 11/13/16 13:16 Monocytes % 9.4 % (2.0-10.0) 11/13/16 13:16 Eosinophils % 0.9 % (0.0-5.0) 11/13/16 13:16 Basophils % 1.0 % (0.0-2.0) 11/13/16 13:16 Sodium 136 mEq/L (136-145) 11/13/16 13:16 Potassium 3.6 mEq/L (3.5-5.1) 11/13/16 13:16 Chloride 103 mEq/L (98-107) 11/13/16 13:16 Carbon Dioxide 29.4 mEq/L (21.0-31.0) 11/13/16 13:16 Anion Gap 7.2 (7.0-16.0) 11/13/16 13:16 BUN 14 mg/dL (7-25) 11/13/16 13:16 Creatinine 0.9 mg/dL (0.7-1.3) 11/13/16 13:16 Est GFR ( Amer) TNP 11/13/16 13:16 Est GFR (Non-Af Amer) TNP 11/13/16 13:16 BUN/Creatinine Ratio 15.6 11/13/16 13:16 Glucose 103 mg/dL (70-105) 11/13/16 13:16 POC Glucose 94 MG/DL (70 - 105) 11/26/16 11:26 Calcium 9.2 mg/dL (8.6-10.3) 11/13/16 13:16 Total Bilirubin 0.6 mg/dL (0.3-1.0) 11/13/16 13:16 AST 13 U/L (13-39) 11/13/16 13:16 ALT 11 U/L (7-52) 11/13/16 13:16 Alkaline Phosphatase 66 U/L (34-104) 11/13/16 13:16 Total Protein 6.6 gm/dL (6.0-8.3) 11/13/16 13:16 Albumin 3.5 gm/dL (4.2-5.5) L 11/13/16 13:16 Globulin 3.1 gm/dL 11/13/16 13:16 Albumin/Globulin Ratio 1.1 (1.0-1.8) 11/13/16 13:16 Triglycerides 146 mg/dL (<150) 11/13/16 13:16 Cholesterol 125 mg/dL (<200) 11/13/16 13:16 LDL Cholesterol Direct 68 mg/dL (75-193) L 11/13/16 13:16 HDL Cholesterol 36 mg/dL (23-92) 11/13/16 13:16 TSH 2.60 uIU/ml (0.34-5.60) 11/13/16 13:16 Urine Source CLEAN C 11/13/16 13:55 Urine Color YELLOW 11/13/16 13:55 Urine Clarity SL. CLOUDY (CLEAR) 11/13/16 13:55 Urine pH 6.0 11/13/16 13:55 Ur Specific [place] 1.020 (1.005-1.030) 11/13/16 13:55 Urine Protein 30 mg/dL (NEGATIVE) H 11/13/16 13:55 Urine Glucose (UA) NEGATIVE mg/dL (NEGATIVE) 11/13/16 13:55 Urine Ketones NEGATIVE mg/dL (NEGATIVE) 11/13/16 13:55 Urine Blood SMALL (NEGATIVE) H 11/13/16 13:55 Urine Nitrate NEGATIVE (NEGATIVE) 11/13/16 13:55 Urine Bilirubin NEGATIVE (NEGATIVE) 11/13/16 13:55 Urine Urobilinogen 0.2 E.U./dL (0.2 - 1.0) 11/13/16 13:55 Ur Leukocyte Esterase TRACE (NEGATIVE) H 11/13/16 13:55 Urine RBC 2-5 /hpf (0-5) H 11/13/16 13:55 Urine WBC 50-100 /hpf (0-5) H 11/13/16 13:55 Ur Epithelial Cells OCCASIONAL /lpf (FEW) 11/13/16 13:55 Urine Bacteria MANY /hpf (NONE SEEN) 11/13/16 13:55 Valproic Acid 24.7 ug/mL (50.0-100.0) L 11/13/16 13:16 RPR NONREACTIVE (NONREACTIVE) 11/13/16 13:16 Hepatitis A IgM Ab Negative (Negative) 11/13/16 13:16 Hep Bs Antigen Negative (Negative) 11/13/16 13:16 Hep B Core IgM Ab Negative (Negative) 11/13/16 13:16 Hepatitis C Antibody <0.1 s/co ratio (0.0-0.9) 11/13/16 13:16 - Physical Exam Vitals and I&O: Vital Signs Temp 98 F 11/26/16 06:14 Pulse 64 11/26/16 09:31 Resp 18 11/26/16 08:00 BP 100/49 11/26/16 09:31 Pulse Ox 99 11/26/16 06:14 Intake & Output 11/25/16 11/26/16 11/26/16 18:59 06:59 18:59 Intake Total 800 240 Balance 800 240 Intake: Oral 800 240 Other: # Voids 4 3 # Bowel Movements 1 0 Active Medications: Current Medications Acetaminophen (Tylenol) 650 mg PO Q4HR PRN PRN Reason: Pain or Fever >101 Stop: 01/12/17 20:06 Last Admin: 11/20/16 13:40 Dose: 650 mg Al Hydrox/Mg Hydrox/Simethicone (Maalox) 30 ml PO Q4HR PRN PRN Reason: GI DISTRESS Stop: 01/12/17 20:06 Last Admin: 11/20/16 13:41 Dose: 30 ml Ascorbic Acid (Vitamin C) 500 mg PO BID IRMA Stop: 01/14/17 08:59 Last Admin: 11/26/16 09:51 Dose: Not Given Atorvastatin Calcium (Lipitor) 10 mg PO HS IRMA PRN Reason: Protocol Stop: 01/12/17 20:59 Last Admin: 11/25/16 20:39 Dose: 10 mg Clopidogrel Bisulfate (Plavix) 75 mg PO DAILY [facility] Stop: 01/13/17 08:59 Last Admin: 11/26/16 09:51 Dose: Not Given Divalproex Sodium (Depakote Dr) 500 mg PO BID IRMA PRN Reason: Protocol Stop: 01/14/17 08:59 Last Admin: 11/26/16 09:51 Dose: 500 mg Docusate Sodium (Colace) 100 mg PO DAILY PRN PRN Reason: Constipation Stop: 01/12/17 20:06 Docusate Sodium (Colace) 200 mg PO DAILY [facility] Stop: 01/21/17 08:59 Last Admin: 11/26/16 09:51 Dose: 200 mg Ferrous Sulfate (Iron) 325 mg PO DAILY [facility] Stop: 01/14/17 08:59 Last Admin: 11/26/16 09:51 Dose: Not Given Insulin Aspart (Novolog Insulin Sliding Scale) 0 units SUBQ ACHS IRMA PRN Reason: Protocol Stop: 01/12/17 20:59 Last Admin: 11/26/16 08:18 Dose: Not Given Lorazepam (Ativan) 0.5 mg PO Q4HR PRN; Protocol PRN Reason: Anxiety Stop: 12/13/16 15:55 Last Admin: 11/25/16 15:25 Dose: 0.5 mg Magnesium Hydroxide (Milk Of Magnesia) 30 ml PO HS PRN PRN Reason: Constipation Stop: 01/13/17 22:49 Last Admin: 11/21/16 18:43 Dose: 30 ml Memantine (Namenda) 10 mg PO DAILY [facility] Stop: 01/13/17 08:59 Last Admin: 11/26/16 09:50 Dose: 10 mg Metformin HCl (Glucophage) 500 mg PO BID [facility] Stop: 01/13/17 08:59 Last Admin: 11/26/16 09:41 Dose: Not Given Metoprolol Succinate (Toprol Xl) 25 mg PO BID [facility] Stop: 01/13/17 08:59 Last Admin: 11/26/16 09:31 Dose: Not Given Multivitamins/Vitamin C (Theragran) 1 tab PO DAILY [facility] Stop: 01/14/17 08:59 Last Admin: 11/26/16 09:51 Dose: Not Given Quetiapine Fumarate 100 mg/ (Quetiapine Fumarate 25 mg) 125 mg PO HS [facility] Stop: 01/18/17 20:59 Last Admin: 11/25/16 20:40 Dose: 125 mg Quetiapine Fumarate (Seroquel) 100 mg PO BID [facility] PRN Reason: Protocol Stop: 01/21/17 06:55 Last Admin: 11/26/16 09:50 Dose: 100 mg Senna (Senna) 8.6 mg PO HS [facility] Stop: 01/14/17 20:59 Last Admin: 11/25/16 20:40 Dose: 8.6 mg Zinc Sulfate (Zinc Sulfate) 220 mg PO DAILY [facility] Stop: 01/13/17 08:59 Last Admin: 11/26/16 09:51 Dose: Not Given Zolpidem Tartrate (Ambien) 5 mg PO HS PRN PRN Reason: Insomnia Stop: 01/12/17 15:55 Last Admin: 11/21/16 20:53 Dose: 5 mg General: no acute distress, well developed, well nourished HEENT: atraumatic, normocephalic, PERRLA, EOMI Neck: supple, no thyromegaly, no lymphadenopathy Cardiovascular: S1S2, regular Lungs: clear to auscultation bilaterally, clear to percussion Abdomen: soft, no tender, no distended Extremities: no cyanosis, no clubbing, no edema Neurological: awake, alert, oriented Skin: intact Infectious Disease Assmt/Plan - Problem List Patient Problems: All Active Problems POOR ORAL INTAKE WITH AGITATION (Acute) encephalopathy (Acute) psychosis (Acute) - Assessment Assessment: Impression: 1. UTI : MRSa. 2. Dementia. 3. Aggressive behaviour. 4. DM2 5. CAD. - Plan Plan: Continue same treatment. Nutritional Asmnt/Malnutr-PDOC - Dietary Evaluation Malnutrition Findings (Please click <Entered> for more info): Nutritional Asmnt/Malnutrition Start: 11/18/16 17: 43 Text: Status: Complete Freq: Document 11/18/16 17:43 ANAHI (Rec: 11/18/16 17:44 [email or web address] [id number]) Nutritional Asmnt/Malnutrition Patient General Information Nutritional Screening Moderate Risk Screening Diagnosis Increased agitation, poor PO Pertinent Medical Hx/Surgical Hx dementia, Alzheimer's hyperlipidemia, DM, TIA Subjective Information 76yo M. Pt was asleep during visit, obtained new weight, poor historian per nursing staff and H&P. Avg PO intake meeting approx 50% of estimated nutritional needs in past 3 days. Current Diet Order/ Nutrition Support [facility] soft chopped, ANTONIO Pertinent Medications maalox, vitamin c, lipitor, colace, iron, novolog sliding scale, MOM, glucophage, theragran, seroquel, senna, zinc sulfate Pertinent Labs Reviewed. POC glucose most of the time < 125 range for past 3 days, expcet 152H and 198H Nutritional Hx/Data Height 1.75 m Height (Calculated Centimeters) 175.3 Current Weight (lbs) 75.75 kg Weight (Calculated Kilograms) 75.7 Weight (Calculated Grams) 16036.9 [place] Body Weight 160lb Weight Status Approriate GI Symptoms Food Allergies No Cultural/Ethnic/Christian Belief Unknwon. Usual diet at home Unknown. Skin Integrity/Comment: Tito 17. Bruises, otherwise intact. Current %PO Poor (25-49%) Estimated Nutritional Goals BEE in Kcals: Using Current wt Calories/Kcals/Kg 25-30kcal/kg Kcals Calculated 1898-2277kcal Protein: Using Current wt Protein g/kg/kg Protein Calculated 76g Fluid: ml 1898-2277ml (1ml/kcal) Nutritional Problem 1. Problem Problem Poor oral food/beverage intake related to Etiology cognition aeb Signs/Symptoms: PO intake meeting approx 50% of estimated nutritional needs in the past 3 days Intervention/Recommendation Comments 1. Continue with [facility] soft chopped + ANTONIO diet. 2. Provide diet health shake TID, FNS notified. 3. Weekly weight to monitor weight trend. Expected Outcomes/Goals Expected Outcomes/Goals 1. PO intake to meet at least 75% of estimated nutritional needs. Physician Parameters for PEM Serum Albumin (g/dl) 3.5 - 5.0 (Normal)
[2016-11-26] MEDS: Atorvastatin Calcium 10 MG TAB PO SCH (20:24)
--- NOTE | 2016-11-27 02:12 | Progress Notes ---
Case was discussed with staff of the patient, reviewed records. The patient continues to refuse to eat. Continues to isolate himself. It seems like he lost weight. He is still unpredictable and impulsive. Continues to be unable to make safe plan for self-care. Though they were able to locate a placement for the patient, however, I do not feel he is ready to go because of his not eating. He needs to be stable prior to going there, and he is compliant with the medication with no side effects, no sedation, and no nausea. His Seroquel dose was increased a few days ago to 100 mg twice a day and 125 mg at bedtime and that could help him with appetite, and he is on Depakote as well with making gain weight and no side effects with the medication, no sedation, no nausea, and no extrapyramidal symptoms. We will continue to work with the patient in group therapy, milieu therapy, and adjust medication as needed. JOB# [id number]
[2016-11-27] MEDS: INSULIN ASPART SLIDING SCALE 100 UNITS/ML UNIT SUBQ SCH ×2 (06:44→11:20)
[2016-11-27] MEDS: Multivitamin Tab PO SCH (09:05)
[2016-11-27] MEDS: Ferrous Sulfate 325 MG TAB PO SCH (09:05)
--- NOTE | 2016-11-27 11:16 | Infectious Disease Prog Note ---
Infectious Disease Subjective - Review of Systems Service Date: 11/27/16 Subjective: No new event. Infectious Disease Objective - Results Result Diagrams: 11/13/16 13:16 11/13/16 13:16 Recent Labs: Laboratory Last Values WBC 7.6 Th/cmm (4.8-10.8) D 11/13/16 13:16 RBC 4.14 Mil/cmm (3.80-5.80) 11/13/16 13:16 Hgb 12.3 gm/dL (12.6-17.4) L 11/13/16 13:16 Hct 36.4 % (39.0-49.0) L 11/13/16 13:16 MCV 88.1 fl (80-99) 11/13/16 13:16 MCH 29.7 pg (27.0-31.0) 11/13/16 13:16 MCHC Differential 33.7 pg (28.0-36.0) 11/13/16 13:16 RDW 14.5 % (11.5-20.0) 11/13/16 13:16 Plt Count 207 Th/cmm (150-400) 11/13/16 13:16 MPV 8.0 fl 11/13/16 13:16 Neutrophils % 60.3 % (40.0-80.0) 11/13/16 13:16 Lymphocytes % 28.4 % (20.0-50.0) 11/13/16 13:16 Monocytes % 9.4 % (2.0-10.0) 11/13/16 13:16 Eosinophils % 0.9 % (0.0-5.0) 11/13/16 13:16 Basophils % 1.0 % (0.0-2.0) 11/13/16 13:16 Sodium 136 mEq/L (136-145) 11/13/16 13:16 Potassium 3.6 mEq/L (3.5-5.1) 11/13/16 13:16 Chloride 103 mEq/L (98-107) 11/13/16 13:16 Carbon Dioxide 29.4 mEq/L (21.0-31.0) 11/13/16 13:16 Anion Gap 7.2 (7.0-16.0) 11/13/16 13:16 BUN 14 mg/dL (7-25) 11/13/16 13:16 Creatinine 0.9 mg/dL (0.7-1.3) 11/13/16 13:16 Est GFR ( Amer) TNP 11/13/16 13:16 Est GFR (Non-Af Amer) TNP 11/13/16 13:16 BUN/Creatinine Ratio 15.6 11/13/16 13:16 Glucose 103 mg/dL (70-105) 11/13/16 13:16 POC Glucose 148 MG/DL (70 - 105) H 11/27/16 11:11 Calcium 9.2 mg/dL (8.6-10.3) 11/13/16 13:16 Total Bilirubin 0.6 mg/dL (0.3-1.0) 11/13/16 13:16 AST 13 U/L (13-39) 11/13/16 13:16 ALT 11 U/L (7-52) 11/13/16 13:16 Alkaline Phosphatase 66 U/L (34-104) 11/13/16 13:16 Total Protein 6.6 gm/dL (6.0-8.3) 11/13/16 13:16 Albumin 3.5 gm/dL (4.2-5.5) L 11/13/16 13:16 Globulin 3.1 gm/dL 11/13/16 13:16 Albumin/Globulin Ratio 1.1 (1.0-1.8) 11/13/16 13:16 Triglycerides 146 mg/dL (<150) 11/13/16 13:16 Cholesterol 125 mg/dL (<200) 11/13/16 13:16 LDL Cholesterol Direct 68 mg/dL (75-193) L 11/13/16 13:16 HDL Cholesterol 36 mg/dL (23-92) 11/13/16 13:16 TSH 2.60 uIU/ml (0.34-5.60) 11/13/16 13:16 Urine Source CLEAN C 11/13/16 13:55 Urine Color YELLOW 11/13/16 13:55 Urine Clarity SL. CLOUDY (CLEAR) 11/13/16 13:55 Urine pH 6.0 11/13/16 13:55 Ur Specific [place] 1.020 (1.005-1.030) 11/13/16 13:55 Urine Protein 30 mg/dL (NEGATIVE) H 11/13/16 13:55 Urine Glucose (UA) NEGATIVE mg/dL (NEGATIVE) 11/13/16 13:55 Urine Ketones NEGATIVE mg/dL (NEGATIVE) 11/13/16 13:55 Urine Blood SMALL (NEGATIVE) H 11/13/16 13:55 Urine Nitrate NEGATIVE (NEGATIVE) 11/13/16 13:55 Urine Bilirubin NEGATIVE (NEGATIVE) 11/13/16 13:55 Urine Urobilinogen 0.2 E.U./dL (0.2 - 1.0) 11/13/16 13:55 Ur Leukocyte Esterase TRACE (NEGATIVE) H 11/13/16 13:55 Urine RBC 2-5 /hpf (0-5) H 11/13/16 13:55 Urine WBC 50-100 /hpf (0-5) H 11/13/16 13:55 Ur Epithelial Cells OCCASIONAL /lpf (FEW) 11/13/16 13:55 Urine Bacteria MANY /hpf (NONE SEEN) 11/13/16 13:55 Valproic Acid 24.7 ug/mL (50.0-100.0) L 11/13/16 13:16 RPR NONREACTIVE (NONREACTIVE) 11/13/16 13:16 Hepatitis A IgM Ab Negative (Negative) 11/13/16 13:16 Hep Bs Antigen Negative (Negative) 11/13/16 13:16 Hep B Core IgM Ab Negative (Negative) 11/13/16 13:16 Hepatitis C Antibody <0.1 s/co ratio (0.0-0.9) 11/13/16 13:16 - Physical Exam Vitals and I&O: Vital Signs Temp 98.3 F 11/27/16 06:26 Pulse 89 11/27/16 09:08 Resp 19 11/27/16 06:26 BP 107/52 11/27/16 09:08 Pulse Ox 96 11/27/16 06:26 Intake & Output 11/26/16 11/27/16 11/27/16 18:59 06:59 18:59 Intake Total 1100 120 Balance 1100 120 Weight (lbs) 74.933 kg Intake: Oral 1100 120 Other: # Voids 3 1 # Bowel Movements 1 0 Active Medications: Current Medications Acetaminophen (Tylenol) 650 mg PO Q4HR PRN PRN Reason: Pain or Fever >101 Stop: 01/12/17 20:06 Last Admin: 11/20/16 13:40 Dose: 650 mg Al Hydrox/Mg Hydrox/Simethicone (Maalox) 30 ml PO Q4HR PRN PRN Reason: GI DISTRESS Stop: 01/12/17 20:06 Last Admin: 11/20/16 13:41 Dose: 30 ml Ascorbic Acid (Vitamin C) 500 mg PO BID [facility] Stop: 01/14/17 08:59 Last Admin: 11/27/16 09:09 Dose: 500 mg Atorvastatin Calcium (Lipitor) 10 mg PO HS IRMA PRN Reason: Protocol Stop: 01/12/17 20:59 Last Admin: 11/26/16 20:24 Dose: 10 mg Clopidogrel Bisulfate (Plavix) 75 mg PO DAILY [facility] Stop: 01/13/17 08:59 Last Admin: 11/27/16 09:07 Dose: 75 mg Divalproex Sodium (Depakote Dr) 500 mg PO BID IRMA PRN Reason: Protocol Stop: 01/14/17 08:59 Last Admin: 11/26/16 17:57 Dose: Not Given Docusate Sodium (Colace) 100 mg PO DAILY PRN PRN Reason: Constipation Stop: 01/12/17 20:06 Docusate Sodium (Colace) 200 mg PO DAILY [facility] Stop: 01/21/17 08:59 Last Admin: 11/27/16 09:09 Dose: 200 mg Ferrous Sulfate (Iron) 325 mg PO DAILY [facility] Stop: 01/14/17 08:59 Last Admin: 11/27/16 09:05 Dose: 325 mg Insulin Aspart (Novolog Insulin Sliding Scale) 0 units SUBQ ACHS IRMA PRN Reason: Protocol Stop: 01/12/17 20:59 Last Admin: 11/27/16 06:44 Dose: Not Given Lorazepam (Ativan) 0.5 mg PO Q4HR PRN; Protocol PRN Reason: Anxiety Stop: 12/13/16 15:55 Last Admin: 11/25/16 15:25 Dose: 0.5 mg Magnesium Hydroxide (Milk Of Magnesia) 30 ml PO HS PRN PRN Reason: Constipation Stop: 01/13/17 22:49 Last Admin: 11/21/16 18:43 Dose: 30 ml Memantine (Namenda) 10 mg PO DAILY [facility] Stop: 01/13/17 08:59 Last Admin: 11/27/16 09:07 Dose: 10 mg Metformin HCl (Glucophage) 500 mg PO BID [facility] Stop: 01/13/17 08:59 Last Admin: 11/27/16 09:06 Dose: 500 mg Metoprolol Succinate (Toprol Xl) 25 mg PO BID [facility] Stop: 01/13/17 08:59 Last Admin: 11/27/16 09:08 Dose: Not Given Multivitamins/Vitamin C (Theragran) 1 tab PO DAILY [facility] Stop: 01/14/17 08:59 Last Admin: 11/27/16 09:05 Dose: 1 tab Quetiapine Fumarate 100 mg/ (Quetiapine Fumarate 25 mg) 125 mg PO HS [facility] Stop: 01/18/17 20:59 Last Admin: 11/26/16 20:24 Dose: 125 mg Quetiapine Fumarate (Seroquel) 100 mg PO BID [facility] PRN Reason: Protocol Stop: 01/21/17 06:55 Last Admin: 11/27/16 09:06 Dose: 100 mg Senna (Senna) 8.6 mg PO HS [facility] Stop: 01/14/17 20:59 Last Admin: 11/26/16 20:24 Dose: 8.6 mg Zinc Sulfate (Zinc Sulfate) 220 mg PO DAILY [facility] Stop: 01/13/17 08:59 Last Admin: 11/27/16 09:08 Dose: 220 mg Zolpidem Tartrate (Ambien) 5 mg PO HS PRN PRN Reason: Insomnia Stop: 01/12/17 15:55 Last Admin: 11/21/16 20:53 Dose: 5 mg General: no acute distress, well developed, well nourished HEENT: atraumatic, normocephalic, PERRLA, EOMI Neck: supple, no thyromegaly, no lymphadenopathy Cardiovascular: S1S2, regular Lungs: no clear to auscultation bilaterally, no clear to percussion Abdomen: soft, no tender, no distended Extremities: no cyanosis, no clubbing, no edema Neurological: awake, alert, oriented Skin: intact Infectious Disease Assmt/Plan - Problem List Patient Problems: All Active Problems POOR ORAL INTAKE WITH AGITATION (Acute) encephalopathy (Acute) psychosis (Acute) - Assessment Assessment: Impression: 1. UTI : MRSa. 2. Dementia. 3. Aggressive behaviour. 4. DM2 5. CAD. - Plan Plan: Continue same treatment. Nutritional Asmnt/Malnutr-PDOC - Dietary Evaluation Malnutrition Findings (Please click <Entered> for more info): Nutritional Asmnt/Malnutrition Start: 11/18/16 17: 43 Text: Status: Complete Freq: Document 11/18/16 17:43 ANAHI (Rec: 11/18/16 17:44 [email or web address] [id number]) Nutritional Asmnt/Malnutrition Patient General Information Nutritional Screening Moderate Risk Screening Diagnosis Increased agitation, poor PO Pertinent Medical Hx/Surgical Hx dementia, Alzheimer's hyperlipidemia, DM, TIA Subjective Information 76yo M. Pt was asleep during visit, obtained new weight, poor historian per nursing staff and H&P. Avg PO intake meeting approx 50% of estimated nutritional needs in past 3 days. Current Diet Order/ Nutrition Support [facility] soft chopped, ANTONIO Pertinent Medications maalox, vitamin c, lipitor, colace, iron, novolog sliding scale, MOM, glucophage, theragran, seroquel, senna, zinc sulfate Pertinent Labs Reviewed. POC glucose most of the time < 125 range for past 3 days, expcet 152H and 198H Nutritional Hx/Data Height 1.75 m Height (Calculated Centimeters) 175.3 Current Weight (lbs) 75.75 kg Weight (Calculated Kilograms) 75.7 Weight (Calculated Grams) 67705.9 [place] Body Weight 160lb Weight Status Approriate GI Symptoms Food Allergies No Cultural/Ethnic/Scientology Belief Unknwon. Usual diet at home Unknown. Skin Integrity/Comment: Tito 17. Bruises, otherwise intact. Current %PO Poor (25-49%) Estimated Nutritional Goals BEE in Kcals: Using Current wt Calories/Kcals/Kg 25-30kcal/kg Kcals Calculated 1898-2277kcal Protein: Using Current wt Protein g/kg/kg Protein Calculated 76g Fluid: ml 1898-2277ml (1ml/kcal) Nutritional Problem 1. Problem Problem Poor oral food/beverage intake related to Etiology cognition aeb Signs/Symptoms: PO intake meeting approx 50% of estimated nutritional needs in the past 3 days Intervention/Recommendation Comments 1. Continue with [facility] soft chopped + ANTONIO diet. 2. Provide diet health shake TID, FNS notified. 3. Weekly weight to monitor weight trend. Expected Outcomes/Goals Expected Outcomes/Goals 1. PO intake to meet at least 75% of estimated nutritional needs. Physician Parameters for PEM Serum Albumin (g/dl) 3.5 - 5.0 (Normal)
--- NOTE | 2016-11-27 18:59 | Discharge Summary ---
AGE: 76. SEX: Male. FINAL DIAGNOSIS/PRIMARY DIAGNOSIS: Unspecified psychosis. SECONDARY DIAGNOSIS: Dementia, [id number], with psychotic features. REASON FOR HOSPITALIZATION: The patient was admitted to the hospital because of increased agitation and irritability and anger and aggressive behavior in the detention and staff was not able handle him there. HOSPITAL COURSE: The patient continued to be severely irritable and angry. The patient also continued to be agitated. Psychotropic medications adjusted and the patient was able to follow directions slightly . The patient was not aggressive and easier to follow directions. The patient was discharged from the hospital. The patient had no major medical problems while in the hospital and no major abnormal labs. AFTER DISCHARGE PLANS: The patient discharged from the hospital and went to [facility] with plans to follow him up there. EXPECTED OUTCOME AFTER DISCHARGE: Fair if the patient continues with outpatient treatment and follow up with discharge plans. [facility]# [id number]
== END 2016-11-27 17:20 | DRG 885 ==
LOC: ER 12:52 → GERO 14:20
PROVIDERS: ADMIT Psychiatry & Neurology Psychiatry; ATTEND Psychiatry & Neurology Psychiatry
DX: F29 Unspecified psychosis not due to a substance or known physiological condition (principal); N39.0 Urinary tract infection, site not specified; E11.9 Type 2 diabetes mellitus without complications; F02.80 Dementia in other diseases classified elsewhere, unspecified severity, without behavioral disturbance, psychotic disturbance, mood disturbance, and anxiety; G30.9 Alzheimer's disease, unspecified; R62.7 Adult failure to thrive; E78.5 Hyperlipidemia, unspecified; B95.62 Methicillin resistant Staphylococcus aureus infection as the cause of diseases classified elsewhere; F20.9 Schizophrenia, unspecified; F41.9 Anxiety disorder, unspecified; I25.10 Atherosclerotic heart disease of native coronary artery without angina pectoris; G47.00 Insomnia, unspecified; Z86.73 Personal history of transient ischemic attack (TIA), and cerebral infarction without residual deficits
CPT/HCPCS: 36415-UA; 80053-TC; 80061-TC; 80074-90; 80164-TC; 81001-TC; 82948-90; 84443-TC; 85025-TC; 86592-TC; 87086-90; 93005; J1815; Z7610

== ENCOUNTER 2016-11-29 21:50 | Inpatient (IN) | payer MEDICARE, MEDICAID ==
[2016-11-29] MEDS ORDERED: Sodium Chloride 0.9% 2,500 ML IV ONE (21:53)
--- NOTE | 2016-11-29 21:53 | ED Physician Chart ---
Chief Complaint/HPI - Patient Information Date Seen:: 11/29/16 Time Seen:: 21:53 Chief Complaint:: head injury History of Present Illness:: 76-year-old male wrought in by EMS with acute, moderate to severe, head injury that happened at 8 PM after he suffered an associated mechanical fall. Has associated laceration to the forehead. Blood pressure noted to be in the systolic 90s prior to transport however EMS reports BP was measured at 70 systolic during transport. History limited as patient has underlying dementia History provided by EMS and EMS run sheet Allergies:: Allergies Allergy/AdvReac Type Severity Reaction Status Date / Time No Known Allergies Allergy Verified 10/23/16 21:44 Historian:: EMS Review:: Nurse's Note Reviewed, EMS run form Reviewed, Transfer documents Reviewed Review of Systems - Review of Systems Other: Complete system review otherwise unremarkable except as noted in HPI. Past Medical History - Past Medical History Past Medical History: HTN, DM, Dyslipidemia, Dementia Family History: None Social History: Non Smoker, No Alcohol, No Drug Use, Care Facility Surgical History: None Psychiatricy History: Schizophrenia, Bipolar, Dementia Medication: Reviewed Family Medical History - Family Member Mother History Unknown: Yes Ethnicity: Non- Living Status: Unknown Hx Family Cancer: No Hx Family Coronary Artery Disease: No Hx Family Congestive Heart Failure: No Hx Family Hypertension: No Hx Family Stroke: No Hx Family Diabetes: No Hx Family Seizures: No Hx Family Dementia: No Hx Family AIDS: No Hx Family HIV: No Hx Family COPD: No Hx Family Hepatitis: No Hx Family Psychiatric Problems: No Hx Family Tuberculosis: No Physical Exam - Physical Examination Other:: INITIAL VITAL SIGNS: Reviewed by me GENERAL: Alert and interactive but demented. No acute distress HEAD: Head is normocephalic there are x2 1.5 cm lacerations on the center forehead with no active bleeding EYES: EOMI. . No scleral icterus. No conjunctival injection ENT: Moist mucous membranes. NECK: Supple. No masses. Full range of motion RESPIRATORY: No tachypnea. Clear breath sounds bilaterally. No wheezing, rales, or rhonchi CV: Regular rate and rhythm. No murmurs, rubs, or gallops ABDOMEN: Soft, non-distended, non-tender. No guarding. No rebound. No masses. EXTREMITIES: No deformity. No cyanosis. No edema. SKIN: Warm and dry. No obvious rashes. NEUROLOGIC: Alert and oriented. Face is symmetric. Speech is normal. Moves all extremities equally. Motor and sensory distally intact. Labs/Radiology/EKG Results - Lab Results Results: Lab Results 11/29/16 11/29/16 11/29/16 Range/Units 22:00 22:00 22:00 WBC 8.9 (4.8-10.8) Th/cmm RBC 4.20 (3.80-5.80) Mil/cmm Hgb 12.5 L (12.6-17.4) gm/dL Hct 36.9 L (39.0-49.0) % MCV 88.0 (80-99) fl MCH 29.7 (27.0-31.0) pg MCHC Differential 33.8 (28.0-36.0) pg RDW 14.5 (11.5-20.0) % Plt Count 188 (150-400) Th/cmm MPV 8.2 fl Neutrophils % 67.1 (40.0-80.0) % Lymphocytes % 23.9 (20.0-50.0) % Monocytes % 7.1 (2.0-10.0) % Eosinophils % 0.8 (0.0-5.0) % Basophils % 1.1 (0.0-2.0) % Sodium 135 L (136-145) mEq/L Potassium 4.4 (3.5-5.1) mEq/L Chloride 102 (98-107) mEq/L Carbon Dioxide 25.6 (21.0-31.0) mEq/L Anion Gap 11.8 (7.0-16.0) BUN 22 (7-25) mg/dL Creatinine 1.6 H (0.7-1.3) mg/dL Est GFR ( Amer) TNP Est GFR (Non-Af Amer) TNP BUN/Creatinine Ratio 13.8 Glucose 146 H (70-105) mg/dL Whole Bld Lactic Acid 2.76 H* (0.60-1.99) mmol/L Calcium 9.1 (8.6-10.3) mg/dL Total Bilirubin 0.3 (0.3-1.0) mg/dL AST 14 (13-39) U/L ALT 13 (7-52) U/L Alkaline Phosphatase 54 (34-104) U/L Creatine Kinase 26 L (30-223) U/L Total Protein 6.3 (6.0-8.3) gm/dL Albumin 3.3 L (4.2-5.5) gm/dL Globulin 3.0 gm/dL Albumin/Globulin Ratio 1.1 (1.0-1.8) Lab Results 11/29/16 11/29/16 11/29/16 Range/Units 22:00 22:00 22:00 WBC 8.9 (4.8-10.8) Th/cmm RBC 4.20 (3.80-5.80) Mil/cmm Hgb 12.5 L (12.6-17.4) gm/dL Hct 36.9 L (39.0-49.0) % MCV 88.0 (80-99) fl MCH 29.7 (27.0-31.0) pg MCHC Differential 33.8 (28.0-36.0) pg RDW 14.5 (11.5-20.0) % Plt Count 188 (150-400) Th/cmm MPV 8.2 fl Neutrophils % 67.1 (40.0-80.0) % Lymphocytes % 23.9 (20.0-50.0) % Monocytes % 7.1 (2.0-10.0) % Eosinophils % 0.8 (0.0-5.0) % Basophils % 1.1 (0.0-2.0) % PT (9.5-11.5) SECONDS INR (0.5-1.4) PTT (Actin FS) (26.0-38.0) SECONDS Sodium 135 L (136-145) mEq/L Potassium 4.4 (3.5-5.1) mEq/L Chloride 102 (98-107) mEq/L Carbon Dioxide 25.6 (21.0-31.0) mEq/L Anion Gap 11.8 (7.0-16.0) BUN 22 (7-25) mg/dL Creatinine 1.6 H (0.7-1.3) mg/dL Est GFR ( Amer) TNP Est GFR (Non-Af Amer) TNP BUN/Creatinine Ratio 13.8 Glucose 146 H (70-105) mg/dL Whole Bld Lactic Acid 2.76 H* (0.60-1.99) mmol/L Calcium 9.1 (8.6-10.3) mg/dL Total Bilirubin 0.3 (0.3-1.0) mg/dL AST 14 (13-39) U/L ALT 13 (7-52) U/L Alkaline Phosphatase 54 (34-104) U/L Creatine Kinase 26 L (30-223) U/L Total Protein 6.3 (6.0-8.3) gm/dL Albumin 3.3 L (4.2-5.5) gm/dL Globulin 3.0 gm/dL Albumin/Globulin Ratio 1.1 (1.0-1.8) Urine Source Urine Color Urine Clarity (CLEAR) Urine pH Ur Specific [place] (1.005-1.030) Urine Protein (NEGATIVE) mg/dL Urine Glucose (UA) (NEGATIVE) mg/dL Urine Ketones (NEGATIVE) mg/dL Urine Blood (NEGATIVE) Urine Nitrate (NEGATIVE) Urine Bilirubin (NEGATIVE) Urine Urobilinogen (0.2 - 1.0) E.U./dL Ur Leukocyte Esterase (NEGATIVE) Urine RBC (0-5) /hpf Urine WBC (0-5) /hpf Ur Epithelial Cells (FEW) /lpf Urine Bacteria (NONE SEEN) /hpf 11/29/16 11/30/16 Range/Units 23:55 00:11 WBC (4.8-10.8) Th/cmm RBC (3.80-5.80) Mil/cmm Hgb (12.6-17.4) gm/dL Hct (39.0-49.0) % MCV (80-99) fl MCH (27.0-31.0) pg MCHC Differential (28.0-36.0) pg RDW (11.5-20.0) % Plt Count (150-400) Th/cmm MPV fl Neutrophils % (40.0-80.0) % Lymphocytes % (20.0-50.0) % Monocytes % (2.0-10.0) % Eosinophils % (0.0-5.0) % Basophils % (0.0-2.0) % PT 10.7 (9.5-11.5) SECONDS INR 1.03 (0.5-1.4) PTT (Actin FS) 25.5 L (26.0-38.0) SECONDS Sodium (136-145) mEq/L Potassium (3.5-5.1) mEq/L Chloride (98-107) mEq/L Carbon Dioxide (21.0-31.0) mEq/L Anion Gap (7.0-16.0) BUN (7-25) mg/dL Creatinine (0.7-1.3) mg/dL Est GFR ( Amer) Est GFR (Non-Af Amer) BUN/Creatinine Ratio Glucose (70-105) mg/dL Whole Bld Lactic Acid (0.60-1.99) mmol/L Calcium (8.6-10.3) mg/dL Total Bilirubin (0.3-1.0) mg/dL AST (13-39) U/L ALT (7-52) U/L Alkaline Phosphatase (34-104) U/L Creatine Kinase (30-223) U/L Total Protein (6.0-8.3) gm/dL Albumin (4.2-5.5) gm/dL Globulin gm/dL Albumin/Globulin Ratio (1.0-1.8) Urine Source CLEAN C Urine Color YELLOW Urine Clarity HAZY (CLEAR) Urine pH 5.5 Ur Specific [place] 1.020 (1.005-1.030) Urine Protein 30 H (NEGATIVE) mg/dL Urine Glucose (UA) NEGATIVE (NEGATIVE) mg/dL Urine Ketones NEGATIVE (NEGATIVE) mg/dL Urine Blood MODERATE H (NEGATIVE) Urine Nitrate NEGATIVE (NEGATIVE) Urine Bilirubin NEGATIVE (NEGATIVE) Urine Urobilinogen 0.2 (0.2 - 1.0) E.U./dL Ur Leukocyte Esterase NEGATIVE (NEGATIVE) Urine RBC 25-50 H (0-5) /hpf Urine WBC 2-5 H (0-5) /hpf Ur Epithelial Cells FEW (FEW) /lpf Urine Bacteria FEW (NONE SEEN) /hpf - Radiology Results Results: CT head without contrast preliminary report per radiology NAD - EKG Interpretations Comments:: 12-lead EKG Interpretation by Danny Muhammad MD: Sinus bradycardia with ventricular rate of 58 beats per minute Normal axis Normal intervals No acute ST or T wave changes. No obvious STEMI Assessment - Procedures Procedures:: Laceration Repair with dermabond by me: Anesthesia: None Location: Forehead Tendon/Joint/Nerves: No injury Foreign body: None detected after copious irrigation and exploration Technique: Tissue adhesive Complexity: No subcutaneous sutures/mucosal repair/edge excision Post Closure Length: 1.5 cm Patient's bleeding was easily controlled in the department and there is no indication of anemia. No evidence of compartment syndrome, neurologic injury, vascular injury, open joint, tendon laceration, or foreign body. Patient is appropriate for outpatient follow up. 48 hour wound check. Scar minimization instructions given. Laceration Repair with dermabond by me: Anesthesia: None Location: Forehead #2 Tendon/Joint/Nerves: No injury Foreign body: None detected after copious irrigation and exploration Technique: Tissue adhesive Complexity: No subcutaneous sutures/mucosal repair/edge excision Post Closure Length: 1.5 cm Patient's bleeding was easily controlled in the department and there is no indication of anemia. No evidence of compartment syndrome, neurologic injury, vascular injury, open joint, tendon laceration, or foreign body. Patient is appropriate for outpatient follow up. 48 hour wound check. Scar minimization instructions given. Informed Consent: Procedure/risk/benefits explained by MD: Yes ED Septic Shock - . Is Septic Shock (SBP<90, OR Lactate>4 mmol\L) present?: Yes - <6hrs of presentation: Vital Signs: Vital Signs Temp 97.4 F 11/29/16 21:50 HR 65 11/29/16 21:50 RR 19 11/29/16 21:50 BP 67/42 11/29/16 21:50 O2 Sat % 98 11/29/16 21:50 Temp 97.4 F 11/29/16 21:50 HR 60 11/29/16 22:53 RR 20 11/29/16 22:53 BP 82/48 11/29/16 22:53 O2 Sat % 96 11/29/16 22:53 Assessment of Lungs: Lung CTA bilateral, No Rales, No Wheezing, No Stridor Assessment of Heart: RRR, No Gallops, No Murmur EKG Interpretation: Documented in Result Capillary refill evaluation: Capillary refill < 2 secs Skin Exam: Warm, Dry, No Diaphoresis, No Mottling, No Edema - Peripheral pulse evaluation Radial Peripheral pulse evaluation-quality: +2 (normal), Symmetrical Reassessment (Disposition) - Reassessment Reassessment:: Admit MDM: Patient's infectious symptoms have not stabilized and the patient is at risk of rapid decompensation. The patient will be admitted for careful hydration, antibiotic therapy, and infectious source control. Severe Sepsis criteria: Infectious source: Unknown End organ damage indicated by: Lactate > 2.0 mmol/L Hypotension (SBP < 90 or >40 mmHG drop or MAP < 65) Sepsis Management: Time of recognition of severe sepsis/septic shock: 21:57 Within 3 hours of recognition: Blood cultures x 2 before broad-spectrum antibiotics: Yes 30 ml/kg NS bolus Completed Initial lactate 2.76 Septic Shock Assessment: Any lactic acid > 4.0 No Persistent hypotension (SBP < 90 or 40 mmHg drop, MAP < 65) despite 30 mL/kg IV fluid bolus No Volume Re-assessment for Septic Shock (post 30 ml/kg bolus): Vital signs reviewed: see lab section Heart sinus bradycardia Lungs No crackles Skin Warm & dry Cap Refill Less than 2 seconds Peripheral pulses Radially present Accepting Care Team Current data and ongoing care discussed. Time: 1230 Admitting Physician: Dr. Snyder Structural Manager(s): Outstanding Data: None Critical Care: Critical care time 30 minutes Emergent fluid management while maintaining close respiratory support. Provision of immediate and broad-spectrum antibiotic therapy. Simultaneous assessment for possible sources in order to direct targeted therapy. Consideration for invasive and chemical support to prevent cardiopulmonary collapse. Repair to forehead lacerations x2 with Dermabond Patient septic shock. Unknown source. Gave IV Rocephin and IV vancomycin. Gave IV NS 3 L bolus. The patient was re-evaluated after treatment in the ED. Patients complaints/ symptoms of persistent hypotension have continued with minimal relief. Vitals are stable. Discussed with patient regarding care plan and admission. Case discussed with Dr. Snyder who agreed with plan. Reassessment Condition:: Improved - Diagnosis Diagnosis:: Septic shock, unknown source Closed head injury Forehead laceration 2 - Aftercare/Follow up Instructions Aftercare/Follow-Up Instructions:: Counseled pt regarding lab results/diagnosis & need follow up, Refer to Discharge Instructions - Patient Disposition Discharge/Transfer:: Acute Care w/in this hosp Admitted to:: ICU Admitting Medical Physician:: Teddy Snyder Time:: 00:47 Condition at Disposition:: Critical
[2016-11-29] MEDS ORDERED: cefTRIAXone 1 GM in Sodium Chloride 0.9% 50 ML IV ONE (22:16)
[2016-11-29 22:22] LABS: % BASOPHILS 1.1 % (0.0-2.0); % EOSINOPHILS 0.8 % (0.0-5.0); % LYMPHOCYTES 23.9 % (20.0-50.0); % MONOCYTES 7.1 % (2.0-10.0); % NEUTROPHILS 67.1 % (40.0-80.0); HEMATOCRIT 36.9 % (39.0-49.0); HEMOGLOBIN 12.5 gm/dL (12.6-17.4); MEAN CORPUSCULAR HEMOGLOBIN 29.7 pg (27.0-31.0); MEAN CORPUSCULAR HGB CONC 33.8 pg (28.0-36.0); MEAN PLATELET VOLUME 8.2 fl; PLATELET COUNT 188 Th/cmm (150-400); RED CELL DISTRIBUTION WIDTH 14.5 % (11.5-20.0); WHITE BLOOD COUNT 8.9 Th/cmm (4.8-10.8)
[2016-11-29 22:40] LABS: ALB/GLOB RATIO 1.1 (1.0-1.8); ALKALINE PHOSPHATASE 54 U/L (34-104); ANION GAP 11.8 (7.0-16.0); BILIRUBIN,TOTAL 0.3 mg/dL (0.3-1.0); BUN - UREA NITROGEN 22 mg/dL (7-25); BUN/CREATININE RATIO 13.8; CALCIUM SERUM 9.1 mg/dL (8.6-10.3); CARBON DIOXIDE 25.6 mEq/L (21.0-31.0); CHLORIDE 102 mEq/L (98-107); CREATININE - SERUM 1.6 mg/dL (0.7-1.3); GLUCOSE 146 mg/dL (70-105); POTASSIUM SERUM 4.4 mEq/L (3.5-5.1); SGOT 14 U/L (13-39); SGPT/ALT 13 U/L (7-52); SODIUM SERUM 135 mEq/L (136-145)
[2016-11-30 00:03] LABS: URINE BILIRUBIN NEGATIVE (NEGATIVE); URINE BLOOD MODERATE (NEGATIVE); URINE COLOR YELLOW; URINE GLUCOSE (UA) NEGATIVE (NEGATIVE); URINE KETONE NEGATIVE (NEGATIVE); URINE PH 5.5; URINE PROTEIN 30 mg/dL (NEGATIVE); URINE UROBILINOGEN 0.2 E.U./dL (0.2 - 1.0)
[2016-11-30 00:04] LABS: URINE BACTERIA FEW /hpf (NONE SEEN); URINE EPITHELIAL CELLS FEW /lpf (FEW); URINE RBC 25-50 /hpf (0-5)
[2016-11-30] MEDS ORDERED: Hydrocortisone Sodium Succ 100 mg Vial IVP ONE ×2 (00:12→00:28)
[2016-11-30 00:34] LABS: INR 1.03 (0.5-1.4); PROTHROMBIN TIME (TEST) 10.7 SECONDS (9.5-11.5)
[2016-11-30] MEDS ORDERED: Haloperidol Lactate 5 mg/mL 1mL Vial IVP ONE (01:23)
[2016-11-30] MEDS ORDERED: Haloperidol Lactate 5 mg/mL 1mL Vial ONE (01:23)
[2016-11-30] MEDS ORDERED: Maalox 30 mL Cup PO PRN (01:45)
[2016-11-30] MEDS: Sodium Chloride 0.9% 1,000 ML IV SCH (02:07)
[2016-11-30 05:14] LABS: HEMATOCRIT 35.7 % (39.0-49.0); HEMOGLOBIN 12.2 gm/dL (12.6-17.4); MEAN CELL VOLUME 88.9 fl (80-99); MEAN CORPUSCULAR HEMOGLOBIN 30.5 pg (27.0-31.0); MEAN CORPUSCULAR HGB CONC 34.3 pg (28.0-36.0); MEAN PLATELET VOLUME 8.4 fl; PLATELET COUNT 173 Th/cmm (150-400); RED BLOOD COUNT 4.02 Mil/cmm (3.80-5.80); RED CELL DISTRIBUTION WIDTH 14.2 % (11.5-20.0); WHITE BLOOD COUNT 10.5 Th/cmm (4.8-10.8)
[2016-11-30 05:19] LABS: ANION GAP 6.5 (7.0-16.0); BUN - UREA NITROGEN 19 mg/dL (7-25); BUN/CREATININE RATIO 17.3; CALCIUM SERUM 8.4 mg/dL (8.6-10.3); CARBON DIOXIDE 25.6 mEq/L (21.0-31.0); CHLORIDE 108 mEq/L (98-107); CREATININE - SERUM 1.1 mg/dL (0.7-1.3); GLUCOSE 149 mg/dL (70-105); POTASSIUM SERUM 4.1 mEq/L (3.5-5.1); SODIUM SERUM 136 mEq/L (136-145)
[2016-11-30 07:22] LABS: BAND NEUTROPHILE 1 % (0-10); EOSINOPHIL 1 % (0-5); NEUTROPHILS 82 % (40-80); PLATELET ESTIMATE ADEQUATE (NORMAL); PLATELET MORPHOLOGY NORMAL (NORMAL); TOTAL CELLS COUNTED 100
[2016-11-30] MEDS: Haloperidol Lactate 5 mg/mL 1mL Vial IVP PRN ×2 (08:04→16:22)
--- NOTE | 2016-11-30 10:36 | Diagnostic Imaging Report ---
CT scan of the brain without intravenous contrast HISTORY: Headache, trauma Total DLP equals 714 CTDI equals 36.3 Axial sections were obtained from the base of the skull to the vertex. There is prominence/enlargement of the ventricular system size. Associated enlargement of cerebral sulci and subarachnoid cisterns. Findings are consistent with changes of generalized cerebral atrophy. No acute parenchymal abnormalities. No acute cerebral hemorrhage. Hypodensity is seen within the supratentorial white matter regions without mass effect. The findings may be associated with chronic small vessel ischemic disease. No extra-axial masses or abnormal fluid collections. IMPRESSION: 1. No acute intracerebral abnormalities. No change compared to prior study of October 18, 2015, 2016 2. Cerebral atrophy 3. Supratentorial white matter changes that may reflect chronic small vessel ischemic disease 4. After target developer vascular changes
--- NOTE | 2016-11-30 10:37 | Diagnostic Imaging Report ---
Portable chest x-ray HISTORY: Shortness of breath, sepsis The heart appears generous in size. Atherosclerotic calcification seen in the aorta. Multiple surgical clips noted over the heart along with surgical suture material. No acute focal pulmonary processes. IMPRESSION: 1. No acute pulmonary process 2. Cardiomegaly with atherosclerotic vascular changes 3. Surgical changes
--- NOTE | 2016-11-30 11:06 | Consultation ---
Consult Note - Consult Note Service Date: 11/29/16 Consult Note: PHYSICIAN HISTORY & PHYSICAL: Date of Admission: 11/29/16 Chief Complaint: Hypotension and fall. History of Present Illness: Patient KIERSTEN CARBALLO was admitted to location Intensive Care Unit with HYPOTENSION,SEPSIS,SEPTIC SHOCK. 76 y male with history of bipolar disorder, schizophrenia, HTN recently discharged from [facility] yesterday. He tripped and fell on the ground with face down. He developed wound on the forehead. HIs blood pressure was in 90 's. So he was brought to the ER for further evaluation. On initial evaluation, he was afebrile, but his blood pressure was 67/42. He received three and half liter of fluid boluses and his blood pressure was maintained at 90's. He was very aggressive and hard to control. He needed haldol, which was given to him, when his blood pressure better controlled. His WBC Count was 8,900. and lactic acid was evlevated. Sepsis w/u was performed and he had received vanco iv and Rocephin. Past Medical History: Bipolar disorder, Dementia, HTN, DM2, hyperlipidemia. Allergies Allergy/AdvReac Type Severity Reaction Status Date / Time No Known Allergies Allergy Verified 10/23/16 21:44 Vital Signs Temp 97.4 F 11/30/16 Pulse 56 11/30/16 Resp 20 11/30/16 BP 82/48 11/30/16 Pulse Ox 96 11/30/16 Intake & Output 11/29/16 11/30/16 11/30/16 18:59 06:59 18:59 Intake Total 150 Output Total 700 100 Balance -700 50 Intake: Intake, IV Amount 100 Piperacillin Sodium/ 100 Tazobact 4.5 gm In Sodium Chloride 0.9% 100 ml @ 100 mls/hr IV Q6HR ON LICENSE OF [facility] Rx #:[id number] Oral 50 Output: Urine 700 100 Laboratory Results - last 24 hr 11/29/16 11/30/16 22:00 04:38 WBC 8.9 RBC 4.20 Hgb 12.5 L Hct 36.9 L MCV 88.0 MCH 29.7 MCHC Differential 33.8 RDW 14.5 Plt Count 188 MPV 8.2 Neutrophils % 67.1 Lymphocytes % 23.9 Monocytes % 7.1 Eosinophils % 0.8 Basophils % 1.1 Sodium 135 L Potassium 4.4 Chloride 102 Carbon Dioxide 25.6 Anion Gap 11.8 BUN 22 Creatinine 1.6 Est GFR ( Amer) TNP Est GFR (Non-Af Amer) TNP BUN/Creatinine Ratio 13.8 Glucose 146 H Calcium 9.1 Home Medication Medication Instructions Recorded Type Acetaminophen [Tylenol] 650 mg PO Q4HR PRN #0 tab MDD 3 10/30/16 Rx grams/24 hrs Al Hyd/Mg Hyd/Simethicone [Maalox] 30 ml PO Q4HR PRN #0 udc 10/30/16 Rx Metoprolol Succinate [Toprol Xl] 25 mg PO BID #0 ter 10/30/16 Rx Multivitamin [Theragran] 1 tab PO DAILY #0 tab 10/30/16 Rx Memantine [Namenda] 10 mg PO DAILY 11/13/16 History Ascorbic Acid [Vitamin C] 500 mg PO BID #0 11/27/16 Rx Atorvastatin Calcium [Lipitor] 10 mg PO HS #0 tab 11/27/16 Rx Clopidogrel [Plavix] 75 mg PO DAILY #0 tab 11/27/[address] [Depakote DR] 1 tab PO BID #0 11/27/16 Rx Docusate Sodium [Colace] 100 mg PO DAILY PRN #0 11/27/16 Rx Ferrous Sulfate [Iron] 325 mg PO DAILY #0 tab 11/27/16 Rx Lorazepam [Ativan] 0.5 mg PO Q4HR PRN #0 tab 11/27/16 Rx Magnesium Hydroxide [Milk of 30 ml PO HS PRN #0 11/27/16 Rx Magnesia] QUEtiapine Fumarate [SEROquel] 100 mg PO BID #0 tab 11/27/16 Rx QUEtiapine Fumarate [SEROquel] 125 mg PO HS #0 tab 11/27/16 Rx Sennosides A and B [Senna] 8.6 mg PO HS #0 11/27/16 Rx Zinc Sulfate 1 tab PO DAILY #0 11/27/16 Rx metFORMIN [Glucophage] 500 mg PO BID #0 tab 11/27/16 Rx Acetaminophen [Pain Relief Extra 1,000 mg PO Q4HR PRN MDD 3 11/29/16 History Strength] grams/24 hrs Insulin Aspart Sliding Scale See Protocol SUBQ ACHS 11/29/16 History [NovoLOG INSULIN SLIDING SCALE] Current Medications Generic Name Dose Route Start Last Admin Trade Name Freq PRN Reason Stop Dose Admin Acetaminophen 650 mg 11/30/16 01:45 Tylenol PO 01/29/17 01:44 Q4HR PRN Pain or Fever >101 Al Hydrox/Mg Hydrox/Simethicone 30 ml 11/30/16 01:45 Maalox PO 01/29/17 01:44 Q4HR PRN GI DISTRESS Ascorbic Acid 500 mg 11/30/16 09:00 11/30/16 08:51 Vitamin C PO 01/29/17 08:59 500 mg BID IRMA Administration Atorvastatin Calcium 10 mg 11/30/16 21:00 Lipitor PO 01/29/17 20:59 HS IRMA Protocol Clopidogrel Bisulfate 75 mg 11/30/16 09:00 11/30/16 08:52 Plavix PO 01/29/17 08:59 75 mg DAILY IRMA Administration Divalproex Sodium mg 11/30/16 09:[address] PO 01/29/17 08:59 BID IRMA Protocol Docusate Sodium 100 mg 11/30/16 01:45 Colace PO 01/29/17 01:44 DAILY PRN Constipation Haloperidol Lactate 5 mg 11/30/16 01:57 11/30/16 08:04 Haldol IVP 01/29/17 01:56 5 mg Q8HR PRN Administration Agitation Norepinephrine Bitartrate 4 mg 254 mls @ 0 mls/hr 11/30/16 00:14 / Dextrose IV 01/29/17 00:13 TITR PRN BP MAINTENANCE (PER PROTOCOL) Protocol Per Protocol Piperacillin Sod/Tazobactam 100 mls @ 100 mls/hr 11/30/16 06:00 11/30/16 07: 04 Sod 4.5 gm/ Sodium Chloride IV 01/29/17 05:59 Infused Q6HR IRMA Infusion Sodium Chloride 1,000 mls @ 75 mls/hr 11/30/16 02:00 11/30/16 02:07 Nacl 0.9% IV 01/29/17 01:59 75 mls/hr .[id number] IRMA Administration Vancomycin HCl 750 mg/ Sodium 250 mls @ 250 mls/hr 11/30/16 09:00 11/30/16 08 :52 Chloride IV 01/29/17 08:59 250 mls/hr Q12HR@0900,2100 IRMA Administration Miscellaneous 1 ea 11/30/16 02:00 Vancomycin Iv Per Pharmacy 01/29/17 01:59 PRN ON LICENSE OF [facility] Review of Systems: A 12 point ROS was reviewed with the pertinent positive and negatives noted in the HPI. Patient is very aggressive is very poor historian. Social History Smoking Status Unknown if ever smoked Family Medical History Mother History Unknown Yes Physical Exam: Vital signs: as above. General: Well niursihed, well developed. No Acute Distress HEENT: EOMI Bilaterally, PERRLA Bilaterally, Head is normocephalic, patient has laceration wounds on forehead x2, no active bleed on inspection. Cardio: +S1/S2 Auscultated, RRR, no murmurs/rubs/gallops noted Respiratory: Clear to Auscultate Bilaterally Abdominal: Soft, Nondistended, Nontender to palpation x 4 quadrants Genital/Urinary: Extremities: No Edema noted in the lower extremities Neurological: Alert and Oriented x3, Cranial Nerves II-XII intact bilaterally, Gait Steady, No Focal Deficits noted. Assessment/Plan: 1. Hypotension, bradycardia and lactate, may have sepsis, severe, source unknown. 2. Aggressive behaviour. 3. DM2. 4. HTN. 5. Hyperlipidemia. 6. Dementia. Plans: Will consult Tracey Howard, cardiology consult and psych consult with Dr Tarango. Abx : Tressa and eyad. Sepsis W/u. Fluid support. ICU admit. Signed, Teddy Snyder M.D. [id number]
[2016-11-30] MEDS ORDERED: Probiotic Screen MC PRN (14:37)
--- NOTE | 2016-11-30 20:17 | Admit Criteria Form ---
Admit Criteria Forms - Admit Criteria Diagnosis: SEVERE SEPSIS Clinical Indications for Admission to Inpatient Care (Place 'X' for any and all applicable criteria): Hospital admission is needed for appropriate care of the patient because of ANY ONE of the following: [X]I. Hemodynamic instability indicated by ANY ONE of the following(1)(2)(3)( 4)(5): [X]a. Vital sign abnormality not readily corrected by appropriate treatment within 12 to 24 hours indicated by ANY ONE of the following: []i) Tachycardia that persists despite appropriate treatment [X]ii) Hypotension that persists despite appropriate treatment []iii)Orthostatic vital sign changes that persist despite appropriate treatment [X]b. Vital sign abnormality that is severe indicated by ANY ONE of the following: [X]i.Inadequate perfusion indicated by ANY ONE of the following : [X]1) Lactic acidosis (greater than 2 mmol/L) []2) New abnormal capillary refill (greater than 3 seconds) []3) Reduced urine output []4) New altered mental status []5) Myocardial Ischemia []ii. Mean arterial pressure [A] less than 60 mm Hg []iii. Mean arterial pressure[A] less than 70 mm Hg after 30 minutes of appropriate treatment (eg, fluid resuscitation) []iv. Sustained heart rate greater than 120 beats per minute in adult []v. IV inotropic or vasopressor medication required to maintain adequate blood pressure or perfusion []II. Systemic or infectious condition causing severe symptoms or findings not responsive to emergency or observation care treatment (as appropriate) indicated by ANY ONE of the following: []a. Cardiac arrhythmias of immediate concern(1)(2)(3) []b. Severe endocrine disorder (eg, thyrotoxicosis, adrenal insufficiency)(4)(5) []c. Seizures (eg, new or recurrent)(6) []d. New-onset end organ failure or dysfunction as indicated by ANY ONE of the following: []i. Acute unexplained hypoxemia (eg, not from lung infection or chronic disease)(7)(8)(9) []ii. Acute renal failure as indicated by new onset of ANY ONE of the following(10)(11)(12)(13)(14): []1) 3-fold rise in serum creatinine from baseline []2) Serum creatinine greater than 4 mg/dL (354 micromoles/L) with acute rise greater than 0.5 mg/dL (44.2 micromoles/L) []3) Reduction of more than 75% in estimated glomerular filtration rate from baseline. []4) Estimated glomerular filtration rate less than 35 mL/min/1.73m2 ( 0.59 mL/sec/1.73m2) in child younger than 18 years. []5) Cessation of urine output indicated by ALL of the following: []A. Adequate volume status []B. Inadequate urine output as indicated by ANY ONE of the following: []a. Urine output less than 0.3 mL/kg/hr for 24 hours []b. Anuria (urine output less than 0.1 mL/kg/hr) for 12 hours []iii. Acute mental status changes(15) []iv.Acute hepatic failure (eg, plasma bilirubin greater than 4 mg/dL ( 68 micromoles/L), new INR greater than 2.0)(16)(17) []e. Unmanageable nausea and vomiting(18) []f. New-onset or uncontrolled central diabetes insipidus(19)(20) []g. Clinically significant dehydration(18)(21) []h. Hypoglycemia(22) []i. Acidosis (pH less than 7.35) or alkalosis (pH greater than 7.45)( 22)(23) []j. Toxic drug level that indicates need for specific monitoring or treatment(24)(25) []k. Severe electrolyte abnormalities indicated by ALL of the following( 1)(2)(3): []i. Electrolytes and associated findings are not as expected for patient baseline or acceptable treatment effects. []ii. Severe abnormalities indicated by ANY ONE of the following: []1) Sodium less than 130 mEq/L (mmol/L) (new) []2) Sodium less than 135 mEq/L (mmol/L) with ANY ONE of the following: []A. Uncorrectable (to near normal or chronic baseline) after trial of outpatient and emergency treatment []B. Altered mental status []C. Seizures []D. Severe medical etiology requiring inpatient management (eg , heart failure, hypovolemia) []3) Sodium greater than 155 mEq/L (mmol/L) []4) Sodium greater than 150 mEq/L (mmol/L) with ANY ONE of the following: []A. Uncorrectable (to near normal or chronic baseline) with outpatient and emergency treatment []B. Altered mental status []C. Seizures []D. Severe medical etiology (eg, hypovolemia, diabetes insipidus) []5) Potassium less than 2.5 mEq/L (mmol/L) despite outpatient and emergency treatment []6) Potassium less than 3 mEq/L (mmol/L) with ANY ONE of the following : []A. Weakness []B. Cardiac abnormality (eg, arrhythmia, conduction disturbance ) []C. Cardiac ischemia []D. Ileus []E. Ongoing medical cause requiring inpatient management (eg, acute renal wasting or SIADH) []F. Other severe symptoms []7) Potassium greater than 6.5 mEq/L (mmol/L) []8) Potassium greater than 5 mEq/L (mmol/L) with ANY ONE of the following: []A. Uncorrectable (to near normal or chronic baseline) with outpatient and emergency treatment []B. Severe ECG findings[A] []C. Acute worsening of renal failure (creatinine greater than 2.5 mg/dL (221 micromoles/L) or significant elevation for age and size) []D. Severe weakness []E. Severe medical etiology (eg, hemolysis, infection, drug overdose) []9) Calcium less than 7 mg/dL (1.75 mmol/L) despite outpatient and emergency treatment(5) []10) Calcium less than 8 mg/dL (2 mmol/L) with significant symptoms or findings (eg, altered mental status, muscle spasms, seizures , breathing difficulty, cardiac abnormality (eg, arrhythmia or conduction disturbance))(5) []11) Calcium greater than 14 mg/dL (3.5 mmol/L)(5) []12) Calcium greater than 12 mg/dL (3 mmol/L) with ANY ONE of the following(5): []A. Uncorrectable (to near normal or chronic baseline) with outpatient and emergency treatment []B. Significant dehydration or hypovolemia as indicated by ALL of the following(3)(6)(7): []a. Not resolved with initial treatments []b. Clinically significant dehydration as indicated by ANY ONE of the following: [](1) Vomiting refractory to outpatient treatment (ie, precluding oral rehydration) [](2) Inability to drink [](3) Hypernatremia or other electrolyte abnormality unable to be corrected with outpatient and emergency treatment [](4) Failure to remain hydrated with outpatient therapy [](5) Reduced urine output [](6) Hypotension [](7) Serious cause for dehydration requiring acute hospitalization ( eg, bowel obstruction, increased intracranial pressure, infectious cause) [](8) Child with ANY ONE of the following(8): [](i) Severe abdominal tenderness [](ii) Adequate care not available at home [](iii) Severe dehydration (greater than 9% loss of body weight) []C. Significant symptoms or findings (eg, altered mental status , cardiac abnormality (eg, arrhythmia, conduction disturbance), malignant etiology requiring inpatient treatment) []13) Phosphorus less than 1 mg/dL (0.32 mmol/L) []14) Phosphorus less than 1.5 mg/dL (0.48 mmol/L) with ANY ONE of the following: []A. Patient unresponsive to outpatient and emergency treatment []B. Significant symptoms or findings (eg, weakness, altered mental status, breathing difficulty, seizures, rhabdomyolysis) []15) Phosphorus greater than 10 mg/dL (3.2 mmol/L) []16) Phosphorus greater than 4.5 mg/dL (1.45 mmol/L) (new) with ANY ONE of the following: []A. Severe medical etiology (eg, crush injury, acute renal failure) []B. Associated hypocalcemia with significant findings (eg, neurologic symptoms, altered mental status, muscle spasms, seizures, breathing difficulty, cardiac abnormality (eg, arrhythmia, conduction disturbance)) []16) Magnesium less than 1 mg/dL (0.41 mmol/L) []17) Magnesium less than 1.5 mg/dL (0.62 mmol/L) with ANY ONE of the following: []A. Patient unresponsive to outpatient and emergency treatment []B. Associated hypocalcemia with significant findings (eg, altered mental status, muscle spasms, seizures, breathing difficulty, cardiac abnormality (eg, arrhythmia, conduction disturbance)) []C. Associated hypokalemia (potassium less than 3 mEq/L (mmol/L )) with risk of arrhythmia []18) Magnesium greater than 4 mEq/L (2 mmol/L) []19) Magnesium greater than 2.5 mEq/L (1.25 mmol/L) with significant symptoms or findings (eg, weakness, altered mental status, cardiac abnormality (eg, arrhythmia, conduction disturbance), breathing difficulty, severe medical etiology (eg, renal failure, hypovolemia)) []20) Uric acid greater than 20 mg/dL (1190 micromoles/L)(9) []21) Uric acid greater than 8 mg/dL (476 micromoles/L) with significant symptoms or findings of tumor lysis syndrome (eg, creatinine greater than 1.5 times upper limit of normal, cardiac abnormality (eg, arrhythmia, conduction disturbance), seizure)(9) []III. High fever or other high-risk infection situation as indicated by ANY ONE of the following(26)(27)(28): []a. Outpatient and observation care antimicrobial treatment unavailable, not effective, or not appropriate []b. Documented bacteremia []c. Temperature greater than 104.9 degrees F (40.5 degrees C) (oral) []d. Temperature greater than 103.1 degrees F (39.5 degrees C) (oral) or less than 96.8 degrees F (36 degrees C) (rectal) that does not respond to emergency treatment and observation care []IV. High-risk febrile neutropenia[A] as indicated by ANY ONE of the following(29)(30)(31)(32): []a. Profound neutropenia[B] anticipated to extend for more than 7 days []b. Hemodynamic instability []c. Hypoxemia []d. Tachypnea []e. Altered mental status []f. New-onset abdominal pain []g. New-onset vomiting or diarrhea []h. Oral or gastrointestinal mucositis that interferes with swallowing or causes severe diarrhea []i. Focal infection (eg, cellulitis, pneumonia, central line or catheter infection, perirectal abscess) []j. Renal insufficiency (eg, GFR of less than 30 mL/min/1.73m2 (0.5 mL/sec /1.73m2)). []k. Severe liver dysfunction (transaminase levels greater than 5 times normal) []l. Platelet count less than 50,000/mm3 (50 x109/L)(33) []m. Leukemia or lymphoma induction therapy []n. Leukemia not in complete remission or with evidence of disease progression []o. Bone marrow transplant patient []p. Alemtuzumab being used for therapy []q. [employer] Supportive Care in Cancer (MASCC) Risk Index score of less than 21[C](33)(35). []V. Isolation required (eg, tuberculosis that requires isolation, Ebola infection)[D](36)(37)(38)(39)(40) []. Gangrene that requires treatment beyond emergency or observation level care(41)(42) []VII. Antitoxin administration and ongoing observation required (eg, tetanus, botulism)(43)(44) []. Suspected infection with rapid progression or severe symptoms as indicated by ANY ONE of the following(45): []a. Streptococcal or staphylococcal toxic shock(46) []b. Diphtheria(47) []c. Hantavirus(48) []d. Severe acute respiratory syndrome(8)(49) []e. Anthrax(50) []f. Ebola[D](36)(37)(38) []g. Necrotizing soft tissue infection(41)(42) []h. Plague(50) []i. Other suspected infection that requires care beyond emergency or observation level care []VII. Severe adverse drug or systemic toxin reaction as indicated by ANY ONE of the following(24): []a. Serotonin syndrome(51)(52) []b. Neuroleptic malignant syndrome(51)(52) []c. Cholinergic syndrome with severe symptoms (eg, bronchorrhea, weakness , mental status changes, seizures)(53) []d. Anticholinergic syndrome []e. Sympathetic syndrome with severe symptoms (eg, seizures, mental status changes, cardiac dysrhythmias) []f. Other severe adverse drug or systemic toxin reaction that remains after emergency or observation level care (as appropriate) []VIII. Allergic reaction with severe symptoms (not responsive to emergency or observation care treatment as appropriate), including ANY ONE of the following(54): []a. Airway edema (pharyngeal, epiglottic, or laryngeal edema) []b. Stridor []c. Respiratory failure []d. Bronchospasm []e. Hypotension []IX. Environmental emergency (not responsive to emergency or observation care treatment as appropriate) as indicated by ANY ONE of the following(55)(56): []a. Hyperthermia []b. Heat stroke []c. Heat exhaustion []d. Hypothermia (temperature less than 95 degrees F (35 degrees C) rectal) (57) []e. Electrocution(58) []X. Complications of transplanted organ (ie, not covered elsewhere)[E] indicated by ANY ONE of the following(59): []a. Acute graft rejection (or graft vs. host disease)[F] requiring inpatient management (eg, intravenous immunosuppression)(60)(61)(62)(63) []b. Acute failure of transplanted organ necessitating inpatient care (eg, cannot be managed in other setting) []c. Infection requiring inpatient management (eg, Hemodynamic instability, need for intravenous antimicrobial treatment)(64)(65) []d. Other complication of transplanted organ requiring inpatient management []XI. Systemic or Infectious Condition condition, symptom, or finding for which emergency and observation care have failed or are not considered appropriate. See General Criteria: Observation Care, General Admission Criteria or Pediatric General Admission Criteria guideline as appropriate. (Contents from SEVERE SEPSIS and SYSTEMIC OR INFECTIOUS CONDITION clinical indications for admission to inpatient care have been integrated in this form) The original [facility] content created by [facility] has been revised. The portions of the content which have been revised are identified through the use of italic text or in bold and [facility] has neither reviewed nor approved the modified material. All other unmodified content is copyright [facility]. Please see references footnoted in the original [facility] edition 2016 Admit Criteria Met?: Yes
[2016-11-30] MEDS: Atorvastatin Calcium 10 MG TAB PO SCH (21:11)
--- NOTE | 2016-11-30 23:28 | Infectious Disease Prog Note ---
Infectious Disease Subjective - Review of Systems Service Date: 11/30/16 Subjective: No fever. Infectious Disease Objective - Results Result Diagrams: 11/30/16 04:38 11/30/16 04:38 Recent Labs: Laboratory Last Values WBC 10.5 Th/cmm (4.8-10.8) 11/30/16 04:38 RBC 4.02 Mil/cmm (3.80-5.80) 11/30/16 04:38 Hgb 12.2 gm/dL (12.6-17.4) L 11/30/16 04:38 Hct 35.7 % (39.0-49.0) L 11/30/16 04:38 MCV 88.9 fl (80-99) 11/30/16 04:38 MCH 30.5 pg (27.0-31.0) 11/30/16 04:38 MCHC Differential 34.3 pg (28.0-36.0) 11/30/16 04:38 RDW 14.2 % (11.5-20.0) 11/30/16 04:38 Plt Count 173 Th/cmm (150-400) 11/30/16 04:38 MPV 8.4 fl 11/30/16 04:38 Neutrophils % 67.1 % (40.0-80.0) 11/29/16 22:00 Band Neutrophils % 1 % (0-10) 11/30/16 04:38 Lymphocytes % 23.9 % (20.0-50.0) 11/29/16 22:00 Monocytes % 7.1 % (2.0-10.0) 11/29/16 22:00 Eosinophils % 0.8 % (0.0-5.0) 11/29/16 22:00 Basophils % 1.1 % (0.0-2.0) 11/29/16 22:00 Neutrophils (Manual) 82 % (40-80) H 11/30/16 04:38 Lymphocytes 15 % (20-50) L 11/30/16 04:38 Monocytes 1 % (2-10) L 11/30/16 04:38 Eosinophils 1 % (0-5) 11/30/16 04:38 Platelet Estimate ADEQUATE (NORMAL) 11/30/16 04:38 Platelet Morphology NORMAL (NORMAL) 11/30/16 04:38 RBC Morph Micro Appear NORMAL (NORMAL) 11/30/16 04:38 PT 10.7 SECONDS (9.5-11.5) 11/30/16 00:11 INR 1.03 (0.5-1.4) 11/30/16 00:11 PTT (Actin FS) 25.5 SECONDS (26.0-38.0) L 11/30/16 00:11 Sodium 136 mEq/L (136-145) 11/30/16 04:38 Potassium 4.1 mEq/L (3.5-5.1) 11/30/16 04:38 Chloride 108 mEq/L (98-107) H 11/30/16 04:38 Carbon Dioxide 25.6 mEq/L (21.0-31.0) 11/30/16 04:38 Anion Gap 6.5 (7.0-16.0) L 11/30/16 04:38 BUN 19 mg/dL (7-25) 11/30/16 04:38 Creatinine 1.1 mg/dL (0.7-1.3) 11/30/16 04:38 Est GFR ( Amer) TNP 11/30/16 04:38 Est GFR (Non-Af Amer) TNP 11/30/16 04:38 BUN/Creatinine Ratio 17.3 11/30/16 04:38 Glucose 149 mg/dL (70-105) H 11/30/16 04:38 Whole Bld Lactic Acid 0.97 mmol/L (0.60-1.99) 11/30/16 11:13 Calcium 8.4 mg/dL (8.6-10.3) L 11/30/16 04:38 Total Bilirubin 0.3 mg/dL (0.3-1.0) 11/29/16 22:00 AST 14 U/L (13-39) 11/29/16 22:00 ALT 13 U/L (7-52) 11/29/16 22:00 Alkaline Phosphatase 54 U/L (34-104) 11/29/16 22:00 Creatine Kinase 26 U/L (30-223) L 11/29/16 22:00 Total Protein 6.3 gm/dL (6.0-8.3) 11/29/16 22:00 Albumin 3.3 gm/dL (4.2-5.5) L 11/29/16 22:00 Globulin 3.0 gm/dL 11/29/16 22:00 Albumin/Globulin Ratio 1.1 (1.0-1.8) 11/29/16 22:00 Urine Source CLEAN C 11/29/16 23:55 Urine Color YELLOW 11/29/16 23:55 Urine Clarity HAZY (CLEAR) 11/29/16 23:55 Urine pH 5.5 11/29/16 23:55 Ur Specific [place] 1.020 (1.005-1.030) 11/29/16 23:55 Urine Protein 30 mg/dL (NEGATIVE) H 11/29/16 23:55 Urine Glucose (UA) NEGATIVE mg/dL (NEGATIVE) 11/29/16 23:55 Urine Ketones NEGATIVE mg/dL (NEGATIVE) 11/29/16 23:55 Urine Blood MODERATE (NEGATIVE) H 11/29/16 23:55 Urine Nitrate NEGATIVE (NEGATIVE) 11/29/16 23:55 Urine Bilirubin NEGATIVE (NEGATIVE) 11/29/16 23:55 Urine Urobilinogen 0.2 E.U./dL (0.2 - 1.0) 11/29/16 23:55 Ur Leukocyte Esterase NEGATIVE (NEGATIVE) 11/29/16 23:55 Urine RBC 25-50 /hpf (0-5) H 11/29/16 23:55 Urine WBC 2-5 /hpf (0-5) H 11/29/16 23:55 Ur Epithelial Cells FEW /lpf (FEW) 11/29/16 23:55 Urine Bacteria FEW /hpf (NONE SEEN) 11/29/16 23:55 - Physical Exam Vitals and I&O: Vital Signs Temp 98.3 F 11/30/16 22:00 Pulse 97 11/30/16 22:00 Resp 21 11/30/16 22:00 BP 106/59 11/30/16 22:00 Pulse Ox 96 11/30/16 16:00 Intake & Output 11/30/16 11/30/16 12/01/16 06:59 18:59 06:59 Intake Total 750 Output Total 700 1100 Balance -700 -350 Intake: Intake, IV Amount 450 Piperacillin Sodium/ 200 Tazobact 4.5 gm In Sodium Chloride 0.9% 100 ml @ 100 mls/hr IV Q6HR [facility] Rx #:[id number] Vancomycin HCl 750 mg In 250 Sodium Chloride 0.9% 250 ml @ 250 mls/hr IV Q12HR@ 0900,2100 [facility] Rx#: [id number] Oral 300 Output: Urine 700 1100 Active Medications: Current Medications Acetaminophen (Tylenol) 650 mg PO Q4HR PRN PRN Reason: Pain or Fever >101 Stop: 01/29/17 01:44 Al Hydrox/Mg Hydrox/Simethicone (Maalox) 30 ml PO Q4HR PRN PRN Reason: GI DISTRESS Stop: 01/29/17 01:44 Ascorbic Acid (Vitamin C) 500 mg PO BID [facility] Stop: 01/29/17 08:59 Last Admin: 11/30/16 16:22 Dose: 500 mg Atorvastatin Calcium (Lipitor) 10 mg PO HS [facility] PRN Reason: Protocol Stop: 01/29/17 20:59 Last Admin: 11/30/16 21:11 Dose: 10 mg Clopidogrel Bisulfate (Plavix) 75 mg PO DAILY [facility] Stop: 01/29/17 08:59 Last Admin: 11/30/16 08:52 Dose: 75 mg Divalproex Sodium (Depakote Dr) mg PO BID [facility] PRN Reason: Protocol Stop: 01/29/17 08:59 Docusate Sodium (Colace) 100 mg PO DAILY PRN PRN Reason: Constipation Stop: 01/29/17 01:44 Haloperidol Lactate (Haldol) 5 mg IVP Q8HR PRN PRN Reason: Agitation Stop: 01/29/17 01:56 Last Admin: 11/30/16 16:22 Dose: 5 mg Norepinephrine Bitartrate 4 mg (/ Dextrose) 254 mls @ 0 mls/hr IV TITR PRN; Protocol; Per Protocol PRN Reason: BP MAINTENANCE (PER PROTOCOL) Stop: 01/29/17 00:13 Piperacillin Sod/Tazobactam (Sod 4.5 gm/ Sodium Chloride) 100 mls @ 100 mls/hr IV Q6HR [facility] Stop: 01/29/17 05:59 Last Admin: 11/30/16 17:32 Dose: 100 mls/hr Sodium Chloride (Nacl 0.9%) 1,000 mls @ 75 mls/hr IV .[id number] [facility] Stop: 01/29/17 01:59 Last Admin: 11/30/16 02:07 Dose: 75 mls/hr Vancomycin HCl 750 mg/ Sodium (Chloride) 250 mls @ 250 mls/hr IV Q12HR@0900, 2100 IRMA Stop: 01/29/17 08:59 Last Admin: 11/30/16 21:11 Dose: 250 mls/hr Lactobacillus Rhamnosus (Culturelle) 1 each PO DAILY [facility] Stop: 01/30/17 08:59 Miscellaneous (Vancomycin Iv Per Pharmacy) 1 [facility] [place] PRN IRMA Stop: 01/29/17 01:59 Miscellaneous (Probiotic Screen) 1 [facility] [place] PRN PRN PRN Reason: PROTOCOL Stop: 01/29/17 14:36 HEENT: normocephalic, PERRLA, EOMI, moist mucous membrane, other (forehead wound , no bleeding.) Neck: supple, no thyromegaly Cardiovascular: S1S2, regular Lungs: clear to auscultation bilaterally, clear to percussion Abdomen: soft, no tender, no distended Extremities: lines, no cyanosis, no clubbing, no edema Neurological: awake, alert, oriented, CN 2-12 intact, no focal findings Infectious Disease Assmt/Plan - Problem List Patient Problems: All Active Problems POOR ORAL INTAKE WITH AGITATION (Acute) encephalopathy (Acute) psychosis (Acute) - Assessment Assessment: Hypotension. sepsis improving. Aggressive behaviour. HTN DM2 - Plan Plan: Continue vanco IV and zosyn. wound care. Fluid support.
[2016-12-01] MEDS: Haloperidol Lactate 5 mg/mL 1mL Vial IVP PRN ×2 (00:38→08:11)
[2016-12-01] MEDS ORDERED: Magnesium Hydroxide (MOM) 30 mL UDC PO PRN (02:06)
[2016-12-01] MEDS: Sodium Chloride 0.9% 1,000 ML IV SCH (03:27)
[2016-12-01 04:42] LABS: % BASOPHILS 0.6 % (0.0-2.0); % EOSINOPHILS 0.4 % (0.0-5.0); % LYMPHOCYTES 16.6 % (20.0-50.0); % MONOCYTES 6.9 % (2.0-10.0); % NEUTROPHILS 75.5 % (40.0-80.0); HEMATOCRIT 34.7 % (39.0-49.0); HEMOGLOBIN 11.8 gm/dL (12.6-17.4); MEAN CELL VOLUME 87.6 fl (80-99); MEAN CORPUSCULAR HEMOGLOBIN 29.8 pg (27.0-31.0); MEAN PLATELET VOLUME 7.7 fl; NEUTROPHILE ABSOLUTE 7.7 Th/cmm (1.8-8.0); PLATELET COUNT 173 Th/cmm (150-400); RED BLOOD COUNT 3.97 Mil/cmm (3.80-5.80); WHITE BLOOD COUNT 10.2 Th/cmm (4.8-10.8)
[2016-12-01 05:10] LABS: ANION GAP 10.6 (7.0-16.0); BUN - UREA NITROGEN 11 mg/dL (7-25); BUN/CREATININE RATIO 12.2; CALCIUM SERUM 8.5 mg/dL (8.6-10.3); CARBON DIOXIDE 25.1 mEq/L (21.0-31.0); CHLORIDE 105 mEq/L (98-107); CREATININE - SERUM 0.9 mg/dL (0.7-1.3); GLUCOSE 106 mg/dL (70-105); POTASSIUM SERUM 3.7 mEq/L (3.5-5.1); SODIUM SERUM 137 mEq/L (136-145)
[2016-12-01 06:15] LABS: CHOLESTEROL 121 mg/dL (<200); TRIGLYCERIDES 85 mg/dL (<150)
[2016-12-01] MEDS: INSULIN ASPART SLIDING SCALE 100 UNITS/ML UNIT SUBQ SCH ×4 (06:58→21:00)
[2016-12-01] MEDS: Lactobacillus Rhamnosus 10 Billion CFU Capsule PO SCH (09:31)
[2016-12-01] MEDS: Ferrous Sulfate 325 MG TAB PO SCH (09:31)
[2016-12-01] MEDS: Multivitamin Tab PO SCH (09:33)
[2016-12-01 11:01] VITALS: BP 76/32
--- NOTE | 2016-12-01 11:38 | General Progress Note ---
Objective - Results Result Diagrams: 12/01/16 04:33 12/01/16 04:33 Recent Labs: Laboratory Last Values WBC 10.2 Th/cmm (4.8-10.8) 12/01/16 04:33 RBC 3.97 Mil/cmm (3.80-5.80) 12/01/16 04:33 Hgb 11.8 gm/dL (12.6-17.4) L 12/01/16 04:33 Hct 34.7 % (39.0-49.0) L 12/01/16 04:33 MCV 87.6 fl (80-99) 12/01/16 04:33 MCH 29.8 pg (27.0-31.0) 12/01/16 04:33 MCHC Differential 34.0 pg (28.0-36.0) 12/01/16 04:33 RDW 14.0 % (11.5-20.0) 12/01/16 04:33 Plt Count 173 Th/cmm (150-400) 12/01/16 04:33 MPV 7.7 fl 12/01/16 04:33 Neutrophils % 75.5 % (40.0-80.0) 12/01/16 04:33 Band Neutrophils % 1 % (0-10) 11/30/16 04:38 Lymphocytes % 16.6 % (20.0-50.0) L 12/01/16 04:33 Monocytes % 6.9 % (2.0-10.0) 12/01/16 04:33 Eosinophils % 0.4 % (0.0-5.0) 12/01/16 04:33 Basophils % 0.6 % (0.0-2.0) 12/01/16 04:33 Neutrophils (Manual) 82 % (40-80) H 11/30/16 04:38 Lymphocytes 15 % (20-50) L 11/30/16 04:38 Monocytes 1 % (2-10) L 11/30/16 04:38 Eosinophils 1 % (0-5) 11/30/16 04:38 Platelet Estimate ADEQUATE (NORMAL) 11/30/16 04:38 Platelet Morphology NORMAL (NORMAL) 11/30/16 04:38 RBC Morph Micro Appear NORMAL (NORMAL) 11/30/16 04:38 PT 10.7 SECONDS (9.5-11.5) 11/30/16 00:11 INR 1.03 (0.5-1.4) 11/30/16 00:11 PTT (Actin FS) 25.5 SECONDS (26.0-38.0) L 11/30/16 00:11 Sodium 137 mEq/L (136-145) 12/01/16 04:33 Potassium 3.7 mEq/L (3.5-5.1) 12/01/16 04:33 Chloride 105 mEq/L (98-107) 12/01/16 04:33 Carbon Dioxide 25.1 mEq/L (21.0-31.0) 12/01/16 04:33 Anion Gap 10.6 (7.0-16.0) 12/01/16 04:33 BUN 11 mg/dL (7-25) 12/01/16 04:33 Creatinine 0.9 mg/dL (0.7-1.3) 12/01/16 04:33 Est GFR ( Amer) TNP 12/01/16 04:33 Est GFR (Non-Af Amer) TNP 12/01/16 04:33 BUN/Creatinine Ratio 12.2 12/01/16 04:33 Glucose 106 mg/dL (70-105) H 12/01/16 04:33 Whole Bld Lactic Acid 0.97 mmol/L (0.60-1.99) 11/30/16 11:13 Calcium 8.5 mg/dL (8.6-10.3) L 12/01/16 04:33 Total Bilirubin 0.3 mg/dL (0.3-1.0) 11/29/16 22:00 AST 14 U/L (13-39) 11/29/16 22:00 ALT 13 U/L (7-52) 11/29/16 22:00 Alkaline Phosphatase 54 U/L (34-104) 11/29/16 22:00 Creatine Kinase 26 U/L (30-223) L 11/29/16 22:00 Troponin I 0.01 ng/mL (0.01-0.05) 12/01/16 04:33 Total Protein 6.3 gm/dL (6.0-8.3) 11/29/16 22:00 Albumin 3.3 gm/dL (4.2-5.5) L 11/29/16 22:00 Globulin 3.0 gm/dL 11/29/16 22:00 Albumin/Globulin Ratio 1.1 (1.0-1.8) 11/29/16 22:00 Triglycerides 85 mg/dL (<150) 12/01/16 04:33 Cholesterol 121 mg/dL (<200) 12/01/16 04:33 LDL Cholesterol Direct 68 mg/dL (75-193) L 12/01/16 04:33 HDL Cholesterol 38 mg/dL (23-92) 12/01/16 04:33 Thyroxine (T4) 5.72 ug/dl (6.09-12.23) L 12/01/16 04:33 Reverse T3 < 0.10 ng/mL (0.87-1.78) L 12/01/16 04:33 TSH 1.41 uIU/ml (0.34-5.60) 12/01/16 04:33 Urine Source CLEAN C 11/29/16 23:55 Urine Color YELLOW 11/29/16 23:55 Urine Clarity HAZY (CLEAR) 11/29/16 23:55 Urine pH 5.5 11/29/16 23:55 Ur Specific Phillips 1.020 (1.005-1.030) 11/29/16 23:55 Urine Protein 30 mg/dL (NEGATIVE) H 11/29/16 23:55 Urine Glucose (UA) NEGATIVE mg/dL (NEGATIVE) 11/29/16 23:55 Urine Ketones NEGATIVE mg/dL (NEGATIVE) 11/29/16 23:55 Urine Blood MODERATE (NEGATIVE) H 11/29/16 23:55 Urine Nitrate NEGATIVE (NEGATIVE) 11/29/16 23:55 Urine Bilirubin NEGATIVE (NEGATIVE) 11/29/16 23:55 Urine Urobilinogen 0.2 E.U./dL (0.2 - 1.0) 11/29/16 23:55 Ur Leukocyte Esterase NEGATIVE (NEGATIVE) 11/29/16 23:55 Urine RBC 25-50 /hpf (0-5) H 11/29/16 23:55 Urine WBC 2-5 /hpf (0-5) H 11/29/16 23:55 Ur Epithelial Cells FEW /lpf (FEW) 11/29/16 23:55 Urine Bacteria FEW /hpf (NONE SEEN) 11/29/16 23:55 - Physical Exam Vitals and I&O: Vital Signs Temp 97.1 F 12/01/16 08:00 Pulse 98 12/01/16 10:00 Resp 13 12/01/16 10:00 BP 76/32 12/01/16 11:00 Pulse Ox 96 11/30/16 16:00 Intake & Output 11/30/16 12/01/16 12/01/16 18:59 06:59 18:59 Intake Total 1850 750 200 Output Total 1100 1350 Balance 750 -600 200 Weight (lbs) 77.366 kg Intake: Intake, IV Amount 1550 450 Piperacillin Sodium/ 300 200 Tazobact 4.5 gm In Sodium Chloride 0.9% 100 ml @ 100 mls/hr IV Q6HR [facility] Rx #:[id number] Sodium Chloride 0.9% 1, 1000 000 ml @ 75 mls/hr IV . [id number] [facility] Rx#:[id number] Vancomycin HCl 750 mg In 250 250 Sodium Chloride 0.9% 250 ml @ 250 mls/hr IV Q12HR@ 0900,2100 [facility] Rx#: [id number] Oral 300 300 200 Output: Urine 1100 1350 Active Medications: Current Medications Acetaminophen (Tylenol) 650 mg PO Q4HR PRN PRN Reason: Pain or Fever >101 Stop: 01/29/17 01:44 Al Hydrox/Mg Hydrox/Simethicone (Maalox) 30 ml PO Q4HR PRN PRN Reason: GI DISTRESS Stop: 01/29/17 01:44 Ascorbic Acid (Vitamin C) 500 mg PO BID [facility] Stop: 01/29/17 08:59 Last Admin: 12/01/16 09:31 Dose: 500 mg Atorvastatin Calcium (Lipitor) 10 mg PO [facility] PRN Reason: Protocol Stop: 01/29/17 20:59 Last Admin: 11/30/16 21:11 Dose: 10 mg Clopidogrel Bisulfate (Plavix) 75 mg PO DAILY [facility] Stop: 01/29/17 08:59 Last Admin: 12/01/16 09:29 Dose: 75 mg Divalproex Sodium (Depakote Dr) 250 mg PO BID [facility] PRN Reason: Protocol Stop: 01/29/17 08:59 Last Admin: 12/01/16 09:30 Dose: 250 mg Docusate Sodium (Colace) 100 mg PO DAILY PRN PRN Reason: Constipation Stop: 01/29/17 01:44 Ferrous Sulfate (Iron) 325 mg PO DAILY [facility] Stop: 01/30/17 08:59 Last Admin: 12/01/16 09:31 Dose: 325 mg Haloperidol Lactate (Haldol) 5 mg IVP Q8HR PRN PRN Reason: Agitation Stop: 01/29/17 01:56 Last Admin: 12/01/16 08:11 Dose: 5 mg Norepinephrine Bitartrate 4 mg (/ Dextrose) 254 mls @ 0 mls/hr IV TITR PRN; Protocol; Per Protocol PRN Reason: BP MAINTENANCE (PER PROTOCOL) Stop: 01/29/17 00:13 Piperacillin Sod/Tazobactam (Sod 4.5 gm/ Sodium Chloride) 100 mls @ 100 mls/hr IV Q6HR [facility] Stop: 01/29/17 05:59 Last Infusion: 12/01/16 06:59 Dose: Infused Sodium Chloride (Nacl 0.9%) 1,000 mls @ 75 mls/hr IV .[id number] [facility] Stop: 01/29/17 01:59 Last Admin: 12/01/16 03:27 Dose: 75 mls/hr Vancomycin HCl 750 mg/ Sodium (Chloride) 250 mls @ 250 mls/hr IV Q12HR@0900, 2100 [facility] Stop: 01/29/17 08:59 Last Admin: 12/01/16 09:34 Dose: 165 mls/hr Insulin Aspart (Novolog Insulin Sliding Scale) 0 units SUBQ ACHS [facility] PRN Reason: Protocol Stop: 01/30/17 07:29 Last Admin: 12/01/16 06:58 Dose: Not Given Lactobacillus Rhamnosus (Culturelle) 1 each PO DAILY [facility] Stop: 01/30/17 08:59 Last Admin: 12/01/16 09:31 Dose: 1 each Lorazepam (Ativan) 1 mg IVP Q4HR PRN; Protocol PRN Reason: Agitation Stop: 01/30/17 08:14 Magnesium Hydroxide (Milk Of Magnesia) 30 ml PO HS PRN PRN Reason: Constipation Stop: 01/30/17 02:05 Memantine (Namenda) 10 mg PO DAILY [facility] Stop: 01/30/17 08:59 Last Admin: 12/01/16 09:33 Dose: 10 mg Metformin HCl (Glucophage) 500 mg PO BIDWM [facility] Stop: 01/30/17 07:59 Last Admin: 12/01/16 09:37 Dose: 500 mg Metoprolol Succinate (Toprol Xl) 25 mg PO BID [facility] Stop: 01/30/17 08:59 Last Admin: 12/01/16 09:32 Dose: 25 mg Miscellaneous (Vancomycin Iv Per Pharmacy) 1 ea PRN [facility] Stop: 01/29/17 01:59 Miscellaneous (Probiotic Screen) 1 ea PRN PRN PRN Reason: PROTOCOL Stop: 01/29/17 14:36 Multivitamins/Vitamin C (Theragran) 1 tab PO DAILY [facility] Stop: 01/30/17 08:59 Last Admin: 12/01/16 09:33 Dose: 1 tab Quetiapine Fumarate (Seroquel) 50 mg PO BID [facility] PRN Reason: Protocol Stop: 01/30/17 08:59 Last Admin: 12/01/16 09:31 Dose: 50 mg Quetiapine Fumarate (Seroquel) 150 mg PO HS [facility] Stop: 01/30/17 20:59 Senna (Senna) 8.6 mg PO HS [facility] Stop: 01/30/17 20:59 Zinc Sulfate (Zinc Sulfate) 220 mg PO DAILY [facility] Stop: 01/30/17 08:59 Last Admin: 12/01/16 09:32 Dose: 220 mg Assessment/Plan - Problem List Patient Problems: All Active Problems POOR ORAL INTAKE WITH AGITATION (Acute) encephalopathy (Acute) psychosis (Acute) Nutritional Asmnt/Malnutr-PDOC - Dietary Evaluation Malnutrition Findings (Please click <Entered> for more info): Nutritional Asmnt/Malnutrition Start: 12/01/16 09: 45 Text: Status: Complete Freq: Document 12/01/16 09:45 [facility] (Rec: 12/01/16 10:00 [facility] [id number]) Nutritional Asmnt/Malnutrition Patient General Information Nutritional Screening High Risk Screening Diagnosis Septic shock unknown source, closed head injury, forehead laceration x2 Pertinent Medical Hx/Surgical Hx HTN, DM, dyslipidemia, dementia, schizophrenia, bipolar Subjective Information Pt is a 76-year-old male admitted with chief complaint of head injury s/p mechanical fall. Pt was easily arousable and a fair to poor historian. Pt was able to follow commands and answer most questions; redirection needed. Pt appears well nourished with no signs of muscle or fat depletion assessed to shoulders or chest . Age-appropriate temporal wasting observed. Pt reports he ate all of breakfast this morning and "food is okay." RD verified that pt only ate 50% of breakfast. RD measured pt' s wt today via bedscale. Per MD progress note, sepsis is improving. Pt is not an appropriate historian for diet education at this time. Current Diet Order/ Nutrition Support Regular, low sodium Patient / S.O Can't verbalize diet edu Pertinent Medications Vitamin C, Lipitor, Depakote, Iron, Haldol PRN, Novolog, Culturelle, Glucophage, Vancomycin, Theragran, Zosyn, Seroquel, Vancomycin Pertinent Labs Reviewed, Creatinine levels improved to be WNL Nutritional Hx/Data Height 1.83 m Height (Calculated Centimeters) 182.9 Current Weight (lbs) 77.519 kg Weight (Calculated Kilograms) 77.5 Weight (Calculated Grams) 96334.9 Usual body Weight (lbs) 167 % Usual Body Weight 102 [place] Body Weight 178 % [place] Body Weight 96 Recent Weight Change No Weight Status Approriate GI Symptoms GI Symptoms None Food Allergies No Cultural/Ethnic/Cheondoism Belief No preferences provided. Usual diet at home Regular diet Skin Integrity/Comment: Tito 14. Lacerations x2 to forehead, rash to sacrum Current %PO Fair (50-74%) Estimated Nutritional Goals BEE in Kcals: Using Current wt Calories/Kcals/Kg 30-35 kcals/kg (with consideration of sepsis) Kcals Calculated 9617-6113 kcals/day Protein: Using Current wt Protein g/k.2-1.5 gm/kg (with consideration of sepsis) Protein Calculated 93-117 gm/day Fluid: ml 1513-2918 ml/day (30-35 ml/kg) hydration maintenance Nutritional Problem 1. Problem Problem Increased energy/protein needs related to Etiology hypermetabolism as evidenced by Signs/Symptoms: diagnosis of septic shock. Malnutrition Alert Is there a minimum of two criteria No selected? Query Text:Check all the applicable criteria. A minimum of two criteria are recommended for diagnosis of either severe or non-severe malnutrition. Malnutrition Related to Morbid Obesity Malnutrition related to morbid obesity No Intervention/Recommendation Recommendations by RD Protein supplementation Comments 1. Continue with low sodium diet, as tolerated. Current diet is appropriate to meet estimated nutritional needs. 2. Recommend Boost supplement TID at meals to help promote nutritional intake and improve appetite. Expected Outcomes/Goals Expected Outcomes/Goals Have pt meet at least 75% of estimated nutritional needs. Physician Parameters for PEM Normal Weight % 90% - 110% (Normal) Body Mass Index (BMI) 19 - 24 (Normal) Serum Albumin (g/dl) 3.1 - 3.4 (Mild) 12/01/16 09:59 Dietitian Notes by Roberta Licea Nutrition Note Initial Nutrition Assessment completed by Roberta Licea on 12/01/16. Please refer to nutrition assessment under Patient Care tab of EMR. Nutrition Recommendations: 1. Continue with low sodium diet, as tolerated. Current diet is appropriate to meet estimated nutritional needs. 2. Recommend Boost supplement TID at meals to help promote nutritional intake and improve appetite. F/U in 3-5 days as Moderate risk, 12/04-12/06. Initialized on 12/01/16 09:59 - END OF NOTE
--- NOTE | 2016-12-01 17:40 | Consultation ---
The patient was admitted through Emergency Room. HISTORY OF PRESENT ILLNESS: The patient was transferred from subacute facility to the Emergency Room with history of fall. Apparently, the history is that the patient fell down from the bed and was noted to have some laceration over the forehead. The patient was transferred here. He was evaluated by ER MD. CAT scan of the head was done. He was found to be hypotensive and some bradycardic. He was transferred to ICU. He also was with possibility of sepsis and dehydration. The patient does have history of hypertension actually, history of coronary artery disease, status post coronary artery bypass surgery, hyperlipidemia, has psych problems and has history of dementia. There is no history available from the patient. Information obtained from the chart. LABORATORY DATA: His lactic acid was above 2, then it started coming down to 0.97. WBC count was 10.5. Hemoglobin 12.2, hematocrit 35.7, neutrophils were 82, lymphs 15, monocytes 1% and platelet count was 173. Sodium 136, potassium 4.1, chloride 108, CO2 of 25.6, glucose 149, BUN 19 and creatinine 1.1. Calcium was 8.4. EKG: Showed sinus rhythm, sinus bradycardia, generalized nonspecific ST-T wave changes, low voltage. IMAGING: Chest x-ray shows clips as evidence of previous open heart surgery. CAT scan of abdomen shows no acute intracerebral abnormalities. No change compared to prior study of 10/18/2016, cerebral atrophy also supratentorial white matter changes that may reflect chronic small vessel ischemic disease. Chest x-ray shows no acute pulmonary process. Cardiomegaly with arteriosclerotic vascular changes. IMPRESSION: Brief episode of hypotension, resolved and episode of sinus bradycardia more stable. ____ in the subacute facility, he was on Lopressor, possible sepsis. Lactic acid was elevated. History of fall, lacerations over forehead, rule out head injury, coronary artery disease, status post coronary artery bypass surgery, history of hypertension, questionable history of hyperlipidemia, possible sepsis, dehydration, dementia, psych problems ____ to continue cardiac monitoring and hemodynamic monitoring in ICU ____ become more stable. We will assess because the patient was hypotensive ____ I do not know whether he suffered any myocardial insult. We will continue ekg monitor tech. We will get serial troponin levels and serial EKGs. We will also get echocardiogram to evaluate left ventricular function and valvular structure and also get lipid profile and thyroid profile to maintain good fluid intake. If his intake is p.o., we will have to continue IVs and antibiotics as per Dr. Teddy Snyder. Further recommendations will be made depending on the results of the tests available. Thank you very much Dr. Teddy Snyder. We will follow with you as needed. JOB# [id number]
[2016-12-01] MEDS: Atorvastatin Calcium 10 MG TAB PO SCH (20:26)
--- NOTE | 2016-12-01 23:15 | Consultation ---
REASON FOR CONSULTATION: Psych evaluation. HISTORY OF PRESENT ILLNESS: A 76-year-old male, seen in the [facility] previously, brought in by EMS, acute [id number] head injury, suffered a fall with associated laceration on the forehead. Staff noting he has been very combative and nonsensical and requiring a lot of emergency medications, not sleeping. On [id number], the patient is AO to name only. PAST PSYCHIATRIC HISTORY: The patient has been to the [facility] in the past. He was most recently here at the [facility] in October of 2016, seems to have a diagnosis of dementia. PAST MEDICAL HISTORY: As noted. MEDICATIONS: Reviewed. SOCIAL HISTORY: The patient is coming from a nursing facility, needing a higher level of care. MENTAL STATUS EXAMINATION: Stated age, some eye contact. Behavior: Confused. Speech rambling. Mood "okay." Affect, flat. Thought processes were disorganized. Thought content, difficult to assess fully. He is pretty confused, disoriented, rambling. Poor concentration, poor insight, poor judgment. No suicidal gestures. PROVISIONAL DIAGNOSIS: Dementia with behavioral disturbances, likely delirious ____ status post fall. RECOMMENDATIONS AND PLAN: We will make medication adjustments to try to target his behavioral disturbances. The patient with a little response to Ativan, we will adjust Ativan dosing as well. We will continue to monitor closely. Continue orientation as well. We will follow up. [facility]# [id number]
[2016-12-02] MEDS: Sodium Chloride 0.9% 1,000 ML IV SCH ×2 (00:10→17:56)
[2016-12-02 04:55] LABS: % BASOPHILS 0.6 % (0.0-2.0); % EOSINOPHILS 1.2 % (0.0-5.0); % LYMPHOCYTES 18.7 % (20.0-50.0); % MONOCYTES 7.7 % (2.0-10.0); % NEUTROPHILS 71.8 % (40.0-80.0); HEMATOCRIT 36.6 % (39.0-49.0); HEMOGLOBIN 12.4 gm/dL (12.6-17.4); MEAN CELL VOLUME 88.2 fl (80-99); MEAN CORPUSCULAR HEMOGLOBIN 29.8 pg (27.0-31.0); MEAN CORPUSCULAR HGB CONC 33.8 pg (28.0-36.0); MEAN PLATELET VOLUME 8.2 fl; NEUTROPHILE ABSOLUTE 6.8 Th/cmm (1.8-8.0); PLATELET COUNT 168 Th/cmm (150-400); RED BLOOD COUNT 4.15 Mil/cmm (3.80-5.80); RED CELL DISTRIBUTION WIDTH 13.8 % (11.5-20.0); WHITE BLOOD COUNT 9.5 Th/cmm (4.8-10.8)
[2016-12-02 05:09] LABS: ANION GAP 10.6 (7.0-16.0); BUN - UREA NITROGEN 8 mg/dL (7-25); CALCIUM SERUM 8.7 mg/dL (8.6-10.3); CHLORIDE 106 mEq/L (98-107); CREATININE - SERUM 0.8 mg/dL (0.7-1.3); GLUCOSE 107 mg/dL (70-105); POTASSIUM SERUM 3.6 mEq/L (3.5-5.1); SODIUM SERUM 141 mEq/L (136-145)
[2016-12-02] MEDS: INSULIN ASPART SLIDING SCALE 100 UNITS/ML UNIT SUBQ SCH ×4 (07:45→21:19)
--- NOTE | 2016-12-02 08:45 | General Progress Note ---
Subjective - Review of Systems Service Date: 12/02/16 Events since last encounter: no changes Subjective: no distress Objective - Results Result Diagrams: 12/02/16 04:40 12/02/16 04:40 Recent Labs: Laboratory Last Values WBC 9.5 Th/cmm (4.8-10.8) 12/02/16 04:40 RBC 4.15 Mil/cmm (3.80-5.80) 12/02/16 04:40 Hgb 12.4 gm/dL (12.6-17.4) L 12/02/16 04:40 Hct 36.6 % (39.0-49.0) L 12/02/16 04:40 MCV 88.2 fl (80-99) 12/02/16 04:40 MCH 29.8 pg (27.0-31.0) 12/02/16 04:40 MCHC Differential 33.8 pg (28.0-36.0) 12/02/16 04:40 RDW 13.8 % (11.5-20.0) 12/02/16 04:40 Plt Count 168 Th/cmm (150-400) 12/02/16 04:40 MPV 8.2 fl 12/02/16 04:40 Neutrophils % 71.8 % (40.0-80.0) 12/02/16 04:40 Band Neutrophils % 1 % (0-10) 11/30/16 04:38 Lymphocytes % 18.7 % (20.0-50.0) L 12/02/16 04:40 Monocytes % 7.7 % (2.0-10.0) 12/02/16 04:40 Eosinophils % 1.2 % (0.0-5.0) 12/02/16 04:40 Basophils % 0.6 % (0.0-2.0) 12/02/16 04:40 Neutrophils (Manual) 82 % (40-80) H 11/30/16 04:38 Lymphocytes 15 % (20-50) L 11/30/16 04:38 Monocytes 1 % (2-10) L 11/30/16 04:38 Eosinophils 1 % (0-5) 11/30/16 04:38 Platelet Estimate ADEQUATE (NORMAL) 11/30/16 04:38 Platelet Morphology NORMAL (NORMAL) 11/30/16 04:38 RBC Morph Micro Appear NORMAL (NORMAL) 11/30/16 04:38 PT 10.7 SECONDS (9.5-11.5) 11/30/16 00:11 INR 1.03 (0.5-1.4) 11/30/16 00:11 PTT (Actin FS) 25.5 SECONDS (26.0-38.0) L 11/30/16 00:11 Sodium 141 mEq/L (136-145) 12/02/16 04:40 Potassium 3.6 mEq/L (3.5-5.1) 12/02/16 04:40 Chloride 106 mEq/L (98-107) 12/02/16 04:40 Carbon Dioxide 28.0 mEq/L (21.0-31.0) 12/02/16 04:40 Anion Gap 10.6 (7.0-16.0) 12/02/16 04:40 BUN 8 mg/dL (7-25) 12/02/16 04:40 Creatinine 0.8 mg/dL (0.7-1.3) 12/02/16 04:40 Est GFR ( Amer) TNP 12/02/16 04:40 Est GFR (Non-Af Amer) TNP 12/02/16 04:40 BUN/Creatinine Ratio 10.0 12/02/16 04:40 Glucose 107 mg/dL (70-105) H 12/02/16 04:40 POC Glucose 85 MG/DL (70 - 105) 12/01/16 23:10 Whole Bld Lactic Acid 0.97 mmol/L (0.60-1.99) 11/30/16 11:13 Calcium 8.7 mg/dL (8.6-10.3) 12/02/16 04:40 Total Bilirubin 0.3 mg/dL (0.3-1.0) 11/29/16 22:00 AST 14 U/L (13-39) 11/29/16 22:00 ALT 13 U/L (7-52) 11/29/16 22:00 Alkaline Phosphatase 54 U/L (34-104) 11/29/16 22:00 Creatine Kinase 26 U/L (30-223) L 11/29/16 22:00 Troponin I 0.01 ng/mL (0.01-0.05) 12/01/16 22:05 Total Protein 6.3 gm/dL (6.0-8.3) 11/29/16 22:00 Albumin 3.3 gm/dL (4.2-5.5) L 11/29/16 22:00 Globulin 3.0 gm/dL 11/29/16 22:00 Albumin/Globulin Ratio 1.1 (1.0-1.8) 11/29/16 22:00 Triglycerides 85 mg/dL (<150) 12/01/16 04:33 Cholesterol 121 mg/dL (<200) 12/01/16 04:33 LDL Cholesterol Direct 68 mg/dL (75-193) L 12/01/16 04:33 HDL Cholesterol 38 mg/dL (23-92) 12/01/16 04:33 Thyroxine (T4) 5.72 ug/dl (6.09-12.23) L 12/01/16 04:33 Reverse T3 < 0.10 ng/mL (0.87-1.78) L 12/01/16 04:33 TSH 1.41 uIU/ml (0.34-5.60) 12/01/16 04:33 Urine Source CLEAN C 11/29/16 23:55 Urine Color YELLOW 11/29/16 23:55 Urine Clarity HAZY (CLEAR) 11/29/16 23:55 Urine pH 5.5 11/29/16 23:55 Ur Specific Rewey 1.020 (1.005-1.030) 11/29/16 23:55 Urine Protein 30 mg/dL (NEGATIVE) H 11/29/16 23:55 Urine Glucose (UA) NEGATIVE mg/dL (NEGATIVE) 11/29/16 23:55 Urine Ketones NEGATIVE mg/dL (NEGATIVE) 11/29/16 23:55 Urine Blood MODERATE (NEGATIVE) H 11/29/16 23:55 Urine Nitrate NEGATIVE (NEGATIVE) 11/29/16 23:55 Urine Bilirubin NEGATIVE (NEGATIVE) 11/29/16 23:55 Urine Urobilinogen 0.2 E.U./dL (0.2 - 1.0) 11/29/16 23:55 Ur Leukocyte Esterase NEGATIVE (NEGATIVE) 11/29/16 23:55 Urine RBC 25-50 /hpf (0-5) H 11/29/16 23:55 Urine WBC 2-5 /hpf (0-5) H 11/29/16 23:55 Ur Epithelial Cells FEW /lpf (FEW) 11/29/16 23:55 Urine Bacteria FEW /hpf (NONE SEEN) 11/29/16 23:55 Vancomycin Trough 21.8 ug/mL (10-20) H 12/01/16 22:05 - Physical Exam Vitals and I&O: Vital Signs Temp 97.6 F 12/02/16 04:00 Pulse 109 12/02/16 06:00 Resp 13 12/02/16 06:00 BP 139/89 12/02/16 06:00 Pulse Ox 96 11/30/16 16:00 Intake & Output 12/01/16 12/02/16 12/02/16 18:59 06:59 18:59 Intake Total 2050 650 100 Output Total 1800 1300 Balance 250 -650 100 Weight (lbs) 77.366 kg Intake: Intake, IV Amount 1450 350 100 Piperacillin Sodium/ 200 100 100 Tazobact 4.5 gm In Sodium Chloride 0.9% 100 ml @ 100 mls/hr IV Q6HR [facility] Rx #:[id number] Sodium Chloride 0.9% 1, 1000 000 ml @ 75 mls/hr IV . [id number] [facility] Rx#:[id number] Vancomycin HCl 750 mg In 250 250 Sodium Chloride 0.9% 250 ml @ 250 mls/hr IV Q12HR@ 0900,2100 [facility] Rx#: [id number] Oral 600 300 Output: Urine 1800 1300 Other: # Bowel Movements 1 Active Medications: Current Medications Acetaminophen (Tylenol) 650 mg PO Q4HR PRN PRN Reason: Pain or Fever >101 Stop: 01/29/17 01:44 Al Hydrox/Mg Hydrox/Simethicone (Maalox) 30 ml PO Q4HR PRN PRN Reason: GI DISTRESS Stop: 01/29/17 01:44 Ascorbic Acid (Vitamin C) 500 mg PO BID [facility] Stop: 01/29/17 08:59 Last Admin: 12/01/16 16:43 Dose: 500 mg Atorvastatin Calcium (Lipitor) 10 mg PO HS [facility] PRN Reason: Protocol Stop: 01/29/17 20:59 Last Admin: 12/01/16 20:26 Dose: 10 mg Clopidogrel Bisulfate (Plavix) 75 mg PO DAILY [facility] Stop: 01/29/17 08:59 Last Admin: 12/01/16 09:29 Dose: 75 mg Divalproex Sodium (Depakote Dr) 250 mg PO BID [facility] PRN Reason: Protocol Stop: 01/29/17 08:59 Last Admin: 12/01/16 16:42 Dose: 250 mg Docusate Sodium (Colace) 100 mg PO DAILY PRN PRN Reason: Constipation Stop: 01/29/17 01:44 Ferrous Sulfate (Iron) 325 mg PO DAILY [facility] Stop: 01/30/17 08:59 Last Admin: 12/01/16 09:31 Dose: 325 mg Haloperidol Lactate (Haldol) 5 mg IVP Q8HR PRN PRN Reason: Agitation Stop: 01/29/17 01:56 Last Admin: 12/01/16 08:11 Dose: 5 mg Norepinephrine Bitartrate 4 mg (/ Dextrose) 254 mls @ 0 mls/hr IV TITR PRN; Protocol; Per Protocol PRN Reason: BP MAINTENANCE (PER PROTOCOL) Stop: 01/29/17 00:13 Piperacillin Sod/Tazobactam (Sod 4.5 gm/ Sodium Chloride) 100 mls @ 100 mls/hr IV Q6HR [facility] Stop: 01/29/17 05:59 Last Infusion: 12/02/16 07:10 Dose: Infused Sodium Chloride (Nacl 0.9%) 1,000 mls @ 75 mls/hr IV .[id number] [facility] Stop: 01/29/17 01:59 Last Admin: 12/02/16 00:10 Dose: 75 mls/hr Vancomycin HCl 1.5 gm/ Sodium (Chloride) 500 mls @ 250 mls/hr IV Q24H [facility] Stop: 01/31/17 10:59 Insulin Aspart (Novolog Insulin Sliding Scale) 0 units SUBQ ACHS [facility] PRN Reason: Protocol Stop: 01/30/17 07:29 Last Admin: 12/02/16 07:45 Dose: Not Given Lactobacillus Rhamnosus (Culturelle) 1 each PO DAILY [facility] Stop: 01/30/17 08:59 Last Admin: 12/01/16 09:31 Dose: 1 each Lorazepam (Ativan) 1 mg IVP Q4HR PRN; Protocol PRN Reason: Agitation Stop: 01/30/17 08:14 Last Admin: 12/01/16 13:21 Dose: 1 mg Magnesium Hydroxide (Milk Of Magnesia) 30 ml PO HS PRN PRN Reason: Constipation Stop: 01/30/17 02:05 Last Admin: 12/01/16 17:29 Dose: 30 ml Memantine (Namenda) 10 mg PO DAILY [facility] Stop: 01/30/17 08:59 Last Admin: 12/01/16 09:33 Dose: 10 mg Metformin HCl (Glucophage) 500 mg PO BIDWM [facility] Stop: 01/30/17 07:59 Last Admin: 12/01/16 17:11 Dose: Not Given Metoprolol Succinate (Toprol Xl) 25 mg PO BID [facility] Stop: 01/30/17 08:59 Last Admin: 12/01/16 16:46 Dose: 25 mg Miscellaneous (Vancomycin Iv Per Pharmacy) 1 ea PRN [facility] Stop: 01/29/17 01:59 Miscellaneous (Probiotic Screen) 1 [facility] PRN PRN PRN Reason: PROTOCOL Stop: 01/29/17 14:36 Multivitamins/Vitamin C (Theragran) 1 tab PO DAILY [facility] Stop: 01/30/17 08:59 Last Admin: 12/01/16 09:33 Dose: 1 tab Quetiapine Fumarate (Seroquel) 50 mg PO BID [facility] PRN Reason: Protocol Stop: 01/30/17 08:59 Last Admin: 12/01/16 16:45 Dose: 50 mg Quetiapine Fumarate (Seroquel) 150 mg PO HS [facility] Stop: 01/30/17 20:59 Last Admin: 12/01/16 20:25 Dose: 150 mg Senna (Senna) 8.6 mg PO HS [facility] Stop: 01/30/17 20:59 Last Admin: 12/01/16 20:26 Dose: 8.6 mg Zinc Sulfate (Zinc Sulfate) 220 mg PO DAILY [facility] Stop: 01/30/17 08:59 Last Admin: 12/01/16 09:32 Dose: 220 mg General: No acute distress HEENT: Atraumatic Neck: Supple Cardiovascular: Regular rate Lungs: Clear to auscultation Abdomen: Bowel sounds - Procedures Procedures: Procedures Procedure Code Date REPAIR FACE SKIN, EXTERNAL APPROACH [id number] 11/30/16 RPR F/E/E/N/L/M 2.5 CM/< 18859 11/30/16 Assessment/Plan - Problem List Patient Problems: All Active Problems dm (Acute) htn (Acute) sepsis (Acute) POOR ORAL INTAKE WITH AGITATION (Acute) encephalopathy (Acute) psychosis (Acute) - Plan Plan: monitor vitals/diet labs f/up consultants Nutritional Asmnt/Malnutr-PDOC - Dietary Evaluation Malnutrition Findings (Please click <Entered> for more info): Nutritional Asmnt/Malnutrition Start: 12/01/16 09: 45 Text: Status: Complete Freq: Document 12/01/16 09:45 [facility] (Rec: 12/01/16 10:00 [facility] [id number]) Nutritional Asmnt/Malnutrition Patient General Information Nutritional Screening High Risk Screening Diagnosis Septic shock unknown source, closed head injury, forehead laceration x2 Pertinent Medical Hx/Surgical Hx HTN, DM, dyslipidemia, dementia, schizophrenia, bipolar Subjective Information Pt is a 76-year-old male admitted with chief complaint of head injury s/p mechanical fall. Pt was easily arousable and a fair to poor historian. Pt was able to follow commands and answer most questions; redirection needed. Pt appears well nourished with no signs of muscle or fat depletion assessed to shoulders or chest . Age-appropriate temporal wasting observed. Pt reports he ate all of breakfast this morning and "food is okay." RD verified that pt only ate 50% of breakfast. RD measured pt' s wt today via bedscale. Per MD progress note, sepsis is improving. Pt is not an appropriate historian for diet education at this time. Current Diet Order/ Nutrition Support Regular, low sodium Patient / S.O Can't verbalize diet edu Pertinent Medications Vitamin C, Lipitor, Depakote, Iron, Haldol PRN, Novolog, Culturelle, Glucophage, Vancomycin, Theragran, Zosyn, Seroquel, Vancomycin Pertinent Labs Reviewed, Creatinine levels improved to be WNL Nutritional Hx/Data Height 1.83 m Height (Calculated Centimeters) 182.9 Current Weight (lbs) 77.519 kg Weight (Calculated Kilograms) 77.5 Weight (Calculated Grams) 28696.9 Usual body Weight (lbs) 167 % Usual Body Weight 102 Chavies Body Weight 178 % Chavies Body Weight 96 Recent Weight Change No Weight Status Approriate GI Symptoms GI Symptoms None Food Allergies No Cultural/Ethnic/Voodoo Belief No preferences provided. Usual diet at home Regular diet Skin Integrity/Comment: Tito 14. Lacerations x2 to forehead, rash to sacrum Current %PO Fair (50-74%) Estimated Nutritional Goals BEE in Kcals: Using Current wt Calories/Kcals/Kg 30-35 kcals/kg (with consideration of sepsis) Kcals Calculated 1746-5630 kcals/day Protein: Using Current wt Protein g/k.2-1.5 gm/kg (with consideration of sepsis) Protein Calculated 93-117 gm/day Fluid: ml 7119-5943 ml/day (30-35 ml/kg) hydration maintenance Nutritional Problem 1. Problem Problem Increased energy/protein needs related to Etiology hypermetabolism as evidenced by Signs/Symptoms: diagnosis of septic shock. Malnutrition Alert Is there a minimum of two criteria No selected? Query Text:Check all the applicable criteria. A minimum of two criteria are recommended for diagnosis of either severe or non-severe malnutrition. Malnutrition Related to Morbid Obesity Malnutrition related to morbid obesity No Intervention/Recommendation Recommendations by RD Protein supplementation Comments 1. Continue with low sodium diet, as tolerated. Current diet is appropriate to meet estimated nutritional needs. 2. Recommend Boost supplement TID at meals to help promote nutritional intake and improve appetite. Expected Outcomes/Goals Expected Outcomes/Goals Have pt meet at least 75% of estimated nutritional needs. Physician Parameters for PEM Normal Weight % 90% - 110% (Normal) Body Mass Index (BMI) 19 - 24 (Normal) Serum Albumin (g/dl) 3.1 - 3.4 (Mild) 12/01/16 09:59 Dietitian Notes by Roberta Licea Nutrition Note Initial Nutrition Assessment completed by Roberta Licea on 12/01/16. Please refer to nutrition assessment under Patient Care tab of EMR. Nutrition Recommendations: 1. Continue with low sodium diet, as tolerated. Current diet is appropriate to meet estimated nutritional needs. 2. Recommend Boost supplement TID at meals to help promote nutritional intake and improve appetite. F/U in 3-5 days as Moderate risk, 12/04-12/06. Initialized on 12/01/16 09:59 - END OF NOTE
[2016-12-02] MEDS: Lactobacillus Rhamnosus 10 Billion CFU Capsule PO SCH (09:00)
[2016-12-02] MEDS: Ferrous Sulfate 325 MG TAB PO SCH (09:01)
[2016-12-02] MEDS: Multivitamin Tab PO SCH (09:01)
[2016-12-02] MEDS ORDERED: Vancomycin HCl 1.5 GM in Sodium Chloride 0.9% 500 ML IV SCH (11:00)
[2016-12-02] MEDS: Atorvastatin Calcium 10 MG TAB PO SCH (21:05)
--- NOTE | 2016-12-03 05:03 | Progress Notes ---
SUBJECTIVE: The patient was seen in his bed in his room. The patient is a poor historian, currently has bilateral soft wrist restraints for safety. The patient is still having episodes of confusion, outburst behaviors, but otherwise the patient seems to be stable. OBJECTIVE: HEENT: Head is atraumatic, normocephalic. Eyes, bilateral pupils equally round and reactive to light and accommodation. NECK: Supple. No JVD. CARDIOVASCULAR: S1 and S2 heard without murmur. PULMONARY: Clear to auscultation. GASTROINTESTINAL: Soft and nontender. Positive bowel sounds without guarding. MUSCULOSKELETAL: No edema. No weakness noted. ASSESSMENT: 1. Dementia. 2. Sepsis, improving. 3. History of fall. 4. Closed head injury. 5. Diabetes. 6. Hypertension. 7. Hyperlipidemia. PLAN: We will continue the patient's antibiotics per ID doctor and we will also continue for fluid hydration for this patient and we will continue to monitor the patient's electrolytes. [facility]# [id number]
[2016-12-03 07:19] LABS: % BASOPHILS 0.7 % (0.0-2.0); % EOSINOPHILS 1.8 % (0.0-5.0); % LYMPHOCYTES 17.6 % (20.0-50.0); % NEUTROPHILS 70.9 % (40.0-80.0); HEMATOCRIT 35.9 % (39.0-49.0); HEMOGLOBIN 12.1 gm/dL (12.6-17.4); MEAN CELL VOLUME 88.4 fl (80-99); MEAN CORPUSCULAR HEMOGLOBIN 29.9 pg (27.0-31.0); MEAN CORPUSCULAR HGB CONC 33.8 pg (28.0-36.0); MEAN PLATELET VOLUME 7.8 fl; NEUTROPHILE ABSOLUTE 6.7 Th/cmm (1.8-8.0); PLATELET COUNT 179 Th/cmm (150-400); RED BLOOD COUNT 4.05 Mil/cmm (3.80-5.80); RED CELL DISTRIBUTION WIDTH 14.3 % (11.5-20.0); WHITE BLOOD COUNT 9.6 Th/cmm (4.8-10.8)
[2016-12-03 07:40] LABS: ANION GAP 11.6 (7.0-16.0); BUN - UREA NITROGEN 7 mg/dL (7-25); BUN/CREATININE RATIO 8.8; CARBON DIOXIDE 28.3 mEq/L (21.0-31.0); CHLORIDE 103 mEq/L (98-107); CREATININE - SERUM 0.8 mg/dL (0.7-1.3); GLUCOSE 107 mg/dL (70-105); POTASSIUM SERUM 3.9 mEq/L (3.5-5.1); SODIUM SERUM 139 mEq/L (136-145)
[2016-12-03] MEDS: Multivitamin Tab PO SCH (09:50)
[2016-12-03] MEDS: Ferrous Sulfate 325 MG TAB PO SCH (09:50)
[2016-12-03] MEDS: Lactobacillus Rhamnosus 10 Billion CFU Capsule PO SCH (09:50)
[2016-12-03] MEDS: INSULIN ASPART SLIDING SCALE 100 UNITS/ML UNIT SUBQ SCH ×2 (11:45→21:20)
--- NOTE | 2016-12-03 13:20 | General Progress Note ---
Subjective - Review of Systems Service Date: 12/03/16 Subjective: no distress Objective - Results Result Diagrams: 12/03/16 06:48 12/03/16 06:48 Recent Labs: Laboratory Last Values WBC 9.6 Th/cmm (4.8-10.8) 12/03/16 06:48 RBC 4.05 Mil/cmm (3.80-5.80) 12/03/16 06:48 Hgb 12.1 gm/dL (12.6-17.4) L 12/03/16 06:48 Hct 35.9 % (39.0-49.0) L 12/03/16 06:48 MCV 88.4 fl (80-99) 12/03/16 06:48 MCH 29.9 pg (27.0-31.0) 12/03/16 06:48 MCHC Differential 33.8 pg (28.0-36.0) 12/03/16 06:48 RDW 14.3 % (11.5-20.0) 12/03/16 06:48 Plt Count 179 Th/cmm (150-400) 12/03/16 06:48 MPV 7.8 fl 12/03/16 06:48 Neutrophils % 70.9 % (40.0-80.0) 12/03/16 06:48 Band Neutrophils % 1 % (0-10) 11/30/16 04:38 Lymphocytes % 17.6 % (20.0-50.0) L 12/03/16 06:48 Monocytes % 9.0 % (2.0-10.0) 12/03/16 06:48 Eosinophils % 1.8 % (0.0-5.0) 12/03/16 06:48 Basophils % 0.7 % (0.0-2.0) 12/03/16 06:48 Neutrophils (Manual) 82 % (40-80) H 11/30/16 04:38 Lymphocytes 15 % (20-50) L 11/30/16 04:38 Monocytes 1 % (2-10) L 11/30/16 04:38 Eosinophils 1 % (0-5) 11/30/16 04:38 Platelet Estimate ADEQUATE (NORMAL) 11/30/16 04:38 Platelet Morphology NORMAL (NORMAL) 11/30/16 04:38 RBC Morph Micro Appear NORMAL (NORMAL) 11/30/16 04:38 PT 10.7 SECONDS (9.5-11.5) 11/30/16 00:11 INR 1.03 (0.5-1.4) 11/30/16 00:11 PTT (Actin FS) 25.5 SECONDS (26.0-38.0) L 11/30/16 00:11 Sodium 139 mEq/L (136-145) 12/03/16 06:48 Potassium 3.9 mEq/L (3.5-5.1) 12/03/16 06:48 Chloride 103 mEq/L (98-107) 12/03/16 06:48 Carbon Dioxide 28.3 mEq/L (21.0-31.0) 12/03/16 06:48 Anion Gap 11.6 (7.0-16.0) 12/03/16 06:48 BUN 7 mg/dL (7-25) 12/03/16 06:48 Creatinine 0.8 mg/dL (0.7-1.3) 12/03/16 06:48 Est GFR ( Amer) TNP 12/03/16 06:48 Est GFR (Non-Af Amer) TNP 12/03/16 06:48 BUN/Creatinine Ratio 8.8 12/03/16 06:48 Glucose 107 mg/dL (70-105) H 12/03/16 06:48 POC Glucose 72 MG/DL (70 - 105) 12/03/16 05:38 Whole Bld Lactic Acid 0.97 mmol/L (0.60-1.99) 11/30/16 11:13 Calcium 9.0 mg/dL (8.6-10.3) 12/03/16 06:48 Total Bilirubin 0.3 mg/dL (0.3-1.0) 11/29/16 22:00 AST 14 U/L (13-39) 11/29/16 22:00 ALT 13 U/L (7-52) 11/29/16 22:00 Alkaline Phosphatase 54 U/L (34-104) 11/29/16 22:00 Creatine Kinase 26 U/L (30-223) L 11/29/16 22:00 Troponin I 0.01 ng/mL (0.01-0.05) 12/01/16 22:05 Total Protein 6.3 gm/dL (6.0-8.3) 11/29/16 22:00 Albumin 3.3 gm/dL (4.2-5.5) L 11/29/16 22:00 Globulin 3.0 gm/dL 11/29/16 22:00 Albumin/Globulin Ratio 1.1 (1.0-1.8) 11/29/16 22:00 Triglycerides 85 mg/dL (<150) 12/01/16 04:33 Cholesterol 121 mg/dL (<200) 12/01/16 04:33 LDL Cholesterol Direct 68 mg/dL (75-193) L 12/01/16 04:33 HDL Cholesterol 38 mg/dL (23-92) 12/01/16 04:33 Thyroxine (T4) 5.72 ug/dl (6.09-12.23) L 12/01/16 04:33 Reverse T3 < 0.10 ng/mL (0.87-1.78) L 12/01/16 04:33 TSH 1.41 uIU/ml (0.34-5.60) 12/01/16 04:33 Urine Source CLEAN C 11/29/16 23:55 Urine Color YELLOW 11/29/16 23:55 Urine Clarity HAZY (CLEAR) 11/29/16 23:55 Urine pH 5.5 11/29/16 23:55 Ur Specific [place] 1.020 (1.005-1.030) 11/29/16 23:55 Urine Protein 30 mg/dL (NEGATIVE) H 11/29/16 23:55 Urine Glucose (UA) NEGATIVE mg/dL (NEGATIVE) 11/29/16 23:55 Urine Ketones NEGATIVE mg/dL (NEGATIVE) 11/29/16 23:55 Urine Blood MODERATE (NEGATIVE) H 11/29/16 23:55 Urine Nitrate NEGATIVE (NEGATIVE) 11/29/16 23:55 Urine Bilirubin NEGATIVE (NEGATIVE) 11/29/16 23:55 Urine Urobilinogen 0.2 E.U./dL (0.2 - 1.0) 11/29/16 23:55 Ur Leukocyte Esterase NEGATIVE (NEGATIVE) 11/29/16 23:55 Urine RBC 25-50 /hpf (0-5) H 11/29/16 23:55 Urine WBC 2-5 /hpf (0-5) H 11/29/16 23:55 Ur Epithelial Cells FEW /lpf (FEW) 11/29/16 23:55 Urine Bacteria FEW /hpf (NONE SEEN) 11/29/16 23:55 Vancomycin Trough 15.9 ug/mL (10-20) 12/02/16 20:00 - Physical Exam Vitals and I&O: Vital Signs Temp 97.0 F 12/03/16 12:00 Pulse 67 12/03/16 12:00 Resp 18 12/03/16 12:00 BP 141/85 12/03/16 12:00 Pulse Ox 98 12/03/16 12:00 Intake & Output 12/02/16 12/03/16 12/03/16 18:59 06:59 18:59 Intake Total 2050 650 Output Total 1150 1050 Balance 900 -400 Intake: Intake, IV Amount 1550 350 Piperacillin Sodium/ 300 100 Tazobact 4.5 gm In Sodium Chloride 0.9% 100 ml @ 100 mls/hr IV Q6HR [facility] Rx #:[id number] Sodium Chloride 0.9% 1, 1000 000 ml @ 75 mls/hr IV . [id number] [facility] Rx#:[id number] Vancomycin HCl 0.75 gm In 250 250 Sodium Chloride 0.9% 250 ml @ 165 mls/hr IV Q12HR [facility] Rx#:[id number] Oral 500 300 Output: Urine 1150 1050 Other: # Bowel Movements 0 1 Active Medications: Current Medications Acetaminophen (Tylenol) 650 mg PO Q4HR PRN PRN Reason: Pain or Fever >101 Stop: 01/29/17 01:44 Al Hydrox/Mg Hydrox/Simethicone (Maalox) 30 ml PO Q4HR PRN PRN Reason: GI DISTRESS Stop: 01/29/17 01:44 Ascorbic Acid (Vitamin C) 500 mg PO BID [facility] Stop: 01/29/17 08:59 Last Admin: 12/03/16 09:50 Dose: Not Given Atorvastatin Calcium (Lipitor) 10 mg PO HS [facility] PRN Reason: Protocol Stop: 01/29/17 20:59 Last Admin: 12/02/16 21:05 Dose: 10 mg Clopidogrel Bisulfate (Plavix) 75 mg PO DAILY [facility] Stop: 01/29/17 08:59 Last Admin: 12/03/16 09:50 Dose: Not Given Divalproex Sodium (Depakote Dr) 250 mg PO BID [facility] PRN Reason: Protocol Stop: 01/29/17 08:59 Last Admin: 12/03/16 09:50 Dose: Not Given Docusate Sodium (Colace) 100 mg PO DAILY PRN PRN Reason: Constipation Stop: 01/29/17 01:44 Ferrous Sulfate (Iron) 325 mg PO DAILY [facility] Stop: 01/30/17 08:59 Last Admin: 12/03/16 09:50 Dose: Not Given Haloperidol Lactate (Haldol) 5 mg IVP Q8HR PRN PRN Reason: Agitation Stop: 01/29/17 01:56 Last Admin: 12/01/16 08:11 Dose: 5 mg Norepinephrine Bitartrate 4 mg (/ Dextrose) 254 mls @ 0 mls/hr IV TITR PRN; Protocol; Per Protocol PRN Reason: BP MAINTENANCE (PER PROTOCOL) Stop: 01/29/17 00:13 Piperacillin Sod/Tazobactam (Sod 4.5 gm/ Sodium Chloride) 100 mls @ 100 mls/hr IV Q6HR [facility] Stop: 01/29/17 05:59 Last Admin: 12/03/16 05:36 Dose: 100 mls/hr Sodium Chloride (Nacl 0.9%) 1,000 mls @ 75 mls/hr IV .[id number] [facility] Stop: 01/29/17 01:59 Last Admin: 12/02/16 17:56 Dose: 75 mls/hr Vancomycin HCl 0.75 gm/ Sodium (Chloride) 250 mls @ 165 mls/hr IV Q12HR [facility] Stop: 01/31/17 10:29 Last Admin: 12/03/16 10:27 Dose: 165 mls/hr Insulin Aspart (Novolog Insulin Sliding Scale) 0 units SUBQ ACHS IR[facility] PRN Reason: Protocol Stop: 01/30/17 07:29 Last Admin: 12/02/16 21:19 Dose: Not Given Lactobacillus Rhamnosus (Culturelle) 1 each PO DAILY [facility] Stop: 01/30/17 08:59 Last Admin: 12/03/16 09:50 Dose: Not Given Lorazepam (Ativan) 1 mg IVP Q4HR PRN; Protocol PRN Reason: Agitation Stop: 01/30/17 08:14 Last Admin: 12/01/16 13:21 Dose: 1 mg Magnesium Hydroxide (Milk Of Magnesia) 30 ml PO HS PRN PRN Reason: Constipation Stop: 01/30/17 02:05 Last Admin: 12/01/16 17:29 Dose: 30 ml Memantine (Namenda) 10 mg PO DAILY [facility] Stop: 01/30/17 08:59 Last Admin: 12/03/16 09:50 Dose: Not Given Metformin HCl (Glucophage) 500 mg PO BIDWM IRMA Stop: 01/30/17 07:59 Last Admin: 12/03/16 09:50 Dose: Not Given Metoprolol Succinate (Toprol Xl) 25 mg PO BID [facility] Stop: 01/30/17 08:59 Last Admin: 12/03/16 09:50 Dose: Not Given Miscellaneous (Vancomycin Iv Per Pharmacy) 1 ea PRN [facility] Stop: 01/29/17 01:59 Miscellaneous (Probiotic Screen) 1 [facility] PRN PRN PRN Reason: PROTOCOL Stop: 01/29/17 14:36 Multivitamins/Vitamin C (Theragran) 1 tab PO DAILY [facility] Stop: 01/30/17 08:59 Last Admin: 12/03/16 09:50 Dose: Not Given Quetiapine Fumarate (Seroquel) 50 mg PO BID [facility] PRN Reason: Protocol Stop: 01/30/17 08:59 Last Admin: 12/03/16 09:51 Dose: Not Given Quetiapine Fumarate (Seroquel) 150 mg PO HS [facility] Stop: 01/30/17 20:59 Last Admin: 12/02/16 21:05 Dose: 150 mg Senna (Senna) 8.6 mg PO HS [facility] Stop: 01/30/17 20:59 Last Admin: 12/02/16 21:05 Dose: 8.6 mg Zinc Sulfate (Zinc Sulfate) 220 mg PO DAILY [facility] Stop: 01/30/17 08:59 Last Admin: 12/03/16 09:51 Dose: Not Given General: No acute distress HEENT: Atraumatic Neck: Supple Cardiovascular: Regular rate Lungs: Clear to auscultation Abdomen: Bowel sounds - Procedures Procedures: Procedures Procedure Code Date REPAIR FACE SKIN, EXTERNAL APPROACH [id number] 11/30/16 RPR F/E/E/N/L/M 2.5 CM/< 42180 11/30/16 Assessment/Plan - Problem List Patient Problems: All Active Problems dm (Acute) htn (Acute) sepsis (Acute) POOR ORAL INTAKE WITH AGITATION (Acute) encephalopathy (Acute) psychosis (Acute) - Plan Plan: monitor vitals/diet labs f/up consultants Nutritional Asmnt/Malnutr-PDOC - Dietary Evaluation Malnutrition Findings (Please click <Entered> for more info): Nutritional Asmnt/Malnutrition Start: 12/01/16 09: 45 Text: Status: Complete Freq: Document 12/01/16 09:45 [facility] (Rec: 12/01/16 10:00 [facility] [id number]) Nutritional Asmnt/Malnutrition Patient General Information Nutritional Screening High Risk Screening Diagnosis Septic shock unknown source, closed head injury, forehead laceration x2 Pertinent Medical Hx/Surgical Hx HTN, DM, dyslipidemia, dementia, schizophrenia, bipolar Subjective Information Pt is a 76-year-old male admitted with chief complaint of head injury s/p mechanical fall. Pt was easily arousable and a fair to poor historian. Pt was able to follow commands and answer most questions; redirection needed. Pt appears well nourished with no signs of muscle or fat depletion assessed to shoulders or chest . Age-appropriate temporal wasting observed. Pt reports he ate all of breakfast this morning and "food is okay." RD verified that pt only ate 50% of breakfast. RD measured pt' s wt today via bedscale. Per MD progress note, sepsis is improving. Pt is not an appropriate historian for diet education at this time. Current Diet Order/ Nutrition Support Regular, low sodium Patient / S.O Can't verbalize diet edu Pertinent Medications Vitamin C, Lipitor, Depakote, Iron, Haldol PRN, Novolog, Culturelle, Glucophage, Vancomycin, Theragran, Zosyn, Seroquel, Vancomycin Pertinent Labs Reviewed, Creatinine levels improved to be WNL Nutritional Hx/Data Height 1.83 m Height (Calculated Centimeters) 182.9 Current Weight (lbs) 77.519 kg Weight (Calculated Kilograms) 77.5 Weight (Calculated Grams) 20548.9 Usual body Weight (lbs) 167 % Usual Body Weight 102 [place] Body Weight 178 % [place] Body Weight 96 Recent Weight Change No Weight Status Approriate GI Symptoms GI Symptoms None Food Allergies No Cultural/Ethnic/Restoration Belief No preferences provided. Usual diet at home Regular diet Skin Integrity/Comment: Tito 14. Lacerations x2 to forehead, rash to sacrum Current %PO Fair (50-74%) Estimated Nutritional Goals BEE in Kcals: Using Current wt Calories/Kcals/Kg 30-35 kcals/kg (with consideration of sepsis) Kcals Calculated 1007-4303 kcals/day Protein: Using Current wt Protein g/k.2-1.5 gm/kg (with consideration of sepsis) Protein Calculated 93-117 gm/day Fluid: ml 2975-4812 ml/day (30-35 ml/kg) hydration maintenance Nutritional Problem 1. Problem Problem Increased energy/protein needs related to Etiology hypermetabolism as evidenced by Signs/Symptoms: diagnosis of septic shock. Malnutrition Alert Is there a minimum of two criteria No selected? Query Text:Check all the applicable criteria. A minimum of two criteria are recommended for diagnosis of either severe or non-severe malnutrition. Malnutrition Related to Morbid Obesity Malnutrition related to morbid obesity No Intervention/Recommendation Recommendations by RD Protein supplementation Comments 1. Continue with low sodium diet, as tolerated. Current diet is appropriate to meet estimated nutritional needs. 2. Recommend Boost supplement TID at meals to help promote nutritional intake and improve appetite. Expected Outcomes/Goals Expected Outcomes/Goals Have pt meet at least 75% of estimated nutritional needs. Physician Parameters for PEM Normal Weight % 90% - 110% (Normal) Body Mass Index (BMI) 19 - 24 (Normal) Serum Albumin (g/dl) 3.1 - 3.4 (Mild) 12/01/16 09:59 Dietitian Notes by Roberta Licea Nutrition Note Initial Nutrition Assessment completed by Roberta Licea on 12/01/16. Please refer to nutrition assessment under Patient Care tab of EMR. Nutrition Recommendations: 1. Continue with low sodium diet, as tolerated. Current diet is appropriate to meet estimated nutritional needs. 2. Recommend Boost supplement TID at meals to help promote nutritional intake and improve appetite. F/U in 3-5 days as Moderate risk, 12/04-12/06. Initialized on 12/01/16 09:59 - END OF NOTE
[2016-12-03] MEDS: Sodium Chloride 0.9% 1,000 ML IV SCH (16:46)
[2016-12-03] MEDS: Atorvastatin Calcium 10 MG TAB PO SCH (21:10)
[2016-12-04] MEDS: Lactobacillus Rhamnosus 10 Billion CFU Capsule PO SCH (09:48)
[2016-12-04] MEDS: Ferrous Sulfate 325 MG TAB PO SCH (09:48)
[2016-12-04] MEDS: Multivitamin Tab PO SCH (09:48)
[2016-12-04] MEDS: Haloperidol Lactate 5 mg/mL 1mL Vial IVP PRN ×2 (09:55→16:33)
[2016-12-04] MEDS: INSULIN ASPART SLIDING SCALE 100 UNITS/ML UNIT SUBQ SCH ×2 (11:44→22:49)
--- NOTE | 2016-12-04 11:53 | General Progress Note ---
Subjective - Review of Systems Subjective: no distress Objective - Results Result Diagrams: 12/03/16 06:48 12/03/16 06:48 Recent Labs: Laboratory Last Values WBC 9.6 Th/cmm (4.8-10.8) 12/03/16 06:48 RBC 4.05 Mil/cmm (3.80-5.80) 12/03/16 06:48 Hgb 12.1 gm/dL (12.6-17.4) L 12/03/16 06:48 Hct 35.9 % (39.0-49.0) L 12/03/16 06:48 MCV 88.4 fl (80-99) 12/03/16 06:48 MCH 29.9 pg (27.0-31.0) 12/03/16 06:48 MCHC Differential 33.8 pg (28.0-36.0) 12/03/16 06:48 RDW 14.3 % (11.5-20.0) 12/03/16 06:48 Plt Count 179 Th/cmm (150-400) 12/03/16 06:48 MPV 7.8 fl 12/03/16 06:48 Neutrophils % 70.9 % (40.0-80.0) 12/03/16 06:48 Band Neutrophils % 1 % (0-10) 11/30/16 04:38 Lymphocytes % 17.6 % (20.0-50.0) L 12/03/16 06:48 Monocytes % 9.0 % (2.0-10.0) 12/03/16 06:48 Eosinophils % 1.8 % (0.0-5.0) 12/03/16 06:48 Basophils % 0.7 % (0.0-2.0) 12/03/16 06:48 Neutrophils (Manual) 82 % (40-80) H 11/30/16 04:38 Lymphocytes 15 % (20-50) L 11/30/16 04:38 Monocytes 1 % (2-10) L 11/30/16 04:38 Eosinophils 1 % (0-5) 11/30/16 04:38 Platelet Estimate ADEQUATE (NORMAL) 11/30/16 04:38 Platelet Morphology NORMAL (NORMAL) 11/30/16 04:38 RBC Morph Micro Appear NORMAL (NORMAL) 11/30/16 04:38 PT 10.7 SECONDS (9.5-11.5) 11/30/16 00:11 INR 1.03 (0.5-1.4) 11/30/16 00:11 PTT (Actin FS) 25.5 SECONDS (26.0-38.0) L 11/30/16 00:11 Sodium 139 mEq/L (136-145) 12/03/16 06:48 Potassium 3.9 mEq/L (3.5-5.1) 12/03/16 06:48 Chloride 103 mEq/L (98-107) 12/03/16 06:48 Carbon Dioxide 28.3 mEq/L (21.0-31.0) 12/03/16 06:48 Anion Gap 11.6 (7.0-16.0) 12/03/16 06:48 BUN 7 mg/dL (7-25) 12/03/16 06:48 Creatinine 0.8 mg/dL (0.7-1.3) 12/03/16 06:48 Est GFR ( Amer) TNP 12/03/16 06:48 Est GFR (Non-Af Amer) TNP 12/03/16 06:48 BUN/Creatinine Ratio 8.8 12/03/16 06:48 Glucose 107 mg/dL (70-105) H 12/03/16 06:48 POC Glucose 127 MG/DL (70 - 105) H 12/03/16 21:18 Whole Bld Lactic Acid 0.97 mmol/L (0.60-1.99) 11/30/16 11:13 Calcium 9.0 mg/dL (8.6-10.3) 12/03/16 06:48 Total Bilirubin 0.3 mg/dL (0.3-1.0) 11/29/16 22:00 AST 14 U/L (13-39) 11/29/16 22:00 ALT 13 U/L (7-52) 11/29/16 22:00 Alkaline Phosphatase 54 U/L (34-104) 11/29/16 22:00 Creatine Kinase 26 U/L (30-223) L 11/29/16 22:00 Troponin I 0.01 ng/mL (0.01-0.05) 12/01/16 22:05 Total Protein 6.3 gm/dL (6.0-8.3) 11/29/16 22:00 Albumin 3.3 gm/dL (4.2-5.5) L 11/29/16 22:00 Globulin 3.0 gm/dL 11/29/16 22:00 Albumin/Globulin Ratio 1.1 (1.0-1.8) 11/29/16 22:00 Triglycerides 85 mg/dL (<150) 12/01/16 04:33 Cholesterol 121 mg/dL (<200) 12/01/16 04:33 LDL Cholesterol Direct 68 mg/dL (75-193) L 12/01/16 04:33 HDL Cholesterol 38 mg/dL (23-92) 12/01/16 04:33 Thyroxine (T4) 5.72 ug/dl (6.09-12.23) L 12/01/16 04:33 Reverse T3 < 0.10 ng/mL (0.87-1.78) L 12/01/16 04:33 TSH 1.41 uIU/ml (0.34-5.60) 12/01/16 04:33 Urine Source CLEAN C 11/29/16 23:55 Urine Color YELLOW 11/29/16 23:55 Urine Clarity HAZY (CLEAR) 11/29/16 23:55 Urine pH 5.5 11/29/16 23:55 Ur Specific [place] 1.020 (1.005-1.030) 11/29/16 23:55 Urine Protein 30 mg/dL (NEGATIVE) H 11/29/16 23:55 Urine Glucose (UA) NEGATIVE mg/dL (NEGATIVE) 11/29/16 23:55 Urine Ketones NEGATIVE mg/dL (NEGATIVE) 11/29/16 23:55 Urine Blood MODERATE (NEGATIVE) H 11/29/16 23:55 Urine Nitrate NEGATIVE (NEGATIVE) 11/29/16 23:55 Urine Bilirubin NEGATIVE (NEGATIVE) 11/29/16 23:55 Urine Urobilinogen 0.2 E.U./dL (0.2 - 1.0) 11/29/16 23:55 Ur Leukocyte Esterase NEGATIVE (NEGATIVE) 11/29/16 23:55 Urine RBC 25-50 /hpf (0-5) H 11/29/16 23:55 Urine WBC 2-5 /hpf (0-5) H 11/29/16 23:55 Ur Epithelial Cells FEW /lpf (FEW) 11/29/16 23:55 Urine Bacteria FEW /hpf (NONE SEEN) 11/29/16 23:55 Vancomycin Trough 15.9 ug/mL (10-20) 12/02/16 20:00 - Physical Exam Vitals and I&O: Vital Signs Temp 97 F 12/04/16 10:00 Pulse 68 12/04/16 10:00 Resp 18 12/04/16 10:00 BP 124/66 12/04/16 10:00 Pulse Ox 97 12/04/16 08:00 Intake & Output 12/03/16 12/04/16 12/04/16 18:59 06:59 18:59 Intake Total 1350 550 250 Balance 1350 550 250 Intake: Intake, IV Amount 1350 550 Piperacillin Sodium/ 100 300 Tazobact 4.5 gm In Sodium Chloride 0.9% 100 ml @ 100 mls/hr IV Q6HR [facility] Rx #:[id number] Sodium Chloride 0.9% 1, 1000 000 ml @ 75 mls/hr IV . [id number] [facility] Rx#:[id number] Vancomycin HCl 0.75 gm In 250 250 Sodium Chloride 0.9% 250 ml @ 165 mls/hr IV Q12HR [facility] Rx#:[id number] Oral 250 Active Medications: Current Medications Acetaminophen (Tylenol) 650 mg PO Q4HR PRN PRN Reason: Pain or Fever >101 Stop: 01/29/17 01:44 Al Hydrox/Mg Hydrox/Simethicone (Maalox) 30 ml PO Q4HR PRN PRN Reason: GI DISTRESS Stop: 01/29/17 01:44 Ascorbic Acid (Vitamin C) 500 mg PO BID [facility] Stop: 01/29/17 08:59 Last Admin: 12/04/16 09:48 Dose: 500 mg Atorvastatin Calcium (Lipitor) 10 mg PO HS [facility] PRN Reason: Protocol Stop: 01/29/17 20:59 Last Admin: 12/03/16 21:10 Dose: 10 mg Clonazepam (Klonopin) 0.5 mg PO BID [facility] PRN Reason: Protocol Stop: 02/02/17 16:59 Clopidogrel Bisulfate (Plavix) 75 mg PO DAILY [facility] Stop: 01/29/17 08:59 Last Admin: 12/04/16 09:48 Dose: 75 mg Divalproex Sodium (Depakote Dr) 250 mg PO BID [facility] PRN Reason: Protocol Stop: 01/29/17 08:59 Last Admin: 12/04/16 09:48 Dose: 250 mg Docusate Sodium (Colace) 100 mg PO DAILY PRN PRN Reason: Constipation Stop: 01/29/17 01:44 Ferrous Sulfate (Iron) 325 mg PO DAILY [facility] Stop: 01/30/17 08:59 Last Admin: 12/04/16 09:48 Dose: 325 mg Haloperidol Lactate (Haldol) 5 mg IVP Q8HR PRN PRN Reason: Agitation Stop: 01/29/17 01:56 Last Admin: 12/04/16 09:55 Dose: 5 mg Norepinephrine Bitartrate 4 mg (/ Dextrose) 254 mls @ 0 mls/hr IV TITR PRN; Protocol; Per Protocol PRN Reason: BP MAINTENANCE (PER PROTOCOL) Stop: 01/29/17 00:13 Piperacillin Sod/Tazobactam (Sod 4.5 gm/ Sodium Chloride) 100 mls @ 100 mls/hr IV Q6HR [facility] Stop: 01/29/17 05:59 Last Admin: 12/04/16 11:44 Dose: 100 mls/hr Sodium Chloride (Nacl 0.9%) 1,000 mls @ 75 mls/hr IV .[id number] [facility] Stop: 01/29/17 01:59 Last Admin: 12/03/16 16:46 Dose: 75 mls/hr Vancomycin HCl 0.75 gm/ Sodium (Chloride) 250 mls @ 165 mls/hr IV Q12HR [facility] Stop: 01/31/17 10:29 Last Admin: 12/04/16 09:18 Dose: 165 mls/hr Insulin Aspart (Novolog Insulin Sliding Scale) 0 units SUBQ ACHS [facility] PRN Reason: Protocol Stop: 01/30/17 07:29 Last Admin: 12/04/16 11:44 Dose: Not Given Lactobacillus Rhamnosus (Culturelle) 1 each PO DAILY [facility] Stop: 01/30/17 08:59 Last Admin: 12/04/16 09:48 Dose: 1 each Lorazepam (Ativan) 1 mg IVP Q4HR PRN; Protocol PRN Reason: Agitation Stop: 01/30/17 08:14 Last Admin: 12/04/16 01:29 Dose: 1 mg Magnesium Hydroxide (Milk Of Magnesia) 30 ml PO HS PRN PRN Reason: Constipation Stop: 01/30/17 02:05 Last Admin: 12/01/16 17:29 Dose: 30 ml Memantine (Namenda) 10 mg PO DAILY [facility] Stop: 01/30/17 08:59 Last Admin: 12/04/16 09:48 Dose: 10 mg Metformin HCl (Glucophage) 500 mg PO BIDWM [facility] Stop: 01/30/17 07:59 Last Admin: 12/04/16 08:45 Dose: 500 mg Metoprolol Succinate (Toprol Xl) 25 mg PO BID [facility] Stop: 01/30/17 08:59 Last Admin: 12/04/16 09:49 Dose: 25 mg Miscellaneous (Vancomycin Iv Per Pharmacy) 1 ea PRN [facility] Stop: 01/29/17 01:59 Miscellaneous (Probiotic Screen) 1 [facility] PRN PRN PRN Reason: PROTOCOL Stop: 01/29/17 14:36 Multivitamins/Vitamin C (Theragran) 1 tab PO DAILY [facility] Stop: 01/30/17 08:59 Last Admin: 12/04/16 09:48 Dose: 1 tab Quetiapine Fumarate (Seroquel) 150 mg PO HS [facility] Stop: 01/30/17 20:59 Last Admin: 12/03/16 21:10 Dose: 150 mg Quetiapine Fumarate (Seroquel) 100 mg PO BID [facility] PRN Reason: Protocol Stop: 01/30/17 08:59 Senna (Senna) 8.6 mg PO HS [facility] Stop: 01/30/17 20:59 Last Admin: 12/03/16 21:10 Dose: 8.6 mg Zinc Sulfate (Zinc Sulfate) 220 mg PO DAILY [facility] Stop: 01/30/17 08:59 Last Admin: 12/04/16 09:48 Dose: 220 mg - Procedures Procedures: Procedures Procedure Code Date REPAIR FACE SKIN, EXTERNAL APPROACH [id number] 11/30/16 RPR F/E/E/N/L/M 2.5 CM/< 59892 11/30/16 Assessment/Plan - Problem List Patient Problems: All Active Problems dm (Acute) htn (Acute) sepsis (Acute) POOR ORAL INTAKE WITH AGITATION (Acute) encephalopathy (Acute) psychosis (Acute) - Plan Plan: monitor vitals/diet labs f/up consultants Nutritional Asmnt/Malnutr-PDOC - Dietary Evaluation Malnutrition Findings (Please click <Entered> for more info): Nutritional Asmnt/Malnutrition Start: 12/01/16 09: 45 Text: Status: Complete Freq: Document 12/01/16 09:45 [place]ARIO[place] (Rec: 12/01/16 10:00 [facility] [id number]) Nutritional Asmnt/Malnutrition Patient General Information Nutritional Screening High Risk Screening Diagnosis Septic shock unknown source, closed head injury, forehead laceration x2 Pertinent Medical Hx/Surgical Hx HTN, DM, dyslipidemia, dementia, schizophrenia, bipolar Subjective Information Pt is a 76-year-old male admitted with chief complaint of head injury s/p mechanical fall. Pt was easily arousable and a fair to poor historian. Pt was able to follow commands and answer most questions; redirection needed. Pt appears well nourished with no signs of muscle or fat depletion assessed to shoulders or chest . Age-appropriate temporal wasting observed. Pt reports he ate all of breakfast this morning and "food is okay." RD verified that pt only ate 50% of breakfast. RD measured pt' s wt today via bedscale. Per MD progress note, sepsis is improving. Pt is not an appropriate historian for diet education at this time. Current Diet Order/ Nutrition Support Regular, low sodium Patient / S.O Can't verbalize diet edu Pertinent Medications Vitamin C, Lipitor, Depakote, Iron, Haldol PRN, Novolog, Culturelle, Glucophage, Vancomycin, Theragran, Zosyn, Seroquel, Vancomycin Pertinent Labs Reviewed, Creatinine levels improved to be WNL Nutritional Hx/Data Height 1.83 m Height (Calculated Centimeters) 182.9 Current Weight (lbs) 77.519 kg Weight (Calculated Kilograms) 77.5 Weight (Calculated Grams) 95907.9 Usual body Weight (lbs) 167 % Usual Body Weight 102 [place] Body Weight 178 % [place] Body Weight 96 Recent Weight Change No Weight Status Approriate GI Symptoms GI Symptoms None Food Allergies No Cultural/Ethnic/Anglican Belief No preferences provided. Usual diet at home Regular diet Skin Integrity/Comment: Tito 14. Lacerations x2 to forehead, rash to sacrum Current %PO Fair (50-74%) Estimated Nutritional Goals BEE in Kcals: Using Current wt Calories/Kcals/Kg 30-35 kcals/kg (with consideration of sepsis) Kcals Calculated 7093-0982 kcals/day Protein: Using Current wt Protein g/k.2-1.5 gm/kg (with consideration of sepsis) Protein Calculated 93-117 gm/day Fluid: ml 1706-0179 ml/day (30-35 ml/kg) hydration maintenance Nutritional Problem 1. Problem Problem Increased energy/protein needs related to Etiology hypermetabolism as evidenced by Signs/Symptoms: diagnosis of septic shock. Malnutrition Alert Is there a minimum of two criteria No selected? Query Text:Check all the applicable criteria. A minimum of two criteria are recommended for diagnosis of either severe or non-severe malnutrition. Malnutrition Related to Morbid Obesity Malnutrition related to morbid obesity No Intervention/Recommendation Recommendations by RD Protein supplementation Comments 1. Continue with low sodium diet, as tolerated. Current diet is appropriate to meet estimated nutritional needs. 2. Recommend Boost supplement TID at meals to help promote nutritional intake and improve appetite. Expected Outcomes/Goals Expected Outcomes/Goals Have pt meet at least 75% of estimated nutritional needs. Physician Parameters for PEM Normal Weight % 90% - 110% (Normal) Body Mass Index (BMI) 19 - 24 (Normal) Serum Albumin (g/dl) 3.1 - 3.4 (Mild) 12/01/16 09:59 Dietitian Notes by Roberta Licea Nutrition Note Initial Nutrition Assessment completed by Roberta Licea on 12/01/16. Please refer to nutrition assessment under Patient Care tab of EMR. Nutrition Recommendations: 1. Continue with low sodium diet, as tolerated. Current diet is appropriate to meet estimated nutritional needs. 2. Recommend Boost supplement TID at meals to help promote nutritional intake and improve appetite. F/U in 3-5 days as Moderate risk, 12/04-12/06. Initialized on 12/01/16 09:59 - END OF NOTE
[2016-12-04] MEDS: Atorvastatin Calcium 10 MG TAB PO SCH (21:32)
--- NOTE | 2016-12-04 23:39 | Progress Notes ---
SUBJECTIVE: Chart reviewed and the patient interviewed. Also discussed the patient's condition with the staff and reviewed records and labs. The patient is confused and he is very agitated and restless. Patient also is ____ with her feet. The patient also is still unable to answer any of my questions currently. Restless and thought processes are circumstantial with flight of ideas. He also unable to follow any of my directions. ASSESSMENT: The patient is still psychotic and agitated and can be dangerous to self and others. TREATMENT PLAN: We will continue monitoring his behavior and his condition closely. Also, we will increase Seroquel to 100 mg twice a day and we will add Klonopin 0.5 mg twice a day and we will continue monitoring his behavior and adjusting psychotropic medications. JOB# [id number]
[2016-12-05] MEDS: INSULIN ASPART SLIDING SCALE 100 UNITS/ML UNIT SUBQ SCH ×4 (08:41→22:00)
--- NOTE | 2016-12-05 09:01 | General Progress Note ---
Subjective - Review of Systems Service Date: 12/05/16 Subjective: no distress Objective - Results Result Diagrams: 12/03/16 06:48 12/03/16 06:48 Recent Labs: Laboratory Last Values WBC 9.6 Th/cmm (4.8-10.8) 12/03/16 06:48 RBC 4.05 Mil/cmm (3.80-5.80) 12/03/16 06:48 Hgb 12.1 gm/dL (12.6-17.4) L 12/03/16 06:48 Hct 35.9 % (39.0-49.0) L 12/03/16 06:48 MCV 88.4 fl (80-99) 12/03/16 06:48 MCH 29.9 pg (27.0-31.0) 12/03/16 06:48 MCHC Differential 33.8 pg (28.0-36.0) 12/03/16 06:48 RDW 14.3 % (11.5-20.0) 12/03/16 06:48 Plt Count 179 Th/cmm (150-400) 12/03/16 06:48 MPV 7.8 fl 12/03/16 06:48 Neutrophils % 70.9 % (40.0-80.0) 12/03/16 06:48 Band Neutrophils % 1 % (0-10) 11/30/16 04:38 Lymphocytes % 17.6 % (20.0-50.0) L 12/03/16 06:48 Monocytes % 9.0 % (2.0-10.0) 12/03/16 06:48 Eosinophils % 1.8 % (0.0-5.0) 12/03/16 06:48 Basophils % 0.7 % (0.0-2.0) 12/03/16 06:48 Neutrophils (Manual) 82 % (40-80) H 11/30/16 04:38 Lymphocytes 15 % (20-50) L 11/30/16 04:38 Monocytes 1 % (2-10) L 11/30/16 04:38 Eosinophils 1 % (0-5) 11/30/16 04:38 Platelet Estimate ADEQUATE (NORMAL) 11/30/16 04:38 Platelet Morphology NORMAL (NORMAL) 11/30/16 04:38 RBC Morph Micro Appear NORMAL (NORMAL) 11/30/16 04:38 PT 10.7 SECONDS (9.5-11.5) 11/30/16 00:11 INR 1.03 (0.5-1.4) 11/30/16 00:11 PTT (Actin FS) 25.5 SECONDS (26.0-38.0) L 11/30/16 00:11 Sodium 139 mEq/L (136-145) 12/03/16 06:48 Potassium 3.9 mEq/L (3.5-5.1) 12/03/16 06:48 Chloride 103 mEq/L (98-107) 12/03/16 06:48 Carbon Dioxide 28.3 mEq/L (21.0-31.0) 12/03/16 06:48 Anion Gap 11.6 (7.0-16.0) 12/03/16 06:48 BUN 7 mg/dL (7-25) 12/03/16 06:48 Creatinine 0.8 mg/dL (0.7-1.3) 12/03/16 06:48 Est GFR ( Amer) TNP 12/03/16 06:48 Est GFR (Non-Af Amer) TNP 12/03/16 06:48 BUN/Creatinine Ratio 8.8 12/03/16 06:48 Glucose 107 mg/dL (70-105) H 12/03/16 06:48 POC Glucose 113 MG/DL (70 - 105) H 12/05/16 08:31 Whole Bld Lactic Acid 0.97 mmol/L (0.60-1.99) 11/30/16 11:13 Calcium 9.0 mg/dL (8.6-10.3) 12/03/16 06:48 Total Bilirubin 0.3 mg/dL (0.3-1.0) 11/29/16 22:00 AST 14 U/L (13-39) 11/29/16 22:00 ALT 13 U/L (7-52) 11/29/16 22:00 Alkaline Phosphatase 54 U/L (34-104) 11/29/16 22:00 Creatine Kinase 26 U/L (30-223) L 11/29/16 22:00 Troponin I 0.01 ng/mL (0.01-0.05) 12/01/16 22:05 Total Protein 6.3 gm/dL (6.0-8.3) 11/29/16 22:00 Albumin 3.3 gm/dL (4.2-5.5) L 11/29/16 22:00 Globulin 3.0 gm/dL 11/29/16 22:00 Albumin/Globulin Ratio 1.1 (1.0-1.8) 11/29/16 22:00 Triglycerides 85 mg/dL (<150) 12/01/16 04:33 Cholesterol 121 mg/dL (<200) 12/01/16 04:33 LDL Cholesterol Direct 68 mg/dL (75-193) L 12/01/16 04:33 HDL Cholesterol 38 mg/dL (23-92) 12/01/16 04:33 Thyroxine (T4) 5.72 ug/dl (6.09-12.23) L 12/01/16 04:33 Reverse T3 < 0.10 ng/mL (0.87-1.78) L 12/01/16 04:33 TSH 1.41 uIU/ml (0.34-5.60) 12/01/16 04:33 Urine Source CLEAN C 11/29/16 23:55 Urine Color YELLOW 11/29/16 23:55 Urine Clarity HAZY (CLEAR) 11/29/16 23:55 Urine pH 5.5 11/29/16 23:55 Ur Specific [place] 1.020 (1.005-1.030) 11/29/16 23:55 Urine Protein 30 mg/dL (NEGATIVE) H 11/29/16 23:55 Urine Glucose (UA) NEGATIVE mg/dL (NEGATIVE) 11/29/16 23:55 Urine Ketones NEGATIVE mg/dL (NEGATIVE) 11/29/16 23:55 Urine Blood MODERATE (NEGATIVE) H 11/29/16 23:55 Urine Nitrate NEGATIVE (NEGATIVE) 11/29/16 23:55 Urine Bilirubin NEGATIVE (NEGATIVE) 11/29/16 23:55 Urine Urobilinogen 0.2 E.U./dL (0.2 - 1.0) 11/29/16 23:55 Ur Leukocyte Esterase NEGATIVE (NEGATIVE) 11/29/16 23:55 Urine RBC 25-50 /hpf (0-5) H 11/29/16 23:55 Urine WBC 2-5 /hpf (0-5) H 11/29/16 23:55 Ur Epithelial Cells FEW /lpf (FEW) 11/29/16 23:55 Urine Bacteria FEW /hpf (NONE SEEN) 11/29/16 23:55 Vancomycin Trough 15.9 ug/mL (10-20) 12/02/16 20:00 - Physical Exam Vitals and I&O: Vital Signs Temp 98 F 12/05/16 06:00 Pulse 53 12/05/16 06:00 Resp 18 12/05/16 06:00 BP 125/69 12/05/16 06:00 Pulse Ox 97 12/05/16 00:00 Intake & Output 12/04/16 12/05/16 12/05/16 18:59 06:59 18:59 Intake Total 1150 550 Output Total 1200 Balance -50 550 Intake: Intake, IV Amount 450 350 Piperacillin Sodium/ 200 100 Tazobact 4.5 gm In Sodium Chloride 0.9% 100 ml @ 100 mls/hr IV Q6HR [facility] Rx #:[id number] Vancomycin HCl 0.75 gm In 250 250 Sodium Chloride 0.9% 250 ml @ 165 mls/hr IV Q12HR [facility] Rx#:[id number] Oral 700 200 Output: Urine 1200 Active Medications: Current Medications Acetaminophen (Tylenol) 650 mg PO Q4HR PRN PRN Reason: Pain or Fever >101 Stop: 01/29/17 01:44 Last Admin: 12/04/16 16:32 Dose: 650 mg Al Hydrox/Mg Hydrox/Simethicone (Maalox) 30 ml PO Q4HR PRN PRN Reason: GI DISTRESS Stop: 01/29/17 01:44 Ascorbic Acid (Vitamin C) 500 mg PO BID [facility] Stop: 01/29/17 08:59 Last Admin: 12/04/16 09:48 Dose: 500 mg Atorvastatin Calcium (Lipitor) 10 mg PO HS [facility] PRN Reason: Protocol Stop: 01/29/17 20:59 Last Admin: 12/04/16 21:32 Dose: 10 mg Clonazepam (Klonopin) 0.5 mg PO BID [facility] PRN Reason: Protocol Stop: 02/02/17 16:59 Clopidogrel Bisulfate (Plavix) 75 mg PO DAILY [facility] Stop: 01/29/17 08:59 Last Admin: 12/04/16 09:48 Dose: 75 mg Divalproex Sodium (Depakote Dr) 250 mg PO BID [facility] PRN Reason: Protocol Stop: 01/29/17 08:59 Last Admin: 12/04/16 16:29 Dose: 250 mg Docusate Sodium (Colace) 100 mg PO DAILY PRN PRN Reason: Constipation Stop: 01/29/17 01:44 Ferrous Sulfate (Iron) 325 mg PO DAILY [facility] Stop: 01/30/17 08:59 Last Admin: 12/04/16 09:48 Dose: 325 mg Haloperidol Lactate (Haldol) 5 mg IVP Q8HR PRN PRN Reason: Agitation Stop: 01/29/17 01:56 Last Admin: 12/04/16 16:33 Dose: 5 mg Norepinephrine Bitartrate 4 mg (/ Dextrose) 254 mls @ 0 mls/hr IV TITR PRN; Protocol; Per Protocol PRN Reason: BP MAINTENANCE (PER PROTOCOL) Stop: 01/29/17 00:13 Piperacillin Sod/Tazobactam (Sod 4.5 gm/ Sodium Chloride) 100 mls @ 100 mls/hr IV Q6HR [facility] Stop: 01/29/17 05:59 Last Admin: 12/05/16 06:06 Dose: 100 mls/hr Sodium Chloride (Nacl 0.9%) 1,000 mls @ 75 mls/hr IV .[id number] [facility] Stop: 01/29/17 01:59 Last Admin: 12/03/16 16:46 Dose: 75 mls/hr Vancomycin HCl 0.75 gm/ Sodium (Chloride) 250 mls @ 165 mls/hr IV Q12HR [facility] Stop: 01/31/17 10:29 Last Infusion: 12/04/16 23:03 Dose: Infused Insulin Aspart (Novolog Insulin Sliding Scale) 0 units SUBQ ACHS [facility] PRN Reason: Protocol Stop: 01/30/17 07:29 Last Admin: 12/05/16 08:41 Dose: Not Given Lactobacillus Rhamnosus (Culturelle) 1 each PO DAILY [facility] Stop: 01/30/17 08:59 Last Admin: 12/04/16 09:48 Dose: 1 each Lorazepam (Ativan) 1 mg IVP Q4HR PRN; Protocol PRN Reason: Agitation Stop: 01/30/17 08:14 Last Admin: 12/04/16 21:32 Dose: 1 mg Magnesium Hydroxide (Milk Of Magnesia) 30 ml PO HS PRN PRN Reason: Constipation Stop: 01/30/17 02:05 Last Admin: 12/01/16 17:29 Dose: 30 ml Memantine (Namenda) 10 mg PO DAILY [facility] Stop: 01/30/17 08:59 Last Admin: 12/04/16 09:48 Dose: 10 mg Metformin HCl (Glucophage) 500 mg PO BIDWM [facility] Stop: 01/30/17 07:59 Last Admin: 12/04/16 17:02 Dose: 500 mg Metoprolol Succinate (Toprol Xl) 25 mg PO BID [facility] Stop: 01/30/17 08:59 Last Admin: 12/04/16 16:29 Dose: 25 mg Miscellaneous (Vancomycin Iv Per Pharmacy) 1 ea PRN [facility] Stop: 01/29/17 01:59 Miscellaneous (Probiotic Screen) 1 ea PRN PRN PRN Reason: PROTOCOL Stop: 01/29/17 14:36 Multivitamins/Vitamin C (Theragran) 1 tab PO DAILY [facility] Stop: 01/30/17 08:59 Last Admin: 12/04/16 09:48 Dose: 1 tab Quetiapine Fumarate (Seroquel) 150 mg PO HS [facility] Stop: 01/30/17 20:59 Last Admin: 12/04/16 21:32 Dose: 150 mg Quetiapine Fumarate (Seroquel) 100 mg PO BID [facility] PRN Reason: Protocol Stop: 01/30/17 08:59 Last Admin: 12/04/16 16:30 Dose: 100 mg Senna (Senna) 8.6 mg PO [facility] Stop: 01/30/17 20:59 Last Admin: 12/04/16 21:32 Dose: 8.6 mg Zinc Sulfate (Zinc Sulfate) 220 mg PO DAILY [facility] Stop: 01/30/17 08:59 Last Admin: 12/04/16 09:48 Dose: 220 mg General: No acute distress HEENT: Atraumatic Neck: Supple Cardiovascular: Regular rate Abdomen: Bowel sounds - Procedures Procedures: Procedures Procedure Code Date REPAIR FACE SKIN, EXTERNAL APPROACH [id number] 11/30/16 RPR F/E/E/N/L/M 2.5 CM/< 70077 11/30/16 Assessment/Plan - Problem List Patient Problems: All Active Problems dm (Acute) htn (Acute) sepsis (Acute) POOR ORAL INTAKE WITH AGITATION (Acute) encephalopathy (Acute) psychosis (Acute) - Plan Plan: monitor vitals/diet labs f/up consultants review meds Nutritional Asmnt/Malnutr-PDOC - Dietary Evaluation Malnutrition Findings (Please click <Entered> for more info): Nutritional Asmnt/Malnutrition Start: 12/01/16 09: 45 Text: Status: Complete Freq: Document 12/01/16 09:45 [facility] (Rec: 12/01/16 10:00 [facility] [id number]) Nutritional Asmnt/Malnutrition Patient General Information Nutritional Screening High Risk Screening Diagnosis Septic shock unknown source, closed head injury, forehead laceration x2 Pertinent Medical Hx/Surgical Hx HTN, DM, dyslipidemia, dementia, schizophrenia, bipolar Subjective Information Pt is a 76-year-old male admitted with chief complaint of head injury s/p mechanical fall. Pt was easily arousable and a fair to poor historian. Pt was able to follow commands and answer most questions; redirection needed. Pt appears well nourished with no signs of muscle or fat depletion assessed to shoulders or chest . Age-appropriate temporal wasting observed. Pt reports he ate all of breakfast this morning and "food is okay." RD verified that pt only ate 50% of breakfast. RD measured pt' s wt today via bedscale. Per MD progress note, sepsis is improving. Pt is not an appropriate historian for diet education at this time. Current Diet Order/ Nutrition Support Regular, low sodium Patient / S.O Can't verbalize diet edu Pertinent Medications Vitamin C, Lipitor, Depakote, Iron, Haldol PRN, Novolog, Culturelle, Glucophage, Vancomycin, Theragran, Zosyn, Seroquel, Vancomycin Pertinent Labs Reviewed, Creatinine levels improved to be WNL Nutritional Hx/Data Height 1.83 m Height (Calculated Centimeters) 182.9 Current Weight (lbs) 77.519 kg Weight (Calculated Kilograms) 77.5 Weight (Calculated Grams) 94348.9 Usual body Weight (lbs) 167 % Usual Body Weight 102 [place] Body Weight 178 % [place] Body Weight 96 Recent Weight Change No Weight Status Approriate GI Symptoms GI Symptoms None Food Allergies No Cultural/Ethnic/[place] Belief No preferences provided. Usual diet at home Regular diet Skin Integrity/Comment: Tito 14. Lacerations x2 to forehead, rash to sacrum Current %PO Fair (50-74%) Estimated Nutritional Goals BEE in Kcals: Using Current wt Calories/Kcals/Kg 30-35 kcals/kg (with consideration of sepsis) Kcals Calculated 8008-6465 kcals/day Protein: Using Current wt Protein g/k.2-1.5 gm/kg (with consideration of sepsis) Protein Calculated 93-117 gm/day Fluid: ml 9222-5988 ml/day (30-35 ml/kg) hydration maintenance Nutritional Problem 1. Problem Problem Increased energy/protein needs related to Etiology hypermetabolism as evidenced by Signs/Symptoms: diagnosis of septic shock. Malnutrition Alert Is there a minimum of two criteria No selected? Query Text:Check all the applicable criteria. A minimum of two criteria are recommended for diagnosis of either severe or non-severe malnutrition. Malnutrition Related to Morbid Obesity Malnutrition related to morbid obesity No Intervention/Recommendation Recommendations by RD Protein supplementation Comments 1. Continue with low sodium diet, as tolerated. Current diet is appropriate to meet estimated nutritional needs. 2. Recommend Boost supplement TID at meals to help promote nutritional intake and improve appetite. Expected Outcomes/Goals Expected Outcomes/Goals Have pt meet at least 75% of estimated nutritional needs. Physician Parameters for PEM Normal Weight % 90% - 110% (Normal) Body Mass Index (BMI) 19 - 24 (Normal) Serum Albumin (g/dl) 3.1 - 3.4 (Mild) 12/01/16 09:59 Dietitian Notes by Roberta Licea Nutrition Note Initial Nutrition Assessment completed by Roberta Licea on 12/01/16. Please refer to nutrition assessment under Patient Care tab of EMR. Nutrition Recommendations: 1. Continue with low sodium diet, as tolerated. Current diet is appropriate to meet estimated nutritional needs. 2. Recommend Boost supplement TID at meals to help promote nutritional intake and improve appetite. F/U in 3-5 days as Moderate risk, 12/04-12/06. Initialized on 12/01/16 09:59 - END OF NOTE
[2016-12-05] MEDS: Multivitamin Tab PO SCH (09:11)
[2016-12-05] MEDS: Lactobacillus Rhamnosus 10 Billion CFU Capsule PO SCH (09:12)
[2016-12-05] MEDS: Ferrous Sulfate 325 MG TAB PO SCH (09:13)
[2016-12-05] MEDS: Sodium Chloride 0.9% 1,000 ML IV SCH (09:41)
[2016-12-05] MEDS: Atorvastatin Calcium 10 MG TAB PO SCH (21:44)
--- NOTE | 2016-12-05 23:52 | Progress Notes ---
SUBJECTIVE: Chart reviewed and the patient interviewed. Also discussed the patient's condition with the staff and reviewed records and labs. The patient continued to be confused and severely agitated and restless. The patient also is still having difficulty in following directions. He is still fighting with restraints and with metals. The patient also is trying to get off the bed and exposing himself to the dangerous situations. The patient also is still talking to himself. ASSESSMENT: The patient is still aggressive and is still agitated. TREATMENT PLAN: We will monitor his behavior and his condition closely. Also, we will increase Seroquel to 150 mg twice a day and 200 mg at bedtime. Also, we will increase Klonopin to 1 mg 3 times a day hopefully to help with his severe aggressive behavior and his agitation and confusion, and we will continue to follow up. JOB# [id number]
[2016-12-06] MEDS: Sodium Chloride 0.9% 1,000 ML IV SCH (05:57)
[2016-12-06] MEDS: INSULIN ASPART SLIDING SCALE 100 UNITS/ML UNIT SUBQ SCH ×3 (06:52→17:37)
--- NOTE | 2016-12-06 08:22 | General Progress Note ---
Subjective - Review of Systems Subjective: no distress Objective - Results Result Diagrams: 12/03/16 06:48 12/03/16 06:48 Recent Labs: Laboratory Last Values WBC 9.6 Th/cmm (4.8-10.8) 12/03/16 06:48 RBC 4.05 Mil/cmm (3.80-5.80) 12/03/16 06:48 Hgb 12.1 gm/dL (12.6-17.4) L 12/03/16 06:48 Hct 35.9 % (39.0-49.0) L 12/03/16 06:48 MCV 88.4 fl (80-99) 12/03/16 06:48 MCH 29.9 pg (27.0-31.0) 12/03/16 06:48 MCHC Differential 33.8 pg (28.0-36.0) 12/03/16 06:48 RDW 14.3 % (11.5-20.0) 12/03/16 06:48 Plt Count 179 Th/cmm (150-400) 12/03/16 06:48 MPV 7.8 fl 12/03/16 06:48 Neutrophils % 70.9 % (40.0-80.0) 12/03/16 06:48 Band Neutrophils % 1 % (0-10) 11/30/16 04:38 Lymphocytes % 17.6 % (20.0-50.0) L 12/03/16 06:48 Monocytes % 9.0 % (2.0-10.0) 12/03/16 06:48 Eosinophils % 1.8 % (0.0-5.0) 12/03/16 06:48 Basophils % 0.7 % (0.0-2.0) 12/03/16 06:48 Neutrophils (Manual) 82 % (40-80) H 11/30/16 04:38 Lymphocytes 15 % (20-50) L 11/30/16 04:38 Monocytes 1 % (2-10) L 11/30/16 04:38 Eosinophils 1 % (0-5) 11/30/16 04:38 Platelet Estimate ADEQUATE (NORMAL) 11/30/16 04:38 Platelet Morphology NORMAL (NORMAL) 11/30/16 04:38 RBC Morph Micro Appear NORMAL (NORMAL) 11/30/16 04:38 PT 10.7 SECONDS (9.5-11.5) 11/30/16 00:11 INR 1.03 (0.5-1.4) 11/30/16 00:11 PTT (Actin FS) 25.5 SECONDS (26.0-38.0) L 11/30/16 00:11 Sodium 139 mEq/L (136-145) 12/03/16 06:48 Potassium 3.9 mEq/L (3.5-5.1) 12/03/16 06:48 Chloride 103 mEq/L (98-107) 12/03/16 06:48 Carbon Dioxide 28.3 mEq/L (21.0-31.0) 12/03/16 06:48 Anion Gap 11.6 (7.0-16.0) 12/03/16 06:48 BUN 7 mg/dL (7-25) 12/03/16 06:48 Creatinine 0.8 mg/dL (0.7-1.3) 12/03/16 06:48 Est GFR ( Amer) TNP 12/03/16 06:48 Est GFR (Non-Af Amer) TNP 12/03/16 06:48 BUN/Creatinine Ratio 8.8 12/03/16 06:48 Glucose 107 mg/dL (70-105) H 12/03/16 06:48 POC Glucose 105 MG/DL (70 - 105) 12/06/16 06:32 Whole Bld Lactic Acid 0.97 mmol/L (0.60-1.99) 11/30/16 11:13 Calcium 9.0 mg/dL (8.6-10.3) 12/03/16 06:48 Total Bilirubin 0.3 mg/dL (0.3-1.0) 11/29/16 22:00 AST 14 U/L (13-39) 11/29/16 22:00 ALT 13 U/L (7-52) 11/29/16 22:00 Alkaline Phosphatase 54 U/L (34-104) 11/29/16 22:00 Creatine Kinase 26 U/L (30-223) L 11/29/16 22:00 Troponin I 0.01 ng/mL (0.01-0.05) 12/01/16 22:05 Total Protein 6.3 gm/dL (6.0-8.3) 11/29/16 22:00 Albumin 3.3 gm/dL (4.2-5.5) L 11/29/16 22:00 Globulin 3.0 gm/dL 11/29/16 22:00 Albumin/Globulin Ratio 1.1 (1.0-1.8) 11/29/16 22:00 Triglycerides 85 mg/dL (<150) 12/01/16 04:33 Cholesterol 121 mg/dL (<200) 12/01/16 04:33 LDL Cholesterol Direct 68 mg/dL (75-193) L 12/01/16 04:33 HDL Cholesterol 38 mg/dL (23-92) 12/01/16 04:33 Thyroxine (T4) 5.72 ug/dl (6.09-12.23) L 12/01/16 04:33 Reverse T3 < 0.10 ng/mL (0.87-1.78) L 12/01/16 04:33 TSH 1.41 uIU/ml (0.34-5.60) 12/01/16 04:33 Urine Source CLEAN C 11/29/16 23:55 Urine Color YELLOW 11/29/16 23:55 Urine Clarity HAZY (CLEAR) 11/29/16 23:55 Urine pH 5.5 11/29/16 23:55 Ur Specific [place] 1.020 (1.005-1.030) 11/29/16 23:55 Urine Protein 30 mg/dL (NEGATIVE) H 11/29/16 23:55 Urine Glucose (UA) NEGATIVE mg/dL (NEGATIVE) 11/29/16 23:55 Urine Ketones NEGATIVE mg/dL (NEGATIVE) 11/29/16 23:55 Urine Blood MODERATE (NEGATIVE) H 11/29/16 23:55 Urine Nitrate NEGATIVE (NEGATIVE) 11/29/16 23:55 Urine Bilirubin NEGATIVE (NEGATIVE) 11/29/16 23:55 Urine Urobilinogen 0.2 E.U./dL (0.2 - 1.0) 11/29/16 23:55 Ur Leukocyte Esterase NEGATIVE (NEGATIVE) 11/29/16 23:55 Urine RBC 25-50 /hpf (0-5) H 11/29/16 23:55 Urine WBC 2-5 /hpf (0-5) H 11/29/16 23:55 Ur Epithelial Cells FEW /lpf (FEW) 11/29/16 23:55 Urine Bacteria FEW /hpf (NONE SEEN) 11/29/16 23:55 Vancomycin Trough 15.9 ug/mL (10-20) 12/02/16 20:00 - Physical Exam Vitals and I&O: Vital Signs Temp 97.2 F 12/06/16 04:00 Pulse 64 12/06/16 04:00 Resp 19 12/06/16 04:00 BP 98/60 12/06/16 04:00 Pulse Ox 97 12/06/16 04:00 Intake & Output 12/05/16 12/06/16 12/06/16 18:59 06:59 18:59 Intake Total 2000 1800 Output Total 1200 800 Balance 800 1000 Intake: Intake, IV Amount 450 1100 Piperacillin Sodium/ 200 100 Tazobact 4.5 gm In Sodium Chloride 0.9% 100 ml @ 100 mls/hr IV Q6HR [facility] Rx #:[id number] Sodium Chloride 0.9% 1, 1000 000 ml @ 75 mls/hr IV . [id number] [facility] Rx#:[id number] Vancomycin HCl 0.75 gm In 250 Sodium Chloride 0.9% 250 ml @ 165 mls/hr IV Q12HR [facility] Rx#:[id number] Oral 1550 250 Other 450 Output: Urine 1200 800 Other: # Bowel Movements 2 Active Medications: Current Medications Acetaminophen (Tylenol) 650 mg PO Q4HR PRN PRN Reason: Pain or Fever >101 Stop: 01/29/17 01:44 Last Admin: 12/04/16 16:32 Dose: 650 mg Al Hydrox/Mg Hydrox/Simethicone (Maalox) 30 ml PO Q4HR PRN PRN Reason: GI DISTRESS Stop: 01/29/17 01:44 Ascorbic Acid (Vitamin C) 500 mg PO BID [facility] Stop: 01/29/17 08:59 Last Admin: 12/05/16 16:47 Dose: 500 mg Atorvastatin Calcium (Lipitor) 10 mg PO HS [facility] PRN Reason: Protocol Stop: 01/29/17 20:59 Last Admin: 12/05/16 21:44 Dose: 10 mg Clonazepam (Klonopin) 1 mg PO TID [facility] PRN Reason: Protocol Stop: 02/03/17 13:59 Last Admin: 12/05/16 21:43 Dose: 1 mg Clopidogrel Bisulfate (Plavix) 75 mg PO DAILY [facility] Stop: 01/29/17 08:59 Last Admin: 12/05/16 09:11 Dose: 75 mg Divalproex Sodium (Depakote Dr) 250 mg PO BID [facility] PRN Reason: Protocol Stop: 01/29/17 08:59 Last Admin: 12/05/16 16:47 Dose: 250 mg Docusate Sodium (Colace) 100 mg PO DAILY PRN PRN Reason: Constipation Stop: 01/29/17 01:44 Ferrous Sulfate (Iron) 325 mg PO DAILY [facility] Stop: 01/30/17 08:59 Last Admin: 12/05/16 09:13 Dose: 325 mg Haloperidol Lactate (Haldol) 5 mg IVP Q8HR PRN PRN Reason: Agitation Stop: 01/29/17 01:56 Last Admin: 12/04/16 16:33 Dose: 5 mg Norepinephrine Bitartrate 4 mg (/ Dextrose) 254 mls @ 0 mls/hr IV TITR PRN; Protocol; Per Protocol PRN Reason: BP MAINTENANCE (PER PROTOCOL) Stop: 01/29/17 00:13 Piperacillin Sod/Tazobactam (Sod 4.5 gm/ Sodium Chloride) 100 mls @ 100 mls/hr IV Q6HR [facility] Stop: 01/29/17 05:59 Last Admin: 12/06/16 05:51 Dose: 100 mls/hr Sodium Chloride (Nacl 0.9%) 1,000 mls @ 75 mls/hr IV .[id number] [facility] Stop: 01/29/17 01:59 Last Admin: 12/06/16 05:57 Dose: 75 mls/hr Vancomycin HCl 0.75 gm/ Sodium (Chloride) 250 mls @ 165 mls/hr IV Q12HR [facility] Stop: 01/31/17 10:29 Last Admin: 12/05/16 21:47 Dose: 165 mls/hr Insulin Aspart (Novolog Insulin Sliding Scale) 0 units SUBQ ACHS [facility] PRN Reason: Protocol Stop: 01/30/17 07:29 Last Admin: 12/06/16 06:52 Dose: Not Given Lactobacillus Rhamnosus (Culturelle) 1 each PO DAILY [facility] Stop: 01/30/17 08:59 Last Admin: 12/05/16 09:12 Dose: 1 each Lorazepam (Ativan) 1 mg IVP Q4HR PRN; Protocol PRN Reason: Agitation Stop: 01/30/17 08:14 Last Admin: 12/04/16 21:32 Dose: 1 mg Magnesium Hydroxide (Milk Of Magnesia) 30 ml PO HS PRN PRN Reason: Constipation Stop: 01/30/17 02:05 Last Admin: 12/01/16 17:29 Dose: 30 ml Memantine (Namenda) 10 mg PO DAILY [facility] Stop: 01/30/17 08:59 Last Admin: 12/05/16 09:12 Dose: 10 mg Metformin HCl (Glucophage) 500 mg PO BIDWM [facility] Stop: 01/30/17 07:59 Last Admin: 12/05/16 09:12 Dose: 500 mg Metoprolol Succinate (Toprol Xl) 25 mg PO BID [facility] Stop: 01/30/17 08:59 Last Admin: 12/05/16 16:51 Dose: 25 mg Miscellaneous (Probiotic Screen) 1 ea [facility] PRN PRN PRN Reason: PROTOCOL Stop: 01/29/17 14:36 Multivitamins/Vitamin C (Theragran) 1 tab PO DAILY [facility] Stop: 01/30/17 08:59 Last Admin: 12/05/16 09:11 Dose: 1 tab Quetiapine Fumarate (Seroquel) 100 mg PO BID [facility] PRN Reason: Protocol Stop: 01/30/17 08:59 Last Admin: 12/05/16 16:48 Dose: 100 mg Quetiapine Fumarate (Seroquel) 200 mg PO HS [facility] Stop: 02/03/17 11:14 Last Admin: 12/05/16 21:47 Dose: 200 mg Senna (Senna) 8.6 mg PO HS [facility] Stop: 01/30/17 20:59 Last Admin: 12/05/16 21:47 Dose: 8.6 mg Zinc Sulfate (Zinc Sulfate) 220 mg PO DAILY [facility] Stop: 01/30/17 08:59 Last Admin: 12/05/16 09:11 Dose: 220 mg - Procedures Procedures: Procedures Procedure Code Date REPAIR FACE SKIN, EXTERNAL APPROACH [id number] 11/30/16 RPR F/E/E/N/L/M 2.5 CM/< 14119 11/30/16 Assessment/Plan - Problem List Patient Problems: All Active Problems dm (Acute) htn (Acute) sepsis (Acute) POOR ORAL INTAKE WITH AGITATION (Acute) encephalopathy (Acute) psychosis (Acute) - Plan Plan: monitor vitals/diet labs f/up consultants review meds Nutritional Asmnt/Malnutr-PDOC - Dietary Evaluation Malnutrition Findings (Please click <Entered> for more info): Nutritional Asmnt/Malnutrition Start: 12/01/16 09: 45 Text: Status: Complete Freq: Document 12/01/16 09:45 [facility] (Rec: 12/01/16 10:00 [facility] [id number]) Nutritional Asmnt/Malnutrition Patient General Information Nutritional Screening High Risk Screening Diagnosis Septic shock unknown source, closed head injury, forehead laceration x2 Pertinent Medical Hx/Surgical Hx HTN, DM, dyslipidemia, dementia, schizophrenia, bipolar Subjective Information Pt is a 76-year-old male admitted with chief complaint of head injury s/p mechanical fall. Pt was easily arousable and a fair to poor historian. Pt was able to follow commands and answer most questions; redirection needed. Pt appears well nourished with no signs of muscle or fat depletion assessed to shoulders or chest . Age-appropriate temporal wasting observed. Pt reports he ate all of breakfast this morning and "food is okay." RD verified that pt only ate 50% of breakfast. RD measured pt' s wt today via bedscale. Per MD progress note, sepsis is improving. Pt is not an appropriate historian for diet education at this time. Current Diet Order/ Nutrition Support Regular, low sodium Patient / S.O Can't verbalize diet edu Pertinent Medications Vitamin C, Lipitor, Depakote, Iron, Haldol PRN, Novolog, Culturelle, Glucophage, Vancomycin, Theragran, Zosyn, Seroquel, Vancomycin Pertinent Labs Reviewed, Creatinine levels improved to be WNL Nutritional Hx/Data Height 1.83 m Height (Calculated Centimeters) 182.9 Current Weight (lbs) 77.519 kg Weight (Calculated Kilograms) 77.5 Weight (Calculated Grams) 89178.9 Usual body Weight (lbs) 167 % Usual Body Weight 102 [place] Body Weight 178 % [place] Body Weight 96 Recent Weight Change No Weight Status Approriate GI Symptoms GI Symptoms None Food Allergies No Cultural/Ethnic/Moravian Belief No preferences provided. Usual diet at home Regular diet Skin Integrity/Comment: Tito 14. Lacerations x2 to forehead, rash to sacrum Current %PO Fair (50-74%) Estimated Nutritional Goals BEE in Kcals: Using Current wt Calories/Kcals/Kg 30-35 kcals/kg (with consideration of sepsis) Kcals Calculated 8924-8154 kcals/day Protein: Using Current wt Protein g/k.2-1.5 gm/kg (with consideration of sepsis) Protein Calculated 93-117 gm/day Fluid: ml 7712-3479 ml/day (30-35 ml/kg) hydration maintenance Nutritional Problem 1. Problem Problem Increased energy/protein needs related to Etiology hypermetabolism as evidenced by Signs/Symptoms: diagnosis of septic shock. Malnutrition Alert Is there a minimum of two criteria No selected? Query Text:Check all the applicable criteria. A minimum of two criteria are recommended for diagnosis of either severe or non-severe malnutrition. Malnutrition Related to Morbid Obesity Malnutrition related to morbid obesity No Intervention/Recommendation Recommendations by RD Protein supplementation Comments 1. Continue with low sodium diet, as tolerated. Current diet is appropriate to meet estimated nutritional needs. 2. Recommend Boost supplement TID at meals to help promote nutritional intake and improve appetite. Expected Outcomes/Goals Expected Outcomes/Goals Have pt meet at least 75% of estimated nutritional needs. Physician Parameters for PEM Normal Weight % 90% - 110% (Normal) Body Mass Index (BMI) 19 - 24 (Normal) Serum Albumin (g/dl) 3.1 - 3.4 (Mild) 12/01/16 09:59 Dietitian Notes by Roberta Licea Nutrition Note Initial Nutrition Assessment completed by Roberta Licea on 12/01/16. Please refer to nutrition assessment under Patient Care tab of EMR. Nutrition Recommendations: 1. Continue with low sodium diet, as tolerated. Current diet is appropriate to meet estimated nutritional needs. 2. Recommend Boost supplement TID at meals to help promote nutritional intake and improve appetite. F/U in 3-5 days as Moderate risk, 12/04-12/06. Initialized on 12/01/16 09:59 - END OF NOTE
[2016-12-06] MEDS: Multivitamin Tab PO SCH (09:48)
[2016-12-06] MEDS: Ferrous Sulfate 325 MG TAB PO SCH (09:49)
[2016-12-06] MEDS: Lactobacillus Rhamnosus 10 Billion CFU Capsule PO SCH (09:49)
--- NOTE | 2016-12-06 15:18 | Cardiology ---
Patient of Dr. Teddy Snyder. M-MODE ECHOCARDIOGRAM: Mitral valve, anterior leaflet of the mitral valve shows normal excursion, EF velocity. Posterior leaflet of the mitral valve shows normal excursion. Left ventricular posterior wall showed increased thickness, normal excursion. Interventricular septum shows increased thickness, normal excursion, minimal hypertrophy of the left ventricle, ejection fraction 55%. Left atrium normal. Aortic root shows normal dimension, normal excursion of aortic leaflets. CONCLUSION: Minimal hypertrophy of the left ventricle, ejection fraction 55%. 2D ECHO: Long axis view showed normal sized left ventricle with minimal hypertrophy of the left ventricle. Left atrium normal. Aortic root shows normal dimension, normal excursion of aortic leaflets. Short axis view of mitral valve normal. Short axis aortic valve normal. Apical four chamber view showed normal sized left ventricle with minimal hypertrophy of the left ventricle. Left atrium normal. Aortic root shows normal dimension, normal excursion of aortic leaflets. Short axis view of mitral valve normal. Short axis view of aortic valve normal. Apical four chamber view showed normal sized left ventricle with minimal hypertrophy of the left ventricle. Left atrium normal. Right ventricular cavity, right atrium normal, no pericardial effusion. CONCLUSION: Minimal hypertrophy of the left ventricle, ejection fraction 55%. Doppler study shows prominent area consistent with poor compliance of left ventricle, trace mitral regurgitation, trace tricuspid regurgitation. [facility]# [id number]
--- NOTE | 2016-12-07 03:42 | Progress Notes ---
SUBJECTIVE: Chart reviewed and the patient interviewed. Also discussed the patient's condition with the staff and reviewed records and labs. The patient is still agitated and in angry and irritable mood and confused, but seems to be less than before. Also, redirect him. The patient also is interacting more, but he is confused and unable to verbalize his feelings. He still needs lots of redirections and he still gets angry and agitated and aggressive easily. ASSESSMENT: The patient is still confused and psychotic. TREATMENT PLAN: I increased the Seroquel and Klonopin yesterday. Continue the same dose. Continue to monitor his behavior and follow up closely. JOB# [id number]
--- NOTE | 2016-12-16 19:44 | History & Physical ---
CHIEF COMPLAINT: Status post fall with head injury. HISTORY OF PRESENT ILLNESS: This is a 76-year-old male was resident of a residential facility who had an episode of ____ fall and apparently the patient had laceration of the head. The patient was brought in to the Emergency Room for further evaluation. A CT scan of the head came out negative, but unfortunately the patient's blood pressure dropped down between 80s-90s systolically and the patient also had increased confusion. REVIEW OF SYSTEMS: GENERAL: The patient is a poor historian. HEENT: Head: Contusion and laceration on the right forehead. EYES: No eye pain. NECK: No nuchal rigidity. CHEST: No chest pain and no palpitation. PULMONARY: No coughing. No shortness of breath. GASTROINTESTINAL: No diarrhea, no constipation and no abdominal pain. MUSCULOSKELETAL: Bilateral lower extremity muscle weakness and unsteady gait. PAST MEDICAL HISTORY: Includes dementia, hyperlipidemia, hypertension and iron-deficiency anemia. PSYCHIATRIC HISTORY: Includes bipolar disorder and schizophrenia. SOCIAL HISTORY: The patient lives in a residential facility. PAST SURGICAL HISTORY: Unremarkable. FAMILY HISTORY: Unremarkable. PHYSICAL EXAMINATION: EYES: No acute distress. HEENT: Head is atraumatic and normocephalic. EYES: Bilateral conjunctivae ____ from injection. NOSE: Bilateral nares are patent. NECK: Supple. No JVD. CARDIOVASCULAR: S1 and S2 heard without murmur. PULMONARY: Mild inspiratory wheezing noted. GASTROINTESTINAL: Soft and nontender without guarding. Positive bowel sounds. EXTREMITIES: No edema and no clubbing noted. ASSESSMENT: 1. Status post fall. 2. Head laceration. 3. Septic shock unknown etiology at this time. 4. Dementia. 5. Iron-deficiency anemia. 6. Bipolar. 7. Schizophrenia. 8. Diabetes. 9. Osteoarthritis. PLAN: We will admit the patient to intensive care unit to closely monitor the patient's blood pressure. We will get infectious disease consultation for management of the patient's antibiotics and we will also get a cardiovascular consult to rule out episode of possible syncopal episode. JOB# [id number]
--- NOTE | 2016-12-16 19:55 | Discharge Summary ---
HOSPITAL COURSE: The patient is admitted through the Emergency Room from a shelter facility for the patient had episode of ground level fall with that the patient sustained a forehead laceration. CT scan of the head was done in the Emergency Room which fortunately came out negative, but unfortunately the patient developed very low systolic blood pressure between 80s-90s. So, the patient was initially admitted to intensive care unit for monitoring of blood pressure and with diagnosis of sepsis. So, once the blood pressure was established, the patient was moved out from intensive care unit down to telemetry where the patient received a series of IV antibiotics for sepsis and the patient was discharged to ____ [facility] for continuity of care. JOB# [id number]
== END 2016-12-06 19:40 | DRG 871 ==
LOC: ER 21:50 → ICU 11-30 02:05 → TELE 12-02 15:15 → MSI 12-04 22:30
PROVIDERS: ADMIT Internal Medicine; ATTEND Internal Medicine
PROC: 0HQ1XZZ Repair Face Skin, External Approach (ICD-10-PCS; principal; 2016-11-29)
DX: A41.9 Sepsis, unspecified organism (principal); R65.21 Severe sepsis with septic shock; G93.40 Encephalopathy, unspecified; F03.91 Unspecified dementia, unspecified severity, with behavioral disturbance; E11.9 Type 2 diabetes mellitus without complications; I10 Essential (primary) hypertension; E78.5 Hyperlipidemia, unspecified; I25.10 Atherosclerotic heart disease of native coronary artery without angina pectoris; S01.81XA Laceration without foreign body of other part of head, initial encounter; W19.XXXA Unspecified fall, initial encounter; Y93.89 Activity, other specified; Y92.89 Other specified places as the place of occurrence of the external cause; Y99.8 Other external cause status; F31.9 Bipolar disorder, unspecified; F20.9 Schizophrenia, unspecified; F29 Unspecified psychosis not due to a substance or known physiological condition; Z95.1 Presence of aortocoronary bypass graft; Z79.4 Long term (current) use of insulin
CPT/HCPCS: 12011; G0168; 36415-UA; 70450-TC; 71010-TC; 80048-TC; 80053-TC; 80061-TC; 80202-TC; 81001-TC; 81003-TC; 82550-TC; 82948-90; 83605; 84436-TC; 84443-TC; 84479-TC; 84484-TC; 85007-TC; 85025-TC; 85027-TC; 85610-TC; 85730-TC; 87086-90; 93005; 94760; 96375; 97530; J0696; J1630; J1720; J1815; J2060; J2543; J2930; J3370; J7030; J7040; X3904; Z7502; Z7610